=== PATIENT | female | born 1935 | race Caucasian/White ===

== ENCOUNTER 2016-09-30 10:14 | Emergency (ER) | payer BC ==
[~2016-09-30] VITALS: Ht 149.9 cm; Wt 84.6 kg
[~2016-09-30 10:14] MED LIST: ALBU1AER9 INH; FRS/80 PO; MAGNTAB4 PO; MOME200A INH; TPRSR/50 PO; XLTOPS OPB; ZCR40 PO
[2016-09-30 10:22] VITALS: TEMP 36.8; Ht 149.9 cm; Wt 84.6 kg
[2016-09-30] MEDS ORDERED: VNTHFA/IN INH (10:39)
--- NOTE | 2016-09-30 10:48 | EMERGENCY ROOM VISIT NOTE ---
History Report prepared by Yony: Sanjuana Tejeda Under the Supervision of: Dr. Demarcus Martinez M.D. First contact with patient: 10:37 Chief Complaint: KNEEPAIN Stated Complaint: SORE LEFT LEG History of Present Illness The patient is a 81 year old female who presents to the Emergency Room with complaints of constant left knee pain, which she rates at an 8/10. The patient reports that she fell going up stairs one week ago. She has been taking Tylenol for her pain. The patient also reports having arthritis and that she gets injections in her knees. She denies having a history of blood clots. She reports that she is on Coumadin for atrial fibrillation. Source of History: patient Onset: 1 week ago Position: knee (left) Symptom Intensity: rated at an 8/10 Timing: constant Review of Systems See HPI for pertinent positives & negatives. A total of 6 systems reviewed and were otherwise negative. Past Medical & Surgical Medical Problems: (1) Asthma (2) Benign hypertension (3) Bronchitis (4) CHF (congestive heart failure) (5) Edema (6) GERD (gastroesophageal reflux disease) (7) Hiatal hernia (8) High cholesterol (9) CAROLYNN on CPAP (10) Paroxysmal atrial fibrillation (11) PNA (pneumonia) (12) s/p elective cardioversion (13) Seasonal allergies Surgical Problems: (1) H/O: hysterectomy (2) S/P cataract surgery Family History Cancer FH: hypertension Heart disease Social History Smoking Status: Never Smoker Alcohol Use: none Drug Use: none Marital Status: Housing Status: lives with significant other Occupation Status: employed Current/Historical Medications Scheduled Acetaminophen (Tylenol), 325 MG PO UD Albuterol Hfa (Ventolin Hfa), 2 PUFFS INH Q4H Amiodarone HCl (Amiodarone HCl), 200 MG PO DAILY Fluticasone Prop/Salmeterol (Advair Diskus 100/50 60 Dose), 1 PUFF INH BID Furosemide (Lasix), 80 MG PO BID Magnesium Chloride (Slow-Mag Tab), 64 MG PO BID Metoprolol Succinate (Metoprolol Succinate ER), 12.5 MG PO DAILY Omeprazole (Prilosec), 20 MG PO DAILY Potassium Chloride Microencaps (Potassium Chloride Er), 10 MEQ PO BID Ranitidine (Zantac), 300 MG PO HS Simvastatin (Simvastatin), 40 MG PO HS Warfarin Sodium (Warfarin Sodium), 5 MG PO 6XWK Warfarin Sodium (Warfarin Sodium), 7.5 MG PO WK Allergies Coded Allergies: Alcohol (Verified Allergy, Mild, RASH, 09/30/16) WIPES OR INGESTED Cephalosporins (Verified Allergy, Mild, RASH, 09/30/16) Codeine (Verified Allergy, Mild, RASH, 09/30/16) Penicillins (Verified Allergy, Mild, RASH, 09/30/16) Aspirin (Unverified Allergy, Unknown, RASH, 09/30/16) Levofloxacin (Verified Allergy, Unknown, "BONE PAIN", 09/30/16) Sulfa Antibiotics (Verified Allergy, Unknown, UNKNOWN, 09/30/16) Physical Exam Vital Signs Date Time Temp Pulse Resp B/P (MAP) Pulse Ox O2 Delivery O2 Flow Rate FiO2 09/30/16 11:35 67 17 158/74 95 09/30/16 10:22 36.8 63 16 165/78 95 Room Air Physical Exam GENERAL: Patient is well appearing and in minimal distress. HEENT: No acute trauma, normocephalic atraumatic, mucous membranes moist, no nasal congestion, no scleral icterus. NECK: No stridor, no adenopathy, no meningismus, trachea is midline. LUNGS: No dyspnea. Clear to auscultation and equal bilaterally. No wheeze, no rhonchi. HEART: Regular rate and rhythm. No murmurs, rubs, gallops appreciated. BACK: No midline tenderness, no CVA tenderness EXTREMITIES: Mild effusion of left knee compared to right. Tenderness to palpation to lateral aspect of left knee. Left knee is stable and she has full range of motion with minimal pain. NEUROLOGIC: Alert and oriented, no acute motor or sensory deficits, no focal weakness, cranial nerves grossly intact. SKIN: No rash, no jaundice, no diaphoresis. Medical Decision & Procedures ER Provider Diagnostic Interpretation: X ray results are stated below per my interpretation and the radiologist's interpretation. LEFT KNEE 2 VIEWS HISTORY: left knee pain s/p fall. on Coumadin COMPARISON: Left knee 08/10/2015. FINDINGS: No dislocation. The bones are osteopenic. Anterior soft tissue swelling. No knee effusion. Severe osteoarthritis at the medial and patellofemoral compartments. This remains unchanged. Abnormal lucency at the fibular neck. This is consistent with an age-indeterminate fracture. No radiopaque foreign bodies. IMPRESSION: 1. Age-indeterminate fibular neck fracture. Recommend correlation for pain to assess for an acute fracture. 2. Anterior soft tissue swelling. 3. Severe osteoarthritis. Electronically signed by: Franky Elise M.D. 09/30/2016 11:02 AM Dictated Date/Time: 09/30/2016 11:00 AM ED Course 1038: The patient was evaluated in room C3. A complete history and physical exam was performed. 1118: I went over treatment plans with the patient and she says that she does not want casting or splinting and that she will follow up with orthopedics. She will use her walker at home. I went over and she understands symptoms that require return. 1120: Reevaluated the patient. Discussed results and discharge instructions: She verbalized understanding and agreement. The patient is ready for discharge. Medical Decision Differential: Fracture, Dislocation, Cellulitis, Septic Joint, Ligamentous Injury, Effusion, DVT, amongst other pathologies entertained. Pleasant 81 yr old female with recent left knee trauma. Small effusion on exam likely hemarthrosis given Coumadin use. This knee is not infected by exam currently. Imaging with small fibular neck fracture consistent with recent injury. Discussed immobilization but we both agree this would be dangerous given her already poor mobility along with fact she is on Coumadin. I do not feel this is dvt, especially given therapeutic INR. She has ortho that she will follow up with. Stable and comfortable. Medication Reconcilliation Current Medication List: was personally reviewed by me Blood Pressure Screening Patient's blood pressure: Elevated blood pressure Blood pressure disposition: Elevated BP felt to be situational Impression Primary Impression: Left fibular fracture Additional Impressions: Closed fracture of neck of fibula Knee hemarthrosis, left Scribe Attestation The scribe's documentation has been prepared under my direction and personally reviewed by me in its entirety. I confirm that the note above accurately reflects all work, treatment, procedures, and medical decision making performed by me. Departure Information Dispostion Home / Self-Care Referrals Gary Clement MD (PCP) Hayes Foley M.D. Patient Instructions My [facility] Additional Instructions There is a fracture of the top of your Fibula. Rest, elevation, Ice are important over the next few days. Return if worsening pain, difficulty breathing or other concerns. Use Tylenol as needed for pain. Use your walker. Follow up with Orthopedics in the next 1 to 2 weeks. Problem Qualifiers
--- NOTE | 2016-09-30 11:04 | DIAGNOSTIC IMAGING REPORT ---
LEFT KNEE 2 VIEWS HISTORY: left knee pain s/p fall. on Coumadin COMPARISON: Left knee 08/10/2015. FINDINGS: No dislocation. The bones are osteopenic. Anterior soft tissue swelling. No knee effusion. Severe osteoarthritis at the medial and patellofemoral compartments. This remains unchanged. Abnormal lucency at the fibular neck. This is consistent with an age-indeterminate fracture. No radiopaque foreign bodies. IMPRESSION: 1. Age-indeterminate fibular neck fracture. Recommend correlation for pain to assess for an acute fracture. 2. Anterior soft tissue swelling. 3. Severe osteoarthritis. Electronically signed by: Franky Elise M.D. 09/30/2016 11:02 AM Dictated Date/Time: 09/30/2016 11:00 AM
[2016-09-30 11:35] VITALS: BP 158/74; PULSE 67; O2SAT 95
[2016-10-01] MEDS ORDERED: RANI300T2 PO (08:48)
[2016-10-01] MEDS ORDERED: SLWMEC PO (10:39)
[2016-10-01] MEDS ORDERED: TPRSR/25 PO (10:44)
[2016-10-01] MEDS ORDERED: ADVIN10/60 INH (10:44)
[2016-10-01] MEDS ORDERED: ACET-1311 PO (11:14)
[2016-10-01] MEDS ORDERED: OMEP20CA9 PO (20:29)
[2016-10-01] MEDS ORDERED: LPT10 PO (21:32)
[2016-10-01] MEDS ORDERED: LSX80 PO (21:32)
[2016-10-01] MEDS ORDERED: ALBU18002 INH (21:33)
[2016-10-01] MEDS ORDERED: CRD200 PO (21:52)
[2016-10-01] MEDS ORDERED: WARF-246 PO ×2 (21:58)
[2016-10-01] MEDS ORDERED: POTA10TA32 PO (21:59)
[2016-10-03] MEDS ORDERED: ULT50X PO (14:20)
[2016-10-03] MEDS ORDERED: NITR1CAP16 PO (14:20)
== END 2016-09-30 11:36 | disposition home or self-care (01) ==
LOC: C.EDB 10:15 → C.EDC 11:36
DX: S82.832A Other fracture of upper and lower end of left fibula, initial encounter for closed fracture (principal); M25.062 Hemarthrosis, left knee; W10.9XXA Fall (on) (from) unspecified stairs and steps, initial encounter; I48.0 Paroxysmal atrial fibrillation; J45.909 Unspecified asthma, uncomplicated; K21.9 Gastro-esophageal reflux disease without esophagitis; I11.0 Hypertensive heart disease with heart failure; I50.9 Heart failure, unspecified; E78.00 Pure hypercholesterolemia, unspecified; G47.33 Obstructive sleep apnea (adult) (pediatric); Z98.890 Other specified postprocedural states; Z90.710 Acquired absence of both cervix and uterus; Z98.49 Cataract extraction status, unspecified eye; Z82.49 Family history of ischemic heart disease and other diseases of the circulatory system; Z79.01 Long term (current) use of anticoagulants; Z79.899 Other long term (current) drug therapy

== ENCOUNTER 2016-10-01 21:04 | Inpatient (IN) | payer BC, OTHER ==
[~2016-10-01] VITALS: Ht 149.9 cm; Wt 37.7 kg
[~2016-10-01 21:04] MED LIST changes: +ACET-1311 PO; +ADVIN10/60 INH; -ALBU1AER9 INH; -MAGNTAB4 PO; -MOME200A INH; +OMEP20CA9 PO; +RANI300T2 PO; +SLWMEC PO; +TPRSR/25 PO; -TPRSR/50 PO; +VNTHFA/IN INH; -XLTOPS OPB
[2016-10-01] MEDS ORDERED: LPT10 PO (21:32)
[2016-10-01] MEDS ORDERED: LSX80 PO (21:32)
[2016-10-01] MEDS ORDERED: ALBU18002 INH (21:33)
[2016-10-01] MEDS ORDERED: CRD200 PO (21:52)
[2016-10-01] MEDS ORDERED: WARF-246 PO ×2 (21:58)
[2016-10-01] MEDS ORDERED: POTA10TA32 PO (21:59)
[2016-10-01 22:33] LABS: URINE APPEARANCE CLOUDY (CLEAR); URINE COLOR DK YELLOW; URINE EPITHELIAL CELL AUTO >30 /lpf (0-5); URINE NITRITE NEG (NEG); URINE SPECIFIC GRAVITY 1.017 (1.000-1.030); UROBILINOGEN NEG (NEG); ZZUR CULT IF INDIC CLEAN CATCH YES
[2016-10-01 22:42] LABS: MANUAL MICROSCOPIC REQUIRED? NO; REVIEW REQ? YES
[2016-10-01 22:43] LABS: URINE BILIRUBIN NEG (NEG)
[2016-10-01 22:51] LABS: BASO % 0.1 %; BASO ABS # 0.02 K/uL (0-0.2); COMPLETE YES; HEMATOCRIT 37.6 % (37-47); IG% 0.3 %; LYMPH % 6.7 %; LYMPH ABS # 1.23 K/uL (1.2-3.4); MEAN CELL VOLUME 82.8 fL (80-100); MEAN CORPUSCULAR HEMOGLOBIN 26.2 pg (25-34); MEAN CORPUSCULAR HGB CONC 31.6 g/dl (32-36); MEAN PLATELET VOLUME 10.6 fL (7.4-10.4); MONO % 5.8 %; NEUT % 87.1 %; PLATELET COUNT 265 K/uL (130-400); RED BLOOD COUNT 4.54 M/uL (4.2-5.4); WHITE BLOOD COUNT 18.46 K/uL (4.8-10.8)
[2016-10-01 23:02] LABS: INR 2.3 (0.9-1.1); PARTIAL THROMBOPLASTIN RATIO 1.4; PROTHROMBIN TIME (PATIENT) 25.2 SECONDS (9.0-12.0)
[2016-10-01 23:08] LABS: ALT/SGPT 34 U/L (12-78); BLOOD UREA NITROGEN 20 mg/dl (7-18); BUN/CREATININE RATIO 15.4 (10-20); C-REACTIVE PROTEIN 2.05 mg/dl (0-0.29); CALCIUM 8.5 mg/dl (8.5-10.1); CARBON DIOXIDE 27 mmol/L (21-32); CHLORIDE 100 mmol/L (98-107); GLUCOSE 110 mg/dl (70-99); POTASSIUM 3.7 mmol/L (3.5-5.1); SODIUM 136 mmol/L (136-145)
[2016-10-01 23:11] LABS: ALB/GLOB RATIO 0.6 (0.9-2); ALKALINE PHOSPHATASE 298 U/L (45-117); AST/SGOT 71 U/L (15-37)
[2016-10-01] MEDS ORDERED: IMIPENEM-CILASTATIN 500 MG in DEXTROSE 5% 100ML 100 ML IV STA (23:31)
[2016-10-01 23:43] LABS: LYME DISEASE AB IGG NEG (NEG); LYME DISEASE AB IGM NEG (NEG)
[2016-10-01 23:47] LABS: PROCALCITONIN 0.88 ng/ml (0-0.5)
[2016-10-01] MEDS ORDERED: DAPTOMYCIN IV 500 MG in NSS 50ML IV STA (23:56)
[2016-10-02] MEDS ORDERED: DAPTOmycin IV 500 MG in SODIUM CHLORIDE 0.9% 50ML 50 ML IV STA (00:02)
[2016-10-02] MEDS ORDERED: ACETAMINOPHEN 500 MG TAB PO STA (00:04)
--- NOTE | 2016-10-02 00:09 | EMERGENCY ROOM VISIT NOTE ---
History First contact with patient: 21:58 Chief Complaint: KNEEPAIN Stated Complaint: LEFT KNEE PAIN, FEVER History of Present Illness The patient is a 81 year old female who presents to the Emergency Room with complaints of fever, chills, left knee pain and swelling for the past day. Patient is on Coumadin for A. fib. Dr. Foley is her orthopedic doctor. Dr. Alonzo is her inspector hairspring. Patient seen here yesterday and diagnosed with a left proximal fibular fracture. She was advised to follow-up with orthopedics. Patient took Tylenol at 8 PM today. She took 1 g. Patient was increasing left knee pain and swelling. She's had injections in this knee before. Patient also complains of left lateral chest pain after falling 1 week ago when she initially injured her knee. Patient thinks it's a muscular pain. Patient denies dyspnea, productive cough, abdominal pain, vomiting, diarrhea, back pain , urinary symptoms, cold symptoms. No recent travel. No sick contacts. Review of Systems See HPI for pertinent positives & negatives. A total of 10 systems reviewed and were otherwise negative. Past Medical/Surgical History Medical Problems: (1) Asthma (2) Benign hypertension (3) Bronchitis (4) CHF (congestive heart failure) (5) Edema (6) Fall (7) GERD (gastroesophageal reflux disease) (8) Hiatal hernia (9) High cholesterol (10) Left knee pain (11) CAROLYNN on CPAP (12) Paroxysmal atrial fibrillation (13) PNA (pneumonia) (14) s/p elective cardioversion (15) Seasonal allergies (16) UTI (urinary tract infection) Surgical Problems: (1) H/O: hysterectomy (2) S/P cataract surgery Family History Cancer FH: hypertension Heart disease Social History Smoking Status: Never Smoker Alcohol Use: none Drug Use: none Marital Status: Housing Status: lives with significant other Occupation Status: employed Current/Historical Medications Scheduled Albuterol Sulfate (Proair Respiclick), 2 PUFFS INH Q4H Amiodarone HCl (Amiodarone HCl), 200 MG PO DAILY Atorvastatin (Atorvastatin Calcium), 10 MG PO DAILY Fluticasone Prop/Salmeterol (Advair Diskus 100/50 60 Dose), 1 PUFF INH BID Furosemide (Furosemide), 80 MG PO BID Magnesium Chloride (Slow-Mag Tab), 64 MG PO BID Metoprolol Succinate (Metoprolol Succinate ER), 12.5 MG PO DAILY Omeprazole (Prilosec), 20 MG PO DAILY Potassium Chloride Microencaps (Potassium Chloride Er), 10 MEQ PO BID Ranitidine (Zantac), 300 MG PO HS Warfarin Sodium (Warfarin Sodium), 5 MG PO 6XWK Warfarin Sodium (Warfarin Sodium), 7.5 MG PO WK Scheduled PRN Acetaminophen (Tylenol), 325 MG PO UD PRN for Pain Physical Exam Vital Signs Date Time Temp Pulse Resp B/P (MAP) Pulse Ox O2 Delivery O2 Flow Rate FiO2 10/02/16 01:05 36.8 10/02/16 00:30 67 18 126/66 92 Room Air 10/01/16 22:40 73 18 111/62 90 Room Air 10/01/16 22:40 90 Room Air 10/01/16 21:10 38.2 81 19 123/64 91 Room Air Physical Exam VITALS: Vitals are noted on the nurse's note and reviewed by myself. Vital signs eyebrow GENERAL: Pleasant female, in no acute distress, nondiaphoretic, well-developed well-nourished. SKIN: The skin was without rashes, erythema, edema, or bruising. There is no tenting of the skin. Capillary reflex less than 2 seconds. HEAD: Normocephalic atraumatic. EARS: External auditory canals clear, tympanic membranes pearly scott without erythema or effusion bilaterally. EYES: Pupils equal round and reactive to light and accommodation. Conjunctivae without injection, sclerae without icterus. Extraocular movements intact. NOSE: Patent, turbinates without inflammation or discharge. No sinus tenderness. MOUTH: Mucous membranes moist. Pharynx without erythema or exudate. Uvula midline. Airway patent. Tongue does not deviate. NECK: Supple without nuchal rigidity. No lymphadenopathy. No thyromegaly. Cervical spine is nontender. No JVD. HEART: Regular rate and rhythm LUNGS: Clear to auscultation bilaterally without wheezes, rales or rhonchi. No dullness to percussion. No retractions or accessory muscle use. ABDOMEN: Positive bowel sounds x 4. Normal tympanic percussion. Soft, nontender, without masses or organomegaly. Marie sign negative. No guarding or rebound tenderness. MUSCULOSKELETAL: No muscle atrophy, erythema, noted. Left knee is slightly more edematous than the right knee, patient is obese with large knees to begin with, no lymphangitis or erythema present. Patient is tender to palpation over the proximal fibula. No left hip, thigh, ankle or foot tenderness. Pedal pulses +2 equal present bilaterally. NEURO: Patient was alert and oriented to person place and time. Normal sensation to light and sharp touch. No focal neurological deficits. Medical Decision & Procedures Laboratory Results 10/01/16 22:37 Red Blood Count 4.54, Mean Corpuscular Volume 82.8, Mean Corpuscular Hemoglobin 26.2, Mean Corpuscular Hemoglobin Concent 31.6, Mean Platelet Volume 10.6, Neutrophils (%) (Auto) 87.1, Lymphocytes (%) (Auto) 6.7, Monocytes (%) (Auto) 5.8, Eosinophils (%) (Auto) 0.0, Basophils (%) (Auto) 0.1, Neutrophils # (Auto) 16.09, Lymphocytes # (Auto) 1.23, Monocytes # (Auto) 1.07, Eosinophils # (Auto) 0.00, Basophils # (Auto) 0.02 10/01/16 22:37 Test 10/01/16 22:23 10/01/16 22:37 Urine Color DK YELLOW Urine Appearance CLOUDY (CLEAR) Urine pH 5.0 (4.5-7.5) Urine Specific [place] 1.017 (1.000-1.030) Urine Protein NEG (NEG) Urine Glucose (UA) NEG (NEG) Urine Ketones TRACE (NEG) Urine Occult Blood NEG (NEG) Urine Nitrite NEG (NEG) Urine Bilirubin NEG (NEG) Urine Urobilinogen NEG (NEG) Urine Leukocyte Esterase MODERATE (NEG) Urine WBC (Auto) >30 /hpf (0-5) Urine RBC (Auto) 0-4 /hpf (0-4) Urine Hyaline Casts (Auto) 5-10 /lpf (0-5) Urine Epithelial Cells (Auto) >30 /lpf (0-5) Urine Bacteria (Auto) 1+ (NEG) White Blood Count 18.46 K/uL (4.8-10.8) Red Blood Count 4.54 M/uL (4.2-5.4) Hemoglobin 11.9 g/dL (12.0-16.0) Hematocrit 37.6 % (37-47) Mean Corpuscular Volume 82.8 fL (80-100) Mean Corpuscular Hemoglobin 26.2 pg (25-34) Mean Corpuscular Hemoglobin Concent 31.6 g/dl (32-36) Platelet Count 265 K/uL (130-400) Mean Platelet Volume 10.6 fL (7.4-10.4) Neutrophils (%) (Auto) 87.1 % Lymphocytes (%) (Auto) 6.7 % Monocytes (%) (Auto) 5.8 % Eosinophils (%) (Auto) 0.0 % Basophils (%) (Auto) 0.1 % Neutrophils # (Auto) 16.09 K/uL (1.4-6.5) Lymphocytes # (Auto) 1.23 K/uL (1.2-3.4) Monocytes # (Auto) 1.07 K/uL (0.11-0.59) Eosinophils # (Auto) 0.00 K/uL (0-0.5) Basophils # (Auto) 0.02 K/uL (0-0.2) RDW Standard Deviation 53.1 fL (36.4-46.3) RDW Coefficient of Variation 17.5 % (11.5-14.5) Immature Granulocyte % (Auto) 0.3 % Immature Granulocyte # (Auto) 0.05 K/uL (0.00-0.02) Erythrocyte Sedimentation Rate 72 mm/hr (0-21) Prothrombin Time 25.2 SECONDS (9.0-12.0) Prothromb Time International Ratio 2.3 (0.9-1.1) Activated Partial Thromboplast Time 37.5 SECONDS (21.0-31.0) Partial Thromboplastin Ratio 1.4 Anion Gap 9.0 mmol/L (3-11) Estimated GFR () 44.6 Estimated GFR (Non- 38.4 BUN/Creatinine Ratio 15.4 (10-20) Calcium Level 8.5 mg/dl (8.5-10.1) Magnesium Level 2.0 mg/dl (1.8-2.4) Total Bilirubin 0.9 mg/dl (0.2-1) Aspartate Amino Transf (AST/SGOT) 71 U/L (15-37) Alanine Aminotransferase (ALT/SGPT) 34 U/L (12-78) Alkaline Phosphatase 298 U/L (45-117) Total Creatine Kinase 40 U/L (26-192) Creatine Kinase MB < 0.5 ng/ml (0.5-3.6) Creatine Kinase MB Ratio (0-3.0) Troponin I < 0.015 ng/ml (0-0.045) C-Reactive Protein 2.05 mg/dl (0-0.29) Total Protein 7.2 gm/dl (6.4-8.2) Albumin 2.8 gm/dl (3.4-5.0) Globulin 4.4 gm/dl (2.5-4.0) Albumin/Globulin Ratio 0.6 (0.9-2) Procalcitonin 0.88 ng/ml (0-0.5) Lyme Disease IgG Antibody NEG (NEG) Lyme Disease IgM Antibody NEG (NEG) Medications Administered Medications (Trade) Dose Ordered Sig/Yanet Route Start Time Stop Time Status Last Admin Dose Admin Imipenem/ Cilastatin Sodium 500 mg/Dextrose 120 ml @ 100 mls/hr NOW STAT IV 10/01/16 23:31 10/02/16 00:42 DC 10/01/16 23:51 100 MLS/HR Daptomycin 500 mg/ Sodium Chloride 60 ml @ 120 mls/hr NOW STAT IV 10/01/16 23:56 10/02/16 00:25 DC 10/02/16 01:04 120 MLS/HR Acetaminophen (Tylenol Tab) 1,000 mg NOW STAT PO 10/02/16 00:04 10/02/16 00:05 DC 10/02/16 01:05 1,000 MG ED Course Prior records/ancillary studies reviewed. Triage Nursing notes reviewed. Additional history obtained from family. The patient's history was concerning for fever. Differential diagnosis: Etiologies such as viral syndrome, septic knee, Lyme's, otitis, pharyngitis, pneumonia, influenza, meningitis, urinary tract infection, sepsis, bacteremia, as well as others were entertained. Physical examination: Patient is alert and well appearing ER treatment provided: Daptomycin, Primaxin, Tylenol On reassessment the patient felt better. Diagnostics interpreted by me: ECG: Normal sinus, normal intervals, no acute ST-T wave changes. Impression normal sinus rhythm interpreted by myself The labs revealed leukocytosis. Elevated pro calcitonin. Elevated sedimentation rate and CRP. Urine concerning for infection and sent for culture. Blood cultures pending. INR 2.3 Imaging studies: Knee x-ray with ongoing proximal fibular fracture per my interpretation. Chest x-ray with widening of the mediastinum and unchanged from prior per chart review. Objective was negative for DVT per radiology Consultation: A consultation was placed with Dr. Armstrong, hospitalist. The case was discussed and diagnostics were reviewed. The patient was evaluated in the ER for further treatment. This appears to be consistent with fever most likely from UTI with knee effusion and fracture of the proximal fibula. Patient will be evaluated by medicine for possible admission. She started on broad-spectrum antibiotics. Blood cultures pending. Urine cultures pending. Patient did have a high white count. She is febrile. Patient's knee was not erythematous or having obvious signs of a septic joint. She is able to move it. By the evaluation outlined above emergent etiologies such as otitis, pharyngitis, pneumonia, meningitis, urinary tract infection, bacteremia, as well as others were deemed relatively unlikely. The pt informed about the findings as listed above. All questions were answered and pleased with the treatment. Case reviewed with my attending. Medical Decision As above Medication Reconcilliation Current Medication List: was personally reviewed by or Blood Pressure Screening Patient's blood pressure: Normal blood pressure Impression Primary Impression: SIRS (systemic inflammatory response syndrome) Additional Impressions: UTI (urinary tract infection) Fever Closed fibular fracture Knee effusion, left Departure Information Dispostion Being Evaluated By Hospitalist Condition FAIR Referrals Gary Clement MD (PCP) Patient Instructions My [facility] Problem Qualifiers Additional Impressions: UTI (urinary tract infection) Urinary tract infection type: acute cystitis Hematuria presence: without hematuria Qualified Codes: N30.00 - Acute cystitis without hematuria
[2016-10-02] MEDS ORDERED: ONDANSETRON INJ 2 MG/ML 2 ML VIAL IV PRN (01:30)
[2016-10-02] MEDS ORDERED: ACETAMINOPHEN 325 MG TAB PO PRN (01:30)
[2016-10-02] MEDS ORDERED: IMIPENEM/CILASTATIN IV 500 MG in DEXTROSE 5% 100ML 100 ML IV SCH (01:45)
[2016-10-02] MEDS ORDERED: TRAMADOL HCL 50 MG TAB PO PRN ×2 (02:00→13:15)
[2016-10-02] MEDS ORDERED: IV FLUIDS COMPLETED PRN ×2 (02:15)
[2016-10-02 02:20] VITALS: BP 155/82; PULSE 67; TEMP 36.5; O2SAT 95; Ht 149.9 cm; Wt 37.7 kg
--- NOTE | 2016-10-02 02:35 | HISTORY & PHYSICAL EXAMINATION ---
DATE OF ADMISSION: 10/01/2016 PRIMARY CARE PROVIDER: Dr. Clement. CHIEF COMPLAINT: Increasing pain in the left knee joint and also complains of fever without any dysuria. HISTORY OF PRESENT COMPLAINT: She is an 81-year-old female with significant past medical history of chronic atrial fibrillation, on anticoagulation, diastolic heart failure, hypertension, obstructive sleep apnea, on CPAP, history of asthma, chronic kidney disease and hyperlipidemia. Apparently had a fall yesterday and injured her left knee, that was a mechanical fall. She came to the ER and she had an x-ray of the left knee that did show age-indeterminate fibular neck fracture. She was sent home with pain medications and Tylenol, and she was advised to make an appointment with orthopedic doctor. Dr. Foley had done injection of her knee joint in the past. She was complaining of more pain as of today and she is back but the swelling is decreased. She also has some feverish feeling but did not have any other symptoms suggestive of an infection. In the ER, she was noted to be febrile at 38.2 and her white count was 18.46. Her UA is suggestive of infection. Her knee swelling decreased, but with fever and UTI and ongoing knee pain, she was admitted to medical floor for continuation of care. PAST MEDICAL HISTORY: Chronic atrial fibrillation, on anticoagulation, diastolic heart failure, hypertension, hyperlipidemia, obstructive sleep apnea, on CPAP, mild asthma and chronic kidney disease. PAST SURGICAL HISTORY: Cataract surgery, total abdominal hysterectomy and tubal removal. FAMILY HISTORY: Nothing significant to note. SOCIAL HISTORY: She is . She lives with her . She has 2 children. She does not smoke, does not drink. ALLERGIES: SHE IS ALLERGIC TO ALCOHOL, CEPHALOSPORIN, CODEINE, PENICILLINS, ASPIRIN, LEVOFLOXACIN AND SULFA. MEDICATIONS: As an outpatient, she has been on Tylenol 325 mg as directed, albuterol sulfate 2 puffs every 4 hourly as needed, amiodarone 200 mg daily, atorvastatin 10 mg daily, Advair Diskus 100/50 one puff twice daily, furosemide 80 mg twice daily, magnesium chloride 64 mg b.i.d., Toprol-XL 25 mg tablet 12.5 daily, omeprazole 20 mg daily, potassium chloride 10 mEq daily, ranitidine 300 mg at night and warfarin sodium 5 mg as directed. REVIEW OF SYSTEMS: Other systemic review unremarkable except those mentioned in history of present complaint. PHYSICAL EXAMINATION: GENERAL: On examination in the Emergency Room, she was not in any acute distress. VITAL SIGNS: Temperature 38.2 initially, that came down to 36.8, pulse of 67, blood pressure 126/66, saturation 92% on room air. HEENT: Unremarkable. NECK: Supple. No JVD, no bruit. CHEST: Clear to auscultation bilaterally. HEART: S1, S2 regular. ABDOMEN: Soft, benign, mildly tender in the hypogastrium. No organomegaly. Bowel sounds present. EXTREMITIES: Trace edema bilaterally. Examination of the left knee joint did show minimal swelling of the knee joint anteromedially with some tenderness locally. Knee movement is moderately painful. No obvious joint fluid noted. CENTRAL NERVOUS SYSTEM: Alert, awake, oriented x3. No focal sensory and/or motor deficit appreciated. LABORATORY DATA: Noted today, white count was 18.46, H&H 11.9/37.6, platelet was 265. Sodium 136, potassium 3.7, chloride 100, carbon dioxide 27, BUN 20, creatinine 1.30. Random glucose 100. Alkaline phosphatase 298. AST slightly elevated at 71. Troponin less than 0.015. C-reactive protein 2.05. ESR was 30. Prolactin was 0.88. INR was 2.3. PT ratio 1.4. UA examination suggestive of infection. Lyme disease negative. Chest x-ray unremarkable. X-ray of the knee did show indeterminate fracture of the fibular neck. Ultrasound negative for any DVT. IMPRESSION AND PLAN: 1. Urinary tract infection. The patient will be admitted to medical floor. She was started on intravenous daptomycin and imipenem with possibility of sepsis.Doubt any septic arthritis. We will continue with imipenem now. Blood culture and urine culture have been sent. 2. Fibular neck fracture on the left side status post fall. There is some swelling. The patient is on Coumadin. We will ask for orthopedic evaluation and PT and OT from there. Doubt any obvious hematoma at this time or any infection in the joint. 3. Atrial fibrillation, on anticoagulation. No acute findings at this time. Her EKG is in sinus rhythm with minimal nonspecific ST-T wave changes. 4. Chronic diastolic heart failure. Continue with current dose of Lasix. 5. Hypertension. Continue with current medications for blood pressure. 6. Sleep apnea, on CPAP. The patient can use her own CPAP while in the hospital. 7. Asthma, seems to be stable. Continue with her inhalers. 8. Gastrointestinal prophylaxis with Protonix and ranitidine. 9. Deep venous thrombosis prophylaxis, on Coumadin. 10. Code status. Full code. In my clinical judgment, the beneficiary meets criteria as per CMS for 2-midnight stay in the hospital. MTDD
[2016-10-02] MEDS ORDERED: IMIPENEM/CILASTATIN CONSULT ACTIVE PRN (02:45)
[2016-10-02] MEDS: ALBUTEROL HFA 8 GM INHALER INH SCH ×5 (04:00→19:45)
[2016-10-02] MEDS: IMIPENEM/CILASTATIN IV 300 MG in DEXTROSE 5% 100ML 100 ML IV SCH ×2 (05:28→11:28)
[2016-10-02 06:15] LABS: HEMATOCRIT 36.2 % (37-47); MEAN CELL VOLUME 83.2 fL (80-100); MEAN CORPUSCULAR HEMOGLOBIN 25.7 pg (25-34); MEAN CORPUSCULAR HGB CONC 30.9 g/dl (32-36); RED BLOOD COUNT 4.35 M/uL (4.2-5.4); WHITE BLOOD COUNT 14.34 K/uL (4.8-10.8)
[2016-10-02 06:16] LABS: MEAN PLATELET VOLUME 11.4 fL (7.4-10.4); PLATELET COUNT 252 K/uL (130-400)
[2016-10-02 06:22] LABS: INR 2.2 (0.9-1.1); PROTHROMBIN TIME (PATIENT) 23.8 SECONDS (9.0-12.0)
--- NOTE | 2016-10-02 06:41 | DIAGNOSTIC IMAGING REPORT ---
LEFT VENOUS DOPP LOWER EXT UNILAT CLINICAL HISTORY: left leg swelling pain. Edema. TECHNIQUE: Venous Dopp COMPARISON STUDY: None FINDINGS: Normal study IMPRESSION: Normal study The above report was generated using voice recognition software. It may contain grammatical, syntax or spelling errors. Electronically signed by: Avinash Pride M.D. 10/02/2016 6:39 AM Dictated Date/Time: 10/02/2016 6:39 AM
[2016-10-02 06:47] LABS: BUN/CREATININE RATIO 15.6 (10-20); CALCIUM 8.4 mg/dl (8.5-10.1); CREATININE 1.2 mg/dl (0.60-1.20); MAGNESIUM 2.2 mg/dl (1.8-2.4); POTASSIUM 3.2 mmol/L (3.5-5.1)
--- NOTE | 2016-10-02 06:50 | DIAGNOSTIC IMAGING REPORT ---
LEFT KNEE 3 VIEWS CLINICAL HISTORY: pain, swelling, fever pain. Edema. COMPARISON: None. DISCUSSION: Considerable degenerative change all major joint compartments. Moderate reactive osteophytic change throughout. Significant degenerative change patellofemoral joint compartment. There is no evidence for soft tissue swelling. IMPRESSION: Considerable degenerative change. No acute bony abnormality. The above report was generated using voice recognition software. It may contain grammatical, syntax or spelling errors. Electronically signed by: Avinash Pride M.D. 10/02/2016 6:48 AM Dictated Date/Time: 10/02/2016 6:48 AM
--- NOTE | 2016-10-02 06:55 | DIAGNOSTIC IMAGING REPORT ---
CHEST ONE VIEW PORTABLE CLINICAL HISTORY: Sepsis dyspnea COMPARISON STUDY: 12/28/2014 FINDINGS: Moderate stable cardiomegaly. Stable mediastinal fullness unchanged from the prior exam. Components of mild congestive failure present. Increased prominence of pulmonary vasculature compared to the prior study. Fixed lateral hernia. IMPRESSION: Mild congestive heart failure superimposed upon chronic change. The above report was generated using voice recognition software. It may contain grammatical, syntax or spelling errors. Electronically signed by: Avinash Pride M.D. 10/02/2016 6:54 AM Dictated Date/Time: 10/02/2016 6:53 AM
[2016-10-02 07:00] VITALS: BP 149/70; PULSE 66; TEMP 36.5; O2SAT 96
[2016-10-02] MEDS: FLUTICASONE/SALMETEROL 100/50 (ADVAIR) 14 PUFF/1 INHALER INH SCH ×2 (08:12→21:07)
[2016-10-02] MEDS: AMIODARONE 200 MG TAB PO SCH (08:13)
[2016-10-02] MEDS: PANTOprazole SOD 40 MG TAB PO SCH (08:13)
[2016-10-02] MEDS: METOPROLOL SUCC 25MG EXT REL TAB PO SCH (08:14)
[2016-10-02] MEDS: MAGNESIUM CHLORIDE 64MG DELAYED REL TAB PO SCH ×2 (08:15→21:08)
[2016-10-02] MEDS: ATORVASTATIN 10 MG TAB PO SCH (08:15)
[2016-10-02] MEDS: POTASSIUM CHLORIDE 10 MEQ TABCR PO SCH ×3 (08:16→21:17)
[2016-10-02] MEDS: FUROSEMIDE 80 MG TAB PO SCH ×2 (08:24→17:03)
[2016-10-02] MEDS: ACETAMINOPHEN 325 MG TAB PO PRN ×2 (13:50→22:21)
[2016-10-02 15:02] VITALS: BP 124/63; PULSE 55; TEMP 36.6; O2SAT 95
--- NOTE | 2016-10-02 15:10 | Medical Consult ---
Consultation Date of Consultation: Oct 02, 2016. Attending Physician: Stacy Egan M.D. Reason for Consultation: UTI, doubt sepsis History of Present Illness 81-year-old female reportedly suffered a fall 1-2 weeks ago injuring left knee. She developed progressively worsening pain in her knee, was seen in the emergency room, and was found to have evidence fracture of the fibula. She was discharged home, returned with severe pain and found to have fever and leukocytosis. Workup thus far has shown abnormal urinalysis with pyuria, with urine now with growth but not identified as of yet. No evidence of knee infection. No increase in cough or shortness of breath. Patient now feeling better and offers no new specific complaints and has been afebrile. Currently on imipenem. Past Medical/Surgical History Medical Problems: (1) Ambulatory dysfunction Status: Acute (2) Closed fibular fracture Status: Acute (3) Closed fracture of neck of fibula Status: Acute (4) Fever Status: Acute (5) Knee effusion, left Status: Acute (6) Knee hemarthrosis, left Status: Acute (7) Left fibular fracture Status: Acute (8) Left knee pain Status: Acute (9) Right hip pain Status: Acute (10) SIRS (systemic inflammatory response syndrome) Status: Acute (11) UTI (urinary tract infection) Status: Acute Medical Problems: (1) Asthma (2) Benign hypertension (3) Bronchitis (4) CHF (congestive heart failure) (5) Edema (6) Fall (7) GERD (gastroesophageal reflux disease) (8) Hiatal hernia (9) High cholesterol (10) Left knee pain (11) CAROLYNN on CPAP (12) Paroxysmal atrial fibrillation (13) PNA (pneumonia) (14) s/p elective cardioversion (15) Seasonal allergies (16) UTI (urinary tract infection) Surgical Problems: (1) H/O: hysterectomy (2) S/P cataract surgery Family History Cancer FH: hypertension Heart disease Social History Smoking Status: Never Smoker Drug Use: none Marital Status: Housing Status: lives with significant other Occupation Status: employed Allergies Coded Allergies: Alcohol (Verified Allergy, Mild, RASH, 09/30/16) WIPES OR INGESTED Cephalosporins (Verified Allergy, Mild, RASH, 09/30/16) Codeine (Verified Allergy, Mild, RASH, 09/30/16) Penicillins (Verified Allergy, Mild, RASH, 09/30/16) Aspirin (Unverified Allergy, Unknown, RASH, 09/30/16) Levofloxacin (Verified Allergy, Unknown, "BONE PAIN", 09/30/16) Sulfa Antibiotics (Verified Allergy, Unknown, UNKNOWN, 09/30/16) Current Inpatient Medications Current Inpatient Medications Medications (Trade) Dose Ordered Sig/Yanet Route Start Time Stop Time Status Last Admin Dose Admin Acetaminophen (Tylenol Tab) 650 mg Q4H PRN PO 10/02/16 01:30 11/01/16 01:29 10/02/16 13:50 650 MG Ondansetron HCl (Zofran Inj) 4 mg Q6H PRN IV 10/02/16 01:30 11/01/16 01:29 Amiodarone HCl (Cordarone Tab) 200 mg DAILY PO 10/02/16 09:00 11/01/16 08:59 10/02/16 08:13 200 MG Atorvastatin Calcium (Lipitor Tab) 10 mg DAILY PO 10/02/16 09:00 11/01/16 08:59 10/02/16 08:15 10 MG Salmeterol Xinafoate/ Fluticasone (Advair Diskus 100/50 Inh) 1 puff BID INH 10/02/16 09:00 11/01/16 08:59 10/02/16 08:12 1 PUFF Furosemide (Lasix Tab) 80 mg BID17 PO 10/02/16 09:00 11/01/16 08:59 10/02/16 08:24 80 MG Magnesium Chloride (Slow-Mag Tab) 64 mg BID PO 10/02/16 09:00 11/01/16 08:59 10/02/16 08:15 64 MG Metoprolol Succinate (Toprol Xl Tab) 12.5 mg DAILY PO 10/02/16 09:00 11/01/16 08:59 10/02/16 08:14 12.5 MG Potassium Chloride (Klor-Con M10) 10 meq BID PO 10/02/16 09:00 11/01/16 08:59 10/02/16 08:16 10 MEQ Warfarin Sodium (Coumadin Tab) 5 mg SuMoTuWeFrSa@1600 PO 10/02/16 16:00 11/01/16 15:59 Warfarin Sodium (Coumadin Tab) 7.5 mg Th@1600 PO 10/05/16 16:00 11/04/16 15:59 Albuterol (Ventolin Hfa Inhaler) 2 puffs Q4H INH 10/02/16 04:00 11/01/16 03:59 10/02/16 11:28 2 PUFFS Pantoprazole Sodium (Protonix Tab) 40 mg QAM PO 10/02/16 09:00 11/01/16 08:59 10/02/16 08:13 40 MG Ranitidine HCl (zANTac TAB) 300 mg HS PO 10/02/16 21:00 11/01/16 20:59 Miscellaneous (Iv Fluids Completed) 1 ea PRN PRN N/A 10/02/16 02:15 10/02/17 02:14 Miscellaneous (Iv Fluids Completed) 1 ea PRN PRN N/A 10/02/16 02:15 10/02/17 02:14 Imipenem/ Cilastatin Sodium (Consult) 1 ea UD PRN N/A 10/02/16 02:45 11/01/16 02:44 Tramadol HCl (Ultram Tab) `1-2 tabs for pain 1 tab ... Q4H PRN PO 10/02/16 13:15 11/01/16 13:14 Imipenem/ Cilastatin Sodium 250 mg/Dextrose 110 ml @ 106 mls/hr Q6 IV 10/02/16 18:00 10/07/16 17:59 Review of Systems All systems were reviewed and are negative except as per HPI Physical Exam Date Time Temp Pulse Resp B/P (MAP) Pulse Ox O2 Delivery O2 Flow Rate FiO2 10/02/16 15:02 36.6 55 18 124/63 (83) 95 Room Air 10/02/16 08:10 Room Air 10/02/16 07:00 36.5 66 18 149/70 (96) 96 Room Air 10/02/16 02:20 36.5 67 16 155/82 95 Room Air 10/02/16 02:20 Room Air 10/02/16 01:51 57 18 124/73 94 10/02/16 01:05 36.8 10/02/16 00:30 67 18 126/66 92 Room Air 10/01/16 22:40 73 18 111/62 90 Room Air 10/01/16 22:40 90 Room Air 10/01/16 21:10 38.2 81 19 123/64 91 Room Air General Appearance: WD/WN, no apparent distress, + obese Head: normocephalic, atraumatic Eyes: normal inspection, EOMI, sclerae normal ENT: normal ENT inspection, pharynx normal Neck: supple, no adenopathy, thyroid normal, trachea midline Respiratory/Chest: chest non-tender, lungs clear, normal breath sounds, no respiratory distress Cardiovascular: regular rate, rhythm, no gallop, no murmur Abdomen/GI: normal bowel sounds, non tender, soft, no organomegaly Back: normal inspection, no CVA tenderness Extremities/Musculoskelatal: no calf tenderness, non-tender Neurologic/Psych: alert, normal mood/affect, oriented x 3 Skin: normal color, warm/dry, no rash Lymphatic: no adenopathy Laboratory Results Date/Time Source Procedure Growth Status 10/01/16 22:37 Blood Blood Culture Pending Received 10/01/16 22:37 Blood Blood Culture Pending Received 10/01/16 22:23 Urine , Clean Catch Urine Culture - Preliminary PIN-POINT GROWTH PRESENT, REINCUBATING. Resulted Last 24 Hours Test 10/01/16 22:23 10/01/16 22:37 10/01/16 22:43 10/02/16 05:31 Urine Color DK YELLOW Urine Appearance CLOUDY Urine pH 5.0 Urine Specific [place] 1.017 Urine Protein NEG Urine Glucose (UA) NEG Urine Ketones TRACE Urine Occult Blood NEG Urine Nitrite NEG Urine Bilirubin NEG Urine Urobilinogen NEG Urine Leukocyte Esterase MODERATE Urine WBC (Auto) >30 /hpf Urine RBC (Auto) 0-4 /hpf Urine Hyaline Casts (Auto) 5-10 /lpf Urine Epithelial Cells (Auto) >30 /lpf Urine Bacteria (Auto) 1+ White Blood Count 18.46 K/uL 14.34 K/uL Red Blood Count 4.54 M/uL 4.35 M/uL Hemoglobin 11.9 g/dL 11.2 g/dL Hematocrit 37.6 % 36.2 % Mean Corpuscular Volume 82.8 fL 83.2 fL Mean Corpuscular Hemoglobin 26.2 pg 25.7 pg Mean Corpuscular Hemoglobin Concent 31.6 g/dl 30.9 g/dl Platelet Count 265 K/uL 252 K/uL Mean Platelet Volume 10.6 fL 11.4 fL Neutrophils (%) (Auto) 87.1 % Lymphocytes (%) (Auto) 6.7 % Monocytes (%) (Auto) 5.8 % Eosinophils (%) (Auto) 0.0 % Basophils (%) (Auto) 0.1 % Neutrophils # (Auto) 16.09 K/uL Lymphocytes # (Auto) 1.23 K/uL Monocytes # (Auto) 1.07 K/uL Eosinophils # (Auto) 0.00 K/uL Basophils # (Auto) 0.02 K/uL RDW Standard Deviation 53.1 fL 53.2 fL RDW Coefficient of Variation 17.5 % 17.4 % Immature Granulocyte % (Auto) 0.3 % Immature Granulocyte # (Auto) 0.05 K/uL Erythrocyte Sedimentation Rate 72 mm/hr Prothrombin Time 25.2 SECONDS 23.8 SECONDS Prothromb Time International Ratio 2.3 2.2 Activated Partial Thromboplast Time 37.5 SECONDS Partial Thromboplastin Ratio 1.4 Sodium Level 136 mmol/L 138 mmol/L Potassium Level 3.7 mmol/L 3.2 mmol/L Chloride Level 100 mmol/L 102 mmol/L Carbon Dioxide Level 27 mmol/L 30 mmol/L Anion Gap 9.0 mmol/L 6.0 mmol/L Blood Urea Nitrogen 20 mg/dl 19 mg/dl Creatinine 1.30 mg/dl 1.20 mg/dl Estimated GFR () 44.6 49.1 Estimated GFR (Non- 38.4 42.4 BUN/Creatinine Ratio 15.4 15.6 Random Glucose 110 mg/dl 78 mg/dl Calcium Level 8.5 mg/dl 8.4 mg/dl Magnesium Level 2.0 mg/dl 2.2 mg/dl Total Bilirubin 0.9 mg/dl Aspartate Amino Transf (AST/SGOT) 71 U/L Alanine Aminotransferase (ALT/SGPT) 34 U/L Alkaline Phosphatase 298 U/L Total Creatine Kinase 40 U/L Creatine Kinase MB < 0.5 ng/ml Creatine Kinase MB Ratio Troponin I < 0.015 ng/ml C-Reactive Protein 2.05 mg/dl Total Protein 7.2 gm/dl Albumin 2.8 gm/dl Globulin 4.4 gm/dl Albumin/Globulin Ratio 0.6 Procalcitonin 0.88 ng/ml Lyme Disease IgG Antibody NEG Lyme Disease IgM Antibody NEG Bedside Troponin I < 0.030 ng/ml Est Creatinine Clear Calc Drug Dose 21.9 ml/min CLINICAL HISTORY: Sepsis dyspnea COMPARISON STUDY: 12/28/2014 FINDINGS: Moderate stable cardiomegaly. Stable mediastinal fullness unchanged from the prior exam. Components of mild congestive failure present. Increased prominence of pulmonary vasculature compared to the prior study. Fixed lateral hernia. IMPRESSION: Mild congestive heart failure superimposed upon chronic change. The above report was generated using voice recognition software. It may contain grammatical, syntax or spelling errors. Assessment & Plan 81-year-old female with recent fibula fracture now with fever and mild leukocytosis, with abnormal urinalysis and what appears to be positive urine culture. Urinary tract infection appears to be most likely source of fever, patient should continue on imipenem pending final identification and sensitivities results. I will adjust antibiotics once available. Will follow.
[2016-10-02] MEDS ORDERED: WARFARIN SOD 5 MG TAB PO SCH ×2 (16:00→22:00)
--- NOTE | 2016-10-02 16:03 | ORTHOPEDIC CONSULTATION REPORT ---
DATE OF CONSULTATION: 10/02/2016 REASON FOR CONSULT: Left knee pain. HISTORY OF PRESENT ILLNESS: The patient is an 81-year-old white female who was admitted for UTI and fevers during this stay. She was complaining of some left lateral knee pain and we were consulted to see her. She states that last week, she was seen in the Emergency Room after a mechanical fall. She states that she was walking in another person's home and went to go up one step. She states that the step was higher than normal and she caught her toe on the step and ended up falling directly in both knees. At that time, she had moderate pain in the left knee and that was on the lateral aspect. She was brought to the Emergency Room and was found that she had a proximal fibular neck fracture that was nondisplaced. She was sent home with plans for use of a walker and weightbearing as tolerated and to follow up with orthopedics. She states that over the last week, she was having less pain actually in the area, but continued to bother her somewhat. She states that she is on Coumadin and had some increased swelling in the area as well. Currently, she is sitting in a chair and is in no acute distress and pleasant. PAST MEDICAL HISTORY: Chronic atrial fibrillation on chronic Coumadin therapy, diastolic heart failure, hypertension, hyperlipidemia, obstructive sleep apnea on CPAP, asthma, and chronic kidney disease. PAST SURGICAL HISTORY: Cataracts removal in the past and TAHBSO. FAMILY AND SOCIAL HISTORY: As per admitting history and physical. ALLERGIES: ALCOHOL, ASPIRIN, CEPHALOSPORINS, CODEINE, LEVOFLOXACIN, PENICILLINS, AND SULFA ANTIBIOTICS. MEDICATIONS: Tylenol 325 mg p.o. p.r.n. as directed, albuterol 2 puffs inhaled q. 4 hours, amiodarone 200 mg p.o. daily, atorvastatin 10 mg p.o. daily, Advair Diskus 1 puff inhaled b.i.d., furosemide 80 mg p.o. b.i.d., Slow-Mag 64 mg p.o. b.i.d., metoprolol 12.5 mg p.o. daily, Prilosec 20 mg p.o. daily, potassium chloride extended release 10 mEq p.o. b.i.d., Zantac 300 mg at bedtime and warfarin 5 mg p.o. 6 times a week at bedtime and 7.5 mg p.o. once weekly at bedtime. REVIEW OF SYSTEMS: As per admitting history and physical. PHYSICAL EXAMINATION: VITAL SIGNS: Latest vital signs are temperature 36.5, pulse 66, respirations 18, BP 149/70, and pulse ox 96 on room air. GENERAL: The patient is an obese white female, who is alert and oriented x3. She is in no acute distress, pleasant and cooperative. EXTREMITIES: On examination, which focuses on her left knee, she currently is able to actively flex and extend the knee without discomfort. There is no erythema and no heat to the left knee compared to the right. She does have a little bit more swelling and an effusion of the left knee compared to the right. The swelling does go down the lower extremity and she does have what appears to be likely hematoma down the posterolateral aspect of her calf, which is mildly tender on palpation. Negative Homans' exam at this time. I can take her through range of motion passively from 90 degrees to extension with only minimal discomfort in the left lateral portion of the knee. On palpation over the fibular head, she has moderate pain during this time. I can appreciate no crepitus during palpation. Internal and external rotation do provide a little bit of discomfort on the lateral aspect of the left knee. She is neurovascularly intact and has good sensation. ASSESSMENT: Likely proximal fibular neck fracture from previous fall 1 week ago that is progressively getting better. PLAN: Dr. Foley and I have reviewed her films and he has seen the patient as well. We will start her on physical therapy protocol, weightbearing as tolerated with assistive device as needed. She has seen Dr. Foley in the past for injections and if over the time, she feels that she is having increasing knee pain that she has had in the past that she can see him in the office. She can also follow up with him in the office if she continues to have her left lateral knee pain. The patient is asking for pain medication, which she states that Tylenol is not working for her. Advised her to take 2 of the 325-mg tablets of Tylenol every 8 hours and I will go ahead and add tramadol to her pain regimen here at the hospital.
[2016-10-02 16:56] VITALS: BP 106/63; PULSE 71
[2016-10-02] MEDS: IMIPENEM-CILASTATIN 250 MG in DEXTROSE 5% 100ML 100 ML IV SCH (18:12)
[2016-10-02] MEDS ORDERED: POTASSIUM CHLORIDE 10 MEQ TABCR PO ONE (20:00)
--- NOTE | 2016-10-02 20:08 | Progress Note ---
Internal Med Progress Note Date of Service: Oct 02, 2016. Provider Documentation: SUBJECTIVE: sitting up on chair has pain on left knee area with movement no pain at rest denies of any urinary symptom no fever or chills OBJECTIVE: Vital Signs-as noted below Exam: General-no sign of distress Eyes-sclera non icteric ENT-NAD Neck-no JVD Lungs-CTA, Heart-regular S1/S2 Abdomen-soft, non tender Extremities-no lower ext edema Neuro-AAO x3, Lab data as noted below. ASSESSMENT & PLAN: UTI : possible causing leukocytosis , fever cont on Imipenem culture ordered appreciate input form ID LEFT SIDED FIBULAR NECK FX S/P FALL : Appreciate ortho eval no surgical intervention needed cont pain control PT/OT AFIB on Anticoagulation : Cont Amiodarone on Coumadin HX OF CHRONIC CHF WITH DIASTOLIC HEART FAILURE -given Lasix in ED as Cxray shows pulmonary congestion no evidence of vol overload cont out pt meds HYPOKALEMIA : due to diuresis ordered supplement CPAP cont to use CPAP , may use her own machine FULL CODE DVT PROPHYLAXIS on Coumadin DISPOSITION To be determined PT/OT eval requested social service consulted for discharge planning Vital Signs: Date Time Temp Pulse Resp B/P (MAP) Pulse Ox O2 Delivery O2 Flow Rate FiO2 10/02/16 16:56 71 106/63 (77) 10/02/16 16:00 Room Air 10/02/16 15:02 36.6 55 18 124/63 (83) 95 Room Air 10/02/16 08:10 Room Air 10/02/16 07:00 36.5 66 18 149/70 (96) 96 Room Air 10/02/16 02:20 36.5 67 16 155/82 95 Room Air 10/02/16 02:20 Room Air 10/02/16 01:51 57 18 124/73 94 10/02/16 01:05 36.8 10/02/16 00:30 67 18 126/66 92 Room Air 10/01/16 22:40 73 18 111/62 90 Room Air 10/01/16 22:40 90 Room Air Lab Results: Results Past 24 Hours Test 10/01/16 22:23 10/01/16 22:37 10/01/16 22:43 10/02/16 05:31 Range/Units Urine Color DK YELLOW Urine Appearance CLOUDY CLEAR Urine pH 5.0 4.5-7.5 Urine Specific [place] 1.017 1.000-1.030 Urine Protein NEG NEG Urine Glucose (UA) NEG NEG Urine Ketones TRACE NEG Urine Occult Blood NEG NEG Urine Nitrite NEG NEG Urine Bilirubin NEG NEG Urine Urobilinogen NEG NEG Urine Leukocyte Esterase MODERATE NEG Urine WBC (Auto) >30 0-5 /hpf Urine RBC (Auto) 0-4 0-4 /hpf Urine Hyaline Casts (Auto) 5-10 0-5 /lpf Urine Epithelial Cells (Auto) >30 0-5 /lpf Urine Bacteria (Auto) 1+ NEG White Blood Count 18.46 14.34 4.8-10.8 K/uL Red Blood Count 4.54 4.35 4.2-5.4 M/uL Hemoglobin 11.9 11.2 12.0-16.0 g/dL Hematocrit 37.6 36.2 37-47 % Mean Corpuscular Volume 82.8 83.2 80-100 fL Mean Corpuscular Hemoglobin 26.2 25.7 25-34 pg Mean Corpuscular Hemoglobin Concent 31.6 30.9 32-36 g/dl Platelet Count 265 252 130-400 K/uL Mean Platelet Volume 10.6 11.4 7.4-10.4 fL Neutrophils (%) (Auto) 87.1 % Lymphocytes (%) (Auto) 6.7 % Monocytes (%) (Auto) 5.8 % Eosinophils (%) (Auto) 0.0 % Basophils (%) (Auto) 0.1 % Neutrophils # (Auto) 16.09 1.4-6.5 K/uL Lymphocytes # (Auto) 1.23 1.2-3.4 K/uL Monocytes # (Auto) 1.07 0.11-0.59 K/uL Eosinophils # (Auto) 0.00 0-0.5 K/uL Basophils # (Auto) 0.02 0-0.2 K/uL RDW Standard Deviation 53.1 53.2 36.4-46.3 fL RDW Coefficient of Variation 17.5 17.4 11.5-14.5 % Immature Granulocyte % (Auto) 0.3 % Immature Granulocyte # (Auto) 0.05 0.00-0.02 K/uL Erythrocyte Sedimentation Rate 72 0-21 mm/hr Prothrombin Time 25.2 23.8 9.0-12.0 SECONDS Prothromb Time International Ratio 2.3 2.2 0.9-1.1 Activated Partial Thromboplast Time 37.5 21.0-31.0 SECONDS Partial Thromboplastin Ratio 1.4 Sodium Level 136 138 136-145 mmol/L Potassium Level 3.7 3.2 3.5-5.1 mmol/L Chloride Level 100 102 98-107 mmol/L Carbon Dioxide Level 27 30 21-32 mmol/L Anion Gap 9.0 6.0 3-11 mmol/L Blood Urea Nitrogen 20 19 7-18 mg/dl Creatinine 1.30 1.20 0.60-1.20 mg/dl Estimated GFR () 44.6 49.1 Estimated GFR (Non- 38.4 42.4 BUN/Creatinine Ratio 15.4 15.6 10-20 Random Glucose 110 78 70-99 mg/dl Calcium Level 8.5 8.4 8.5-10.1 mg/dl Magnesium Level 2.0 2.2 1.8-2.4 mg/dl Total Bilirubin 0.9 0.2-1 mg/dl Aspartate Amino Transf (AST/SGOT) 71 15-37 U/L Alanine Aminotransferase (ALT/SGPT) 34 12-78 U/L Alkaline Phosphatase 298 45-117 U/L Total Creatine Kinase 40 26-192 U/L Creatine Kinase MB < 0.5 0.5-3.6 ng/ml Creatine Kinase MB Ratio 0-3.0 Troponin I < 0.015 0-0.045 ng/ml C-Reactive Protein 2.05 0-0.29 mg/dl Total Protein 7.2 6.4-8.2 gm/dl Albumin 2.8 3.4-5.0 gm/dl Globulin 4.4 2.5-4.0 gm/dl Albumin/Globulin Ratio 0.6 0.9-2 Procalcitonin 0.88 0-0.5 ng/ml Lyme Disease IgG Antibody NEG NEG Lyme Disease IgM Antibody NEG NEG Bedside Troponin I < 0.030 0-0.045 ng/ml Est Creatinine Clear Calc Drug Dose 21.9 ml/min Microbiology Results 10/01/16 Blood Culture, Received Pending 10/01/16 Blood Culture, Received Pending 10/01/16 Urine Culture - Preliminary, Resulted PIN-POINT GROWTH PRESENT, REINCUBATING.
[2016-10-02] MEDS ORDERED: RANITIDINE HCL 150 MG TAB PO SCH (21:00)
[2016-10-02 23:05] VITALS: BP_SYST 126; BP_SYST 95; BP_DIAS 60; BP_DIAS 64; PULSE 64; TEMP 36.3; O2SAT 93
[2016-10-03] MEDS: ALBUTEROL HFA 8 GM INHALER INH SCH ×4 (00:28→11:22)
[2016-10-03] MEDS: IMIPENEM-CILASTATIN 250 MG in DEXTROSE 5% 100ML 100 ML IV SCH ×3 (00:38→11:22)
--- NOTE | 2016-10-03 01:54 | EMERGENCY ROOM VISIT NOTE ---
ED Visit Note First contact with patient: 21:58 HPI: Left knee pain and swelling and fevers after dx with left prox fibular fx day captain cannery tender. In setting of recent meniscus injections. PE: Febrile 38.2 VSS, NAD NC/AT RRR, no murmurs CTAB Abd soft NT/ND Ext: left knee with moderate effusion, warth. Able to range knee and bear weight although causes pain. Neuro: grossly intact Plan: fevers in setting of knee pain, swelling after recent fall with fib fx. Leukocytosis, ESR, CrP elevatd. Bld cx drawn. Empric abx. Arthrocentesis deferred to ortho considering recent injections. Admit to medicine service. I reviewed the patient's past medical history, medications, and visit nursing notes. I discussed the case with the physician material assistant, examined the patient, and agree with the findings and plan as documented in the physician assistants note.
[2016-10-03 06:37] LABS: INR 2.7 (0.9-1.1); PROTHROMBIN TIME (PATIENT) 29.9 SECONDS (9.0-12.0)
[2016-10-03 07:32] VITALS: BP 130/80; PULSE 58; TEMP 36.3; O2SAT 92
[2016-10-03 07:36] VITALS: O2SAT 92
[2016-10-03] MEDS: ACETAMINOPHEN 325 MG TAB PO PRN (07:42)
[2016-10-03] MEDS: MAGNESIUM CHLORIDE 64MG DELAYED REL TAB PO SCH (08:59)
[2016-10-03] MEDS: FLUTICASONE/SALMETEROL 100/50 (ADVAIR) 14 PUFF/1 INHALER INH SCH (08:59)
[2016-10-03] MEDS: PANTOprazole SOD 40 MG TAB PO SCH (08:59)
[2016-10-03] MEDS: FUROSEMIDE 80 MG TAB PO SCH (08:59)
[2016-10-03] MEDS: ATORVASTATIN 10 MG TAB PO SCH (09:00)
[2016-10-03] MEDS: METOPROLOL SUCC 25MG EXT REL TAB PO SCH (09:00)
[2016-10-03] MEDS: AMIODARONE 200 MG TAB PO SCH (09:01)
[2016-10-03] MEDS: POTASSIUM CHLORIDE 10 MEQ TABCR PO SCH (09:49)
--- NOTE | 2016-10-03 14:16 | Progress Note ---
Subjective Date of Service: Oct 03, 2016. Subjective Pt evaluation today including: conversation w/ patient, conversation w/ family , physical exam, lab review, review of studies, review of inpatient medication list Saw/examined the patient in room 352 ambulating on her own to the bathroom and back during my exam No other issues to note, pain is now controlled swelling around L knee persists Problem List Medical Problems: (1) Ambulatory dysfunction Status: Acute (2) Closed fibular fracture Status: Acute (3) Closed fracture of neck of fibula Status: Acute (4) Fever Status: Acute (5) Knee effusion, left Status: Acute (6) Knee hemarthrosis, left Status: Acute (7) Left fibular fracture Status: Acute (8) Left knee pain Status: Acute (9) Right hip pain Status: Acute (10) SIRS (systemic inflammatory response syndrome) Status: Acute (11) UTI (urinary tract infection) Status: Acute Review of Systems Constitutional: No fever, No chills Respiratory: No cough, No sputum Abdomen: No pain, No nausea, No vomiting, No diarrhea Musculoskeletal: + joint pain (much improved L knee pain) Female : No dysuria, No urinary frequency Heme: No abnormal bleeding/bruising Medications Current Inpatient Medications Medications (Trade) Dose Ordered Sig/Yanet Route Start Time Stop Time Status Last Admin Dose Admin Acetaminophen (Tylenol Tab) 650 mg Q4H PRN PO 10/02/16 01:30 11/01/16 01:29 10/03/16 07:42 650 MG Ondansetron HCl (Zofran Inj) 4 mg Q6H PRN IV 10/02/16 01:30 11/01/16 01:29 Amiodarone HCl (Cordarone Tab) 200 mg DAILY PO 10/02/16 09:00 11/01/16 08:59 10/03/16 09:01 200 MG Atorvastatin Calcium (Lipitor Tab) 10 mg DAILY PO 10/02/16 09:00 11/01/16 08:59 10/03/16 09:00 10 MG Salmeterol Xinafoate/ Fluticasone (Advair Diskus 100/50 Inh) 1 puff BID INH 10/02/16 09:00 11/01/16 08:59 10/03/16 08:59 1 PUFF Furosemide (Lasix Tab) 80 mg BID17 PO 10/02/16 09:00 11/01/16 08:59 10/03/16 08:59 80 MG Magnesium Chloride (Slow-Mag Tab) 64 mg BID PO 10/02/16 09:00 11/01/16 08:59 10/03/16 08:59 64 MG Metoprolol Succinate (Toprol Xl Tab) 12.5 mg DAILY PO 10/02/16 09:00 11/01/16 08:59 10/02/16 08:14 12.5 MG Potassium Chloride (Klor-Con M10) 10 meq BID PO 10/02/16 09:00 11/01/16 08:59 10/03/16 09:49 10 MEQ Albuterol (Ventolin Hfa Inhaler) 2 puffs Q4H INH 10/02/16 04:00 11/01/16 03:59 10/03/16 11:22 2 PUFFS Pantoprazole Sodium (Protonix Tab) 40 mg QAM PO 10/02/16 09:00 11/01/16 08:59 10/03/16 08:59 40 MG Ranitidine HCl (zANTac TAB) 300 mg HS PO 10/02/16 21:00 11/01/16 20:59 10/02/16 21:08 300 MG Miscellaneous (Iv Fluids Completed) 1 ea PRN PRN N/A 10/02/16 02:15 10/02/17 02:14 Miscellaneous (Iv Fluids Completed) 1 ea PRN PRN N/A 10/02/16 02:15 10/02/17 02:14 Imipenem/ Cilastatin Sodium (Consult) 1 ea UD PRN N/A 10/02/16 02:45 11/01/16 02:44 Tramadol HCl (Ultram Tab) `1-2 tabs for pain 1 tab ... Q4H PRN PO 10/02/16 13:15 11/01/16 13:14 Imipenem/ Cilastatin Sodium 250 mg/Dextrose 110 ml @ 106 mls/hr Q6 IV 10/02/16 18:00 10/07/16 17:59 10/03/16 11:22 106 MLS/HR Warfarin Sodium (Coumadin Tab) 5 mg SuMoTuWeFrSa@2200 PO 10/02/16 22:00 11/01/16 15:59 10/02/16 22:20 5 MG Warfarin Sodium (Coumadin Tab) 7.5 mg Th@2200 PO 10/05/16 22:00 11/04/16 15:59 Objective Vital Signs Date Time Temp Pulse Resp B/P (MAP) Pulse Ox O2 Delivery O2 Flow Rate FiO2 10/03/16 07:36 92 Room Air 10/03/16 07:32 36.3 58 16 130/80 (97) 92 Room Air 10/03/16 07:30 Room Air 10/03/16 00:00 Room Air 10/02/16 23:05 36.3 64 18 95/64 (74) 93 Room Air 126/60 (82) 10/02/16 16:56 71 106/63 (77) 10/02/16 16:00 Room Air 10/02/16 15:02 36.6 55 18 124/63 (83) 95 Room Air Physical Exam General Appearance: no apparent distress Respiratory/Chest: lungs clear, normal breath sounds, no respiratory distress, no accessory muscle use Cardiovascular: regular rate, rhythm, no murmur Extremities: + pertinent finding (swelling of L knee; good ROM, no point tenderness, good muscle strength testing) Neurologic/Psychiatric: no motor/sensory deficits, alert, normal mood/affect Laboratory Results Last 24 Hours Test 10/03/16 05:44 Prothrombin Time 29.9 SECONDS Prothromb Time International Ratio 2.7 Assessment and Plan This is an 81 year old female with a PMH of chronic A. fib on long-term anticoagulation, chronic diastolic HF, HTN, CAROLYNN on CPAP, CKD stage 3, presents with L knee pain L Knee Pain L Fibular Fracture patient presented to the ER on 09/30 with a L fibular neck fracture, possibly acute states she had a fall causing her L knee pain developed some swelling around the knee; appreciate ortho input no need for drainage, conservative management PT/OT tramadol PRN added for pain, she is doing well, and ambulating fine, eager to go home today UTI UA moderate leukocyte esterase +1 bacteria three organisms on culture, no further sensitivities WBC trending down will change IV abx. to PO Cipro x 5 more days Chronic A. fib continue Coumadin, INR at goal between 2-3 continue b-stacey and amiodarone Diastolic CHF continue Lasix at home dose CKD stage 3 at baseline avoid nephrotoxic agents when able DVT ppx Coumadin FULL CODE
[2016-10-03] MEDS ORDERED: NITR1CAP16 PO (14:20)
[2016-10-03] MEDS ORDERED: ULT50X PO (14:20)
--- NOTE | 2016-10-03 14:25 | Discharge Instructions ---
Discharge Instructions Date of Service Oct 03, 2016. Admission Reason for Admission: Diastolic Chf,Acute On Chronic,Fall,Lt Knee Pain, Discharge Discharge Diagnosis / Problem: L Knee Pain, L Fibular Head Fracture Discharge Goals Goal(s): Decrease discomfort, Improve function, Diagnostic testing, Therapeutic intervention Activity Recommendations Activity Limitations: resume your previous activity . Instructions / Follow-Up Instructions / Follow-Up Please follow-up with Dr. Clement on October 05 at 12:45PM You will be prescribed Tramadol, only take this as needed Follow-up with Dr. Foley as an outpatient Current Hospital Diet Patient's current hospital diet: AHA Diet (Heart Healthy) Discharge Diet Recommended Diet: AHA Diet (Heart Healthy) Pending Studies Studies pending at discharge: no Medical Emergencies . Who to Call and When: Medical Emergencies: If at any time you feel your situation is an emergency, please call 911 immediately. . Non-Emergent Contact Non-Emergency issues call your: Primary Care Provider . . "Provider Documentation" section prepared by Lai Sherman. . VTE Core Measure Inpt VTE Proph given/why not?: Warfarin (Coumadin) [place] Drug Monitoring Program Search Results: patient reviewed within database, no issues identified
--- NOTE | 2016-10-03 14:27 | Discharge Summary ---
Discharge Summary Date of Service Oct 03, 2016. Discharge Summary Admission Date: Oct 02, 2016 at 01:30 Discharge Date: Oct 03, 2016 Discharge Disposition: Home Principal Diagnosis: L Fibular Head Fracture L Knee Pain Mechanical Fall Medication Reconciliation New Medications: Nitrofurantoin Monohyd Macro (Macrobid) 100 Mg Cap 100 MG PO BID for 3 Days, #6 CAP Tramadol HCl (Tramadol HCl) 50 Mg Tab 50 MG PO Q4H PRN for Pain for 3 Days, #12 TAB Continued Medications: Acetaminophen (Tylenol) 325 Mg Tab 325 MG PO UD PRN for Pain, TAB Albuterol Sulfate (Proair Respiclick) 108 Mcg/Act Aer 2 PUFFS INH Q4H Amiodarone HCl (Amiodarone HCl) 200 Mg Tab 200 MG PO DAILY Atorvastatin (Atorvastatin Calcium) 10 Mg Tab 10 MG PO DAILY Fluticasone Prop/Salmeterol (Advair Diskus 100/50 60 Dose) 1 Ea Aerp 1 PUFF INH BID Furosemide (Furosemide) 80 Mg Tab 80 MG PO BID Magnesium Chloride (Slow-Mag Tab) 64 Mg Tabcr 64 MG PO BID, TAB Metoprolol Succinate (Metoprolol Succinate ER) 25 Mg Tabcr 12.5 MG PO DAILY Omeprazole (Prilosec) 20 Mg Cap 20 MG PO DAILY, CAP Potassium Chloride Microencaps (Potassium Chloride Er) 10 Meq Tab 10 MEQ PO BID, TAB Ranitidine (Zantac) 300 Mg Tab 300 MG PO HS, TAB Warfarin Sodium (Warfarin Sodium) 5 Mg Tab 5 MG PO [id number], TAB TAKE 5 MG AT BEDTIME EVERY SUNDAY,SUNDAY,SUNDAY,SUNDAY,SUNDAY AND SUNDAY OR OTHERWISE DIRECTED TO TAKE BY ANTICOAGULATION CLINIC/MD. Warfarin Sodium (Warfarin Sodium) 5 Mg Tab 7.5 MG PO WK, TAB TAKE 7.5 MG AT BEDTIME EVERY SUNDAY OR OTHERWISE DIRECTED TO TAKE BY ANTICOAGULATION CLINIC/MD. Admission Information HPI (per Admitting provider): DATE OF ADMISSION: 10/01/2016 PRIMARY CARE PROVIDER: Dr. Clement. CHIEF COMPLAINT: Increasing pain in the left knee joint and also complains of fever without any dysuria. HISTORY OF PRESENT COMPLAINT: She is an 81-year-old female with significant past medical history of chronic atrial fibrillation, on anticoagulation, diastolic heart failure, hypertension, obstructive sleep apnea, on CPAP, history of asthma, chronic kidney disease and hyperlipidemia. Apparently had a fall yesterday and injured her left knee, that was a mechanical fall. She came to the ER and she had an x-ray of the left knee that did show age-indeterminate fibular neck fracture. She was sent home with pain medications and Tylenol, and she was advised to make an appointment with orthopedic doctor. Dr. Foley had done injection of her knee joint in the past. She was complaining of more pain as of today and she is back but the swelling is decreased. She also has some feverish feeling but did not have any other symptoms suggestive of an infection. In the ER, she was noted to be febrile at 38.2 and her white count was 18.46. Her UA is suggestive of infection. Her knee swelling decreased, but with fever and UTI and ongoing knee pain, she was admitted to medical floor for continuation of care. PAST MEDICAL HISTORY: Chronic atrial fibrillation, on anticoagulation, diastolic heart failure, hypertension, hyperlipidemia, obstructive sleep apnea, on CPAP, mild asthma and chronic kidney disease. PAST SURGICAL HISTORY: Cataract surgery, total abdominal hysterectomy and tubal removal. FAMILY HISTORY: Nothing significant to note. SOCIAL HISTORY: She is . She lives with her . She has 2 children. She does not smoke, does not drink. ALLERGIES: SHE IS ALLERGIC TO ALCOHOL, CEPHALOSPORIN, CODEINE, PENICILLINS, ASPIRIN, LEVOFLOXACIN AND SULFA. MEDICATIONS: As an outpatient, she has been on Tylenol 325 mg as directed, albuterol sulfate 2 puffs every 4 hourly as needed, amiodarone 200 mg daily, atorvastatin 10 mg daily, Advair Diskus 100/50 one puff twice daily, furosemide 80 mg twice daily, magnesium chloride 64 mg b.i.d., Toprol-XL 25 mg tablet 12.5 daily, omeprazole 20 mg daily, potassium chloride 10 mEq daily, ranitidine 300 mg at night and warfarin sodium 5 mg as directed. REVIEW OF SYSTEMS: Other systemic review unremarkable except those mentioned in history of present complaint. PHYSICAL EXAMINATION: GENERAL: On examination in the Emergency Room, she was not in any acute distress. VITAL SIGNS: Temperature 38.2 initially, that came down to 36.8, pulse of 67, blood pressure 126/66, saturation 92% on room air. HEENT: Unremarkable. NECK: Supple. No JVD, no bruit. CHEST: Clear to auscultation bilaterally. HEART: S1, S2 regular. ABDOMEN: Soft, benign, mildly tender in the hypogastrium. No organomegaly. Bowel sounds present. EXTREMITIES: Trace edema bilaterally. Examination of the left knee joint did show minimal swelling of the knee joint anteromedially with some tenderness locally. Knee movement is moderately painful. No obvious joint fluid noted. CENTRAL NERVOUS SYSTEM: Alert, awake, oriented x3. No focal sensory and/or motor deficit appreciated. LABORATORY DATA: Noted today, white count was 18.46, H&H 11.9/37.6, platelet was 265. Sodium 136, potassium 3.7, chloride 100, carbon dioxide 27, BUN 20, creatinine 1.30. Random glucose 100. Alkaline phosphatase 298. AST slightly elevated at 71. Troponin less than 0.015. C-reactive protein 2.05. ESR was 30. Prolactin was 0.88. INR was 2.3. PT ratio 1.4. UA examination suggestive of infection. Lyme disease negative. Chest x-ray unremarkable. X-ray of the knee did show indeterminate fracture of the fibular neck. Ultrasound negative for any DVT. IMPRESSION AND PLAN: 1. Urinary tract infection. The patient will be admitted to medical floor. She was started on intravenous daptomycin and imipenem with possibility of sepsis.Doubt any septic arthritis. We will continue with imipenem now. Blood culture and urine culture have been sent. 2. Fibular neck fracture on the left side status post fall. There is some swelling. The patient is on Coumadin. We will ask for orthopedic evaluation and PT and OT from there. Doubt any obvious hematoma at this time or any infection in the joint. 3. Atrial fibrillation, on anticoagulation. No acute findings at this time. Her EKG is in sinus rhythm with minimal nonspecific ST-T wave changes. 4. Chronic diastolic heart failure. Continue with current dose of Lasix. 5. Hypertension. Continue with current medications for blood pressure. 6. Sleep apnea, on CPAP. The patient can use her own CPAP while in the hospital. 7. Asthma, seems to be stable. Continue with her inhalers. 8. Gastrointestinal prophylaxis with Protonix and ranitidine. 9. Deep venous thrombosis prophylaxis, on Coumadin. 10. Code status. Full code. Hospital Course This is an 81 year old female with a PMH of chronic A. fib on long-term anticoagulation, chronic diastolic HF, HTN, CAROLYNN on CPAP, CKD stage 3, presents with L knee pain L Knee Pain L Fibular Fracture patient presented to the ER on 09/30 with a L fibular neck fracture, possibly acute states she had a fall causing her L knee pain developed some swelling around the knee; appreciate ortho input no need for drainage, conservative management PT/OT tramadol PRN added for pain, she is doing well, and ambulating fine, eager to go home today UTI UA moderate leukocyte esterase +1 bacteria three organisms on culture, no further sensitivities WBC trending down will change IV abx. to PO Cipro x 5 more days Chronic A. fib continue Coumadin, INR at goal between 2-3 continue b-stacey and amiodarone Diastolic CHF continue Lasix at home dose CKD stage 3 at baseline avoid nephrotoxic agents when able DVT ppx Coumadin FULL CODE Total time spent on discharge = 45 minutes This includes examination of the patient, discharge planning, medication reconciliation, and communication with other providers. Discharge Instructions Please follow-up with Dr. Clement on October 05 at 12:45PM You will be prescribed Tramadol, only take this as needed Follow-up with Dr. Foley as an outpatient Additional Copies To Gary Clement MD
[2016-10-03 14:35] VITALS: BP 130/80; PULSE 58; TEMP 36.3; O2SAT 92
[2016-10-05] MEDS ORDERED: WARFARIN SOD 7.5 MG TAB PO SCH ×2 (16:00→22:00)
== END 2016-10-03 15:03 | disposition home or self-care (01) | DRG 563 ==
LOC: C.EDB 21:05 → C.MSW 10-02 01:30 → EDBEDREQ 10-02 01:41 → ENRESERV 10-02 01:41
PROVIDERS: ADMIT Internal Medicine; ATTEND Family Medicine
DX: S82.832A Other fracture of upper and lower end of left fibula, initial encounter for closed fracture (principal); N39.0 Urinary tract infection, site not specified; I50.32 Chronic diastolic (congestive) heart failure; I13.0 Hypertensive heart and chronic kidney disease with heart failure and stage 1 through stage 4 chronic kidney disease, or unspecified chronic kidney disease; E87.6 Hypokalemia; I48.0 Paroxysmal atrial fibrillation; N18.3 Chronic kidney disease, stage 3 (moderate); J45.909 Unspecified asthma, uncomplicated; K21.9 Gastro-esophageal reflux disease without esophagitis; G47.33 Obstructive sleep apnea (adult) (pediatric); E78.5 Hyperlipidemia, unspecified; Z51.81 Encounter for therapeutic drug level monitoring; Z79.899 Other long term (current) drug therapy; Z79.01 Long term (current) use of anticoagulants; Z87.01 Personal history of pneumonia (recurrent); Z87.442 Personal history of urinary calculi; Z82.49 Family history of ischemic heart disease and other diseases of the circulatory system; W10.9XXA Fall (on) (from) unspecified stairs and steps, initial encounter; Y93.01 Activity, walking, marching and hiking; Y92.009 Unspecified place in unspecified non-institutional (private) residence as the place of occurrence of the external cause; Y99.8 Other external cause status; M25.062 Hemarthrosis, left knee; E78.00 Pure hypercholesterolemia, unspecified; Z98.890 Other specified postprocedural states; Z90.710 Acquired absence of both cervix and uterus; Z98.49 Cataract extraction status, unspecified eye

== ENCOUNTER 2017-02-17 09:54 | Emergency (ER) | payer BC, OTHER ==
[~2017-02-17] VITALS: Ht 149.9 cm; Wt 78.7 kg
[~2017-02-17 09:54] MED LIST changes: -ADVIN10/60 INH; -FRS/80 PO; +LPT10 PO; -OMEP20CA9 PO; -RANI300T2 PO; -TPRSR/25 PO; +ULT50X PO; -VNTHFA/IN INH; -ZCR40 PO
[2017-02-17 09:57] VITALS: TEMP 36.4
[2017-02-17] MEDS ORDERED: ALBUT/IPRATROP 3MG/0.5MG NEB 3 ML VIAL INH STA (10:08)
--- NOTE | 2017-02-17 10:25 | DIAGNOSTIC IMAGING REPORT ---
CHEST ONE VIEW PORTABLE CLINICAL HISTORY: 81 years-old Female presenting with EVALUATE RESPIRATORY DISTRESS.DYSPNEA. TECHNIQUE: Portable upright AP view of the chest was obtained. COMPARISON: 10/01/2016. FINDINGS: Abnormal fullness of the right superior mediastinum/right suprahilar region. Cardiac silhouette enlarged. Pulmonary vascular prominence. Bibasilar hazy opacities. Bilateral small pleural effusions. No pneumothorax. Osseous structures normal. Retrocardiac opacity, hiatal hernia versus left atrial enlargement IMPRESSION: 1. Cardiomegaly and volume overload with minimal pulmonary edema and small bilateral pleural effusions. 2. Unchanged abnormal contour of the right superior mediastinum/right suprahilar region. A chest CT from prior comparison is not available and could be considered if there is clinical concern. This may be vascular. Electronically signed by: Chalino Rodgers M.D. 02/17/2017 10:23 AM Dictated Date/Time: 02/17/2017 10:21 AM
[2017-02-17 10:40] VITALS: O2SAT 96; Ht 149.9 cm; Wt 78.7 kg
[2017-02-17 10:45] LABS: BASO % 0.6 %; BASO ABS # 0.03 K/uL (0-0.2); HEMATOCRIT 38.3 % (37-47); HEMOGLOBIN 12.2 g/dL (12.0-16.0); MEAN CELL VOLUME 83.4 fL (80-100); MEAN CORPUSCULAR HEMOGLOBIN 26.6 pg (25-34); MEAN CORPUSCULAR HGB CONC 31.9 g/dl (32-36); MEAN PLATELET VOLUME 11.3 fL (7.4-10.4); MONO % 14.4 %; MONO ABS # 0.76 K/uL (0.11-0.59); NEUT ABS # 3.59 K/uL (1.4-6.5); PLATELET COUNT 240 K/uL (130-400); RED CELL DISTRIBUTION WIDTH CV 17.6 % (11.5-14.5); RED CELL DISTRIBUTION WIDTH SD 53.7 fL (36.4-46.3); WHITE BLOOD COUNT 5.28 K/uL (4.8-10.8)
[2017-02-17 11:03] LABS: ALBUMIN 2.8 gm/dl (3.4-5.0); CALCIUM 8.3 mg/dl (8.5-10.1); CREATININE 1.15 mg/dl (0.60-1.20); POTASSIUM 3.1 mmol/L (3.5-5.1)
[2017-02-17] MEDS ORDERED: POTASSIUM CHLORIDE 10 MEQ TABCR PO STA ×2 (11:08→11:55)
[2017-02-17 11:10] LABS: TOTAL PROTEIN 7.6 gm/dl (6.4-8.2)
--- NOTE | 2017-02-17 11:14 | EMERGENCY ROOM VISIT NOTE ---
History Report prepared by Yony: Rachel Cleary Under the Supervision of: Rosmery StevensO. First contact with patient: 10:01 Chief Complaint: CONGESTION Stated Complaint: COLD,COUGH History of Present Illness The patient is an 81 year old female who presents to the Emergency Room with complaints of persistent productive cough for one week KIDNEY TRIMMER. She notes cold like symptoms that comes and goes, though the cough has persisted. She has taken Robitussin, which has provided relief in her coughing symptoms. She notes rhinorrhea and mild shortness of breath. She states that her family members are sick as well. She notes the cough is productive with yellow sputum. She has not recently seen her PCP. She notes that she has had the flu in the past. She denies using at home oxygen, though wears a CPAP while at home. She has a history of atrial fibrillation and hypertension. She denies any history of congestive heart failure, pulmonary embolism, or cancer. She denies smoking and alcohol use. She denies any chest pain, fevers, abdominal pain, leg pain, leg swelling, or weight gain. Source of History: patient Onset: one week KIDNEY TRIMMER Position: other (global ) Quality: other (productive cough) Timing: other (persistent) Modifying Factors (Relieving): other (Robitussin) Associated Symptoms: + cough (productive cough with yellow sputum), + SOB ( mild), No fevers, No chest pain, No abdominal pain Note: She notes rhinorrhea and positive sick contacts. She denies any leg pain, leg swelling, or weight gain. Review of Systems See HPI for pertinent positives & negatives. A total of 10 systems reviewed and were otherwise negative. Past Medical & Surgical Medical Problems: (1) Asthma (2) Benign hypertension (3) Bronchitis (4) CHF (congestive heart failure) (5) Edema (6) Fall (7) GERD (gastroesophageal reflux disease) (8) Hiatal hernia (9) High cholesterol (10) Left knee pain (11) CAROLYNN on CPAP (12) Paroxysmal atrial fibrillation (13) PNA (pneumonia) (14) s/p elective cardioversion (15) Seasonal allergies (16) UTI (urinary tract infection) Surgical Problems: (1) H/O: hysterectomy (2) S/P cataract surgery Family History Cancer FH: hypertension Heart disease Social History Smoking Status: Never Smoker Alcohol Use: none Drug Use: none Marital Status: Housing Status: lives with significant other Occupation Status: employed Current/Historical Medications Scheduled Albuterol Sulfate (Proair Respiclick), 2 PUFFS INH Q4H Amiodarone HCl (Amiodarone HCl), 200 MG PO DAILY Atorvastatin (Atorvastatin Calcium), 10 MG PO DAILY Fluticasone Prop/Salmeterol (Advair Diskus 100/50 60 Dose), 1 PUFF INH BID Furosemide (Furosemide), 80 MG PO BID Magnesium Chloride (Slow-Mag Tab), 64 MG PO BID Metoprolol Succinate (Metoprolol Succinate ER), 12.5 MG PO DAILY Omeprazole (Prilosec), 20 MG PO DAILY Potassium Chloride Microencaps (Potassium Chloride Er), 10 MEQ PO BID Ranitidine (Zantac), 300 MG PO HS Warfarin Sodium (Warfarin Sodium), 5 MG PO [id number] Warfarin Sodium (Warfarin Sodium), 7.5 MG PO WK Scheduled PRN Acetaminophen (Tylenol), 325 MG PO UD PRN for Pain Tramadol HCl (Tramadol HCl), 50 MG PO Q4H PRN for Pain Allergies Coded Allergies: Alcohol (Verified Allergy, Mild, RASH, 09/30/16) WIPES OR INGESTED Cephalosporins (Verified Allergy, Mild, RASH, 09/30/16) Codeine (Verified Allergy, Mild, RASH, 09/30/16) Penicillins (Verified Allergy, Mild, RASH, 09/30/16) Aspirin (Verified Allergy, Unknown, RASH, 02/17/17) Levofloxacin (Verified Allergy, Unknown, "BONE PAIN", 09/30/16) Sulfa Antibiotics (Verified Allergy, Unknown, UNKNOWN, 09/30/16) Physical Exam Vital Signs Date Time Temp Pulse Resp B/P (MAP) Pulse Ox O2 Delivery O2 Flow Rate FiO2 02/17/17 13:57 91 02/17/17 13:45 61 19 132/79 90 Room Air 02/17/17 12:36 65 20 158/83 93 Room Air 02/17/17 11:26 88 Room Air 02/17/17 11:13 68 24 121/78 95 Nasal Cannula 2.0 02/17/17 10:50 77 24 140/72 96 Nasal Cannula 2.0 02/17/17 10:47 68 02/17/17 10:40 96 Nasal Cannula 2.0 02/17/17 10:40 96 Nasal Cannula 2.0 02/17/17 10:36 98 Nasal Cannula 2.0 02/17/17 09:57 36.4 69 20 163/67 90 Room Air Physical Exam GENERAL: Patient is awake, alert, and in no acute distress. Patient is resting comfortably and showing no signs of anxiety EYES: The conjunctivae are clear. The pupils are round and reactive. EARS, NOSE, MOUTH AND THROAT: The nose is without any evidence of any deformity. Mucous membranes are moist tongue is midline. Small abrasion to tip of nose, though no active bleeding noted. NECK: The neck is nontender and supple. RESPIRATORY: Lung sounds diminished with expiratory wheezing in all kiser. No significant tachypnea or conversational dyspnea. CARDIOVASCULAR: Regular rate and rhythm noted there no murmurs rubs or gallops normal S1 normal S2 GASTROINTESTINAL: The abdomen is soft. Bowel sounds are present in all quadrants. Abdomen is nontender MUSCULOSKELETAL/EXTREMITIES: There is no evidence of gross deformity full range of motion is noted in the hips and shoulders SKIN: There is no obvious evidence of any rash. There are no petechiae, pallor or cyanosis noted. Trace pedal edema bilaterally NEUROLOGIC: Patient is awake alert and oriented x3. Medical Decision & Procedures ER Provider Diagnostic Interpretation: Radiology results as stated below per my review and radiologist interpretation: CHEST ONE VIEW PORTABLE CLINICAL HISTORY: 81 years-old Female presenting with EVALUATE RESPIRATORY DISTRESS.DYSPNEA. TECHNIQUE: Portable upright AP view of the chest was obtained. COMPARISON: 10/01/2016. FINDINGS: Abnormal fullness of the right superior mediastinum/right suprahilar region. Cardiac silhouette enlarged. Pulmonary vascular prominence. Bibasilar hazy opacities. Bilateral small pleural effusions. No pneumothorax. Osseous structures normal. Retrocardiac opacity, hiatal hernia versus left atrial enlargement IMPRESSION: 1. Cardiomegaly and volume overload with minimal pulmonary edema and small bilateral pleural effusions. 2. Unchanged abnormal contour of the right superior mediastinum/right suprahilar region. A chest CT from prior comparison is not available and could be considered if there is clinical concern. This may be vascular. Electronically signed by: Chalino Rodgers M.D. 02/17/2017 10:23 AM Dictated Date/Time: 02/17/2017 10:21 AM Laboratory Results 02/17/17 09:35 Red Blood Count 4.59, Mean Corpuscular Volume 83.4, Mean Corpuscular Hemoglobin 26.6, Mean Corpuscular Hemoglobin Concent 31.9, Mean Platelet Volume 11.3, Neutrophils (%) (Auto) 68.0, Lymphocytes (%) (Auto) 17.0, Monocytes (%) (Auto) 14.4, Eosinophils (%) (Auto) 0.0, Basophils (%) (Auto) 0.6, Neutrophils # (Auto ) 3.59, Lymphocytes # (Auto) 0.90, Monocytes # (Auto) 0.76, Eosinophils # (Auto ) 0.00, Basophils # (Auto) 0.03 02/17/17 09:35 Test 02/17/17 09:35 02/17/17 10:45 02/17/17 11:07 02/17/17 11:25 White Blood Count 5.28 K/uL (4.8-10.8) Red Blood Count 4.59 M/uL (4.2-5.4) Hemoglobin 12.2 g/dL (12.0-16.0) Hematocrit 38.3 % (37-47) Mean Corpuscular Volume 83.4 fL (80-100) Mean Corpuscular Hemoglobin 26.6 pg (25-34) Mean Corpuscular Hemoglobin Concent 31.9 g/dl (32-36) Platelet Count 240 K/uL (130-400) Mean Platelet Volume 11.3 fL (7.4-10.4) Neutrophils (%) (Auto) 68.0 % Lymphocytes (%) (Auto) 17.0 % Monocytes (%) (Auto) 14.4 % Eosinophils (%) (Auto) 0.0 % Basophils (%) (Auto) 0.6 % Neutrophils # (Auto) 3.59 K/uL (1.4-6.5) Lymphocytes # (Auto) 0.90 K/uL (1.2-3.4) Monocytes # (Auto) 0.76 K/uL (0.11-0.59) Eosinophils # (Auto) 0.00 K/uL (0-0.5) Basophils # (Auto) 0.03 K/uL (0-0.2) RDW Standard Deviation 53.7 fL (36.4-46.3) RDW Coefficient of Variation 17.6 % (11.5-14.5) Immature Granulocyte % (Auto) 0.0 % Immature Granulocyte # (Auto) 0.00 K/uL (0.00-0.02) Anion Gap 5.0 mmol/L (3-11) Est Creatinine Clear Calc Drug Dose 34.8 ml/min Estimated GFR () 51.7 Estimated GFR (Non- 44.6 BUN/Creatinine Ratio 14.3 (10-20) Calcium Level 8.3 mg/dl (8.5-10.1) Magnesium Level 2.1 mg/dl (1.8-2.4) Total Bilirubin 1.0 mg/dl (0.2-1) Aspartate Amino Transf (AST/SGOT) 69 U/L (15-37) Alanine Aminotransferase (ALT/SGPT) 31 U/L (12-78) Alkaline Phosphatase 269 U/L (45-117) Troponin I 0.022 ng/ml (0-0.045) Pro-B-Type Natriuretic Peptide 4824 pg/ml (0-1800) Total Protein 7.6 gm/dl (6.4-8.2) Albumin 2.8 gm/dl (3.4-5.0) Globulin 4.8 gm/dl (2.5-4.0) Albumin/Globulin Ratio 0.6 (0.9-2) Influenza Type A (RT-PCR) POS for Influ A (NEG) Influenza Type A Antigen Neg for Influ A (NEG) Influenza Type B Antigen Neg for Influ B (NEG) Influenza Type B (RT-PCR) Neg for Influ B (NEG) Prothrombin Time 18.8 SECONDS (9.0-12.0) Prothromb Time International Ratio 1.8 (0.9-1.1) Activated Partial Thromboplast Time 32.3 SECONDS (21.0-31.0) Partial Thromboplastin Ratio 1.2 Urine Color DK YELLOW Urine Appearance CLEAR (CLEAR) Urine pH 5.0 (4.5-7.5) Urine Specific [place] 1.020 (1.000-1.030) Urine Protein TRACE (NEG) Urine Glucose (UA) NEG (NEG) Urine Ketones NEG (NEG) Urine Occult Blood NEG (NEG) Urine Nitrite NEG (NEG) Urine Bilirubin NEG (NEG) Urine Urobilinogen NEG (NEG) Urine Leukocyte Esterase NEG (NEG) Urine WBC (Auto) 1-5 /hpf (0-5) Urine RBC (Auto) 0-4 /hpf (0-4) Urine Hyaline Casts (Auto) 5-10 /lpf (0-5) Urine Epithelial Cells (Auto) >30 /lpf (0-5) Urine Bacteria (Auto) NEG (NEG) Laboratory results per my review. Medications Administered Medications (Trade) Dose Ordered Sig/Yanet Route Start Time Stop Time Status Last Admin Dose Admin Albuterol/ Ipratropium (Duoneb) 3 ml NOW STAT INH 02/17/17 10:08 02/17/17 10:10 DC 02/17/17 10:53 3 ML Potassium Chloride (Klor-Con M10) 10 meq NOW STAT PO 02/17/17 11:08 02/17/17 11:09 DC 02/17/17 11:13 10 MEQ Furosemide (Lasix Inj) 40 mg NOW STAT IV 02/17/17 11:17 02/17/17 11:18 DC 02/17/17 11:26 40 MG Potassium Chloride (Klor-Con M10) 40 meq NOW STAT PO 02/17/17 11:55 02/17/17 11:56 DC 02/17/17 12:13 40 MEQ ECG Indication: other (productive cough) Rate (beats per minute): 69 Rhythm: normal sinus Findings: no ectopy, other (Diffuse T wave flattening noted. ) Change: no significant change (When compared to 10/02/2016) ED Course 1007: The patient was evaluated in room A12B. A complete history and physical examination were performed. 1008: Ordered Duoneb 3 ml INH 1108: Ordered Potassium Chloride 10 meq PO 1112: I reassessed the patient at this time. She is feeling better and resting comfortably. 1117: Ordered Furosemide 40 mg IV 1151: I spoke with Dr. Gupta, ferry engineer. We discussed the patients case. The patient will be observed. He states that if the patient improves, she can be treated as an outpatient. 1155: Ordered Potassium Chloride 40 meq PO 1212: I reassessed the patient at this time. She is feeling better and resting comfortably. I discussed the results and treatment plan with the patient. I answered all pertaining questions that she had. She expressed understanding and verbalized agreement. The patient will be discharged home. Medical Decision Prior records/ancillary studies reviewed. Triage Nursing notes reviewed. The patient's history was concerning for respiratory difficulties. Differential diagnosis: Etiologies such as infections, reactive airway disease, pneumonia, pneumothorax , COPD, CHF, cardiac ischemia, pulmonary embolism, musculoskeletal, gastrointestinal, as well as others were entertained. The patient is an 81-year-old female who presented to the emergency department for an evaluation of cough. The patient was found to be in some degree of congestive heart failure. A review of her previous records does show that she has a history of this. The patient also had a positive influenza. At this time I do feel her picture presentation today is a mix of congestive heart failure as well as influenza. I discussed her case with her primary ferry engineer. At this time I do feel that she is stable to follow-up as an outpatient. She did not wish to stay in the hospital and does not wish to be evaluated by the hospitalist. I discussed the patient's laboratory and radiographic studies with her. She was encouraged to rest and avoid any strenuous activity. She was also encouraged to follow-up with her primary care physician for further evaluation. She was also encouraged to return to the emergency department immediately if symptoms change worsen or the need arises. She was treated with Lasix. She had good diuresis. Medication Reconcilliation Current Medication List: was personally reviewed by me Blood Pressure Screening Patient's blood pressure: Elevated blood pressure Blood pressure disposition: Elevated BP felt to be situational Consults Time Called: 1146 Consulting Physician: Dr. Gupta, ferry engineer Returned Call: [address] Gupta, ferry engineer. We discussed the patients case. The patient will be observed. He states that if the patient improves, she can be treated as an outpatient. Impression Primary Impression: Influenza A Additional Impression: CHF (congestive heart failure) Scribe Attestation The scribe's documentation has been prepared under my direction and personally reviewed by me in its entirety. I confirm that the note above accurately reflects all work, treatment, procedures, and medical decision making performed by me. Departure Information Dispostion Home / Self-Care Referrals Gary Clement MD (PCP) Forms HOME CARE DOCUMENTATION FORM, IMPORTANT VISIT INFORMATION Patient Instructions ED CHF General, ED Flu, My [facility] Additional Instructions Continue all medications as prescribed. Rest and avoid any strenuous activity. Drink plenty clear liquids. Continue using Motrin and Tylenol for pain. Call your family as well as her primary ferry engineer schedule follow-up appointment. Return to the emergency department immediately if symptoms change worsen or the need arises. Problem Qualifiers Additional Impression: CHF (congestive heart failure) Congestive heart failure type: unspecified congestive heart failure type Congestive heart failure chronicity: unspecified congestive heart failure chronicity Qualified Codes: I50.9 - Heart failure, unspecified
[2017-02-17] MEDS ORDERED: FUROSEMIDE 40 MG/4 ML VIAL IV STA (11:17)
[2017-02-17 11:26] LABS: INR 1.8 (0.9-1.1); PTT PATIENT 32.3 SECONDS (21.0-31.0)
[2017-02-17 11:38] LABS: INFLUENZA B ANTIGEN Neg for Influ B (NEG)
[2017-02-17 12:40] LABS: INFLUENZA A PCR POS for Influ A (NEG)
[2017-02-17 12:42] LABS: INFLUENZA B PCR Neg for Influ B (NEG)
[2017-02-17 13:45] VITALS: BP 132/79; PULSE 61
[2017-02-17 13:57] VITALS: O2SAT 91
[2017-02-22] MEDS ORDERED: LSN25 PO (11:59)
[2017-02-22] MEDS ORDERED: PRD20 PO (11:59)
[2017-03-18] MEDS ORDERED: RANI300T2 PO (08:48)
[2017-03-18] MEDS ORDERED: ADVIN10/60 INH (10:44)
[2017-03-18] MEDS ORDERED: TPRSR/25 PO (10:44)
[2017-03-18] MEDS ORDERED: ACET500T58 PO (13:38)
[2017-03-18] MEDS ORDERED: LPT40 PO (13:38)
[2017-03-18] MEDS ORDERED: LISI-1116 PO (19:01)
[2017-03-18] MEDS ORDERED: SPIR25TA5 PO (19:09)
[2017-03-20] MEDS ORDERED: SPIR50TA5 PO (14:25)
[2017-03-20] MEDS ORDERED: CMD5 PO (14:25)
[2017-05-08] MEDS ORDERED: ERGO500037 PO (14:55)
[2017-05-08] MEDS ORDERED: WARF5TAB7 PO (14:55)
[2017-05-08] MEDS ORDERED: SPIR50TA2 PO (14:55)
[2017-06-29] MEDS ORDERED: SPIR25TA6 PO (15:32)
[2017-07-05] MEDS ORDERED: FRS/80 PO (17:37)
[2017-07-05] MEDS ORDERED: LPR25 PO (17:37)
[2017-07-05] MEDS ORDERED: CMD5 PO (17:37)
[2017-07-12] MEDS ORDERED: [UNRECOGNIZED DRUG - CODE] IV (17:38)
[2017-07-12] MEDS ORDERED: PRMT25 PO (17:38)
[2017-07-12] MEDS ORDERED: SNDI SQ (17:38)
[2017-07-12] MEDS ORDERED: LPR25 PO (17:38)
[2017-07-12] MEDS ORDERED: ULT50X PO (17:38)
== END 2017-02-17 13:58 | disposition home or self-care (01) ==
LOC: C.EDB 09:55 → C.EDA 13:58
DX: J10.1 Influenza due to other identified influenza virus with other respiratory manifestations (principal); I50.9 Heart failure, unspecified; I11.0 Hypertensive heart disease with heart failure; I48.91 Unspecified atrial fibrillation; J45.909 Unspecified asthma, uncomplicated; K21.9 Gastro-esophageal reflux disease without esophagitis; E78.5 Hyperlipidemia, unspecified; R60.0 Localized edema; S00.31XA Abrasion of nose, initial encounter; X58.XXXA Exposure to other specified factors, initial encounter; Z79.01 Long term (current) use of anticoagulants; Z82.49 Family history of ischemic heart disease and other diseases of the circulatory system

== ENCOUNTER 2017-02-20 10:03 | Inpatient (IN) | payer BC, OTHER ==
[~2017-02-20] VITALS: Ht 149.9 cm; Wt 83.5 kg
[2017-02-20] MEDS ORDERED: ACETAMINOPHEN 325 MG TAB PO STA (10:34)
[2017-02-20] MEDS ORDERED: ALBUT/IPRATROP 3MG/0.5MG NEB 3 ML VIAL INH STA (10:34)
--- NOTE | 2017-02-20 10:36 | EMERGENCY ROOM VISIT NOTE ---
History Report prepared by Yony: Rachel Cleary Under the Supervision of: Dr. Ernesto Sexton M.D. First contact with patient: 10:20 Chief Complaint: SHORTNESS OF BREATH Stated Complaint: SOB, HERE SUNDAY Nursing Triage Summary: pt reports sob started a couple weeks ago was seen here sunday for sx. has productive yellow sputum cough History of Present Illness The patient is a 81 year old white female with a past medical history of CHF, atrial fibrillation, CAROLYNN, HLD, and HTN who presents to the ED with persistent shortness of breath for four days [employer]. Positive shortness of breath and nasal congestion. Negative nausea, vomiting, or chest pain. She was recently seen in the ED February 17, 2017 for similar symptoms. She notes the shortness of breath has not changed since her last visit. She is currently taking Coumadin. She uses a CPAP nightly and an inhaler daily. She denies any history of smoking. CHF. She denies any changes in her medications. She denies any changes in her weight. 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 Review of Systems See HPI for pertinent positives and negatives. A total of ten systems were reviewed and were otherwise negative. Past Medical & Surgical Medical Problems: (1) Asthma (2) Benign hypertension (3) Bronchitis (4) CHF (congestive heart failure) (5) Edema (6) Fall (7) GERD (gastroesophageal reflux disease) (8) Hiatal hernia (9) High cholesterol (10) Left knee pain (11) CAROLYNN on CPAP (12) Paroxysmal atrial fibrillation (13) PNA (pneumonia) (14) s/p elective cardioversion (15) Seasonal allergies (16) SOB (shortness of breath) (17) UTI (urinary tract infection) Surgical Problems: (1) H/O: hysterectomy (2) S/P cataract surgery Family History Cancer FH: hypertension Heart disease Social History Smoking Status: Never Smoker Alcohol Use: none Drug Use: none Marital Status: Housing Status: lives with significant other Occupation Status: employed Current/Historical Medications Scheduled Acetaminophen (Acetaminophen), 2 TAB PO Q8 Amiodarone HCl (Amiodarone HCl), 200 MG PO DAILY Atorvastatin (Atorvastatin Calcium), 1 TAB PO DAILY Fluticasone Prop/Salmeterol (Advair Diskus 100/50 60 Dose), 1 PUFF INH BID Fluticasone Propionate (Nasal) (Flonase Allergy Relief), 2 SPRAY SKY DAILY Furosemide (Furosemide), 80 MG PO BID Metoprolol Succinate (Metoprolol Succinate ER), 12.5 MG PO DAILY Omeprazole (Prilosec), 20 MG PO DAILY Potassium Chloride Microencaps (Potassium Chloride Er), 10 MEQ PO BID Ranitidine (Zantac), 300 MG PO HS Warfarin Sodium (Warfarin Sodium), 5 MG PO [id number] Warfarin Sodium (Warfarin Sodium), 7.5 MG PO WK Scheduled PRN Albuterol Sulfate (Proair Respiclick), 2 PUFFS INH Q4H PRN for SOB/Wheezing Tramadol HCl (Tramadol HCl), 50 MG PO Q4H PRN for Pain Allergies Coded Allergies: Alcohol (Verified Allergy, Mild, RASH, 02/20/17) WIPES OR INGESTED Cephalosporins (Verified Allergy, Mild, RASH, 02/20/17) Codeine (Verified Allergy, Mild, RASH, 02/20/17) Penicillins (Verified Allergy, Mild, RASH, 02/20/17) Aspirin (Verified Allergy, Unknown, RASH, 02/20/17) Levofloxacin (Verified Allergy, Unknown, "BONE PAIN", 02/20/17) Sulfa Antibiotics (Verified Allergy, Unknown, UNKNOWN, 02/20/17) Physical Exam Vital Signs Date Time Temp Pulse Resp B/P (MAP) Pulse Ox O2 Delivery O2 Flow Rate FiO2 02/20/17 13:00 59 02/20/17 12:52 59 93 02/20/17 12:22 59 17 90 02/20/17 12:17 65 22 136/76 92 Room Air 02/20/17 12:10 92 Room Air 02/20/17 11:03 96 Room Air 02/20/17 10:05 36.3 63 20 169/78 92 Room Air Physical Exam GENERAL: Awake, alert, well-appearing, NAD HENT: Normocephalic, atraumatic. EYES: Normal conjunctiva. Sclera non-icteric. NECK: Supple. No nuchal rigidity. FROM. RESPIRATORY: Crackles throughout chest, more pronounced at bases. CARDIAC: RRR, no MRG ABDOMEN: Soft, NTND, BS+ MSK: No chest wall TTP, 2+ pretibial edema B/L LEs NEURO: GCS 15, CN 2-12 intact, moves all 4s on command SKIN: No rash or jaundice noted. Medical Decision & Procedures ER Provider Diagnostic Interpretation: Radiology results as stated below per my review and radiologist interpretation: CHEST ONE VIEW PORTABLE CLINICAL HISTORY: Respiratory distress COMPARISON STUDY: 02/17/2017 FINDINGS: The heart remains enlarged. There is persistent unexplained widening the right superior mediastinum. Mild pulmonary vascular congestion is suspected. There is no lobar consolidation. Trace pleural effusions are evident.[ IMPRESSION: 1. Stable cardiomegaly, mild vascular congestion, and trace pleural effusions 2. Stable explain widening of the right superior mediastinum Electronically signed by: Jason Levin M.D. 02/20/2017 11:02 AM Dictated Date/Time: 02/20/2017 11:00 AM Laboratory Results 02/20/17 10:45 Red Blood Count 4.70, Mean Corpuscular Volume 83.0, Mean Corpuscular Hemoglobin 26.4, Mean Corpuscular Hemoglobin Concent 31.8, Mean Platelet Volume 11.0, Neutrophils (%) (Auto) 65.6, Lymphocytes (%) (Auto) 22.0, Monocytes (%) (Auto) 11.6, Eosinophils (%) (Auto) 0.2, Basophils (%) (Auto) 0.6, Neutrophils # (Auto ) 3.33, Lymphocytes # (Auto) 1.12, Monocytes # (Auto) 0.59, Eosinophils # (Auto ) 0.01, Basophils # (Auto) 0.03 Test 02/20/17 00:00 02/20/17 10:45 Urine Color YELLOW Urine Appearance CLEAR (CLEAR) Urine pH 7.5 (4.5-7.5) Urine Specific Mullens 1.010 (1.000-1.030) Urine Protein NEG (NEG) Urine Glucose (UA) NEG (NEG) Urine Ketones NEG (NEG) Urine Occult Blood NEG (NEG) Urine Nitrite NEG (NEG) Urine Bilirubin NEG (NEG) Urine Urobilinogen NEG (NEG) Urine Leukocyte Esterase NEG (NEG) White Blood Count 5.08 K/uL (4.8-10.8) Red Blood Count 4.70 M/uL (4.2-5.4) Hemoglobin 12.4 g/dL (12.0-16.0) Hematocrit 39.0 % (37-47) Mean Corpuscular Volume 83.0 fL (80-100) Mean Corpuscular Hemoglobin 26.4 pg (25-34) Mean Corpuscular Hemoglobin Concent 31.8 g/dl (32-36) Platelet Count 238 K/uL (130-400) Mean Platelet Volume 11.0 fL (7.4-10.4) Neutrophils (%) (Auto) 65.6 % Lymphocytes (%) (Auto) 22.0 % Monocytes (%) (Auto) 11.6 % Eosinophils (%) (Auto) 0.2 % Basophils (%) (Auto) 0.6 % Neutrophils # (Auto) 3.33 K/uL (1.4-6.5) Lymphocytes # (Auto) 1.12 K/uL (1.2-3.4) Monocytes # (Auto) 0.59 K/uL (0.11-0.59) Eosinophils # (Auto) 0.01 K/uL (0-0.5) Basophils # (Auto) 0.03 K/uL (0-0.2) RDW Standard Deviation 54.1 fL (36.4-46.3) RDW Coefficient of Variation 17.8 % (11.5-14.5) Immature Granulocyte % (Auto) 0.0 % Immature Granulocyte # (Auto) 0.00 K/uL (0.00-0.02) Prothrombin Time 23.9 SECONDS (9.0-12.0) Prothromb Time International Ratio 2.3 (0.9-1.1) Activated Partial Thromboplast Time 34.8 SECONDS (21.0-31.0) Partial Thromboplastin Ratio 1.3 Est Creatinine Clear Calc Drug Dose 38.9 ml/min Magnesium Level 2.2 mg/dl (1.8-2.4) Total Bilirubin 0.9 mg/dl (0.2-1) Aspartate Amino Transf (AST/SGOT) 80 U/L (15-37) Alanine Aminotransferase (ALT/SGPT) 32 U/L (12-78) Alkaline Phosphatase 245 U/L (45-117) Pro-B-Type Natriuretic Peptide 6276 pg/ml (0-1800) Total Protein 7.2 gm/dl (6.4-8.2) Albumin 3.0 gm/dl (3.4-5.0) Globulin 4.2 gm/dl (2.5-4.0) Albumin/Globulin Ratio 0.7 (0.9-2) Laboratory results reviewed by me Medications Administered Medications (Trade) Dose Ordered Sig/Yanet Route Start Time Stop Time Status Last Admin Dose Admin Albuterol/ Ipratropium (Duoneb) 3 ml NOW STAT INH 02/20/17 10:34 02/20/17 10:39 DC 02/20/17 10:34 3 ML Acetaminophen (Tylenol Tab) 650 mg NOW STAT PO 02/20/17 10:34 02/20/17 10:39 DC 02/20/17 10:34 650 MG Furosemide 80 mg/ Syringe 8 ml @ 4 mls/min ONE ONCE IV 02/20/17 12:00 02/20/17 12:01 DC 02/20/17 12:00 4 MLS/MIN ECG Indication: SOB/dyspnea Rate (beats per minute): 62 Rhythm: normal sinus Findings: T-wave inversion (Anterior, Inferior, and Lateral), other (Prolonged QT ) Change: New changes when compared to 02/17/2017 ED Course 1028: The patient was evaluated in room B12B. A complete history and physical exam was performed. 1237: I spoke with Dane Nugent PA-C. We discussed the patients case. The patient will be evaluated by the [facility] for further management. Medical Decision The patient is a 81 year old white female with a past medical history of CHF, atrial fibrillation, CAROLYNN, HLD, and HTN who presents to the ED with persistent shortness of breath for four days [employer]. Prior records/ancillary studies reviewed. Triage Nursing notes reviewed. The patient's history was concerning for respiratory difficulties. Differential diagnosis: Etiologies such as infections, reactive airway disease, pneumonia, pneumothorax , COPD, CHF, cardiac ischemia, pulmonary embolism, musculoskeletal, gastrointestinal, as well as others were entertained. Patient was seen and evaluated the bedside. Patient does have a prior history of CHF as well as asthma and CAROLYNN for which she requires CPAP. Patient does have a chronic history of A. fib for which she takes Coumadin. Patient denies any recent changes in her medications. Patient has noticed a productive hacking cough. Patient has noted some weight gain however she states that this weight gain may be related to more cookies being eaten. Patient denies increased salt intake. Patient has noticed that she has gained some weight over the holidays. Patient denies any chest pains. Patient did have blood work completed, EKG, troponin, BNP, chest x-ray. Of note patient does take Lasix 80 mg by mouth twice a day she states she has had no recent changes in any of her medications. Patient's chest x-ray did show some vascular congestion in addition to bilateral pleural effusions. Patient's BNP was elevated greater than 6000. Patient had a negative troponin. Patient did have an elevated bicarbonate which is likely consistent to her prior history of CAROLYNN. Patient is not altered where I believe she needs a blood gas. Patient does not have an elevated white blood cell count. Patient has normal hemoglobin and platelet count. Patient's EKG did show more diffuse T-wave inversions inferiorly and laterally. Given this I did speak with the hospitalist as she likely had an element of CHF exacerbation. Given her persistent symptoms she was given IV Lasix. No aspirin was given at this time given her prior history. Patient was therapeutic on her Coumadin with an INR between 2 and 3. Patient was admitted to the hospitalist. Medication Reconcilliation Current Medication List: was personally reviewed by me Blood Pressure Screening Patient's blood pressure: Elevated blood pressure Blood pressure disposition: Elevated BP felt to be situational Impression Primary Impression: CHF exacerbation Additional Impressions: Acute electrocardiogram changes Hypokalemia SOB (shortness of breath) Scribe Attestation The scribe's documentation has been prepared under my direction and personally reviewed by me in its entirety. I confirm that the note above accurately reflects all work, treatment, procedures, and medical decision making performed by me. Departure Information Dispostion Being Evaluated By Hospitalist Referrals aGry Clement MD (PCP) Patient Instructions [facility] Problem Qualifiers Primary Impression: CHF exacerbation Congestive heart failure type: systolic Qualified Codes: I50.23 - Acute on chronic systolic (congestive) heart failure
[2017-02-20 10:57] LABS: BASO % 0.6 %; BASO ABS # 0.03 K/uL (0-0.2); EOS % 0.2 %; EOS ABS # 0.01 K/uL (0-0.5); HEMOGLOBIN 12.4 g/dL (12.0-16.0); LYMPH ABS # 1.12 K/uL (1.2-3.4); MEAN CORPUSCULAR HEMOGLOBIN 26.4 pg (25-34); MEAN CORPUSCULAR HGB CONC 31.8 g/dl (32-36); MONO % 11.6 %; MONO ABS # 0.59 K/uL (0.11-0.59); NEUT % 65.6 %; NEUT ABS # 3.33 K/uL (1.4-6.5); RED CELL DISTRIBUTION WIDTH CV 17.8 % (11.5-14.5); RED CELL DISTRIBUTION WIDTH SD 54.1 fL (36.4-46.3); WHITE BLOOD COUNT 5.08 K/uL (4.8-10.8)
--- NOTE | 2017-02-20 11:04 | DIAGNOSTIC IMAGING REPORT ---
CHEST ONE VIEW PORTABLE CLINICAL HISTORY: Respiratory distress COMPARISON STUDY: 02/17/2017 FINDINGS: The heart remains enlarged. There is persistent unexplained widening the right superior mediastinum. Mild pulmonary vascular congestion is suspected. There is no lobar consolidation. Trace pleural effusions are evident.[ IMPRESSION: 1. Stable cardiomegaly, mild vascular congestion, and trace pleural effusions 2. Stable explain widening of the right superior mediastinum Electronically signed by: Jason Levin M.D. 02/20/2017 11:02 AM Dictated Date/Time: 02/20/2017 11:00 AM
[2017-02-20 11:06] LABS: INR 2.3 (0.9-1.1); PTT PATIENT 34.8 SECONDS (21.0-31.0)
[2017-02-20 11:16] LABS: PLATELET COUNT 238 K/uL (130-400)
[2017-02-20 11:22] LABS: CREATININE 1.13 mg/dl (0.60-1.20); POTASSIUM 3.1 mmol/L (3.5-5.1)
[2017-02-20 11:25] LABS: TOTAL PROTEIN 7.2 gm/dl (6.4-8.2)
[2017-02-20] MEDS ORDERED: FUROSEMIDE INJ 80 MG in SYRINGE 0 ML IV ONE (12:00)
[2017-02-20 12:10] VITALS: O2SAT 92; Ht 149.9 cm; Wt 83.5 kg
--- NOTE | 2017-02-20 12:10 | NUR ---
A/ID: 81 year old female in ED. c/o worsened shortness of breath. BNP 6276. Troponin 0.018. Denies chest pain. Possible admission/observation. Admission Assessment done. Code Word/Fall Agreement reviewed with patient and spouse, and completed. Continued care in ED by TERRANCE Crow.
[2017-02-20] MEDS ORDERED: ACETAMINOPHEN 325 MG TAB PO PRN (13:15)
[2017-02-20] MEDS ORDERED: NITROGLYCERIN 0.4 MG SL PER TAB CHARGE SL PRN (13:15)
[2017-02-20] MEDS ORDERED: FLUT0.15 NAE (13:38)
[2017-02-20] MEDS ORDERED: POTASSIUM CHLORIDE 20 MEQ TABCR PO STA (13:48)
[2017-02-20] MEDS ORDERED: LEVALBUTEROL/IPRATROPIUM NEB INH PRN (14:00)
[2017-02-20] MEDS ORDERED: POTASSIUM CHLORIDE 10 MEQ TABCR ONE (14:30)
[2017-02-20] MEDS ORDERED: IPRATROPIUM BROMIDE NEB SOLN 0.02% 2.5 ML VIAL INH PRN (14:30)
[2017-02-20] MEDS ORDERED: LEVALBUTEROL 0.63MG/3 ML NEB INH PRN (14:30)
[2017-02-20 14:51] VITALS: BP 154/72; PULSE 55; TEMP 36.4; O2SAT 91
--- NOTE | 2017-02-20 14:52 | History and Physical ---
History & Physical Date & Time of Service: Feb 20, 2017 at 14:13 Chief Complaint: Sob, Here Sunday Primary Care Physician: Gary Clement MD History of Present Illness Source: patient, spouse, clinic records, hospital records Pt is 81 y/o F with PMH paroxysmal a-fib on coumadin, diastolic HF, HTN, hyperlipidemia, CAROLYNN using CPAP, CKD III and asthma presented to ER with c/o increased SOB. Pt states past 2-3 weeks with cough productive yellow sputum. Initially had rhinorrhea and sore throat which has resolved. Reports family members with URI's and influenza recently. States feels like has chest congestion and yesterday started with SOB with walking which is unusual for her. Pt seen in ER on 02/17/17 and had +influenza swab (no tx) and was treated for CHF. She reports having to use her albuterol inhaler 3-4 times a day past 2 days and states does decrease SOB and cough and chest congestion sensation however is limited relief. She admits not using her advair as directed and states sometimes forgets to use. Denies CP or palpitations. Reports eating and drinking normally. Didn't take her lasix this morning. Denies increased LE edema. Denies fever/chills, diaphoresis, N/V/D/C, melena, hematochezia, [place], dizziness, syncope, vision changes, neck pain, orthopnea, PND, hemoptysis, choking, otalgia, abdominal pain, paresthesias, weakness, rashes, urinary symptoms. In ER today: no leukocytosis, K: 3.1, INR: 2.3, Cr: 1.1 (baseline), BNP: 6276, negative troponin, AST: 80 (was 52 12/2016), Alk phos: 245 (was 266 12/2016). CXR: stable cardiomegaly, mild vascular congestion, trace pleural effusions. EKG : NSR, rate 62, L ant fascicular block, prolonged QT-533. Was given Tylenol, duoneb tx, lasix 80mg IV and pt reports feels less SOB. Pt report ASA allergy - rash & hives. Hx ECHO 2014: EF: 60-65%. Follows with Dr Alonzo cardiology. Past Medical/Surgical History Medical Problems: (1) Asthma Status: Chronic (2) Benign hypertension Status: Chronic (3) Bronchitis Status: Chronic (4) CHF (congestive heart failure) Permanent Comment: diastolic per prior H&P. echo 05/23/2012- EF >70% Status: Chronic (5) Edema Status: Chronic (6) GERD (gastroesophageal reflux disease) Status: Chronic (7) Hiatal hernia Status: Chronic (8) High cholesterol Status: Chronic (9) CAROLYNN on CPAP Status: Chronic (10) Paroxysmal atrial fibrillation Status: Chronic (11) PNA (pneumonia) Status: Resolved (12) s/p elective cardioversion Permanent Comment: Oct 2012 at [facility] for atrial fibrillation Status: Chronic (13) Seasonal allergies Status: Chronic Surgical Problems: (1) H/O: hysterectomy Status: Chronic (2) S/P cataract surgery Status: Chronic Family History Cancer FH: hypertension Heart disease Social History Smoking Status: Never Smoker Smokeless Tobacco Use: No Alcohol Use: none Drug Use: none Marital Status: Housing status: lives with family Immunizations History of Influenza Vaccine: No Influenza Vaccine Date: Nov 23, 2011 History of Tetanus Vaccine?: Unknown History of Pneumococcal: No Pneumococcal Date: May 23, 2002 History of Hepatitis B Vaccine: Unknown Multi-Drug Resistant Organisms History of MDRO: No Allergies Coded Allergies: Alcohol (Verified Allergy, Mild, RASH, 02/20/17) WIPES OR INGESTED Cephalosporins (Verified Allergy, Mild, RASH, 02/20/17) Codeine (Verified Allergy, Mild, RASH, 02/20/17) Penicillins (Verified Allergy, Mild, RASH, 02/20/17) Aspirin (Verified Allergy, Unknown, RASH, 02/20/17) Levofloxacin (Verified Allergy, Unknown, "BONE PAIN", 02/20/17) Sulfa Antibiotics (Verified Allergy, Unknown, UNKNOWN, 02/20/17) Home Medications Scheduled Acetaminophen (Acetaminophen), 2 TAB PO Q8 Amiodarone HCl (Amiodarone HCl), 200 MG PO DAILY Atorvastatin (Atorvastatin Calcium), 1 TAB PO DAILY Fluticasone Prop/Salmeterol (Advair Diskus 100/50 60 Dose), 1 PUFF INH BID Fluticasone Propionate (Nasal) (Flonase Allergy Relief), 2 SPRAY SKY DAILY Furosemide (Furosemide), 80 MG PO BID Metoprolol Succinate (Metoprolol Succinate ER), 12.5 MG PO DAILY Omeprazole (Prilosec), 20 MG PO DAILY Potassium Chloride Microencaps (Potassium Chloride Er), 10 MEQ PO BID Ranitidine (Zantac), 300 MG PO HS Warfarin Sodium (Warfarin Sodium), 5 MG PO [id number] Warfarin Sodium (Warfarin Sodium), 7.5 MG PO WK Scheduled PRN Albuterol Sulfate (Proair Respiclick), 2 PUFFS INH Q4H PRN for SOB/Wheezing Tramadol HCl (Tramadol HCl), 50 MG PO Q4H PRN for Pain Review of Systems Constitutional: No weight loss, No fatigue Eyes: No worsening of vision, No eye pain, No redness, No discharge ENT: + sore throat, No unusual epistaxis, No trouble swallowing Respiratory: + problem reported (see HPI), No dyspnea at rest, No hemoptysis Cardiovascular: No chest pain, No orthopnea, No PND Abdomen: No pain, No nausea, No vomiting Musculoskeletal: No joint pain, No muscle pain, No calf pain Genitourinary - Female: No dysuria, No urinary frequency, No urinary urgency, No hematuria Neurologic: No paralysis, No numbness/tingling, No vertigo Endocrine: No excessive thirst, No excessive urination Hematologic / Lymphatic: No night sweats Integumentary: No rash, No itch Physical Exam Vital Signs Date Time Temp Pulse Resp B/P (MAP) Pulse Ox O2 Delivery O2 Flow Rate FiO2 02/20/17 13:00 59 02/20/17 12:17 65 22 136/76 92 Room Air 02/20/17 12:10 92 Room Air 02/20/17 11:03 96 Room Air 02/20/17 10:05 36.3 63 20 169/78 92 Room Air General Appearance: no apparent distress (sitting up in chair), + obese Head: normocephalic, atraumatic Eyes: normal inspection, PERRL, EOMI, sclerae normal ENT: hearing grossly normal, pharynx normal, + pertinent finding (moist mucous membranes) Neck: supple, no JVD, trachea midline Respiratory/Chest: chest non-tender, no respiratory distress, no accessory muscle use, + crackles (bases bilatrerally, faint expiratory wheezing scattered throughout) Cardiovascular: regular rate, rhythm, no murmur, normal peripheral pulses Abdomen/GI: normal bowel sounds, non tender, soft Back: normal inspection, no CVA tenderness Extremities/Musculoskelatal: no calf tenderness, normal capillary refill, non- tender, + pedal edema (1+ bilaterally) Neurologic/Psych: alert, normal mood/affect, oriented x 3 Skin: normal color, warm/dry Diagnostics Laboratory Results Results Past 24 Hours Test 02/20/17 10:45 02/20/17 13:38 Range/Units White Blood Count 5.08 4.8-10.8 K/uL Red Blood Count 4.70 4.2-5.4 M/uL Hemoglobin 12.4 12.0-16.0 g/dL Hematocrit 39.0 37-47 % Mean Corpuscular Volume 83.0 80-100 fL Mean Corpuscular Hemoglobin 26.4 25-34 pg Mean Corpuscular Hemoglobin Concent 31.8 32-36 g/dl Platelet Count 238 130-400 K/uL Mean Platelet Volume 11.0 7.4-10.4 fL Neutrophils (%) (Auto) 65.6 % Lymphocytes (%) (Auto) 22.0 % Monocytes (%) (Auto) 11.6 % Eosinophils (%) (Auto) 0.2 % Basophils (%) (Auto) 0.6 % Neutrophils # (Auto) 3.33 1.4-6.5 K/uL Lymphocytes # (Auto) 1.12 1.2-3.4 K/uL Monocytes # (Auto) 0.59 0.11-0.59 K/uL Eosinophils # (Auto) 0.01 0-0.5 K/uL Basophils # (Auto) 0.03 0-0.2 K/uL RDW Standard Deviation 54.1 36.4-46.3 fL RDW Coefficient of Variation 17.8 11.5-14.5 % Immature Granulocyte % (Auto) 0.0 % Immature Granulocyte # (Auto) 0.00 0.00-0.02 K/uL Prothrombin Time 23.9 9.0-12.0 SECONDS Prothromb Time International Ratio 2.3 0.9-1.1 Activated Partial Thromboplast Time 34.8 21.0-31.0 SECONDS Partial Thromboplastin Ratio 1.3 Sodium Level 137 136-145 mmol/L Potassium Level 3.1 3.5-5.1 mmol/L Chloride Level 99 98-107 mmol/L Carbon Dioxide Level 33 21-32 mmol/L Anion Gap 5.0 3-11 mmol/L Blood Urea Nitrogen 19 7-18 mg/dl Creatinine 1.13 0.60-1.20 mg/dl Est Creatinine Clear Calc Drug Dose 38.9 ml/min Estimated GFR () 52.8 Estimated GFR (Non- 45.5 BUN/Creatinine Ratio 16.9 10-20 Random Glucose 87 70-99 mg/dl Calcium Level 8.0 8.5-10.1 mg/dl Total Bilirubin 0.9 0.2-1 mg/dl Aspartate Amino Transf (AST/SGOT) 80 15-37 U/L Alanine Aminotransferase (ALT/SGPT) 32 12-78 U/L Alkaline Phosphatase 245 45-117 U/L Troponin I 0.018 0-0.045 ng/ml Pro-B-Type Natriuretic Peptide 6276 0-1800 pg/ml Total Protein 7.2 6.4-8.2 gm/dl Albumin 3.0 3.4-5.0 gm/dl Globulin 4.2 2.5-4.0 gm/dl Albumin/Globulin Ratio 0.7 0.9-2 Diagnostic Radiology CXR: IMPRESSION: 1. Stable cardiomegaly, mild vascular congestion, and trace pleural effusions 2. Stable explain widening of the right superior mediastinum EKG EKG: NSR, rate 62, left anterior fascicular block, t wave inversion noted II, III, AVF, V3, V4,V5. prolonged QT 533 EKG read by cardiology: Normal sinus rhythm Left anterior fascicular block Anterior infarct , age undetermined T wave abnormality, consider inferolateral ischemia Prolonged QT Abnormal ECG When compared with ECG of 17-FEB-2017 10:18, Left anterior fascicular block is now Present Inverted T waves have replaced nonspecific T wave abnormality in Inferior leads Inverted T waves have replaced nonspecific T wave abnormality in Anterior leads ... 25mm/s 10mm/mV 150Hz 8.0 SP2 12SL 241 AYDE: 3 Referred by: Referred Self Confirmed By: ZACHERY STEVEN Impression Assessment and Plan ACUTE ON CHRONIC DIASTOLIC HEART FAILURE Pt with increased SOB past 2 days. Hx chronic diastolic HF. echo 2015: EF: 60-65 %. Pt denies increased LE edema, denies CP. EKG: NSR, rate 62, T wave inversion inferior, lateral, L anterior fascicular block, prolonged QT -lasix 80 IV BID -trend cardiac enzymes -EKG prn CP, repeat EKG in am -ASA allergy reported (hives per pt) -may consider echo, cardiology consult -continue to monitor SOB/ASTHMA/BRONCHITIS Pt with productive cough x 2-3 weeks with ill contacts. recent +influenza swab on 02/17/17. CXR: no infiltrate noted. no leukocytosis. -xopenex/atrovent nebs -continue advair -O2 per protocol -continue to monitor -CBC in am HYPOKALEMIA K: 3.1 today. -pending magnesium -Potassium 40meq po -repeat prp 1700 today -repeat magnesium and cmp in am HX PAROXYSMAL ATRIAL FIBRILLATION -sinus rhythm, rate 62 today. On coumadin. INR: 2.3 -continue amiodarone -continue metoprolol -continue coumadin -INR in am HTN stable, continue to monitor -continue metoprolol GERD -continue PPI and H2 stacey HYPERLIPIDEMIA Lipid panel in 12/2016: total: 311, LDL: 247, HDL: 42, Triglycerides: 108. Her atorvastatin was increased at that time -continue atorvastatin CAROLYNN -continue CPAP HS per home settings CKD III Cr: 1.1 (baseline 1.1) -continue to monitor -avoid nephrotoxic agents when possible DVT PROPHYLAXIS -Coumadin DISPOSITION -admit tele -DNR as per discussion with pt -Follows with Dr Clement for routine care Pt was seen with Dr Sanford. See addendum Level of Care Telemetry Advanced Directives Existing Living Will: Yes Existing Power of Equipment Engineering Technician: Yes Resuscitation Status DO NOT RESUSCITATE VTE Prophylaxis VTE Risk Assessment Done? Y/N: Yes Risk Level: Moderate Given or contraindicated: Warfarin (Coumadin) Note ATTENDING ADDENDUM Record reviewed. Patient interviewed and examined. Care coordinated with Diana Adrian PA-C. Please refer to her documentation for patient's history. Briefly, 81 YO female with history of CHF, atrial fibrillation, hypertension, asthma, sleep apnea, and other problems. Seen in ED on 02/17 with cough and SOB. Chest x-ray showed mild CHF. Influenza TRANSITION NURSE swab was positive. Received IV furosemide in ED with improvement. Discharged to home. Returned to ED today with persistent cough and dyspnea. Cough productive of thick yellow sputum. No fever. No change of chronic lower extremity edema. No chest pain. EXAM: General- elderly female, no acute distress VS- as noted Neck- + JVD Lungs- scattered rhonchi, bibasilar rales, diffuse mild-moderate wheezing Heart- RRR, no gallop appreciated Abdomen- + BS, soft, nontender Extremities- 1+ pretibial edema, no calf tenderness Neuro- alert, oriented DATA: K 3.1. WBC 5080. INR 2.3. Other lab studies as noted. Chest x-ray reviewed and demonstrated cardiomegaly, pulmonary vascular congestion, no infiltrates, widened mediastinum (noted 02/17/17 and 10/01/16). EKG performed at 11:23 reviewed and demonstrated NSR at 60 / minute, QTc 533 msec, left anterior fascicular block, possible age-indeterminate anterior infarct, [address] depression I, II, aVF, inverted or biphasic T-waves in I, II, III, aVF, V3-V6. . ASSESSMENT AND PLAN: Cough / dyspnea. Suspect combination of sinobronchitis and CHF. IV furosemide for CHF. Last echo was in 2014; will recheck in light of EKG changes. Recently documented influenza A. No apparent indication for antibiotics. Short course of steroids for bronchospasm. Chest x-ray shows widened mediastinum, noted on 10/01/16 and 02/17/17. May be prudent to check CT of chest. K 3/- replace orally. Please refer to ELIZABETH Ruiz's documentation for discussion of other issues. Max Sanford MD . Additional Copies To Gary Clement MD
[2017-02-20] MEDS ORDERED: LEVALBUTEROL/IPRATROPIUM NEB INH SCH (15:00)
--- NOTE | 2017-02-20 15:00 | NUR ---
A: Pt is alert and oriented x4. no complaints of pain or SOB. lungs diminished throughout. cough is non productive at this time. SB on the cardiac cath lab technologist. PT had flu swab obtained due to previous positive and numerous family members with the flu. Urine sent to lab as well. vss. see emr for full ostomy rn. call marina in reach. will continue to monitor the patient.
[2017-02-20] MEDS ORDERED: WARFARIN SOD 5 MG TAB PO SCH (16:00)
--- NOTE | 2017-02-20 16:00 | NUR ---
pt resting in chair. no complaints of pain or sob. call marina in reach. will continue to monitor the patient. SR on panel monitor.
[2017-02-20] MEDS ORDERED: METHYLPREDNISOLONE IV 40 MG in SYRINGE 0 ML IV ONE (16:45)
[2017-02-20] MEDS: GUAIFENESIN SUGAR FREE 100 MG/5 ML UDC PO SCH ×2 (16:54→20:21)
[2017-02-20 18:00] LABS: CALCIUM 8.3 mg/dl (8.5-10.1); CREATININE 1.13 mg/dl (0.60-1.20); POTASSIUM 3.7 mmol/L (3.5-5.1)
[2017-02-20 18:21] LABS: INFLUENZA B PCR Neg for Influ B (NEG)
[2017-02-20] MEDS: FUROSEMIDE INJ 80 MG in SYRINGE 0 ML IV SCH (18:21)
[2017-02-20 18:24] LABS: INFLUENZA A PCR POS for Influ A (NEG)
--- NOTE | 2017-02-20 20:00 | NUR ---
A: PT IS A&OX4. VSS ON RA. WEARS CPAP AT HS. PT DENIES CHEST PAIN AND SOB. PT IS POSITIVE FOR INFLUENZA A. PT IS OOB INDEPENDENTLY TO THE BATHROOM. SINUS SOFIA ON MONITOR. NO COMPLAINTS AT THIS TIME. PT IS RESTING IN BEDSIDE CHAIR. Q1H ROUNDING. CALL NEWBY WITHIN REACH. WILL CONTINUE TO MONITOR.
[2017-02-20] MEDS: SODIUM CHLORIDE 0.65% NA SOLN 45 ML (OCEAN) SCH (20:20)
[2017-02-20] MEDS: FLUTICASONE/SALMETEROL 100/50 (ADVAIR) 14 PUFF/1 INHALER INH SCH (20:21)
[2017-02-20] MEDS: RANITIDINE HCL 150 MG TAB PO SCH (20:21)
[2017-02-20] MEDS: LEVALBUTEROL 1.25MG/0.5ML NEB INH SCH (21:42)
[2017-02-20] MEDS: IPRATROPIUM BROMIDE NEB SOLN 0.02% 2.5 ML VIAL INH SCH (21:42)
[2017-02-20 21:45] VITALS: PULSE 56; O2SAT 96
[2017-02-21] VITALS (11 sets, daily range): BP systolic 113–173; BP diastolic 63–84; PULSE 58–70; TEMP 36.2–36.5; O2SAT 90–96
[2017-02-21] MEDS ORDERED: NURSING DECISION MEDICATION ORDER SCH
--- NOTE | 2017-02-21 | NUR ---
A: Patient resting in bed. Alert and oriented x 4. Denies chest pain, has shortness of breath on exertion and when laying down. Denies pain at this time. VSS. Sinus bradycardia on agile scrum coach. Lungs diminished, has nonproductive cough. Right AC saline lock. Scabs on arms and face. Independent in room. Will attempt to wear hospital provided CPAP throughout the night. Droplet precautions for Influenza A. D/C plans uncertain at this time. Will continue to monitor.
[2017-02-21] MEDS ORDERED: COUGH DROP (SUGAR FREE) LOZ 24 LOZ/1 BOX ONE (01:18)
[2017-02-21] MEDS: LEVALBUTEROL 1.25MG/0.5ML NEB INH SCH ×4 (02:19→19:17)
[2017-02-21] MEDS: IPRATROPIUM BROMIDE NEB SOLN 0.02% 2.5 ML VIAL INH SCH ×4 (02:19→19:17)
[2017-02-21] MEDS ORDERED: COUGH DROP (SUGAR FREE) LOZ 24 LOZ/1 BOX PO PRN (02:30)
--- NOTE | 2017-02-21 04:00 | NUR ---
A: Patient sleeping. Assessment unchanged. Right AC saline lock. Will continue to monitor.
[2017-02-21 07:05] LABS: HEMATOCRIT 33.7 % (37-47); HEMOGLOBIN 10.9 g/dL (12.0-16.0); MEAN CORPUSCULAR HEMOGLOBIN 26.5 pg (25-34); MEAN CORPUSCULAR HGB CONC 32.3 g/dl (32-36); MEAN PLATELET VOLUME 10.9 fL (7.4-10.4); PLATELET COUNT 191 K/uL (130-400); RED CELL DISTRIBUTION WIDTH CV 17.6 % (11.5-14.5); RED CELL DISTRIBUTION WIDTH SD 52.8 fL (36.4-46.3); WHITE BLOOD COUNT 3.17 K/uL (4.8-10.8)
[2017-02-21 07:13] LABS: INR 3.5 (0.9-1.1)
[2017-02-21] MEDS: FLUTICASONE/SALMETEROL 100/50 (ADVAIR) 14 PUFF/1 INHALER INH SCH ×2 (07:35→20:37)
[2017-02-21] MEDS: METOPROLOL SUCC 25MG EXT REL TAB PO SCH (07:35)
[2017-02-21] MEDS: FLUTICASONE PROPIONATE NA SPR 16 GM BTL NAE SCH (07:35)
[2017-02-21] MEDS: SODIUM CHLORIDE 0.65% NA SOLN 45 ML (OCEAN) SCH ×4 (07:35→20:37)
[2017-02-21] MEDS: ATORVASTATIN 40 MG TAB PO SCH (07:36)
[2017-02-21] MEDS: AMIODARONE 200 MG TAB PO SCH (07:36)
[2017-02-21] MEDS: PANTOprazole SOD 40 MG TAB PO SCH (07:36)
[2017-02-21 07:37] LABS: CREATININE 1.03 mg/dl (0.60-1.20)
[2017-02-21 07:38] LABS: ALBUMIN 2.3 gm/dl (3.4-5.0); CALCIUM 8.2 mg/dl (8.5-10.1); POTASSIUM 3.4 mmol/L (3.5-5.1)
[2017-02-21] MEDS: GUAIFENESIN SUGAR FREE 100 MG/5 ML UDC PO SCH ×4 (07:38→20:37)
[2017-02-21 07:40] LABS: TOTAL PROTEIN 6.3 gm/dl (6.4-8.2)
[2017-02-21] MEDS ORDERED: POTASSIUM CHLORIDE 10 MEQ TABCR PO STA (07:49)
--- NOTE | 2017-02-21 08:00 | NUR ---
A-Patient sitting on edge of bed. Assessment completed. SR on monitor. No complaints of pain. Independent with ambulation and all ADL's. Lungs course with I+E wheezing noted. Call marina within reach. Will continue to monitor.
[2017-02-21] MEDS: FUROSEMIDE INJ 80 MG in SYRINGE 0 ML IV SCH ×2 (09:12→16:36)
--- NOTE | 2017-02-21 12:00 | NUR ---
A- Patient sitting up in bed eating lunch. Assessment remains unchanged. Call marina within reach. Will continue to monitor.
--- NOTE | 2017-02-21 14:12 | Progress Note ---
Subjective Date of Service: Feb 21, 2017. Subjective Pt evaluation today including: conversation w/ patient, physical exam, lab review, review of studies, review of inpatient medication list Saw/examined the patient in room 279 She is doing well today, denies any significant shortness of breath no chest pain or palpitations mild swelling of the lower extremities Problem List Medical Problems: (1) Acute electrocardiogram changes Status: Acute (2) Ambulatory dysfunction Status: Acute (3) CHF exacerbation Status: Acute (4) Closed fibular fracture Status: Acute (5) Closed fracture of neck of fibula Status: Acute (6) Fever Status: Acute (7) Knee effusion, left Status: Acute (8) Knee hemarthrosis, left Status: Acute (9) Left fibular fracture Status: Acute (10) Left knee pain Status: Acute (11) Right hip pain Status: Acute (12) SIRS (systemic inflammatory response syndrome) Status: Acute (13) UTI (urinary tract infection) Status: Acute Review of Systems Constitutional: No fever, No chills ENT: + nasal symptoms, No sore throat Respiratory: + cough (improving), + sputum, No wheezing, No shortness of breath (resolved), No dyspnea on exertion, No dyspnea at rest, No hemoptysis Cardiac: No chest pain, No edema, No palpitations Abdomen: No pain, No nausea, No vomiting, No diarrhea Medications Current Inpatient Medications Medications (Trade) Dose Ordered Sig/Yanet Route Start Time Stop Time Status Last Admin Dose Admin Acetaminophen (Tylenol Tab) 650 mg Q4H PRN PO 02/20/17 13:15 03/22/17 13:14 Nitroglycerin (Nitrostat Tab) 0.4 mg UD PRN SL 02/20/17 13:15 03/22/17 13:14 Furosemide 80 mg/ Syringe 8 ml @ 4 mls/min BID17 IV 02/20/17 17:00 03/22/17 16:59 02/21/17 09:12 4 MLS/MIN Amiodarone HCl (Cordarone Tab) 200 mg DAILY PO 02/21/17 09:00 03/23/17 08:59 02/21/17 07:36 200 MG Atorvastatin Calcium (Lipitor Tab) 40 mg DAILY PO 02/21/17 09:00 03/23/17 08:59 02/21/17 07:36 40 MG Salmeterol Xinafoate/ Fluticasone (Advair Diskus 100/50 Inh) 1 puff BID INH 02/20/17 21:00 03/22/17 20:59 02/21/17 07:35 1 PUFF Fluticasone Propionate (Flonase Nasal Whitlash) 2 sprays DAILY SKY 02/21/17 09:00 03/23/17 08:59 02/21/17 07:35 2 SPRAYS Metoprolol Succinate (Toprol Xl Tab) 12.5 mg DAILY PO 02/21/17 09:00 03/23/17 08:59 02/21/17 07:35 12.5 MG Warfarin Sodium (Coumadin Tab) 5 mg [id number]@1600 PO 02/20/17 16:00 03/22/17 15:59 Future hold 02/20/17 16:54 5 MG Warfarin Sodium (Coumadin Tab) 7.5 mg Th@1600 PO 02/22/17 16:00 03/24/17 15:59 Pantoprazole Sodium (Protonix Tab) 40 mg DAILY PO 02/21/17 09:00 03/23/17 08:59 02/21/17 07:36 40 MG Ranitidine HCl (zANTac TAB) 300 mg HS PO 02/20/17 21:00 03/22/17 20:59 02/20/17 20:21 300 MG Ipratropium [place]ora (Atrovent 0.02% 0.5MG/2.5ML Neb) 0.5 mg Q4H PRN INH 02/20/17 14:30 03/22/17 14:29 Levalbuterol (Xopenex 0.63 Mg/ 3 Ml Neb) 0.63 mg Q4H PRN INH 02/20/17 14:30 03/22/17 14:29 Ipratropium Colora (Atrovent 0.02% 0.5MG/2.5ML Neb) 0.5 mg Q6R INH 02/20/17 15:00 03/22/17 14:59 02/21/17 02:20 0.5 MG Levalbuterol (Xopenex 1.25MG/ 0.5ML Neb) 1.25 mg Q6R INH 02/20/17 15:00 03/22/17 14:59 02/21/17 02:20 1.25 MG Prednisone (PredniSONE TAB) 40 mg DAILY PO 02/21/17 09:00 03/23/17 08:59 02/21/17 07:36 40 MG Guaifenesin (Robitussin Sugar Free Syrup) 100 mg QID PO 02/20/17 17:00 03/22/17 16:59 02/21/17 12:33 100 MG Sodium Chloride ([place] Nasal Whitlash) 2 sprays QID NA 02/20/17 17:00 03/22/17 16:59 02/21/17 12:33 2 SPRAYS Menthol (Nice Vern) 1 vern PRN PRN PO 02/21/17 02:30 03/23/17 02:29 Objective Vital Signs Date Time Temp Pulse Resp B/P (MAP) Pulse Ox O2 Delivery O2 Flow Rate FiO2 02/21/17 12:00 Room Air 02/21/17 11:25 36.5 58 18 137/69 (91) 91 Room Air 02/21/17 08:00 Room Air 02/21/17 07:40 36.2 70 18 173/82 (112) 90 Room Air 02/21/17 07:35 67 16 94 Room Air 02/21/17 04:15 36.4 64 20 125/78 (94) 91 Room Air 02/21/17 04:00 Room Air 02/21/17 02:20 69 16 90 Room Air 02/21/17 00:00 Room Air 02/21/17 00:00 36.4 60 20 148/84 (105) 91 Room Air 02/20/17 21:45 56 16 96 Room Air 02/20/17 20:00 Room Air 02/20/17 16:00 Room Air 02/20/17 14:51 36.4 55 20 154/72 (99) 91 Room Air 02/20/17 14:43 36.6 58 18 158/74 90 02/20/17 14:34 58 18 158/74 90 02/20/17 14:23 100 Room Air 02/20/17 14:22 56 90 Physical Exam General Appearance: no apparent distress Respiratory/Chest: no respiratory distress, no accessory muscle use, + decreased breath sounds Cardiovascular: regular rate, rhythm, no edema, no murmur Abdomen: normal bowel sounds, non tender, soft Extremities: normal range of motion, non-tender, no calf tenderness, + swelling (trace pitting edema b/l LE), + pertinent finding Neurologic/Psychiatric: no motor/sensory deficits, alert, normal mood/affect Laboratory Results Last 24 Hours Test 02/20/17 16:53 02/20/17 22:27 02/21/17 06:51 Sodium Level 136 mmol/L 136 mmol/L Potassium Level 3.7 mmol/L 3.4 mmol/L Chloride Level 99 mmol/L 101 mmol/L Carbon Dioxide Level 32 mmol/L 29 mmol/L Anion Gap 5.0 mmol/L 6.0 mmol/L Blood Urea Nitrogen 17 mg/dl 20 mg/dl Creatinine 1.13 mg/dl 1.03 mg/dl Est Creatinine Clear Calc Drug Dose 38.9 ml/min 39.6 ml/min Estimated GFR () 52.8 59.0 Estimated GFR (Non- 45.5 50.9 BUN/Creatinine Ratio 14.9 19.7 Random Glucose 74 mg/dl 101 mg/dl Calcium Level 8.3 mg/dl 8.2 mg/dl Troponin I 0.024 ng/ml < 0.015 ng/ml White Blood Count 3.17 K/uL Red Blood Count 4.11 M/uL Hemoglobin 10.9 g/dL Hematocrit 33.7 % Mean Corpuscular Volume 82.0 fL Mean Corpuscular Hemoglobin 26.5 pg Mean Corpuscular Hemoglobin Concent 32.3 g/dl RDW Standard Deviation 52.8 fL RDW Coefficient of Variation 17.6 % Platelet Count 191 K/uL Mean Platelet Volume 10.9 fL Prothrombin Time 36.1 SECONDS Prothromb Time International Ratio 3.5 Magnesium Level 2.0 mg/dl Total Bilirubin 0.6 mg/dl Aspartate Amino Transf (AST/SGOT) 59 U/L Alanine Aminotransferase (ALT/SGPT) 28 U/L Alkaline Phosphatase 200 U/L Total Protein 6.3 gm/dl Albumin 2.3 gm/dl Globulin 4.0 gm/dl Albumin/Globulin Ratio 0.6 Assessment and Plan This is an 81 year old female with a PMH of paroxysmal A. fib, chronic diastolic CHF, HTN, CAROLYNN on CPAP, asthma, HLD, CKD stage 3 presents with worsening cough, Influenza A+ and shortness of breath Acute on Chronic Diastolic CHF patient with elevated BNP; increased work of breathing given IV Lasix 80mg BID, which we can continue for now I's and O's, though she does not want a Reid for accurate output echo is pending to check EF and diastolic function continue metoprolol Acute Asthma Exacerbation secondary to Viral Bronchitis and Influenza A patient is positive for Influenza A; no role for Tamiflu at this time continue neb treatments continue prednisone 40mg x 5 days total for asthma exacerbation Paroxysmal A. Fib currently in NSR continue b-stacye for rate control continue amiodarone continue Coumadin with goal INR of 2-3 (hold on 02/21/17 due to elevated INR) Abnormal CXR Widened Mediastinum outpatient chest CT recommended HTN blood pressure stable, continue home medications HLD continue statin DVT ppx Coumadin DNR
--- NOTE | 2017-02-21 17:51 | NUR ---
ID Note: Pt a/ox4. VSS. Pt reports breathing improved. Scheduled Neb treatments continue. BLE edema also improved. IV Lasix continues. Pt independent to bathroom. SR on monitor. Will go home when medically stable. D/c undetermined at this time. Will monitor.
--- NOTE | 2017-02-21 20:00 | NUR ---
A: Pt sitting up in chair, no complaints at this time. Will monitor.
[2017-02-21] MEDS: RANITIDINE HCL 150 MG TAB PO SCH (20:39)
--- NOTE | 2017-02-22 | NUR ---
A: Patient resting in bed. Alert and oriented x 4. Denies chest pain, has shortness of breath on exertion and when laying down. Denies pain at this time. VSS. Sinus bradycardia with sinus arrhythmia on cardiac catheterization technologist. Lungs diminished, has nonproductive cough. Right AC saline lock. Scabs on arms and face. Independent in room. Will attempt to wear hospital provided CPAP throughout the night. Droplet precautions for Influenza A. Possible discharge home later today if medically stable. Will continue to monitor.
[2017-02-22 00:07] VITALS: BP 130/72; PULSE 58; TEMP 36.3; O2SAT 93
[2017-02-22] MEDS: LEVALBUTEROL 1.25MG/0.5ML NEB INH SCH ×2 (02:36→07:26)
[2017-02-22] MEDS: IPRATROPIUM BROMIDE NEB SOLN 0.02% 2.5 ML VIAL INH SCH ×2 (02:36→07:26)
[2017-02-22 03:34] VITALS: BP 150/77; PULSE 67; TEMP 36.2; O2SAT 91
--- NOTE | 2017-02-22 04:00 | NUR ---
A: Patient sleeping. Assessment unchanged. Right AC saline lock. Will continue to monitor.
[2017-02-22 07:26] VITALS: PULSE 79; O2SAT 91
[2017-02-22 07:26] LABS: HEMATOCRIT 32.9 % (37-47); HEMOGLOBIN 10.5 g/dL (12.0-16.0); MEAN CORPUSCULAR HEMOGLOBIN 25.9 pg (25-34); MEAN CORPUSCULAR HGB CONC 31.9 g/dl (32-36); PLATELET COUNT 211 K/uL (130-400); RED CELL DISTRIBUTION WIDTH CV 17.3 % (11.5-14.5); RED CELL DISTRIBUTION WIDTH SD 51.3 fL (36.4-46.3); WHITE BLOOD COUNT 5.19 K/uL (4.8-10.8)
[2017-02-22 07:50] LABS: CALCIUM 8.1 mg/dl (8.5-10.1); CREATININE 1.1 mg/dl (0.60-1.20); POTASSIUM 3.8 mmol/L (3.5-5.1)
[2017-02-22] MEDS: PANTOprazole SOD 40 MG TAB PO SCH (08:18)
[2017-02-22] MEDS: GUAIFENESIN SUGAR FREE 100 MG/5 ML UDC PO SCH ×2 (08:18→13:00)
[2017-02-22] MEDS: METOPROLOL SUCC 25MG EXT REL TAB PO SCH (08:18)
[2017-02-22] MEDS: ATORVASTATIN 40 MG TAB PO SCH (08:19)
[2017-02-22] MEDS: SODIUM CHLORIDE 0.65% NA SOLN 45 ML (OCEAN) SCH ×2 (08:19→13:00)
[2017-02-22] MEDS: AMIODARONE 200 MG TAB PO SCH (08:19)
[2017-02-22] MEDS: FUROSEMIDE INJ 80 MG in SYRINGE 0 ML IV SCH (08:20)
[2017-02-22] MEDS: FLUTICASONE/SALMETEROL 100/50 (ADVAIR) 14 PUFF/1 INHALER INH SCH (08:20)
[2017-02-22] MEDS: FLUTICASONE PROPIONATE NA SPR 16 GM BTL NAE SCH (08:20)
[2017-02-22 08:30] VITALS: BP 111/69; PULSE 64; TEMP 36.6; O2SAT 90
[2017-02-22 08:32] LABS: INR 5.2 (0.9-1.1)
[2017-02-22 11:00] VITALS: BP 158/79; PULSE 59; TEMP 36.1; O2SAT 93
--- NOTE | 2017-02-22 11:54 | Progress Note ---
Subjective Date of Service: Feb 22, 2017. Subjective Pt evaluation today including: conversation w/ patient, physical exam, lab review, review of studies, review of inpatient medication list Saw/examined the patient in room 279 She is feeling well; denies significant shortness of breath +cough persists, occasional sputum production Denies chest pain Problem List Medical Problems: (1) Acute electrocardiogram changes Status: Acute (2) Ambulatory dysfunction Status: Acute (3) CHF exacerbation Status: Acute (4) Closed fibular fracture Status: Acute (5) Closed fracture of neck of fibula Status: Acute (6) Fever Status: Acute (7) Knee effusion, left Status: Acute (8) Knee hemarthrosis, left Status: Acute (9) Left fibular fracture Status: Acute (10) Left knee pain Status: Acute (11) Right hip pain Status: Acute (12) SIRS (systemic inflammatory response syndrome) Status: Acute (13) UTI (urinary tract infection) Status: Acute Review of Systems Constitutional: No fever, No chills Respiratory: + cough, + sputum, No wheezing, No shortness of breath, No dyspnea on exertion, No dyspnea at rest, No hemoptysis Cardiac: No chest pain, No edema, No palpitations Medications Current Inpatient Medications Medications (Trade) Dose Ordered Sig/Yanet Route Start Time Stop Time Status Last Admin Dose Admin Acetaminophen (Tylenol Tab) 650 mg Q4H PRN PO 02/20/17 13:15 03/22/17 13:14 Nitroglycerin (Nitrostat Tab) 0.4 mg UD PRN SL 02/20/17 13:15 03/22/17 13:14 Furosemide 80 mg/ Syringe 8 ml @ 4 mls/min BID17 IV 02/20/17 17:00 03/22/17 16:59 02/22/17 08:20 4 MLS/MIN Amiodarone HCl (Cordarone Tab) 200 mg DAILY PO 02/21/17 09:00 03/23/17 08:59 02/22/17 08:19 200 MG Atorvastatin Calcium (Lipitor Tab) 40 mg DAILY PO 02/21/17 09:00 03/23/17 08:59 02/22/17 08:19 40 MG Salmeterol Xinafoate/ Fluticasone (Advair Diskus 100/50 Inh) 1 puff BID INH 02/20/17 21:00 03/22/17 20:59 1/4/18 08:20 1 PUFF Fluticasone Propionate (Flonase Nasal [place]) 2 sprays DAILY SKY 02/21/17 09:00 03/23/17 08:59 02/22/17 08:20 2 SPRAYS Metoprolol Succinate (Toprol Xl Tab) 12.5 mg DAILY PO 02/21/17 09:00 03/23/17 08:59 02/22/17 08:18 12.5 MG Warfarin Sodium (Coumadin Tab) 5 mg SuMoTuWeFrSa@1600 PO 02/20/17 16:00 03/22/17 15:59 Future hold 02/20/17 16:54 5 MG Warfarin Sodium (Coumadin Tab) 7.5 mg Th@1600 PO 02/22/17 16:00 03/24/17 15:59 Pantoprazole Sodium (Protonix Tab) 40 mg DAILY PO 02/21/17 09:00 03/23/17 08:59 02/22/17 08:18 40 MG Ranitidine HCl (zANTac TAB) 300 mg HS PO 02/20/17 21:00 03/22/17 20:59 02/21/17 20:39 300 MG Ipratropium [place] (Atrovent 0.02% 0.5MG/2.5ML Neb) 0.5 mg Q4H PRN INH 02/20/17 14:30 03/22/17 14:29 Levalbuterol (Xopenex 0.63 Mg/ 3 Ml Neb) 0.63 mg Q4H PRN INH 02/20/17 14:30 03/22/17 14:29 Ipratropium [place] (Atrovent 0.02% 0.5MG/2.5ML Neb) 0.5 mg Q6R INH 02/20/17 15:00 03/22/17 14:59 02/22/17 07:26 0.5 MG Levalbuterol (Xopenex 1.25MG/ 0.5ML Neb) 1.25 mg Q6R INH 02/20/17 15:00 03/22/17 14:59 02/22/17 07:26 1.25 MG Prednisone (PredniSONE TAB) 40 mg DAILY PO 02/21/17 09:00 03/23/17 08:59 02/22/17 08:19 40 MG Guaifenesin (Robitussin Sugar Free Syrup) 100 mg QID PO 02/20/17 17:00 03/22/17 16:59 02/22/17 08:18 100 MG Sodium Chloride ([place] Nasal [place]) 2 sprays QID NA 02/20/17 17:00 03/22/17 16:59 02/22/17 08:19 2 SPRAYS Menthol (Nice Vern) 1 vern PRN PRN PO 02/21/17 02:30 03/23/17 02:29 Objective Vital Signs Date Time Temp Pulse Resp B/P (MAP) Pulse Ox O2 Delivery O2 Flow Rate FiO2 02/22/17 08:30 Room Air 02/22/17 08:30 36.6 64 19 111/69 (83) 90 Room Air 02/22/17 07:26 79 16 91 Room Air 02/22/17 04:00 Room Air 02/22/17 03:34 36.2 67 20 150/77 (101) 91 Room Air 02/22/17 00:07 36.3 58 18 130/72 (91) 93 02/22/17 00:00 Room Air 02/21/17 23:59 60 95 02/21/17 20:15 36.5 60 18 113/63 (80) 91 Room Air 02/21/17 20:00 Room Air 02/21/17 19:18 67 16 94 Room Air 02/21/17 16:00 Room Air 02/21/17 15:16 36.3 60 18 136/79 (98) 94 Room Air 02/21/17 14:27 67 16 96 Room Air 02/21/17 12:00 Room Air Physical Exam General Appearance: no apparent distress Respiratory/Chest: no respiratory distress, no accessory muscle use, + decreased breath sounds Cardiovascular: regular rate, rhythm, no murmur Extremities: + pertinent finding (+1 pitting edema; b/l LE) Neurologic/Psychiatric: no motor/sensory deficits, alert, normal mood/affect Laboratory Results Last 24 Hours Test 02/22/17 06:57 02/22/17 07:54 White Blood Count 5.19 K/uL Red Blood Count 4.06 M/uL Hemoglobin 10.5 g/dL Hematocrit 32.9 % Mean Corpuscular Volume 81.0 fL Mean Corpuscular Hemoglobin 25.9 pg Mean Corpuscular Hemoglobin Concent 31.9 g/dl RDW Standard Deviation 51.3 fL RDW Coefficient of Variation 17.3 % Platelet Count 211 K/uL Mean Platelet Volume 11.0 fL Sodium Level 134 mmol/L Potassium Level 3.8 mmol/L Chloride Level 100 mmol/L Carbon Dioxide Level 30 mmol/L Anion Gap 4.0 mmol/L Blood Urea Nitrogen 25 mg/dl Creatinine 1.10 mg/dl Est Creatinine Clear Calc Drug Dose 37.6 ml/min Estimated GFR () 54.5 Estimated GFR (Non- 47.0 BUN/Creatinine Ratio 22.3 Random Glucose 78 mg/dl Calcium Level 8.1 mg/dl Magnesium Level 2.1 mg/dl Prothrombin Time 53.3 SECONDS Prothromb Time International Ratio 5.2 Assessment and Plan This is an 81 year old female with a PMH of paroxysmal A. fib, chronic diastolic CHF, HTN, CAROLYNN on CPAP, asthma, HLD, CKD stage 3 presents with worsening cough, Influenza A+ and shortness of breath Acute on Chronic Diastolic CHF 02/22 will d/c today on home dose of Lasix, which is 80mg BID outpatient f/u with PCP, Dr. Clement on February 27 at 10:45AM should have outpatient echo possible outpatient cardiology f/u for change in diuretics or medication for now, continue metoprolol I'll add a low dose MIRIAM-I for now 02/21 patient with elevated BNP; increased work of breathing given IV Lasix 80mg BID, which we can continue for now I's and O's, though she does not want a Reid for accurate output echo is pending to check EF and diastolic function continue metoprolol Acute Asthma Exacerbation secondary to Viral Bronchitis and Influenza A patient is positive for Influenza A; no role for Tamiflu at this time continue neb treatments continue prednisone 40mg x 5 days total for asthma exacerbation Paroxysmal A. Fib currently in NSR continue b-stacey for rate control continue amiodarone continue Coumadin with goal INR of 2-3 (hold on 02/21/17 due to elevated INR) Abnormal CXR Widened Mediastinum outpatient chest CT recommended HTN blood pressure stable, continue home medications HLD continue statin DVT ppx Coumadin DNR
[2017-02-22] MEDS ORDERED: PRD20 PO (11:59)
[2017-02-22] MEDS ORDERED: LSN25 PO (11:59)
--- NOTE | 2017-02-22 12:04 | Discharge Instructions ---
Discharge Instructions Date of Service Feb 22, 2017. Admission Reason for Admission: Chf, Sob Discharge Discharge Diagnosis / Problem: Acute Congestive Heart Failure, Bronchitis, Influenza A Discharge Goals Goal(s): Decrease discomfort, Improve function, Diagnostic testing, Therapeutic intervention Activity Recommendations Activity Limitations: resume your previous activity . Instructions / Follow-Up Instructions / Follow-Up Please follow-up with Dr. Clement on February 27 at 10:45AM * You will be on prednisone (steroid) for 3 more days * Please hold Coumadin - restart Coumadin on Sunday (February 25) and have your INR checked early next week * You will be started on Lisinopril - follow-up with cardiology as an outpatient * You should have an echocardiogram next week * You should have your blood drawn early next week to make sure your electrolytes and kidneys are doing okay Current Hospital Diet Patient's current hospital diet: AHA Diet (Heart Healthy) Discharge Diet Recommended Diet: AHA Diet (Heart Healthy) Pending Studies Studies pending at discharge: no Medical Emergencies . Who to Call and When: Medical Emergencies: If at any time you feel your situation is an emergency, please call 911 immediately. . Non-Emergent Contact Non-Emergency issues call your: Primary Care Provider, Motion Study Engineer . . "Provider Documentation" section prepared by Lai Sherman. . VTE Core Measure Inpt VTE Proph given/why not?: Warfarin (Coumadin)
[2017-02-22 12:05] VITALS: BP 158/79; PULSE 59; TEMP 36.1; O2SAT 93
--- NOTE | 2017-02-22 12:05 | Discharge Summary ---
Discharge Summary Date of Service Feb 22, 2017. Discharge Summary Admission Date: Feb 20, 2017 at 13:21 Discharge Date: Feb 22, 2017 Discharge Disposition: Home Principal Diagnosis: Acute on Chronic Diastolic CHF Influenza A Viral Bronchitis Paroxysmal A. Fib Medication Reconciliation New Medications: Lisinopril (Lisinopril) 2.5 Mg Tab 2.5 MG PO DAILY for 30 Days, #30 TABS Prednisone (Prednisone) 20 Mg Tab 40 MG PO DAILY for 3 Days, #6 TAB Continued Medications: Acetaminophen (Acetaminophen) 500 Mg Tab 2 TAB PO Q8 for Pain or Fever for 15 Days, #90 TAB Albuterol Sulfate (Proair Respiclick) 108 Mcg/Act Aer 2 PUFFS INH Q4H PRN for SOB/Wheezing Amiodarone HCl (Amiodarone HCl) 200 Mg Tab 200 MG PO DAILY Atorvastatin (Atorvastatin Calcium) 40 Mg Tab 1 TAB PO DAILY Fluticasone Prop/Salmeterol (Advair Diskus 100/50 60 Dose) 1 Ea Aerp 1 PUFF INH BID Fluticasone Propionate (Nasal) (Flonase Allergy Relief) 50 Mcg/Act Spr 2 SPRAY SKY DAILY Furosemide (Furosemide) 80 Mg Tab 80 MG PO BID Metoprolol Succinate (Metoprolol Succinate ER) 25 Mg Tabcr 12.5 MG PO DAILY Omeprazole (Prilosec) 20 Mg Cap 20 MG PO DAILY, CAP Potassium Chloride Microencaps (Potassium Chloride Er) 10 Meq Tab 10 MEQ PO BID, TAB Ranitidine (Zantac) 300 Mg Tab 300 MG PO HS, TAB Tramadol HCl (Tramadol HCl) 50 Mg Tab 50 MG PO Q4H PRN for Pain for 3 Days, #12 TAB Warfarin Sodium (Warfarin Sodium) 5 Mg Tab 5 MG PO [id number], TAB TAKE 5 MG AT BEDTIME EVERY SUNDAY,SUNDAY,SUNDAY,SUNDAY,SUNDAY AND SUNDAY OR OTHERWISE DIRECTED TO TAKE BY ANTICOAGULATION CLINIC/MD. Warfarin Sodium (Warfarin Sodium) 5 Mg Tab 7.5 MG PO WK, TAB TAKE 7.5 MG AT BEDTIME EVERY SUNDAY OR OTHERWISE DIRECTED TO TAKE BY ANTICOAGULATION CLINIC/MD. Admission Information HPI (per Admitting provider): Pt is 81 y/o F with PMH paroxysmal a-fib on coumadin, diastolic HF, HTN, hyperlipidemia, CAROLYNN using CPAP, CKD III and asthma presented to ER with c/o increased SOB. Pt states past 2-3 weeks with cough productive yellow sputum. Initially had rhinorrhea and sore throat which has resolved. Reports family members with URI's and influenza recently. States feels like has chest congestion and yesterday started with SOB with walking which is unusual for her. Pt seen in ER on 02/17/17 and had +influenza swab (no tx) and was treated for CHF. She reports having to use her albuterol inhaler 3-4 times a day past 2 days and states does decrease SOB and cough and chest congestion sensation however is limited relief. She admits not using her advair as directed and states sometimes forgets to use. Denies CP or palpitations. Reports eating and drinking normally. Didn't take her lasix this morning. Denies increased LE edema. Denies fever/chills, diaphoresis, N/V/D/C, melena, hematochezia, [place], dizziness, syncope, vision changes, neck pain, orthopnea, PND, hemoptysis, choking, otalgia, abdominal pain, paresthesias, weakness, rashes, urinary symptoms. In ER today: no leukocytosis, K: 3.1, INR: 2.3, Cr: 1.1 (baseline), BNP: 6276, negative troponin, AST: 80 (was 52 12/2016), Alk phos: 245 (was 266 12/2016). CXR: stable cardiomegaly, mild vascular congestion, trace pleural effusions. EKG : NSR, rate 62, L ant fascicular block, prolonged QT-533. Was given Tylenol, duoneb tx, lasix 80mg IV and pt reports feels less SOB. Pt report ASA allergy - rash & hives. Hx ECHO 2015: EF: 60-65%. Follows with Dr Alonzo cardiology. Physical Exam (per Admitting): General Appearance: no apparent distress (sitting up in chair), + obese Head: normocephalic, atraumatic Eyes: normal inspection, PERRL, EOMI, sclerae normal ENT: hearing grossly normal, pharynx normal, + pertinent finding (moist mucous membranes) Neck: supple, no JVD, trachea midline Respiratory/Chest: chest non-tender, no respiratory distress, no accessory muscle use, + crackles (bases bilatrerally, faint expiratory wheezing scattered throughout) Cardiovascular: regular rate, rhythm, no murmur, normal peripheral pulses Abdomen/GI: normal bowel sounds, non tender, soft Back: normal inspection, no CVA tenderness Extremities/Musculoskelatal: no calf tenderness, normal capillary refill, non-tender, + pedal edema (1+ bilaterally) Neurologic/Psych: alert, normal mood/affect, oriented x 3 Skin: normal color, warm/dry Hospital Course This is an 81 year old female with a PMH of paroxysmal A. fib, chronic diastolic CHF, HTN, CAROLYNN on CPAP, asthma, HLD, CKD stage 3 presents with worsening cough, Influenza A+ and shortness of breath Acute on Chronic Diastolic CHF 02/22 will d/c today on home dose of Lasix, which is 80mg BID outpatient f/u with PCP, Dr. Clement on February 27 at 10:45AM should have outpatient echo possible outpatient cardiology f/u for change in diuretics or medication for now, continue metoprolol I'll add a low dose MIRIAM-I for now 02/21 patient with elevated BNP; increased work of breathing given IV Lasix 80mg BID, which we can continue for now I's and O's, though she does not want a Reid for accurate output echo is pending to check EF and diastolic function continue metoprolol Acute Asthma Exacerbation secondary to Viral Bronchitis and Influenza A patient is positive for Influenza A; no role for Tamiflu at this time continue neb treatments continue prednisone 40mg x 5 days total for asthma exacerbation Paroxysmal A. Fib currently in NSR continue b-stacey for rate control continue amiodarone continue Coumadin with goal INR of 2-3 (hold on 02/21/17 due to elevated INR) Abnormal CXR Widened Mediastinum outpatient chest CT recommended HTN blood pressure stable, continue home medications HLD continue statin DVT ppx Coumadin DNR Total time spent on discharge = 45 minutes This includes examination of the patient, discharge planning, medication reconciliation, and communication with other providers. Discharge Instructions Please follow-up with Dr. Clement on February 27 at 10:45AM * You will be on prednisone (steroid) for 3 more days * Please hold Coumadin - restart Coumadin on Sunday (February 25) and have your INR checked early next week * You will be started on Lisinopril - follow-up with cardiology as an outpatient * You should have an echocardiogram next week * You should have your blood drawn early next week to make sure your electrolytes and kidneys are doing okay
--- NOTE | 2017-02-22 13:00 | NUR ---
a: pt given discharge instructions. pt verbalizes understanding. reinforced holding coumadin until the 7th, she stated she would call coumadin clinic tomorrow. monitor removed. when removing iv site, pt got a skin tear from the tape, see skin record for documentation of skin tear. pt awaiting to arrive with clean clothing.
[2017-02-22] MEDS ORDERED: WARFARIN SOD 7.5 MG TAB PO SCH (16:00)
[2017-03-18] MEDS ORDERED: RANI300T2 PO (08:48)
[2017-03-18] MEDS ORDERED: TPRSR/25 PO (10:44)
[2017-03-18] MEDS ORDERED: ADVIN10/60 INH (10:44)
[2017-03-18] MEDS ORDERED: LPT40 PO (13:38)
[2017-03-18] MEDS ORDERED: ACET500T58 PO (13:38)
[2017-03-18] MEDS ORDERED: LISI-1116 PO (19:01)
[2017-03-18] MEDS ORDERED: SPIR25TA5 PO (19:09)
[2017-03-20] MEDS ORDERED: SPIR50TA5 PO (14:25)
[2017-05-08] MEDS ORDERED: ERGO500037 PO (14:55)
[2017-05-08] MEDS ORDERED: WARF5TAB7 PO (14:55)
[2017-05-08] MEDS ORDERED: SPIR50TA2 PO (14:55)
[2017-06-29] MEDS ORDERED: SPIR25TA6 PO (15:32)
[2017-07-05] MEDS ORDERED: CMD5 PO (17:37)
[2017-07-05] MEDS ORDERED: FRS/80 PO (17:37)
[2017-07-05] MEDS ORDERED: LPR25 PO (17:37)
[2017-07-12] MEDS ORDERED: SNDI SQ (17:38)
[2017-07-12] MEDS ORDERED: PRMT25 PO (17:38)
[2017-07-12] MEDS ORDERED: ULT50X PO (17:38)
[2017-07-12] MEDS ORDERED: [UNRECOGNIZED DRUG - CODE] IV (17:38)
[2017-07-12] MEDS ORDERED: LPR25 PO (17:38)
== END 2017-02-22 14:00 | disposition home or self-care (01) | DRG 291 ==
LOC: C.EDB 10:05 → C.MED 13:21 → ENRESERV 14:00
PROVIDERS: ADMIT Hospitalist; ATTEND Family Medicine
DX: I13.0 Hypertensive heart and chronic kidney disease with heart failure and stage 1 through stage 4 chronic kidney disease, or unspecified chronic kidney disease (principal); I50.33 Acute on chronic diastolic (congestive) heart failure; J45.901 Unspecified asthma with (acute) exacerbation; J20.8 Acute bronchitis due to other specified organisms; J10.1 Influenza due to other identified influenza virus with other respiratory manifestations; N18.3 Chronic kidney disease, stage 3 (moderate); E87.6 Hypokalemia; I48.0 Paroxysmal atrial fibrillation; K21.9 Gastro-esophageal reflux disease without esophagitis; E78.5 Hyperlipidemia, unspecified; G47.33 Obstructive sleep apnea (adult) (pediatric); R93.7 Abnormal findings on diagnostic imaging of other parts of musculoskeletal system; Z66 Do not resuscitate; Z79.01 Long term (current) use of anticoagulants; Z79.1 Long term (current) use of non-steroidal anti-inflammatories (NSAID); Z79.899 Other long term (current) drug therapy; Z88.6 Allergy status to analgesic agent; Z82.49 Family history of ischemic heart disease and other diseases of the circulatory system; S00.31XA Abrasion of nose, initial encounter; X58.XXXA Exposure to other specified factors, initial encounter

== ENCOUNTER 2017-03-18 16:52 | Inpatient (IN) | payer BC, OTHER ==
[~2017-03-18] VITALS: Ht 149.9 cm; Wt 84.5 kg
[~2017-03-18 16:52] MED LIST changes: -ACET-1311 PO; +ACET500T58 PO; +ADVIN10/60 INH; +FLUT0.15 NAE; -LPT10 PO; +LPT40 PO; +LSN25 PO; +PRD20 PO; +RANI300T2 PO; -SLWMEC PO; +TPRSR/25 PO
[2017-03-18 18:15] LABS: BASO % 0.5 %; BASO ABS # 0.03 K/uL (0-0.2); EOS % 1.2 %; EOS ABS # 0.08 K/uL (0-0.5); HEMATOCRIT 36.9 % (37-47); HEMOGLOBIN 11.8 g/dL (12.0-16.0); IG# 0.01 K/uL (0.00-0.02); LYMPH % 24.5 %; LYMPH ABS # 1.57 K/uL (1.2-3.4); MEAN CELL VOLUME 82.2 fL (80-100); MEAN CORPUSCULAR HEMOGLOBIN 26.3 pg (25-34); MEAN PLATELET VOLUME 10.7 fL (7.4-10.4); MONO % 13.6 %; MONO ABS # 0.87 K/uL (0.11-0.59); NEUT ABS # 3.85 K/uL (1.4-6.5); PLATELET COUNT 322 K/uL (130-400); RED CELL DISTRIBUTION WIDTH CV 18.8 % (11.5-14.5); RED CELL DISTRIBUTION WIDTH SD 56.6 fL (36.4-46.3); WHITE BLOOD COUNT 6.41 K/uL (4.8-10.8)
[2017-03-18 18:30] LABS: ALBUMIN 2.5 gm/dl (3.4-5.0); ALT/SGPT 31 U/L (12-78); BLOOD UREA NITROGEN 20 mg/dl (7-18); CALCIUM 8.5 mg/dl (8.5-10.1); CARBON DIOXIDE 28 mmol/L (21-32); CREATININE 1.61 mg/dl (0.60-1.20); GLUCOSE 108 mg/dl (70-99); LIPASE 258 U/L (73-393); POTASSIUM 4.1 mmol/L (3.5-5.1); SODIUM 137 mmol/L (136-145)
[2017-03-18 18:36] LABS: INR > 10.0 (0.9-1.1); PTT PATIENT 54.3 SECONDS (21.0-31.0)
[2017-03-18] MEDS ORDERED: PHYTONADIONE 5 MG TAB PO STA (18:38)
[2017-03-18 18:41] LABS: ALKALINE PHOSPHATASE 262 U/L (45-117); AST/SGOT 62 U/L (15-37); TOTAL PROTEIN 7.1 gm/dl (6.4-8.2)
--- NOTE | 2017-03-18 18:53 | DIAGNOSTIC IMAGING REPORT ---
CHEST ONE VIEW PORTABLE HISTORY: EVALUATE WEAKNESS COMPARISON: Chest 02/20/2017. Chest 04/23/2013. FINDINGS: The heart remains enlarged. There is persistent widening of the right superior mediastinum. Mild pulmonary vascular congestion without overt edema. Small bilateral pleural effusions persist. Old, healed bilateral rib fractures. No pneumothorax. No new focal lung consolidations. Question nodular density within the right lateral lung base remain stable and may be due to the old rib fractures. IMPRESSION: 1. No change compared to the prior study. 2. Stable cardiomegaly, mild vascular congestion, and small bilateral pleural effusions. 3. Stable mediastinal widening. Electronically signed by: Franky Elise M.D. 03/18/2017 6:52 PM Dictated Date/Time: 03/18/2017 6:48 PM
[2017-03-18] MEDS ORDERED: LISI2.5T5 PO (19:01)
[2017-03-18] MEDS ORDERED: ULT50 PO (19:03)
[2017-03-18] MEDS ORDERED: FLNIN/ NAE (19:03)
[2017-03-18] MEDS ORDERED: SPIR25TA89 PO (19:09)
--- NOTE | 2017-03-18 19:09 | EMERGENCY ROOM VISIT NOTE ---
History Report prepared by Yony: Estela Aponte Under the Supervision of: Dr. Max Valente M.D. First contact with patient: 18:02 Chief Complaint: OTHER COMPLAINT Stated Complaint: PASSING BLOOD History of Present Illness The patient is a 81 year old female who presents to the Emergency Room with complaints of constant hemoptysis beginning this morning. The patient states that she has had a productive cough over the last few days and this morning she began to cough a small amount of bright red blood. She notes that she is on Coumadin for atrial fibrillation. She reports that she was seen recently in the hospital and had an echocardiogram the other day that was normal. The patient complains of shortness of breath, left leg swelling that is new and a dry cough. Pt denies LOC, headache, fevers, chills, diaphoresis, visual changes, neck pain, chest pain, nausea, vomiting, abdominal pain, back pain, melena, urinary symptoms, numbness, weakness, new bruising, lymphadenopathy, rash, or other complaints.The patient states that she gets leg swelling intermittently but it is usually bilateral leg swelling that is unlike today. Source of History: patient Onset: this morning Position: other (cough) Quality: other (bloody) Timing: constant Associated Symptoms: + cough, + SOB Note: Pt complains of a dry throat. Review of Systems See HPI for pertinent positives and negatives. A total of ten systems were reviewed and were otherwise negative. Past Medical & Surgical Medical Problems: (1) Asthma (2) Benign hypertension (3) Bronchitis (4) CHF (congestive heart failure) (5) Edema (6) Fall (7) GERD (gastroesophageal reflux disease) (8) Hiatal hernia (9) High cholesterol (10) Left knee pain (11) CAROLYNN on CPAP (12) Paroxysmal atrial fibrillation (13) PNA (pneumonia) (14) s/p elective cardioversion (15) Seasonal allergies (16) SOB (shortness of breath) (17) UTI (urinary tract infection) Surgical Problems: (1) H/O: hysterectomy (2) S/P cataract surgery Family History Cancer FH: hypertension Heart disease Social History Smoking Status: Never Smoker Alcohol Use: none Drug Use: none Marital Status: Housing Status: lives with significant other Current/Historical Medications Scheduled Amiodarone HCl (Amiodarone HCl), 200 MG PO DAILY Atorvastatin (Lipitor), 40 MG PO DAILY Fluticasone Prop/Salmeterol (Advair Diskus 100/50 60 Dose), 1 PUFF INH BID Furosemide (Furosemide), 80 MG PO BID Lisinopril (Lisinopril), 2.5 MG PO DAILY Metoprolol Succinate (Metoprolol Succinate ER), 12.5 MG PO DAILY Potassium Chloride Microencaps (Potassium Chloride Er), 10 MEQ PO BID Warfarin Sodium (Warfarin Sodium), 5 MG PO [id number] Warfarin Sodium (Warfarin Sodium), 7.5 MG PO WK Scheduled PRN Acetaminophen (Acetaminophen), 1,000 MG PO Q8 PRN for Pain or Fever Albuterol Sulfate (Proair Respiclick), 2 PUFFS INH Q4H PRN for SOB/Wheezing Fluticasone Propionate (Fluticasone Propionate), 2 SPRAYS SKY DAILY PRN for Allergy Symptoms Omeprazole (Prilosec), 20 MG PO DAILY PRN for Acid Reflux Ranitidine (Zantac), 300 MG PO HS PRN for Heart Burn/Acid Reflux Tramadol HCl (Tramadol HCl), 50 MG PO Q4H PRN for Pain Allergies Coded Allergies: Alcohol (Verified Allergy, Mild, RASH, 02/20/17) WIPES OR INGESTED Cephalosporins (Verified Allergy, Mild, RASH, 02/20/17) Codeine (Verified Allergy, Mild, RASH, 02/20/17) Penicillins (Verified Allergy, Mild, RASH, 02/20/17) Aspirin (Verified Allergy, Unknown, RASH, 02/20/17) Levofloxacin (Verified Allergy, Unknown, "BONE PAIN", 02/20/17) Sulfa Antibiotics (Verified Allergy, Unknown, UNKNOWN, 02/20/17) Physical Exam Vital Signs Date Time Temp Pulse Resp B/P (MAP) Pulse Ox O2 Delivery O2 Flow Rate FiO2 03/18/17 18:10 91 Room Air 03/18/17 17:31 36.4 64 22 144/69 91 Room Air Physical Exam GENERAL: Awake, alert, well-appearing, in no distress, mild cough with moderate blood tinged sputum. HENT: Normocephalic, atraumatic. Oropharynx unremarkable. EYES: Normal conjunctiva. Sclera non-icteric. NECK: Supple. No nuchal rigidity. FROM. No JVD. RESPIRATORY: Clear to auscultation. CARDIAC: Borderline bradycardic rate, normal rhythm. Extremities warm and well perfused. Pulses equal. ABDOMEN: Soft, non-distended. No tenderness to palpation. No rebound or guarding. No masses. RECTAL: Deferred. MUSCULOSKELETAL: Chest examination reveals no tenderness. The back is symmetrical on inspection without obvious abnormality. There is no CVA tenderness to palpation. No joint edema. LOWER EXTREMITIES: 1+ edema, left leg is bigger than right, No discoloration. NEURO: Normal sensorium. No sensory or motor deficits noted. SKIN: No rash or jaundice noted. Medical Decision & Procedures ER Provider Diagnostic Interpretation: X-ray: Per my interpretation, radiologist review. CHEST ONE VIEW PORTABLE FINDINGS: The heart remains enlarged. There is persistent widening of the right superior mediastinum. Mild pulmonary vascular congestion without overt edema. Small bilateral pleural effusions persist. Old, healed bilateral rib fractures. No pneumothorax. No new focal lung consolidations. Question nodular density within the right lateral lung base remain stable and may be due to the old rib fractures. IMPRESSION: 1. No change compared to the prior study. 2. Stable cardiomegaly, mild vascular congestion, and small bilateral pleural effusions. 3. Stable mediastinal widening. Electronically signed by: Franky Elise M.D. 03/18/2017 6:52 PM Dictated Date/Time: 03/18/2017 6:48 PM Laboratory Results 03/18/17 18:09 Red Blood Count 4.49, Mean Corpuscular Volume 82.2, Mean Corpuscular Hemoglobin 26.3, Mean Corpuscular Hemoglobin Concent 32.0, Mean Platelet Volume 10.7, Neutrophils (%) (Auto) 60.0, Lymphocytes (%) (Auto) 24.5, Monocytes (%) (Auto) 13.6, Eosinophils (%) (Auto) 1.2, Basophils (%) (Auto) 0.5, Neutrophils # (Auto ) 3.85, Lymphocytes # (Auto) 1.57, Monocytes # (Auto) 0.87, Eosinophils # (Auto ) 0.08, Basophils # (Auto) 0.03 03/18/17 18:09 Test 03/18/17 18:09 03/18/17 18:59 White Blood Count 6.41 K/uL (4.8-10.8) Red Blood Count 4.49 M/uL (4.2-5.4) Hemoglobin 11.8 g/dL (12.0-16.0) Hematocrit 36.9 % (37-47) Mean Corpuscular Volume 82.2 fL (80-100) Mean Corpuscular Hemoglobin 26.3 pg (25-34) Mean Corpuscular Hemoglobin Concent 32.0 g/dl (32-36) Platelet Count 322 K/uL (130-400) Mean Platelet Volume 10.7 fL (7.4-10.4) Neutrophils (%) (Auto) 60.0 % Lymphocytes (%) (Auto) 24.5 % Monocytes (%) (Auto) 13.6 % Eosinophils (%) (Auto) 1.2 % Basophils (%) (Auto) 0.5 % Neutrophils # (Auto) 3.85 K/uL (1.4-6.5) Lymphocytes # (Auto) 1.57 K/uL (1.2-3.4) Monocytes # (Auto) 0.87 K/uL (0.11-0.59) Eosinophils # (Auto) 0.08 K/uL (0-0.5) Basophils # (Auto) 0.03 K/uL (0-0.2) RDW Standard Deviation 56.6 fL (36.4-46.3) RDW Coefficient of Variation 18.8 % (11.5-14.5) Immature Granulocyte % (Auto) 0.2 % Immature Granulocyte # (Auto) 0.01 K/uL (0.00-0.02) Prothrombin Time > 100.0 SECONDS Prothromb Time International Ratio > 10.0 (0.9-1.1) Activated Partial Thromboplast Time 54.3 SECONDS (21.0-31.0) Partial Thromboplastin Ratio 2.1 Anion Gap 8.0 mmol/L (3-11) Est Creatinine Clear Calc Drug Dose 26.1 ml/min Estimated GFR () 34.4 Estimated GFR (Non- 29.7 BUN/Creatinine Ratio 12.1 (10-20) Calcium Level 8.5 mg/dl (8.5-10.1) Magnesium Level 2.2 mg/dl (1.8-2.4) Total Bilirubin 0.6 mg/dl (0.2-1) Direct Bilirubin 0.2 mg/dl (0-0.2) Aspartate Amino Transf (AST/SGOT) 62 U/L (15-37) Alanine Aminotransferase (ALT/SGPT) 31 U/L (12-78) Alkaline Phosphatase 262 U/L (45-117) Troponin I < 0.015 ng/ml (0-0.045) Total Protein 7.1 gm/dl (6.4-8.2) Albumin 2.5 gm/dl (3.4-5.0) Lipase 258 U/L (73-393) Thyroid Stimulating Hormone (TSH) 3.810 uIu/ml (0.300-4.500) Laboratory results reviewed by me Medications Administered Medications (Trade) Dose Ordered Sig/Yanet Route Start Time Stop Time Status Last Admin Dose Admin Phytonadione (Mephyton Tab) 5 mg NOW STAT PO 03/18/17 18:38 03/18/17 18:40 DC 03/18/17 18:45 5 MG ECG Indication: SOB/dyspnea Rate (beats per minute): 57 Rhythm: normal sinus Findings: 1st degree AV block, T-wave inversion (Anterior), no ectopy Comparison ECG Date: 02/22/17 Change: no significant change ED Course 1816: The patient was evaluated in room A3. A complete history and physical exam was performed. 8: Mephyton Tab 5mg PO. 0: Discussed the patient's case with Dr. Egan of [facility]. The patient will be evaluated for further treatment and disposition. 1858: Upon reexamination, the patient was doing well. I discussed the test results and treatment plan with her. The patient will be evaluated for further management. Medical Decision Prior records/ancillary studies reviewed. Triage Nursing notes reviewed and agree them. Additional history obtained from the family. The patient's history was concerning for coughing up blood. Differential diagnosis: Etiologies such as coagulopathy, pneumonia, COPD, reactive airway disease, CHF, cardiac ischemia, pulmonary embolism, pneumothorax, malignancy, epistaxis, infections, gastrointestinal, as well as others were entertained. Physical examination: As above. Hemodynamically stable. Cough present with moderate blood-tinged sputum. No susan hemoptysis at this time. ER treatment provided: Oral vitamin K 5 mg Monitoring On reassessment the patient felt better. Diagnostic interpretation by me: The electrocardiogram was negative for pathologic change. The labs revealed an unremarkable CBC except for mild anemia. The patient had a significant coagulopathy with INR greater than 10. LFTs minimally elevated. Urinalysis pending. Imaging studies: Chest x-ray as above. Ultrasound of the left leg pending. The patient has a supratherapeutic INR. She has blood-tinged sputum and mild hemoptysis. She will need treatment in the hospital and monitoring. Consultation: A consultation was placed with the [facility] hospitalist. The case was discussed and diagnostics were reviewed. The patient was evaluated in the ER for further treatment. Medication Reconcilliation Current Medication List: was personally reviewed by me Blood Pressure Screening Patient's blood pressure: Elevated blood pressure Blood pressure disposition: Elevated BP felt to be situational Consults Time Called: 1841 Consulting Physician: Dr. Jignesh Vela Returned Call: 0 Discussed the patient's case. The patient will be evaluated for further treatment and disposition by the team. Impression Primary Impression: Supratherapeutic INR Additional Impression: Hemoptysis Scribe Attestation The scribe's documentation has been prepared under my direction and personally reviewed by me in its entirety. I confirm that the note above accurately reflects all work, treatment, procedures, and medical decision making performed by me. Departure Information Dispostion Being Evaluated By Hospitalist Referrals No Doctor, Assigned (PCP) Patient Instructions My [facility] Problem Qualifiers
[2017-03-18] MEDS ORDERED: ALBUTEROL HFA 8 GM INHALER INH PRN (20:15)
[2017-03-18] MEDS ORDERED: ONDANSETRON INJ 2 MG/ML 2 ML VIAL IV PRN (20:15)
[2017-03-18] MEDS ORDERED: ACETAMINOPHEN 325 MG TAB PO PRN (20:15)
[2017-03-18] MEDS ORDERED: TRAMADOL HCL 50 MG TAB PO PRN (20:15)
[2017-03-18] MEDS ORDERED: FLUTICASONE PROPIONATE NA SPR 16 GM BTL NAE PRN (20:15)
[2017-03-18] MEDS ORDERED: OMEP20CA9 PO (20:29)
[2017-03-18] MEDS ORDERED: RANITIDINE HCL 150 MG TAB PO PRN (20:30)
[2017-03-18 21:10] VITALS: BP 154/76; PULSE 66; TEMP 36.6; Ht 149.9 cm; Wt 84.5 kg
[2017-03-18 21:15] VITALS: O2SAT 91
--- NOTE | 2017-03-18 21:24 | DIAGNOSTIC IMAGING REPORT ---
LEFT LOWER EXTREMITY VENOUS DOPPLER HISTORY: left leg swelling, coughing up blood. COMPARISON STUDY: None. FINDINGS: There is normal compressibility, flow, and augmentation within the left lower extremity deep venous system. IMPRESSION: No DVT within the left lower extremity. Electronically signed by: Franky Elise M.D. 03/18/2017 9:23 PM Dictated Date/Time: 03/18/2017 9:23 PM
[2017-03-18] MEDS ORDERED: FUROSEMIDE INJ 60 MG in SYRINGE 0 ML IV ONE (21:30)
[2017-03-18] MEDS ORDERED: LSX80 PO (21:32)
[2017-03-18] MEDS ORDERED: ALBU18002 INH (21:33)
[2017-03-18] MEDS ORDERED: IV FLUIDS COMPLETED PRN ×2 (21:45)
[2017-03-18] MEDS ORDERED: CRD200 PO (21:52)
[2017-03-18] MEDS: FLUTICASONE/SALMETEROL 100/50 (ADVAIR) 14 PUFF/1 INHALER INH SCH (21:54)
[2017-03-18] MEDS: POTASSIUM CHLORIDE 10 MEQ TABCR PO SCH (21:55)
[2017-03-18] MEDS ORDERED: WARF-246 PO ×2 (21:58)
[2017-03-18] MEDS ORDERED: POTA10TA32 PO (21:59)
[2017-03-18 22:51] LABS: INR > 10.0 (0.9-1.1)
[2017-03-19 00:08] VITALS: BP 118/66; PULSE 57; TEMP 36.7; O2SAT 91
[2017-03-19 03:13] VITALS: BP 129/74; PULSE 71; TEMP 36.5; O2SAT 90
[2017-03-19 04:16] LABS: HEMATOCRIT 34.1 % (37-47); HEMOGLOBIN 11.1 g/dL (12.0-16.0); MEAN CELL VOLUME 81.4 fL (80-100); MEAN CORPUSCULAR HEMOGLOBIN 26.5 pg (25-34); MEAN CORPUSCULAR HGB CONC 32.6 g/dl (32-36); MEAN PLATELET VOLUME 11.1 fL (7.4-10.4); PLATELET COUNT 274 K/uL (130-400); RED CELL DISTRIBUTION WIDTH CV 18.6 % (11.5-14.5); RED CELL DISTRIBUTION WIDTH SD 55.6 fL (36.4-46.3); WHITE BLOOD COUNT 5.32 K/uL (4.8-10.8)
[2017-03-19 04:37] LABS: CALCIUM 8.1 mg/dl (8.5-10.1); CREATININE 1.47 mg/dl (0.60-1.20); POTASSIUM 3.6 mmol/L (3.5-5.1)
[2017-03-19 04:59] LABS: INR 8.2 (0.9-1.1)
[2017-03-19] MEDS ORDERED: PHYTONADIONE 5 MG TAB PO STA ×2 (05:46→15:07)
[2017-03-19 07:37] VITALS: BP 128/73; PULSE 58; TEMP 36.7; O2SAT 90
--- NOTE | 2017-03-19 08:03 | HISTORY & PHYSICAL EXAMINATION ---
DATE OF ADMISSION: 03/18/2017 PRIMARY CARE PHYSICIAN: Dr. Clement. CHIEF COMPLAINT: Cough with intermittent hemoptysis since this morning. HISTORY OF PRESENT COMPLAINT: She is an 81-year-old female with significant past medical history of chronic diastolic heart failure, atrial fibrillation, on anticoagulation, hypertensive heart disease, obstructive sleep apnea, on CPAP, chronic leg edema, mild asthma, chronic kidney disease, hyperlipidemia, apparently has been complaining of flu-like symptoms for a while. She was diagnosed with flu sometime during [place]. She feels that the symptoms have not gone away completely. She was evaluated by bag checker in [facility] on 03/13/2017. At that time, she was given additional dose of Lasix for her edema and she had a CAT scan of the chest and also underwent echocardiogram to evaluate her cardiac function. She complains to have ongoing cough symptoms but no fever, chills or rigors. No chest pain or palpitation with it and this morning she noted to have blood in the sputum and that is the reason she was brought into the Emergency Room. She also complains to have some swelling of the legs, and whenever she has worsening of the legs, she gets more shortness of breath. No problem with urine and/or bowel habit. No abdominal pain, nausea and/or vomiting. No other bleeding areas. 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 She has cirrhosis with ascites as per the recent CAT scan report. PAST SURGICAL HISTORY: Significant for cataract surgery and total abdominal hysterectomy with removal of the tubes. FAMILY HISTORY: Father had bladder cancer. SOCIAL HISTORY: She is . She lives with her . She has 2 children. She does not smoke and does not drink and she has been reasonably ambulant. ALLERGIES: SHE IS ALLERGIC TO ALCOHOL, CEPHALOSPORIN, CODEINE, PENICILLIN, ASPIRIN, LEVOFLOXACIN AND SULFA ANTIBIOTICS. MEDICATIONS: As an outpatient, she has been on Tylenol 1 gram q. 8 hourly as needed, furosemide 80 mg twice daily, warfarin 5 and 7.5 mg as directed, ProAir 2 puffs q. 4 hourly p.r.n., amiodarone 200 mg daily, Lipitor 40 mg daily, Advair Diskus 100/50 one puff b.i.d., Flonase nasal spray 2 sprays each nostril daily, lisinopril 2.5 mg daily, Toprol-XL 12.5 mg daily, omeprazole 20 mg daily, potassium chloride 10 mEq twice daily, ranitidine 300 mg at night, spironolactone 25 mg daily and tramadol 50 mg q. 4 hourly p.r.n. REVIEW OF SYSTEMS: Other system review unremarkable except those mentioned in the history of present complaint. PHYSICAL EXAMINATION: GENERAL: On examination in the Emergency Room, she was minimally short of breath at rest but no other symptoms. VITAL SIGNS: Temperature 36.4, pulse 64, blood pressure 144/69, saturation 91% on room air. HEENT: Unremarkable. NECK: Supple. No JVD, no bruit. CHEST: Decreased breath sounds at bases with occasional wheezing. HEART: S1, S2, irregular with 2/6 systolic murmur over precordium. ABDOMEN: Distended, soft, nontender. Bowel sounds present. RECTAL: Deferred. EXTREMITIES: 1+ edema bilaterally with some skin changes but no evidence of any cellulitis. MUSCULOSKELETAL: Did not show any acute arthritis. CENTRAL NERVOUS SYSTEM: She was alert, awake, oriented x3. She was generally weak but no focal sensory and/or motor deficit appreciated. LABORATORY DATA: Noted today white count was 6.41, H&H 11.8/36.9, platelet was 332. Sodium 137, potassium 4.1, chloride 102, carbon dioxide 28, BUN 20, creatinine 1.61. Random glucose 108. LFTs: AST of 62 and alkaline phos 262. Troponin less than 0.015. TSH 3.810. Lipase of 2.58. INR more than 10 and PT ratio 2.1. UA examination unremarkable, RBC 0-4. Chest x-ray reported as stable cardiomegaly, mild vascular congestion and small bilateral pleural effusion, stable mediastinal widening. 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 She also underwent an echocardiogram during that time and is reported as normal LV wall motion, enlargement of the left atrium, diastolic dysfunction, normal systolic function and moderate aortic sclerosis but no stenosis. IMPRESSION AND PLAN: 1. Hemoptysis, most likely aggravated by supratherapeutic INR, seems to be intermittent at this time. CT scan and chest x-ray unremarkable. She will be admitted to telemetry unit. We will monitor her hemoglobin and CBC. She received vitamin K 5 mg orally. We will monitor INR. She will need to have Coumadin if the bleeding has stopped and Coumadin can be started safely. 2. Acute on chronic diastolic heart failure as per echo that was done on 03/05/2017. She does have diastolic dysfunction with tricuspid regurgitation and mild aortic sclerosis. We will give her Lasix IV 60 mg twice a day, she takes at home 80 mg twice a day, and monitor her PRP. 3. Atrial fibrillation. Rate seems to be controlled on amiodarone. Her EKG seems to be in junctional rhythm, rate of 57 per minute. We will monitor her in the telemetry unit. 4. Hypertension. Blood pressure seems stable at this time. 5. Obstructive sleep apnea, on CPAP. We will continue her CPAP at night. 6. Noted to be right aortic arch and that is due to an aberrant left subclavian artery accounting for widened mediastinum. 7. Gastrointestinal prophylaxis with omeprazole and ranitidine. 8. Deep venous thrombosis prophylaxis: The patient has high INR. Received vitamin K. Monitor INR. No pharmacological DVT prophylaxis needed. 9. Code status: Discussed with the patient, she will be a DNR. In my clinical judgment, the beneficiary meets criteria as per CMS for 2-midnight stay in the hospital. KATINA
[2017-03-19] MEDS: SPIRONOLACTONE 25 MG TAB PO SCH (08:59)
[2017-03-19] MEDS: FUROSEMIDE INJ 60 MG in SYRINGE 0 ML IV SCH ×2 (08:59→16:25)
[2017-03-19] MEDS: FLUTICASONE/SALMETEROL 100/50 (ADVAIR) 14 PUFF/1 INHALER INH SCH ×2 (08:59→20:49)
[2017-03-19] MEDS: POTASSIUM CHLORIDE 10 MEQ TABCR PO SCH ×2 (09:00→20:49)
[2017-03-19] MEDS ORDERED: METOPROLOL SUCC 25MG EXT REL TAB PO SCH (09:00)
[2017-03-19] MEDS: AMIODARONE 200 MG TAB PO SCH (09:00)
[2017-03-19] MEDS ORDERED: PANTOprazole SOD 40 MG TAB PO PRN (09:00)
[2017-03-19] MEDS: ATORVASTATIN 40 MG TAB PO SCH (09:01)
[2017-03-19] MEDS: LISINOPRIL 2.5 MG TAB PO SCH (09:02)
--- NOTE | 2017-03-19 10:23 | Clinical Documentation Query ---
SPRING Perez : CLINICAL DOCUMENTATION QUERY Patient is an 81 year old female admitted for evaluation of "hemoptysis, most likely aggravated by supratherapeutic INR". As appropriate, consider documentation as suggested below as this impacts accurate DRG assignment. In your clinical opinion is this patient being managed for: ( ) Coagulation defect/hemorrhagic disorder due to extrinsic circulating anticoagulants ( x) Not Agree-just a supratherapeutic INR present but she is not bleeding, no hemoptysis ( ) Other explanation of clinical findings (Please Explain) ( ) Unable to determine (Please Define) ( ) Need to Discuss The medical record reflects the following clinical findings, treatment, and risk factors. Clinical Indicators: Supratherapeutic INR in the setting of Coumadin use Treatment: Vitamin K, serial coagulation studies Risk Factors: Coumadin use CC: Bleeding d/t Therapeutic Anticoagulation Coding [facility] [id number], p14 Question: Should bleeding due to therapeutic anticoagulant be coded as a hemorrhagic disorder (category D68)? Answer: For the most part, "hemorrhagic disorder" or "coagulation defects" must be specifically diagnosed and documented by the provider, in order to assign codes at category D68, Other coagulation defects. However, for bleeding such as hemoptysis, hematuria, hematemesis, hematochezia, etc., that is associated with a drug, as part of anticoagulation therapy, assign code D68.32, Hemorrhagic disorder due to extrinsic circulating anticoagulants. This is supported by the inclusion term at D68.32 of "Drug-induced hemorrhagic disorder." The sequencing of code D68.32 and other codes describing the type or site of bleeding, (e.g., hemoptysis or hematuria), would be dependent on the circumstances of the admission. Copyright (2018), [facility] ("[employer]"), [place], [place]. Reproduced with permission. No portion of this publication may be copied without the express, written consent of [employer]. Your Clinical Example A 73 yo male presents to the ED from the physician's office for direct admit. He is complaining of blood in his urine. He has a history of recurrent Afib and takes Coumadin on daily basis. Interview of the patient reveals that he has taken his medication as directed. His admitting diagnosis is "Coumadin induced Coagulopathy with hematuria." *This patient's PDX is: D68.32, Hemorrhagic disorder due to extrinsic circulating anticoagulants with R31.9 Hematuria Please clarify and document your clinical opinion in the progress notes and discharge summary. Terms such as "probable", "suspected", "likely", "questionable", "possible", or "still to be ruled out" are acceptable. IF IN AGREEMENT, YOU MUST DOCUMENT ABOVE DIAGNOSTIC STATEMENT IN DAILY PROGRESS NOTES AND DISCHARGE SUMMARY. This document is not part of the patient's record. Thank You, Richard Chappell, RN [phone]
[2017-03-19 11:23] VITALS: BP 117/73; PULSE 59; TEMP 36.9; O2SAT 92
--- NOTE | 2017-03-19 15:19 | Progress Note ---
Medicine Progress Note Date & Time of Visit: Mar 19, 2017 at 15:02. Subjective 81 yo F presents with SOB and LE swelling and was found to have a supratherapeutic INR on admission. She has a chronic cough that is her norm and this has not changed. She states that the other day, she had burned the roof of her mouth and yesterday was pulling some skin away from that area, which had caused the bleeding. She denies hemoptysis at this time. She denies any worsening cough or flu symptoms today. She reports no shortness of breath and a decrease in her leg swelling that is significant. She is tolerating PO and is otherwise doing well without symptoms. Objective Last 8 Hrs Date Time Temp Pulse Resp B/P (MAP) Pulse Ox O2 Delivery O2 Flow Rate FiO2 03/19/17 11:23 36.9 59 18 117/73 (88) 92 Room Air 03/19/17 08:00 Room Air 03/19/17 07:37 36.7 58 18 128/73 (91) 90 Room Air Physical Exam: GEN: WNWD, in no acute distress, alert and appropriate, no conversational dyspnea or increased work of breathing. HEENT: NC/AT, PERRL, normal sclerae, MMM CARDIO: reg rate, S1/2 heard without m/g/r LUNGS: CTA bilaterally, no crackles, rales or wheezes, good diaphragmatic excursion ABD: soft, non-tender, non-distended, no rebound or guarding, +BS EXTREMITY: no LE swelling or edema, extremities are warm and well-perfused NEURO: CN 2-12 grossly intact MUSC: 5/5 strength throughout, no gross focal deficits SKIN: warm and dry Laboratory Results: 03/19/17 03:46 03/19/17 03:46 Test 03/18/17 18:09 03/18/17 18:59 03/19/17 03:46 Immature Granulocyte % (Auto) 0.2 % White Blood Count 6.41 K/uL (4.8-10.8) Red Blood Count 4.49 M/uL (4.2-5.4) 4.19 M/uL (4.2-5.4) Hemoglobin 11.8 g/dL (12.0-16.0) Hematocrit 36.9 % (37-47) Mean Corpuscular Volume 82.2 fL (80-100) 81.4 fL (80-100) Mean Corpuscular Hemoglobin 26.3 pg (25-34) 26.5 pg (25-34) Mean Corpuscular Hemoglobin Concent 32.0 g/dl (32-36) 32.6 g/dl (32-36) Platelet Count 322 K/uL (130-400) Mean Platelet Volume 10.7 fL (7.4-10.4) 11.1 fL (7.4-10.4) Neutrophils (%) (Auto) 60.0 % Lymphocytes (%) (Auto) 24.5 % Monocytes (%) (Auto) 13.6 % Eosinophils (%) (Auto) 1.2 % Basophils (%) (Auto) 0.5 % Neutrophils # (Auto) 3.85 K/uL (1.4-6.5) Lymphocytes # (Auto) 1.57 K/uL (1.2-3.4) Monocytes # (Auto) 0.87 K/uL (0.11-0.59) Eosinophils # (Auto) 0.08 K/uL (0-0.5) Basophils # (Auto) 0.03 K/uL (0-0.2) Immature Granulocyte # (Auto) 0.01 K/uL (0.00-0.02) Activated Partial Thromboplast Time 54.3 SECONDS (21.0-31.0) Partial Thromboplastin Ratio 2.1 Total Bilirubin 0.6 mg/dl (0.2-1) Direct Bilirubin 0.2 mg/dl (0-0.2) Aspartate Amino Transf (AST/SGOT) 62 U/L (15-37) Alanine Aminotransferase (ALT/SGPT) 31 U/L (12-78) Alkaline Phosphatase 262 U/L (45-117) Troponin I < 0.015 ng/ml (0-0.045) Total Protein 7.1 gm/dl (6.4-8.2) Albumin 2.5 gm/dl (3.4-5.0) Lipase 258 U/L (73-393) Thyroid Stimulating Hormone (TSH) 3.810 uIu/ml (0.300-4.500) Urine Color YELLOW Urine Appearance CLOUDY (CLEAR) Urine pH 5.0 (4.5-7.5) Urine Specific [place] 1.014 (1.000-1.030) Urine Protein NEG (NEG) Urine Glucose (UA) NEG (NEG) Urine Ketones NEG (NEG) Urine Occult Blood NEG (NEG) Urine Nitrite NEG (NEG) Urine Bilirubin NEG (NEG) Urine Urobilinogen NEG (NEG) Urine Leukocyte Esterase TRACE (NEG) Urine WBC (Auto) 1-5 /hpf (0-5) Urine RBC (Auto) 0-4 /hpf (0-4) Urine Hyaline Casts (Auto) 5-10 /lpf (0-5) Urine Epithelial Cells (Auto) 20-30 /lpf (0-5) Urine Bacteria (Auto) NEG (NEG) RDW Standard Deviation 55.6 fL (36.4-46.3) RDW Coefficient of Variation 18.6 % (11.5-14.5) Prothrombin Time 82.3 SECONDS (9.0-12.0) Prothromb Time International Ratio 8.2 (0.9-1.1) Anion Gap 6.0 mmol/L (3-11) Est Creatinine Clear Calc Drug Dose 28.3 ml/min Estimated GFR () 38.4 Estimated GFR (Non- 33.1 BUN/Creatinine Ratio 14.4 (10-20) Calcium Level 8.1 mg/dl (8.5-10.1) Magnesium Level 2.1 mg/dl (1.8-2.4) Date/Time Source Procedure Growth Status 03/18/17 18:53 Blood Blood Culture Pending Received 03/18/17 18:59 Urine , Clean Catch Urine Culture - Preliminary PIN-POINT GROWTH PRESENT, REINCUBATING. Resulted Last 24 Hours Test 03/18/17 18:09 03/18/17 18:59 03/18/17 22:09 03/19/17 03:46 White Blood Count 6.41 K/uL 5.32 K/uL Red Blood Count 4.49 M/uL 4.19 M/uL Hemoglobin 11.8 g/dL 11.1 g/dL Hematocrit 36.9 % 34.1 % Mean Corpuscular Volume 82.2 fL 81.4 fL Mean Corpuscular Hemoglobin 26.3 pg 26.5 pg Mean Corpuscular Hemoglobin Concent 32.0 g/dl 32.6 g/dl Platelet Count 322 K/uL 274 K/uL Mean Platelet Volume 10.7 fL 11.1 fL Neutrophils (%) (Auto) 60.0 % Lymphocytes (%) (Auto) 24.5 % Monocytes (%) (Auto) 13.6 % Eosinophils (%) (Auto) 1.2 % Basophils (%) (Auto) 0.5 % Neutrophils # (Auto) 3.85 K/uL Lymphocytes # (Auto) 1.57 K/uL Monocytes # (Auto) 0.87 K/uL Eosinophils # (Auto) 0.08 K/uL Basophils # (Auto) 0.03 K/uL RDW Standard Deviation 56.6 fL 55.6 fL RDW Coefficient of Variation 18.8 % 18.6 % Immature Granulocyte % (Auto) 0.2 % Immature Granulocyte # (Auto) 0.01 K/uL Prothrombin Time > 100.0 SECONDS > 100.0 SECONDS 82.3 SECONDS Prothromb Time International Ratio > 10.0 > 10.0 8.2 Activated Partial Thromboplast Time 54.3 SECONDS Partial Thromboplastin Ratio 2.1 Sodium Level 137 mmol/L 138 mmol/L Potassium Level 4.1 mmol/L 3.6 mmol/L Chloride Level 102 mmol/L 103 mmol/L Carbon Dioxide Level 28 mmol/L 29 mmol/L Anion Gap 8.0 mmol/L 6.0 mmol/L Blood Urea Nitrogen 20 mg/dl 21 mg/dl Creatinine 1.61 mg/dl 1.47 mg/dl Est Creatinine Clear Calc Drug Dose 26.1 ml/min 28.3 ml/min Estimated GFR () 34.4 38.4 Estimated GFR (Non- 29.7 33.1 BUN/Creatinine Ratio 12.1 14.4 Random Glucose 108 mg/dl 75 mg/dl Calcium Level 8.5 mg/dl 8.1 mg/dl Magnesium Level 2.2 mg/dl 2.1 mg/dl Total Bilirubin 0.6 mg/dl Direct Bilirubin 0.2 mg/dl Aspartate Amino Transf (AST/SGOT) 62 U/L Alanine Aminotransferase (ALT/SGPT) 31 U/L Alkaline Phosphatase 262 U/L Troponin I < 0.015 ng/ml Total Protein 7.1 gm/dl Albumin 2.5 gm/dl Lipase 258 U/L Thyroid Stimulating Hormone (TSH) 3.810 uIu/ml Urine Color YELLOW Urine Appearance CLOUDY Urine pH 5.0 Urine Specific [place] 1.014 Urine Protein NEG Urine Glucose (UA) NEG Urine Ketones NEG Urine Occult Blood NEG Urine Nitrite NEG Urine Bilirubin NEG Urine Urobilinogen NEG Urine Leukocyte Esterase TRACE Urine WBC (Auto) 1-5 /hpf Urine RBC (Auto) 0-4 /hpf Urine Hyaline Casts (Auto) 5-10 /lpf Urine Epithelial Cells (Auto) 20-30 /lpf Urine Bacteria (Auto) NEG Date/Time Source Procedure Growth Status 03/18/17 18:53 Blood Blood Culture Pending Received 03/18/17 18:50 Blood Blood Culture Pending Received 03/18/17 18:59 Urine , Clean Catch Urine Culture - Preliminary PIN-POINT GROWTH PRESENT, REINCUBATING. Resulted Assessment & Plan 81 yo F presents with SOB and LE swelling and was found to have a supratherapeutic INR on admission. She has a chronic cough that is her norm and this has not changed. She states that the other day, she had burned the roof of her mouth and yesterday was pulling some skin away from that area, which had caused the bleeding. She denies hemoptysis at this time. She denies any worsening cough or flu symptoms today. She reports no shortness of breath and a decrease in her leg swelling that is significant. She is tolerating PO and is otherwise doing well without symptoms. 1. Supratherapeutic INR with recent trauma to roof of mouth. No hemopthysis is evident at this time and there has been no significant fall in her H/H. She is breathing well and with no events on telemetry overnight, will transfer her to the floor. Giving additional vit K 5mg PO now and will repeat INR in am. Etiology appears to be coumadin use in the setting of a new diagnosis of cirrhosis (multiple factor deficiencies) based on outpatient CT scan of the chest earlier this month. 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 2. Acute on chronic diastolic heart failure-compensated on IV Lasix overnight. Will cont with this for one more day and will consider switching back to her PO Lasix tomorrow. 3. Atrial fibrillation-chronic, stable, asymptomatic. Sinus bradycardia on admission. No events on telemetry overnight. On amio and coumadin, supratherapeutic. Plan as above. 4. HTN-controlled, cont Lisinopril and Metoprolol. 5. Obstructive sleep apnea, on CPAP. We will continue her CPAP at night. 6. 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 Vit K as above. Repeat INR and PRP in am. 7. Cirrhosis-does not appear to be decompensated, may be contributing to elevated INR. DVT proph-coumadin DNR Dispo-transfer to med/surg, likely home in 1-2 days, pending PT/OT evaluations. Anuradha White DO [facility] Hospitalist Current Inpatient Medications: Current Inpatient Medications Medications (Trade) Dose Ordered Sig/Yanet Route Start Time Stop Time Status Last Admin Dose Admin Acetaminophen (Tylenol Tab) 650 mg Q4H PRN PO 03/18/17 20:15 04/17/17 20:14 Ondansetron HCl (Zofran Inj) 4 mg Q6H PRN IV 03/18/17 20:15 04/17/17 20:14 Amiodarone HCl (Cordarone Tab) 200 mg DAILY PO 03/19/17 09:00 04/18/17 08:59 03/19/17 09:00 200 MG Atorvastatin Calcium (Lipitor Tab) 40 mg DAILY PO 03/19/17 09:00 04/18/17 08:59 03/19/17 09:01 40 MG Salmeterol Xinafoate/ Fluticasone (Advair Diskus 100/50 Inh) 1 puff BID INH 03/18/17 21:00 04/17/17 20:59 03/19/17 08:59 1 PUFF Fluticasone Propionate (Flonase Nasal [place]) 2 sprays DAILY PRN SKY 03/18/17 20:15 04/17/17 20:14 Lisinopril (Zestril Tab) 2.5 mg DAILY PO 03/19/17 09:00 04/18/17 08:59 03/19/17 09:02 2.5 MG Metoprolol Succinate (Toprol Xl Tab) 12.5 mg DAILY PO 03/19/17 09:00 04/18/17 08:59 03/19/17 09:03 12.5 MG Potassium Chloride (Klor-Con M10) 10 meq BID PO 03/18/17 21:00 04/17/17 20:59 03/19/17 09:00 10 MEQ Spironolactone (Aldactone Tab) 12.5 mg DAILY PO 03/19/17 09:00 04/18/17 08:59 03/19/17 08:59 12.5 MG Tramadol HCl (Ultram Tab) 50 mg Q4H PRN PO 03/18/17 20:15 04/17/17 20:14 Albuterol (Ventolin Hfa Inhaler) 2 puffs Q4H PRN INH 03/18/17 20:15 04/17/17 20:14 Pantoprazole Sodium (Protonix Tab) 40 mg QAM PRN PO 03/19/17 09:00 04/18/17 08:59 Ranitidine HCl (zANTac TAB) 300 mg HS PRN PO 03/18/17 20:30 04/17/17 20:29 03/19/17 00:58 300 MG Furosemide 60 mg/ Syringe 6 ml @ 4 mls/min BID17 IV 03/19/17 09:00 04/18/17 08:59 03/19/17 08:59 4 MLS/MIN Miscellaneous (Iv Fluids Completed) 1 ea PRN PRN N/A 03/18/17 21:45 03/18/18 21:44 Miscellaneous (Iv Fluids Completed) 1 ea PRN PRN N/A 03/18/17 21:45 03/18/18 21:44
[2017-03-19 15:27] VITALS: BP 139/66; PULSE 68; TEMP 37; O2SAT 93
[2017-03-19 19:09] VITALS: BP 125/77; PULSE 54; TEMP 36.4; O2SAT 95
[2017-03-20] VITALS (7 sets, daily range): BP systolic 110–136; BP diastolic 64–76; PULSE 54–72; TEMP 36.4–37.6; O2SAT 91–94
[2017-03-20 06:35] LABS: HEMATOCRIT 35.2 % (37-47); HEMOGLOBIN 11.2 g/dL (12.0-16.0); MEAN CELL VOLUME 81.5 fL (80-100); MEAN CORPUSCULAR HEMOGLOBIN 25.9 pg (25-34); MEAN CORPUSCULAR HGB CONC 31.8 g/dl (32-36); MEAN PLATELET VOLUME 10.5 fL (7.4-10.4); PLATELET COUNT 258 K/uL (130-400); RED CELL DISTRIBUTION WIDTH CV 18.4 % (11.5-14.5); RED CELL DISTRIBUTION WIDTH SD 55.2 fL (36.4-46.3); WHITE BLOOD COUNT 4.19 K/uL (4.8-10.8)
[2017-03-20 07:12] LABS: CALCIUM 8.3 mg/dl (8.5-10.1); CREATININE 1.39 mg/dl (0.60-1.20); POTASSIUM 3.7 mmol/L (3.5-5.1)
[2017-03-20] MEDS: FLUTICASONE/SALMETEROL 100/50 (ADVAIR) 14 PUFF/1 INHALER INH SCH (10:07)
[2017-03-20] MEDS: SPIRONOLACTONE 25 MG TAB PO SCH (10:08)
[2017-03-20] MEDS: FUROSEMIDE INJ 60 MG in SYRINGE 0 ML IV SCH (10:08)
[2017-03-20] MEDS: POTASSIUM CHLORIDE 10 MEQ TABCR PO SCH (10:09)
[2017-03-20] MEDS: LISINOPRIL 2.5 MG TAB PO SCH (10:10)
[2017-03-20] MEDS: AMIODARONE 200 MG TAB PO SCH (10:11)
[2017-03-20] MEDS: ATORVASTATIN 40 MG TAB PO SCH (10:11)
--- NOTE | 2017-03-20 14:12 | Progress Note ---
Medicine Progress Note Date & Time of Visit: Mar 20, 2017 at 14:00 . Subjective Feels well. No chest pain or SOB. No nausea, vomiting. Has some bruising, but no abnormal bleeding. Anxious to go home. Ambulating. . Objective Last 8 Hrs Date Time Temp Pulse Resp B/P (MAP) Pulse Ox O2 Delivery O2 Flow Rate FiO2 03/20/17 14:05 36.6 03/20/17 12:00 37.6 57 18 118/64 (82) 94 Room Air 03/20/17 12:00 Room Air 03/20/17 08:16 Room Air 03/20/17 08:00 Room Air 03/20/17 07:54 36.4 54 18 110/71 (84) 94 Room Air Physical Exam: General- sitting in chair; no distress Lungs- clear to auscultation; no respiratory distress Cardiovascular- RRR; no gallop; + JVD; 2+ pretibial edema Abdomen- + bowel sounds, distended, soft, nontender Extremities- no cyanosis; no calf tenderness Neuro- alert, oriented Skin- warm & dry . Laboratory Results: Last 24 Hours Test 03/20/17 06:16 White Blood Count 4.19 K/uL Red Blood Count 4.32 M/uL Hemoglobin 11.2 g/dL Hematocrit 35.2 % Mean Corpuscular Volume 81.5 fL Mean Corpuscular Hemoglobin 25.9 pg Mean Corpuscular Hemoglobin Concent 31.8 g/dl RDW Standard Deviation 55.2 fL RDW Coefficient of Variation 18.4 % Platelet Count 258 K/uL Mean Platelet Volume 10.5 fL Prothrombin Time 20.7 SECONDS Prothromb Time International Ratio 2.0 Sodium Level 137 mmol/L Potassium Level 3.7 mmol/L Chloride Level 103 mmol/L Carbon Dioxide Level 27 mmol/L Anion Gap 7.0 mmol/L Blood Urea Nitrogen 24 mg/dl Creatinine 1.39 mg/dl Est Creatinine Clear Calc Drug Dose 29.9 ml/min Estimated GFR () 41.1 Estimated GFR (Non- 35.5 BUN/Creatinine Ratio 16.9 Random Glucose 78 mg/dl Calcium Level 8.3 mg/dl Magnesium Level 2.2 mg/dl Assessment & Plan CHF Acute on chronic left ventricular diastolic heart failure. May have component of right-sided failure as well due to sleep apnea. Echo in clinic 03/08/17 showed mild concentric LVH, LVEF 55-59%, moderate aortic sclerosis without stenosis; no pulmonary hypertension noted, but study limited. Received IV furosemide with improvement. Discharge on furosemide 80 mg BID. Increase spironolactone to 50 mg daily. Discontinue KCl in light of increased spironolactone dose. Check basic metabolic profile in clinic. Patient confirms liberal consumption of fluids; start fluid restriction of 1500 mls / day. CHF instructions given. Follow-up in CHF clinic. ATRIAL FIBRILLATION Sinus bradycardia in 50's at time of admission. Continue amiodarone, metoprolol, warfarin. Titration of warfarin as discussed below. COAGULOPATHY INR > 10 at time of admission. 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 Only recent med change was addition of spironolactone. On amiodarone, but has been on it for some time. Recent bronchitis, but PO intake has been good. Apparent underlying cirrhosis may be a factor. Bruising, but no active bleeding. Warfarin held. Received vitamin K (total of 12.5 mg). INR day of discharge 2.0. Was taking 5 mg of warfarin 6 days / week and 7.5 mg once a week. Discharged on 2.5 mg daily. Should have INR in clinic in a few days. HYPERTENSION Diuretics as discussed above. Continue metoprolol; consider switching to nadolol in light of cirrhosis. Continue lisinopril with caution while receiving spironolactone. Follow and titrate therapy. SLEEP APNEA Continue CPAP. CIRRHOSIS Recently diagnosed by CT. Etiology uncertain, but may have NOE. Increasing fluid retention may be partly due to cirrhosis. Diuretic management as discussed above. Consider switching beta stacey to nadolol- will defer to Cardiology. Further outpatient evaluation / management per PCP. CKD III Creatinine 1.61 --> 1.39. Follow. ? LOW GRADE FEVER Temp at 12:00 37.6. Repeat temp 36.6 at 14:05 and 15:24. No signs / symptoms of infection. VTE PROPHYLAXIS On warfarin with supratherapeutic INR. Additional prophylaxis contraindicated in light of coagulopathy. Ambulating. DISPOSITION Internal Medicine follow-up with Dr. Clement. Cardiology follow-up with Dr. Alonzo and ELIZABETH Alba. Nephrology follow-up with Dr. Garcia. . Current Inpatient Medications: Current Inpatient Medications Medications (Trade) Dose Ordered Sig/Yanet Route Start Time Stop Time Status Last Admin Dose Admin Acetaminophen (Tylenol Tab) 650 mg Q4H PRN PO 03/18/17 20:15 04/17/17 20:14 Ondansetron HCl (Zofran Inj) 4 mg Q6H PRN IV 03/18/17 20:15 04/17/17 20:14 Amiodarone HCl (Cordarone Tab) 200 mg DAILY PO 03/19/17 09:00 04/18/17 08:59 03/20/17 10:11 200 MG Atorvastatin Calcium (Lipitor Tab) 40 mg DAILY PO 03/19/17 09:00 04/18/17 08:59 03/20/17 10:11 40 MG Salmeterol Xinafoate/ Fluticasone (Advair Diskus 100/50 Inh) 1 puff BID INH 03/18/17 21:00 04/17/17 20:59 03/20/17 10:07 1 PUFF Fluticasone Propionate (Flonase Nasal [place]) 2 sprays DAILY PRN SKY 03/18/17 20:15 04/17/17 20:14 Lisinopril (Zestril Tab) 2.5 mg DAILY PO 03/19/17 09:00 04/18/17 08:59 03/20/17 10:10 2.5 MG Metoprolol Succinate (Toprol Xl Tab) 12.5 mg DAILY PO 03/19/17 09:00 04/18/17 08:59 03/19/17 09:03 12.5 MG Potassium Chloride (Klor-Con M10) 10 meq BID PO 03/18/17 21:00 04/17/17 20:59 03/20/17 10:09 10 MEQ Spironolactone (Aldactone Tab) 12.5 mg DAILY PO 03/19/17 09:00 04/18/17 08:59 03/19/17 08:59 12.5 MG Tramadol HCl (Ultram Tab) 50 mg Q4H PRN PO 03/18/17 20:15 04/17/17 20:14 Albuterol (Ventolin Hfa Inhaler) 2 puffs Q4H PRN INH 03/18/17 20:15 04/17/17 20:14 Pantoprazole Sodium (Protonix Tab) 40 mg QAM PRN PO 03/19/17 09:00 04/18/17 08:59 03/19/17 16:02 40 MG Ranitidine HCl (zANTac TAB) 300 mg HS PRN PO 03/18/17 20:30 04/17/17 20:29 03/19/17 00:58 300 MG Furosemide 60 mg/ Syringe 6 ml @ 4 mls/min BID17 IV 03/19/17 09:00 04/18/17 08:59 03/20/17 10:08 4 MLS/MIN Miscellaneous (Iv Fluids Completed) 1 ea PRN PRN N/A 03/18/17 21:45 03/18/18 21:44 Miscellaneous (Iv Fluids Completed) 1 ea PRN PRN N/A 03/18/17 21:45 03/18/18 21:44
[2017-03-20] MEDS ORDERED: SPIR50TA3 PO (14:25)
[2017-03-20] MEDS ORDERED: CMD5 PO (14:25)
--- NOTE | 2017-03-20 14:34 | Discharge Instructions ---
Discharge Instructions Date of Service Mar 20, 2017. Admission Reason for Admission: fluid retention from congestive heart failure . Discharge Discharge Diagnosis / Problem: fluid retention from congestive heart failure Discharge Goals Goal(s): Decrease discomfort, Improve function, Improve disease control Activity Recommendations Activity Limitations: resume your previous activity . Instructions / Follow-Up Instructions / Follow-Up APPOINTMENTS: INTERNAL MEDICINE 03/23/2017 1:00 PM Gary Clement MD NEPHROLOGY 04/10/2017 11:20 AM Aniyah Garcia MD CARDIOLOGY 05/24/2017 3:30 PM Eric Alonzo, OTHER INSTRUCTIONS: You were retaining fluid in your lungs, abdomen, and legs. Fluid retention probably due to combination of congestive heart failure and perhaps liver disease. Continue furosemide (Lasix) 80 mg twice a day. Increase spironolactone (Aldactone) to 50 mg daily. Spironolactone can cause high potassium levels, so stop taking potassium pills. Your blood was too thin from warfarin (Coumadin). New dose starting 03/19/17 is 1/2 of a 5 mg pill daily. [facility] will give you new instructions after your next blood tests. Limit your fluids to about 1500 mls / day (about 6 cups). Seek medical attention if you have: * temperature above 101 * chest pain or trouble breathing * abdominal pain, nausea, vomiting * diarrhea, dark stools or bloody stools * any unanswered questions or concerns Call [phone] if symptoms are severe. Call if you have any questions or problems. My cell # is [phone]. You can also reach a [facility] hospitalist on duty at [facility] 24 hours a day by calling [phone]. Please take good care of yourself. Max Sanford Call your Primary Care doctor if any of the following symptoms or problems start or get worse: * Shortness of breath or difficulty breathing * Wake up at night short of breath * Chest pain * Cough * Swelling of your hands, feet, or legs * More fatigued or tired with your normal activity * Palpitations - sudden fast heart beats WEIGHT * Weigh yourself every morning after using the bathroom. * Use the same scale. * Wear the same amount of clothing. * Write your weight down on a chart. * Call your Primary Care doctor if you gain more than 2-3 pounds in 1-2 days. MEDICATIONS * Use this discharge instruction sheet for medication instructions. * Take your medications at the time your doctor ordered. * Do not skip a dose of your medicines. * If you miss a dose of medicine, take it as soon as possible, but DO NOT DOUBLE A DOSE. * Read your medicine information when you get home. * Know all of the side effects of your medicine. If in doubt, ask your pharmacist * Call your Primary Care doctor's office if you have any side effects. * Be sure all of your doctors know what medicine and herbs you take (including cold, flu, and herbal medicine). Take the following with you to your follow-up doctor appointments: * Weight Chart * Medication List * List of questions Do not drink excessive alcohol, beer or wine. Current Hospital Diet Patient's current hospital diet: Low Sodium Diet (2gm Na) Discharge Diet Recommended Diet: AHA Diet (Heart Healthy) Fluid Restriction: 1500 ml (6 cups) Procedures Procedures Performed: chest x-ray- fluid in lungs ultrasound legs- no blood clots Pending Studies Studies pending at discharge: no Medical Emergencies . Who to Call and When: Call 911 or go to the Emergency Room if: * If at any time you feel your situation is an emergency * You have tightness or pain in your chest that does not go away with rest or Nitroglycerin * You are very short of breath even with rest . Non-Emergent Contact Non-Emergency issues call your: Primary Care Provider, Manager Photo, Hospital Doctor . . "Provider Documentation" section prepared by Max Sanford. . VTE Core Measure Inpt VTE Proph given/why not?: Warfarin (Coumadin)
--- NOTE | 2017-03-20 21:19 | Discharge Summary ---
Discharge Summary Date of Service Mar 20, 2017. Discharge Summary Admission Date: Mar 18, 2017 at 20:09 Discharge Date: Mar 20, 2017 Discharge Disposition: Home Principal Diagnosis: acute on chronic left ventricular diastolic heart failure OTHER ACUTE DIAGNOSES: coagulopathy secondary to warfarin . Secondary Diagnoses/Problems: Chronic and Resolved Medical Problems: (1) Anticoagulated on warfarin Status: Chronic (2) Asthma Status: Chronic (3) Benign hypertension Status: Chronic (4) CHF (congestive heart failure) Permanent Comment: normal LVEF per echo Feb 2017 Status: Chronic (5) Chronic kidney disease (CKD), stage III (moderate) Status: Chronic (6) Cirrhosis of liver Permanent Comment: noted on CT Feb 2017; etiology to be determined Status: Chronic (7) GERD (gastroesophageal reflux disease) Status: Chronic (8) Hiatal hernia Status: Chronic (9) CAROLYNN on CPAP Status: Chronic (10) Paroxysmal atrial fibrillation Status: Chronic (11) s/p elective cardioversion Permanent Comment: Oct 2012 at [facility] for atrial fibrillation Status: Chronic (12) Seasonal allergies Status: Chronic Surgical Problems: (1) H/O: hysterectomy Status: Chronic (2) S/P cataract surgery Status: Chronic . Procedures: IV meds cardiac monitoring venous duplex lower extremity . Pending Studies/Follow-Up: Please check basic metabolic profile and INR in clinic. . Medication Reconciliation New Medications: Spironolactone (Aldactone) 50 Mg Tab 50 MG PO DAILY, #90 TAB 3 Refills Warfarin Sod (Coumadin) 5 Mg Tab 0 PO DAILY, #90 TAB 3 Refills Dose will change from time to time. Dose as of 03/19/17 = 1/2 pill (2.5 mg) daily. Continued Medications: Acetaminophen (Acetaminophen) 500 Mg Tab 1000 MG PO Q8 PRN for Pain or Fever, TAB Albuterol Sulfate (Proair Respiclick) 108 Mcg/Act Aer 2 PUFFS INH Q4H PRN for SOB/Wheezing Amiodarone HCl (Amiodarone HCl) 200 Mg Tab 200 MG PO DAILY Atorvastatin (Lipitor) 40 Mg Tab 40 MG PO DAILY Fluticasone Prop/Salmeterol (Advair Diskus 100/50 60 Dose) 1 Ea Aerp 1 PUFF INH BID Fluticasone Propionate (Fluticasone Propionate) 120 Sprays/6000 Mcg Inha 2 SPRAYS SKY DAILY PRN for Allergy Symptoms Furosemide (Furosemide) 80 Mg Tab 80 MG PO BID Lisinopril (Lisinopril) 2.5 Mg Tab 2.5 MG PO DAILY, TAB Metoprolol Succinate (Metoprolol Succinate ER) 25 Mg Tabcr 12.5 MG PO DAILY Omeprazole (Prilosec) 20 Mg Cap 20 MG PO DAILY PRN for Acid Reflux, CAP Ranitidine (Zantac) 300 Mg Tab 300 MG PO HS PRN for Heart Burn/Acid Reflux, TAB Tramadol HCl (Tramadol HCl) 50 Mg Tab 50 MG PO Q4H PRN for Pain Discontinued Medications: Potassium Chloride Microencaps (Potassium Chloride Er) 10 Meq Tab 10 MEQ PO DAILY, TAB Spironolactone (Aldactone) 25 Mg Tab 12.5 MG PO DAILY Warfarin Sodium (Warfarin Sodium) 5 Mg Tab 5 MG PO 6XWK, TAB TAKE 5 MG AT BEDTIME EVERY SUNDAY,SUNDAY,SUNDAY,SUNDAY,SUNDAY AND SUNDAY OR OTHERWISE DIRECTED TO TAKE BY ANTICOAGULATION CLINIC/MD. Warfarin Sodium (Warfarin Sodium) 5 Mg Tab 7.5 MG PO WK, TAB TAKE 7.5 MG AT BEDTIME EVERY SUNDAY OR OTHERWISE DIRECTED TO TAKE BY ANTICOAGULATION CLINIC/MD. Admission Information HPI (per Admitting provider): She is an 81-year-old female with significant past medical history of chronic diastolic heart failure, atrial fibrillation, on anticoagulation, hypertensive heart disease, obstructive sleep apnea, on CPAP, chronic leg edema, mild asthma, chronic kidney disease, hyperlipidemia, apparently has been complaining of flu-like symptoms for a while. She was diagnosed with flu sometime during Prasad. She feels that the symptoms have not gone away completely. She was evaluated by auricular acupuncturist in [facility] on 03/13/2017. At that time, she was given additional dose of Lasix for her edema and she had a CAT scan of the chest and also underwent echocardiogram to evaluate her cardiac function. She complains to have ongoing cough symptoms but no fever, chills or rigors. No chest pain or palpitation with it and this morning she noted to have blood in the sputum and that is the reason she was brought into the Emergency Room. She also complains to have some swelling of the legs, and whenever she has worsening of the legs, she gets more shortness of breath. No problem with urine and/or bowel habit. No abdominal pain, nausea and/or vomiting. No other bleeding areas. . Physical Exam (per Admitting): GENERAL: On examination in the Emergency Room, she was minimally short of breath at rest but no other symptoms. VITAL SIGNS: Temperature 36.4, pulse 64, blood pressure 144/69, saturation 91% on room air. HEENT: Unremarkable. NECK: Supple. No JVD, no bruit. CHEST: Decreased breath sounds at bases with occasional wheezing. HEART: S1, S2, irregular with 2/6 systolic murmur over precordium. ABDOMEN: Distended, soft, nontender. Bowel sounds present. RECTAL: Deferred. EXTREMITIES: 1+ edema bilaterally with some skin changes but no evidence of any cellulitis. MUSCULOSKELETAL: Did not show any acute arthritis. CENTRAL NERVOUS SYSTEM: She was alert, awake, oriented x3. She was generally weak but no focal sensory and/or motor deficit appreciated. . Hospital Course CHF Presented to ED with SOB and edema. Chest x-ray demonstrated cardiomegaly, CHF, small pleural effusions. Acute on chronic left ventricular diastolic heart failure. May have component of right-sided failure as well due to sleep apnea. Echo in clinic 03/08/17 showed mild concentric LVH, LVEF 55-59%, moderate aortic sclerosis without stenosis; no pulmonary hypertension noted, but study limited. Received IV furosemide with improvement. Discharge on furosemide 80 mg BID. Increase spironolactone to 50 mg daily. Discontinue KCl in light of increased spironolactone dose. Check basic metabolic profile in clinic. Patient confirms liberal consumption of fluids; start fluid restriction of 1500 mls / day. CHF instructions given. Follow-up in CHF clinic. ATRIAL FIBRILLATION Sinus bradycardia in 50's at time of admission. Continue amiodarone, metoprolol, warfarin. Titration of warfarin as discussed below. COAGULOPATHY INR > 10 at time of admission. 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 Only recent med change was addition of spironolactone. On amiodarone, but has been on it for some time. Recent bronchitis, but PO intake has been good. Apparent underlying cirrhosis may be a factor. Bruising, but no active bleeding. Warfarin held. Received vitamin K (total of 12.5 mg). INR day of discharge 2.0. Was taking 5 mg of warfarin 6 days / week and 7.5 mg once a week. Discharged on 2.5 mg daily. Should have INR in clinic in a few days. HYPERTENSION Diuretics as discussed above. Continue metoprolol; consider switching to nadolol in light of cirrhosis. Continue lisinopril with caution while receiving spironolactone. Follow and titrate therapy. SLEEP APNEA Continue CPAP. CIRRHOSIS Recently diagnosed by CT. Etiology uncertain, but may have NOE. Increasing fluid retention may be partly due to cirrhosis. Diuretic management as discussed above. Consider switching beta stacey to nadolol- will defer to Cardiology. Further outpatient evaluation / management per PCP. CKD III Creatinine 1.61 --> 1.39. Follow. VTE PROPHYLAXIS On warfarin with supratherapeutic INR. Additional prophylaxis contraindicated in light of coagulopathy. Ambulating. DISPOSITION Internal Medicine follow-up with Dr. Clement. Cardiology follow-up with Dr. Alonzo and ELIZABETH Alba. Nephrology follow-up with Dr. Garcia. . Total time spent on discharge = 40 min. This includes examination of the patient, discharge planning, medication reconciliation, and communication with other providers. . Discharge Instructions Date of Service Mar 20, 2017. Admission Reason for Admission: fluid retention from congestive heart failure . Discharge Discharge Diagnosis / Problem: fluid retention from congestive heart failure Discharge Goals Goal(s): Decrease discomfort, Improve function, Improve disease control Activity Recommendations Activity Limitations: resume your previous activity . Instructions / Follow-Up Instructions / Follow-Up APPOINTMENTS: INTERNAL MEDICINE 03/23/2017 1:00 PM Gary Clement MD NEPHROLOGY 04/10/2017 11:20 AM Aniyah Garcia MD CARDIOLOGY 05/24/2017 3:30 PM Eric Alonzo, DO OTHER INSTRUCTIONS: You were retaining fluid in your lungs, abdomen, and legs. Fluid retention probably due to combination of congestive heart failure and perhaps liver disease. Continue furosemide (Lasix) 80 mg twice a day. Increase spironolactone (Aldactone) to 50 mg daily. Spironolactone can cause high potassium levels, so stop taking potassium pills. Your blood was too thin from warfarin (Coumadin). New dose starting 03/19/17 is 1/2 of a 5 mg pill daily. [facility] will give you new instructions after your next blood tests. Limit your fluids to about 1500 mls / day (about 6 cups). Seek medical attention if you have: * temperature above 101 * chest pain or trouble breathing * abdominal pain, nausea, vomiting * diarrhea, dark stools or bloody stools * any unanswered questions or concerns Call 911 if symptoms are severe. Call if you have any questions or problems. My cell # is [phone]. You can also reach a [facility] hospitalist on duty at [facility] 24 hours a day by calling [phone]. Please take good care of yourself. Max Sanford Call your Primary Care doctor if any of the following symptoms or problems start or get worse: * Shortness of breath or difficulty breathing * Wake up at night short of breath * Chest pain * Cough * Swelling of your hands, feet, or legs * More fatigued or tired with your normal activity * Palpitations - sudden fast heart beats WEIGHT * Weigh yourself every morning after using the bathroom. * Use the same scale. * Wear the same amount of clothing. * Write your weight down on a chart. * Call your Primary Care doctor if you gain more than 2-3 pounds in 1-2 days. MEDICATIONS * Use this discharge instruction sheet for medication instructions. * Take your medications at the time your doctor ordered. * Do not skip a dose of your medicines. * If you miss a dose of medicine, take it as soon as possible, but DO NOT DOUBLE A DOSE. * Read your medicine information when you get home. * Know all of the side effects of your medicine. If in doubt, ask your pharmacist * Call your Primary Care doctor's office if you have any side effects. * Be sure all of your doctors know what medicine and herbs you take (including cold, flu, and herbal medicine). Take the following with you to your follow-up doctor appointments: * Weight Chart * Medication List * List of questions Do not drink excessive alcohol, beer or wine. Current Hospital Diet Patient's current hospital diet: Low Sodium Diet (2gm Na) Discharge Diet Recommended Diet: AHA Diet (Heart Healthy) Fluid Restriction: 1500 ml (6 cups) Procedures Procedures Performed: chest x-ray- fluid in lungs ultrasound legs- no blood clots Pending Studies Studies pending at discharge: no Medical Emergencies . Who to Call and When: Call 911 or go to the Emergency Room if: * If at any time you feel your situation is an emergency * You have tightness or pain in your chest that does not go away with rest or Nitroglycerin * You are very short of breath even with rest . Non-Emergent Contact Non-Emergency issues call your: Primary Care Provider, Gymnastics Instructor, Hospital Doctor . . "Provider Documentation" section prepared by Max Sanford. . VTE Core Measure Inpt VTE Proph given/why not?: Warfarin (Coumadin) . Additional Copies To Aniyah Garcia MD; Gary Clement MD; Eric Alonzo DO; Malena Alba, STEFANC
== END 2017-03-20 16:15 | disposition home health service (06) | DRG 813 ==
LOC: C.EDB 16:53 → C.2T 20:09 → EDBEDREQ 20:11 → EDBEDREQSVC 20:11 → ENRESERV 20:18 → C.MED 03-20 00:19
PROVIDERS: ADMIT Internal Medicine; ATTEND Hospitalist
DX: D68.32 Hemorrhagic disorder due to extrinsic circulating anticoagulants (principal); I50.33 Acute on chronic diastolic (congestive) heart failure; R04.2 Hemoptysis; I13.0 Hypertensive heart and chronic kidney disease with heart failure and stage 1 through stage 4 chronic kidney disease, or unspecified chronic kidney disease; T45.515A Adverse effect of anticoagulants, initial encounter; K74.60 Unspecified cirrhosis of liver; K75.81 Nonalcoholic steatohepatitis (NASH); I48.0 Paroxysmal atrial fibrillation; J45.909 Unspecified asthma, uncomplicated; G47.33 Obstructive sleep apnea (adult) (pediatric); E78.5 Hyperlipidemia, unspecified; N18.3 Chronic kidney disease, stage 3 (moderate); K21.9 Gastro-esophageal reflux disease without esophagitis; Z79.899 Other long term (current) drug therapy; Z79.01 Long term (current) use of anticoagulants; Z66 Do not resuscitate; Z82.49 Family history of ischemic heart disease and other diseases of the circulatory system; Z80.52 Family history of malignant neoplasm of bladder

== ENCOUNTER → 2017-05-14 | Day surgery (SDC) | payer BC ==
[2017-05-08 14:56] VITALS: Ht 149.9 cm; Wt 82.3 kg
[~2017-05-14] VITALS: Ht 149.9 cm; Wt 82.3 kg
[~2017-05-14] MED LIST changes: +ALBU18002 INH; +CRD200 PO; +ERGO500037 PO; +FLNIN/ NAE; -FLUT0.15 NAE; +LIDOCAINE HCL 2% 2 ML VIAL (20MG/ML) ONE; -LSN25 PO; +LSX80 PO; +OMEP20CA9 PO; -PRD20 PO; +PROPOFOL IV EMULSION 10 MG/ML 20 ML VIAL IV ONE; +SODIUM CHLORIDE 0.9% 500ML 500 ML IV ONE; +SPIR50TA2 PO; +ULT50 PO; -ULT50X PO; +WARF5TAB7 PO
--- NOTE | 2017-05-14 09:40 | Endo History and Physical ---
History & Physical Date of Service: May 14, 2017. Chief Complaint: Referring Physician: History of Present Illness Cirrhosis, evaluate for varices Past Medical History Atrial Fibrillation, Asthma, Reflux, High Cholesterol, Sleep Apnea, CHF, Hypertension, COPD Past Surgical History Hx Cardiac Surgery: Yes (CARDIOVERSIONS) Hx Internal Defibrillator: No Hx Pacemaker: No Hx Abdominal Surgery: Yes (FULL HYSTER) Hx of Implantable Prosthesis: No Hx Post-Op Nausea and Vomiting: No Hx Cancer Surgery: No Hx Thoracic Surgery: No Hx Orthopedic: No Hx Urinary Tract Surgery: No Family History None Social History Smoking Status: Never Smoker Hx Substance Use: No Hx Alcohol Use: No Allergies Coded Allergies: Alcohol (Verified Allergy, Mild, RASH, 05/14/17) WIPES OR INGESTED Cephalosporins (Verified Allergy, Mild, RASH, 05/14/17) Codeine (Verified Allergy, Mild, RASH, 05/14/17) Penicillins (Verified Allergy, Mild, RASH, 05/14/17) Aspirin (Verified Allergy, Unknown, RASH, 05/14/17) Levofloxacin (Verified Allergy, Unknown, "BONE PAIN", 05/14/17) Sulfa Antibiotics (Verified Allergy, Unknown, UNKNOWN, 05/14/17) Current Medications Reported Home Medications Medications Dose Route/Sig Max Daily Dose Days Date Category Vitamin D 18691 Unit (Ergocalciferol) 50,000 Unit Cap 50,000 Unit PO WK 05/08/17 Reported Jantoven (Warfarin Sodium) 5 Mg Tab 0.5 Tab PO QPM 05/08/17 Reported Aldactone (Spironolactone) 50 Mg Tab 50 Mg PO QAM 05/08/17 Reported Fluticasone Propionate 120 Sprays/6000 Mcg Inha 2 Sprays SKY DAILY PRN 03/18/17 Reported Tramadol HCl 50 Mg Tab 50 Mg PO Q4H PRN 03/18/17 Reported Lipitor (Atorvastatin Calcium) 40 Mg Tab 40 Mg PO QAM 02/20/17 Reported Acetaminophen 500 Mg Tab 1,000 Mg PO Q8 PRN 02/20/17 Reported Proair Respiclick (Albuterol Sulfate) 108 Mcg/Act Aer 2 Puffs INH Q4H PRN 10/01/16 Reported Furosemide 80 Mg Tab 80 Mg PO BID 10/01/16 Reported Advair Diskus 100/50 60 Dose (Fluticasone Prop/Salmeterol) 1 Ea Aerp 1 Puff INH BID 09/30/16 Reported Metoprolol Succinate ER (Metoprolol Succinate) 25 Mg Tabcr 12.5 Mg PO QAM 09/30/16 Reported Amiodarone HCl 200 Mg Tab 200 Mg PO QAM 08/10/15 Reported Prilosec (Omeprazole) 20 Mg Cap 20 Mg PO DAILY PRN 12/28/14 Reported Zantac (Ranitidine HCl) 300 Mg Tab 300 Mg PO HS PRN 07/30/14 Reported Vital Signs Weight (Kilograms): 82.27 Height (Feet): 4 Height (Inches): 11 Physical Exam General Appearance: no apparent distress Respiratory/Chest: Auscultation: breath sounds normal Cardiovascular: Heart Auscultation: RRR Abdomen: Inspection & Palpation: soft Liver: non-tender Assessment and Plan Stable for EGD
--- NOTE | 2017-05-14 10:55 | GI REPORT ---
Procedure Date: 05/14/2017 10:28 AM Procedure: Upper GI endoscopy Indications: Cirrhosis rule out esophageal varices Medicines: Monitored Anesthesia Care Complications: No immediate complications. Estimated Blood Loss: Estimated blood loss: none. Procedure: Pre-Anesthesia Assessment: - Prior to the procedure, a History and Physical was performed, and patient medications and allergies were reviewed. The patient is competent. The risks and benefits of the procedure and the sedation options and risks were discussed with the patient. All questions were answered and informed consent was obtained. Patient identification and proposed procedure were verified by the physician and the nurse in the procedure room. Mental Status Examination: alert and oriented. Airway Examination: normal oropharyngeal airway and neck mobility. Respiratory Examination: clear to auscultation. CV Examination: normal. ASA Grade Assessment: III - A patient with severe systemic disease. After reviewing the risks and benefits, the patient was deemed in satisfactory condition to undergo the procedure. The anesthesia plan was to use monitored anesthesia care (MAC). Immediately prior to administration of medications, the patient was re-assessed for adequacy to receive sedatives. The heart rate, respiratory rate, oxygen saturations, blood pressure, adequacy of pulmonary ventilation, and response to care were monitored throughout the procedure. The physical status of the patient was re-assessed after the procedure. After obtaining informed consent, the endoscope was passed under direct vision. Throughout the procedure, the patient's blood pressure, pulse, and oxygen saturations were monitored continuously. The scope was introduced through the mouth, and advanced to the second part of duodenum. The upper GI endoscopy was accomplished without difficulty. The patient tolerated the procedure well. Findings: The examined esophagus was normal. No varices seen. The Z-line was regular and was found 33 cm from the incisors. A medium-sized hiatal hernia was present. Moderate portal hypertensive gastropathy was found in the gastric fundus and in the gastric body. The duodenal bulb and second portion of the duodenum were normal. Impression: - Normal esophagus. No varices. - Medium-sized hiatal hernia. - Portal hypertensive gastropathy. - Normal duodenal bulb and second portion of the duodenum. - No specimens collected. Recommendation: - Discharge patient to home. - Iron supplementation. - Repeat upper endoscopy in 2 years for surveillance. - Return to referring physician. Meredith Grissom MD 05/14/2017 10:55:18 AM This report has been signed electronically. Note Initiated On: 05/14/2017 10:28 AM I attest to the content of the Intraoperative Record and orders documented therein, exceptions below
--- NOTE | 2017-05-14 11:11 | Discharge Instructions ---
Endoscopy Patient Instructions Date / Procedure(s) Performed May 14, 2017. EGD Allergy Information Coded Allergies: Alcohol (Verified Allergy, Mild, RASH, 05/14/17) WIPES OR INGESTED Cephalosporins (Verified Allergy, Mild, RASH, 05/14/17) Codeine (Verified Allergy, Mild, RASH, 05/14/17) Penicillins (Verified Allergy, Mild, RASH, 05/14/17) Aspirin (Verified Allergy, Unknown, RASH, 05/14/17) Levofloxacin (Verified Allergy, Unknown, "BONE PAIN", 05/14/17) Sulfa Antibiotics (Verified Allergy, Unknown, UNKNOWN, 05/14/17) Discharge Date / Findings May 14, 2017. No varices. Portal HTN gastropathy. Medication Instructions Stopped Medication(s): WARAFIN Provider Instructions Activity Restrictions - No exercising or heavy lifting for 24 hours. - Do not drink alcohol the day of the procedure. - Do not drive a car or operate machinery until the day after the procedure. - Do not make any important decisions or sign important papers in 24 hours after the procedure. Following Day: - Return to full activity which may include returning to work/school. Diet Start your diet with liquids and light foods (jello, soup, juice, toast). Then eat your usual diet if not nauseated. Treatment For Common After Affects For mild abdominal pain, bloating, or excessive gas: - Rest - Eat lightly - Lie on right side Follow-Up Information Follow-up with Dr. Clement as scheduled Anesthesia Information What You Should Know You have had a procedure that required some medicine to reduce anxiety and discomfort. This treatment is called moderate sedation. After receiving the treatment, you may be sleepy, but you will be able to breathe on your own. The effects of the treatment may last for several hours. Follow these instructions along with Activity/Diet recommendations noted above: * Do NOT do anything where dizziness or clumsiness would be dangerous. * Rest quietly at home today, then you can be up and about tomorrow. * Have a responsible person stay with you the rest of today. * You may have had an I.V. today. If so, you may take the dressing off later today. Recommendations Call your doctor if: * Trouble breathing * Continuous vomiting for more than 24 hours * Temperature above 101 degrees * Severe abdominal pain or bloating * Pain not relieved by pain medicine ordered * There is increased drainage or redness from any incision * A large amount of rectal bleeding greater than 2-3 tablespoons. (If you had a polyp/s removed or have hemorrhoids, a small amount of blood - from the rectum is to be expected.) * You have any unanswered questions or concerns. IN THE EVENT OF A SERIOUS EMERGENCY, GO TO THE NEAREST EMERGENCY ROOM Your discharge instructions were prepared by provider Meredith Grissom. Patient Instructions Signature Page Shira Haro Patient (or Guardian) Signature/Date: I have read and understand the instructions given to me by my caregivers. Caregiver/RN/Doctor Signature/Date: The above-named patient and/or guardian has received patient instructions on this date. + Original Patient Signature Page (only) stays with chart. Please make copy for patient.
[2017-05-14 11:23] VITALS: BP 116/74; PULSE 62; O2SAT 96
--- NOTE | 2017-05-14 11:33 | Anesthesiology Progress Note ---
Anesthesia Post Op Note Date & Time May 14, 2017 at 11:33 Vital Signs Pain Intensity: 0 Vital Signs Past 12 Hours Date Time Temp Pulse Resp B/P (MAP) Pulse Ox O2 Delivery O2 Flow Rate FiO2 05/14/17 11:23 62 16 116/74 (88) 96 Room Air 05/14/17 11:08 63 16 99/68 (78) 98 Room Air 05/14/17 10:53 69 16 90/65 (73) 98 Room Air 05/14/17 09:42 36.4 66 16 140/91 (107) 91 Room Air Notes Mental Status: alert / awake / arousable, participated in evaluation Pt Amnestic to Procedure: Yes Nausea / Vomiting: adequately controlled Pain: adequately controlled Airway Patency, RR, SpO2: stable & adequate BP & HR: stable & adequate Hydration State: stable & adequate Anesthetic Complications: no major complications apparent
== END | disposition home or self-care (01) ==
LOC: C.GI 08:37
PROVIDERS: ATTEND Student in an Organized Health Care Education/Training Program
DX: K74.60 Unspecified cirrhosis of liver (principal); K31.89 Other diseases of stomach and duodenum; K44.9 Diaphragmatic hernia without obstruction or gangrene; J45.909 Unspecified asthma, uncomplicated; I48.91 Unspecified atrial fibrillation; K21.9 Gastro-esophageal reflux disease without esophagitis; E78.00 Pure hypercholesterolemia, unspecified; G47.30 Sleep apnea, unspecified; I50.9 Heart failure, unspecified; I11.0 Hypertensive heart disease with heart failure; J44.9 Chronic obstructive pulmonary disease, unspecified; Z88.2 Allergy status to sulfonamides; Z88.5 Allergy status to narcotic agent; Z88.0 Allergy status to penicillin; Z88.1 Allergy status to other antibiotic agents; Z79.01 Long term (current) use of anticoagulants; Z79.899 Other long term (current) drug therapy

== ENCOUNTER 2017-06-29 12:21 | Inpatient (IN) | payer BC, OTHER ==
[~2017-06-29] VITALS: Ht 149.9 cm; Wt 90.2 kg
[~2017-06-29 12:21] MED LIST changes: -LIDOCAINE HCL 2% 2 ML VIAL (20MG/ML) ONE; -PROPOFOL IV EMULSION 10 MG/ML 20 ML VIAL IV ONE; -SODIUM CHLORIDE 0.9% 500ML 500 ML IV ONE
[2017-06-29 13:13] LABS: BASO % 0.3 %; BASO ABS # 0.02 K/uL (0-0.2); EOS % 0.1 %; EOS ABS # 0.01 K/uL (0-0.5); HEMATOCRIT 36.9 % (37-47); HEMOGLOBIN 12.3 g/dL (12.0-16.0); IG# 0.02 K/uL (0.00-0.02); LYMPH % 13.5 %; LYMPH ABS # 0.94 K/uL (1.2-3.4); MEAN CELL VOLUME 80.7 fL (80-100); MEAN CORPUSCULAR HEMOGLOBIN 26.9 pg (25-34); MEAN CORPUSCULAR HGB CONC 33.3 g/dl (32-36); MONO % 12.3 %; MONO ABS # 0.86 K/uL (0.11-0.59); NEUT % 73.5 %; NEUT ABS # 5.12 K/uL (1.4-6.5); PLATELET COUNT 338 K/uL (130-400); RED CELL DISTRIBUTION WIDTH CV 17.5 % (11.5-14.5); RED CELL DISTRIBUTION WIDTH SD 51.5 fL (36.4-46.3); WHITE BLOOD COUNT 6.97 K/uL (4.8-10.8)
[2017-06-29 13:22] LABS: INR 2.8 (0.9-1.1); PTT PATIENT 38.8 SECONDS (21.0-31.0)
--- NOTE | 2017-06-29 13:25 | DIAGNOSTIC IMAGING REPORT ---
CHEST ONE VIEW PORTABLE CLINICAL HISTORY: EVALUATE RESPIRATORY DISTRESS.DYSPNEA dyspnea COMPARISON STUDY: Multiple prior exams FINDINGS: Stable mediastinal widening with a suggestion of a potential right-sided aortic arch. Lateral hernia. Moderate stable cardiomegaly. Bibasilar chronic pleural reactive change. This is considered chronic. IMPRESSION: Chronic change. Mild stable cardiomegaly. No acute process. The above report was generated using voice recognition software. It may contain grammatical, syntax or spelling errors. Electronically signed by: Avinash Pride M.D. 06/29/2017 1:24 PM Dictated Date/Time: 06/29/2017 1:22 PM
[2017-06-29 13:28] LABS: ALBUMIN 2.4 gm/dl (3.4-5.0); ALT/SGPT 18 U/L (12-78); AST/SGOT 40 U/L (15-37); BLOOD UREA NITROGEN 36 mg/dl (7-18); CALCIUM 8.1 mg/dl (8.5-10.1); CARBON DIOXIDE 29 mmol/L (21-32); CREATININE 2.01 mg/dl (0.60-1.20); GLUCOSE 130 mg/dl (70-99); POTASSIUM 3.8 mmol/L (3.5-5.1); SODIUM 135 mmol/L (136-145)
[2017-06-29 13:33] LABS: ALKALINE PHOSPHATASE 215 U/L (45-117); TOTAL PROTEIN 7.3 gm/dl (6.4-8.2)
[2017-06-29] MEDS ORDERED: FUROSEMIDE 40 MG/4 ML VIAL IV STA (14:06)
[2017-06-29] MEDS ORDERED: SPR25 PO (15:32)
[2017-06-29] MEDS ORDERED: DICL1GEL12 TOP (15:32)
[2017-06-29] MEDS ORDERED: CMD5 PO ×2 (15:32)
[2017-06-29] MEDS ORDERED: ALBUTEROL HFA 8 GM INHALER INH PRN (15:45)
[2017-06-29] MEDS ORDERED: DICLOFENAC SOD 1% GEL 100 GM TUBE EXT PRN (15:45)
[2017-06-29] MEDS ORDERED: RANITIDINE HCL 150 MG TAB PO PRN (15:45)
[2017-06-29] MEDS ORDERED: FLUTICASONE PROPIONATE NA SPR 16 GM BTL NAE PRN (15:45)
[2017-06-29] MEDS ORDERED: TRAMADOL HCL 50 MG TAB PO PRN (15:45)
[2017-06-29] MEDS ORDERED: ACETAMINOPHEN 500 MG TAB PO PRN (15:45)
[2017-06-29 15:50] VITALS: BP 136/87; PULSE 137; TEMP 36.6; O2SAT 92
--- NOTE | 2017-06-29 16:01 | History and Physical ---
History & Physical Date & Time of Service: June 29, 2017 at 15:57 Chief Complaint: Volume Overload Primary Care Physician: Gary Clement MD History of Present Illness Source: patient, clinic records, hospital records This is an 82yo F with a PMH of CKD IV, diastolic CHF, NAFLD cirrhosis, paroxysmal A fib (on coumadin), HTN and other medical problems listed below who presents with increased BLE swelling x 1 week. Endorses an 8 pound weight gain in the last week as well as SOB and orthopnea. Denies increased fluid or sodium intake or medication non-compliance although admits that she has a hard time keeping track of medications. Was following up with Dr. Hernandez in clinic today and was redirected to ED for further evaluation of volume overload. Follows with Dr. Alonzo in cardiology clinic and has been taking 40mg lasix BID and spironolactone 12.5mg daily. Recently established care with Dr. 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 Had presence of ascites but has not yet required paracentesis. Currently endorses BLE swelling and exertional SOB but denies fever, chills, lightheadedness, headache, visual changes, chest pain, palpitations, nausea, vomiting, abdominal pain, dysuria, melena or hematochezia. Past Medical/Surgical History Medical Problems: (1) Acute electrocardiogram changes (2) Ambulatory dysfunction (3) Anticoagulated on warfarin Medical Problems: (1) Anticoagulated on warfarin Status: Chronic (2) Asthma Status: Chronic (3) Benign hypertension Status: Chronic (4) CHF (congestive heart failure) Permanent Comment: normal LVEF per echo Feb 2017 Status: Chronic (5) Chronic kidney disease (CKD), stage III (moderate) Status: Chronic (6) Cirrhosis of liver Permanent Comment: noted on CT Feb 2017; etiology to be determined Status: Chronic (7) GERD (gastroesophageal reflux disease) Status: Chronic (8) Hiatal hernia Status: Chronic (9) CAROLYNN on CPAP Status: Chronic (10) Paroxysmal atrial fibrillation Status: Chronic (11) s/p elective cardioversion Permanent Comment: Oct 2012 at [facility] for atrial fibrillation Status: Chronic (12) Seasonal allergies Status: Chronic Surgical Problems: (1) H/O: hysterectomy Status: Chronic (2) S/P cataract surgery Status: Chronic Family History Cancer FH: hypertension Heart disease Social History Smoking Status: Never Smoker Drug Use: none Marital Status: Housing status: lives with family Immunizations History of Influenza Vaccine: No Influenza Vaccine Date: Nov 23, 2011 History of Tetanus Vaccine?: Unknown History of Pneumococcal: No Pneumococcal Date: May 23, 2002 History of Hepatitis B Vaccine: Unknown Allergies Coded Allergies: Alcohol (Verified Allergy, Mild, RASH, 05/14/17) WIPES OR INGESTED Cephalosporins (Verified Allergy, Mild, RASH, 06/29/17) Codeine (Verified Allergy, Mild, RASH, 06/29/17) Penicillins (Verified Allergy, Mild, RASH, 06/29/17) Aspirin (Verified Allergy, Unknown, RASH, 06/29/17) Levofloxacin (Verified Allergy, Unknown, "BONE PAIN", 06/29/17) Sulfa Antibiotics (Verified Allergy, Unknown, UNKNOWN, 06/29/17) Home Medications Scheduled Amiodarone HCl (Amiodarone HCl), 200 MG PO QAM Atorvastatin (Lipitor), 40 MG PO QAM Ergocalciferol (Vitamin D 30574 Unit), 50,000 UNIT PO WK Fluticasone Prop/Salmeterol (Advair Diskus 100/50 60 Dose), 1 PUFF INH BID Metoprolol Succinate (Metoprolol Succinate ER), 12.5 MG PO QAM Spironolactone (Spironolactone), 0.5 TAB PO DAILY Warfarin Sod (Coumadin), 0.5 TAB PO SuMoWeThFr Warfarin Sod (Coumadin), 1 TAB PO TuSa Scheduled PRN Acetaminophen (Acetaminophen), 1,000 MG PO Q8 PRN for Pain or Fever Albuterol Sulfate (Proair Respiclick), 2 PUFFS INH Q4H PRN for SOB/Wheezing Diclofenac Sodium (Topical) (Voltaren 1% Top Gel), 1 APPLN TOP DAILY PRN for n Fluticasone Propionate (Fluticasone Propionate), 2 SPRAYS SKY DAILY PRN for Allergy Symptoms Omeprazole (Prilosec), 20 MG PO DAILY PRN for Acid Reflux Ranitidine (Zantac), 300 MG PO HS PRN for Heart Burn/Acid Reflux Tramadol HCl (Tramadol HCl), 50 MG PO BID PRN for Pain Review of Systems Constitutional: No fever, No chills, No weight loss, No weakness, No fatigue Eyes: No worsening of vision ENT: No nasal symptoms, No sore throat Respiratory: + shortness of breath, + dyspnea on exertion, No cough, No sputum , No wheezing Cardiovascular: + orthopnea, + edema, No chest pain, No palpitations Abdomen: No pain, No nausea, No vomiting, No diarrhea, No constipation, No GI bleeding Genitourinary - Female: No dysuria Neurologic: No weakness, No numbness/tingling Integumentary: No new/changing skin lesions Physical Exam Vital Signs Date Time Temp Pulse Resp B/P (MAP) Pulse Ox O2 Delivery O2 Flow Rate FiO2 06/29/17 14:12 125 22 116/96 93 Room Air 06/29/17 13:34 124 20 123/89 93 Room Air 06/29/17 13:06 94 Room Air 06/29/17 13:06 94 Room Air 06/29/17 12:53 132 06/29/17 12:22 36.5 137 22 114/78 95 Room Air General Appearance: WD/WN, + mild distress, + pertinent finding (Tachypneic ) Head: normocephalic, atraumatic Eyes: normal inspection, PERRL, sclerae normal ENT: normal ENT inspection, hearing grossly normal, pharynx normal (moist mucous membranes ) Neck: supple, thyroid normal, trachea midline Respiratory/Chest: chest non-tender, lungs clear, normal breath sounds, no respiratory distress, no accessory muscle use Cardiovascular: normal peripheral pulses, + tachycardia, + pertinent finding (3 + BLE edema ) Abdomen/GI: non tender, soft, no organomegaly, + distended Back: normal inspection Extremities/Musculoskelatal: normal inspection, no calf tenderness, non-tender Neurologic/Psych: no motor/sensory deficits, alert, normal mood/affect, oriented x 3 Skin: normal color, warm/dry, no rash, + pertinent finding (Bruising on arms ) Diagnostics Laboratory Results Results Past 24 Hours Test 06/29/17 13:03 06/29/17 14:22 Range/Units White Blood Count 6.97 4.8-10.8 K/uL Red Blood Count 4.57 4.2-5.4 M/uL Hemoglobin 12.3 12.0-16.0 g/dL Hematocrit 36.9 37-47 % Mean Corpuscular Volume 80.7 80-100 fL Mean Corpuscular Hemoglobin 26.9 25-34 pg Mean Corpuscular Hemoglobin Concent 33.3 32-36 g/dl Platelet Count 338 130-400 K/uL Mean Platelet Volume 10.0 7.4-10.4 fL Neutrophils (%) (Auto) 73.5 % Lymphocytes (%) (Auto) 13.5 % Monocytes (%) (Auto) 12.3 % Eosinophils (%) (Auto) 0.1 % Basophils (%) (Auto) 0.3 % Neutrophils # (Auto) 5.12 1.4-6.5 K/uL Lymphocytes # (Auto) 0.94 1.2-3.4 K/uL Monocytes # (Auto) 0.86 0.11-0.59 K/uL Eosinophils # (Auto) 0.01 0-0.5 K/uL Basophils # (Auto) 0.02 0-0.2 K/uL RDW Standard Deviation 51.5 36.4-46.3 fL RDW Coefficient of Variation 17.5 11.5-14.5 % Immature Granulocyte % (Auto) 0.3 % Immature Granulocyte # (Auto) 0.02 0.00-0.02 K/uL Prothrombin Time 28.7 9.0-12.0 SECONDS Prothromb Time International Ratio 2.8 0.9-1.1 Activated Partial Thromboplast Time 38.8 21.0-31.0 SECONDS Partial Thromboplastin Ratio 1.5 Sodium Level 135 136-145 mmol/L Potassium Level 3.8 3.5-5.1 mmol/L Chloride Level 98 98-107 mmol/L Carbon Dioxide Level 29 21-32 mmol/L Anion Gap 8.0 3-11 mmol/L Blood Urea Nitrogen 36 7-18 mg/dl Creatinine 2.01 0.60-1.20 mg/dl Est Creatinine Clear Calc Drug Dose 21.0 ml/min Estimated GFR () 26.1 Estimated GFR (Non- 22.5 BUN/Creatinine Ratio 17.7 10-20 Random Glucose 130 70-99 mg/dl Calcium Level 8.1 8.5-10.1 mg/dl Total Bilirubin 1.7 0.2-1 mg/dl Aspartate Amino Transf (AST/SGOT) 40 15-37 U/L Alanine Aminotransferase (ALT/SGPT) 18 12-78 U/L Alkaline Phosphatase 215 45-117 U/L Troponin I < 0.015 0-0.045 ng/ml Pro-B-Type Natriuretic Peptide 2265 0-1800 pg/ml Total Protein 7.3 6.4-8.2 gm/dl Albumin 2.4 3.4-5.0 gm/dl Globulin 4.9 2.5-4.0 gm/dl Albumin/Globulin Ratio 0.5 0.9-2 Urine Color DK YELLOW Urine Appearance CLOUDY CLEAR Urine pH 5.0 4.5-7.5 Urine Specific [place] 1.017 1.000-1.030 Urine Protein NEG NEG Urine Glucose (UA) NEG NEG Urine Ketones NEG NEG Urine Occult Blood NEG NEG Urine Nitrite NEG NEG Urine Bilirubin NEG NEG Urine Urobilinogen NEG NEG Urine Leukocyte Esterase SMALL NEG Urine WBC (Auto) 5-10 0-5 /hpf Urine RBC (Auto) 0-4 0-4 /hpf Urine Hyaline Casts (Auto) 5-10 0-5 /lpf Urine Epithelial Cells (Auto) >30 0-5 /lpf Urine Bacteria (Auto) NEG NEG Impression Assessment and Plan This is an 82yo F with a PMH of CKD IV, diastolic CHF, NAFLD cirrhosis, paroxysmal A fib (on coumadin), HTN and other medical problems listed below who presents with increased BLE swelling x 1 week. Volume overload: -Multifactorial 2/2 CHF, CKD IV and cirrhosis -Received 40mg IV lasix in ED -Discussed with nephro in setting of CKD IV -40mg IV lasix BID -Restrict Na intake -Continue spironolactone at current dose of 12.5mg Acute on chronic diastolic CHF: -Non-compliant with diet -8 pound weight gain, SOB, BLE edema -CXR with mild stable cardiomegaly -Echo from 03/08 with normal EF 55-59%, diastolic dysfunction -BNP elevated to 2265 -40mg IV lasix BID -Cont metoprolol -Stricts I&Os -Daily weights CKD IV: -Per recent nephro note, new Cr baseline ~1.8-1.9 -Cr of 2.1 today -Avoid cassie and arbs -Monitor closely with administration of lasix -Nephro consulted NAFLD cirrhosis: -Distention noted on abd exam -U/S abdomen for further evaluation of ascites -Monitor liver panel Sinus tachycardia: -Found to be in SVT with HR ~140 in ED prior to transfer upstairs -Discussed with Dr. Smith and reviewed EKGs -Rhythm determined as sinus tach -Given IV lopressor -Monitor on telemetry Paroxysmal A Fib: -Currently in sinus tach -Continue home amiodarone, metoprolol -INR therapeutic at 2.8 -Continue coumadin at home dose CAROLYNN: -CPAP HS GERD: -Cont PPI, H2 stacey DVT Ppx: continue coumadin Code status: DNR PCP: [facility] Dispo: Admitted to telemetry. Discharge planning ordered. Patient seen in collaboration with Dr. Armstrong. Please see addendum. Attending Addendum: The patient was seen and examined in telemetry unit. Past medical history significant for CKD on dialysis A. fib with diastolic heart failure hypertension and also cirrhosis She complains to have shortness of breath, swelling of feet and also swelling of abdomen for the last 1 week She has also gained about 8 pounds for the last 1 week. She was evaluated by Dr. Hernandez the grocery store manager today in the clinic and was advised to come to ER for further evaluation Denies any chest pain, any abdominal pain, nausea and vomiting. On examination He denies any acute symptoms and her shortness of breath is better Hemodynamically stable with tachycardia of 120s Chest clear to auscultate bilaterally Heart-irregular Abdomen-distended, firm, mild to moderate ascites clinically, bowel sounds present Extremities-1+ edema bilaterally SLASHER RUNNER;, alert, awake and oriented 3 No focal neuro deficit but generally weak Lab,Imaging Studies and EKG reviewed Agree with the assessment and plan as outlined Above. Dr Heydi Armstrong Resuscitation Status VTE Prophylaxis Will order VTE Prophylaxis: Yes
[2017-06-29 16:11] VITALS: BP 100/89; PULSE 130; O2SAT 95
[2017-06-29] MEDS ORDERED: METOPROLOL TARTRATE 1 MG/ML VIAL ONE (16:15)
[2017-06-29] MEDS ORDERED: NURSING VERBAL MED ORDER ONE (16:15)
[2017-06-29 16:53] VITALS: PULSE 120; Ht 149.9 cm; Wt 90.2 kg
--- NOTE | 2017-06-29 17:32 | EMERGENCY ROOM VISIT NOTE ---
History Report prepared by Yony: Luis Clifton Under the Supervision of: Dr. Marlo Ospina D.O. First contact with patient: 12:30 Chief Complaint: OTHER COMPLAINT Stated Complaint: FLUID IN LEGS History of Present Illness The patient is an 82 year old female who presents to the Emergency Room with complaints of constant leg swelling beginning a week ago. The patient states that she has gained eight pounds in about a week. She notes that she has also has been experiencing SOB which worsens with exertion. She reports that her SOB does not worsen when she lies flat. She denies any CP and abdominal pain. The patient states that she saw Dr. Hernandez today, and was told to come to the emergency department today for volume overload. She notes that she has a history of stage 4 renal disease but is not on dialysis. She reports that she is currently on Lasix and spironolactone. Source of History: patient Onset: a week ago Position: leg (bilateral) Quality: other (swelling) Timing: constant Associated Symptoms: + SOB, No chest pain, No abdominal pain Note: The patient states that she has gained eight pounds in a week. Review of Systems See HPI for pertinent positives & negatives. A total of 10 systems reviewed and were otherwise negative. Past Medical & Surgical Medical Problems: (1) Anticoagulated on warfarin (2) Asthma (3) Benign hypertension (4) CHF (congestive heart failure) (5) Chronic kidney disease (CKD), stage III (moderate) (6) Cirrhosis of liver (7) Dyslipidemia (8) GERD (gastroesophageal reflux disease) (9) Hiatal hernia (10) CAROLYNN on CPAP (11) Paroxysmal atrial fibrillation (12) s/p elective cardioversion (13) Seasonal allergies (14) Stage 4 chronic kidney disease (15) Volume overload Surgical Problems: (1) H/O: hysterectomy (2) S/P cataract surgery Family History Cancer FH: hypertension Heart disease Social History Smoking Status: Never Smoker Alcohol Use: none Drug Use: none Marital Status: Housing Status: lives with family Occupation Status: retired Current/Historical Medications Scheduled Amiodarone HCl (Amiodarone HCl), 200 MG PO QAM Atorvastatin (Lipitor), 40 MG PO QAM Ergocalciferol (Vitamin D 37543 Unit), 50,000 UNIT PO WK Fluticasone Prop/Salmeterol (Advair Diskus 100/50 60 Dose), 1 PUFF INH BID Metoprolol Succinate (Metoprolol Succinate ER), 12.5 MG PO QAM Spironolactone (Spironolactone), 0.5 TAB PO DAILY Warfarin Sod (Coumadin), 0.5 TAB PO SuMoWeThFr Warfarin Sod (Coumadin), 1 TAB PO TuSa Scheduled PRN Acetaminophen (Acetaminophen), 1,000 MG PO Q8 PRN for Pain or Fever Albuterol Sulfate (Proair Respiclick), 2 PUFFS INH Q4H PRN for SOB/Wheezing Diclofenac Sodium (Topical) (Voltaren 1% Top Gel), 1 APPLN TOP DAILY PRN for n Fluticasone Propionate (Fluticasone Propionate), 2 SPRAYS SKY DAILY PRN for Allergy Symptoms Omeprazole (Prilosec), 20 MG PO DAILY PRN for Acid Reflux Ranitidine (Zantac), 300 MG PO HS PRN for Heart Burn/Acid Reflux Tramadol HCl (Tramadol HCl), 50 MG PO BID PRN for Pain Allergies Coded Allergies: Alcohol (Verified Allergy, Mild, RASH, 05/14/17) WIPES OR INGESTED Cephalosporins (Verified Allergy, Mild, RASH, 06/29/17) Codeine (Verified Allergy, Mild, RASH, 06/29/17) Penicillins (Verified Allergy, Mild, RASH, 06/29/17) Aspirin (Verified Allergy, Unknown, RASH, 06/29/17) Levofloxacin (Verified Allergy, Unknown, "BONE PAIN", 06/29/17) Sulfa Antibiotics (Verified Allergy, Unknown, UNKNOWN, 06/29/17) Physical Exam Vital Signs Date Time Temp Pulse Resp B/P (MAP) Pulse Ox O2 Delivery O2 Flow Rate FiO2 06/29/17 14:12 125 22 116/96 93 Room Air 06/29/17 13:34 124 20 123/89 93 Room Air 06/29/17 13:06 94 Room Air 06/29/17 13:06 94 Room Air 06/29/17 12:53 132 06/29/17 12:22 36.5 137 22 114/78 95 Room Air Physical Exam GENERAL: Sitting up in bed, alert, well appearing, well nourished, no distress, non-toxic, dyspneic with conversation EYE EXAM: normal conjunctiva. OROPHARYNX: no exudate, no erythema, lips, buccal mucosa, and tongue normal and mucous membranes are moist NECK: supple, no nuchal rigidity, no adenopathy, non-tender LUNGS: Clear to auscultation. Normal chest wall mechanics HEART: Tachycardic S1 normal and S2 normal ABDOMEN: abdomen soft, non-tender, normo-active bowel sounds, no masses, no rebound or guarding. BACK: Back is symmetrical on inspection and there is no deformity, no midline tenderness, no CVA tenderness. SKIN: no rashes and no bruising UPPER EXTREMITIES: upper extremities are grossly normal. LOWER EXTREMITIES: Bilateral pitting edema. NEURO EXAM: Normal sensorium, cranial nerves II-XII grossly intact, normal speech, no gross weakness of arms, no gross weakness of legs. Focused limited bedside ultrasound with no pericardial effusion. Medical Decision & Procedures ER Provider Diagnostic Interpretation: Radiology results as stated below per my review and interpretation: BEDSIDE US: No pericardial effusion. CHEST ONE VIEW PORTABLE FINDINGS: Stable mediastinal widening with a suggestion of a potential right-sided aortic arch. Lateral hernia. Moderate stable cardiomegaly. Bibasilar chronic pleural reactive change. This is considered chronic. IMPRESSION: Chronic change. Mild stable cardiomegaly. No acute process. The above report was generated using voice recognition software. It may contain grammatical, syntax or spelling errors. Electronically signed by: Avinash Pride M.D. 06/29/2017 1:24 PM Laboratory Results 06/29/17 13:03 Red Blood Count 4.57, Mean Corpuscular Volume 80.7, Mean Corpuscular Hemoglobin 26.9, Mean Corpuscular Hemoglobin Concent 33.3, Mean Platelet Volume 10.0, Neutrophils (%) (Auto) 73.5, Lymphocytes (%) (Auto) 13.5, Monocytes (%) (Auto) 12.3, Eosinophils (%) (Auto) 0.1, Basophils (%) (Auto) 0.3, Neutrophils # (Auto ) 5.12, Lymphocytes # (Auto) 0.94, Monocytes # (Auto) 0.86, Eosinophils # (Auto ) 0.01, Basophils # (Auto) 0.02 06/29/17 13:03 Test 06/29/17 13:03 06/29/17 14:22 White Blood Count 6.97 K/uL (4.8-10.8) Red Blood Count 4.57 M/uL (4.2-5.4) Hemoglobin 12.3 g/dL (12.0-16.0) Hematocrit 36.9 % (37-47) Mean Corpuscular Volume 80.7 fL (80-100) Mean Corpuscular Hemoglobin 26.9 pg (25-34) Mean Corpuscular Hemoglobin Concent 33.3 g/dl (32-36) Platelet Count 338 K/uL (130-400) Mean Platelet Volume 10.0 fL (7.4-10.4) Neutrophils (%) (Auto) 73.5 % Lymphocytes (%) (Auto) 13.5 % Monocytes (%) (Auto) 12.3 % Eosinophils (%) (Auto) 0.1 % Basophils (%) (Auto) 0.3 % Neutrophils # (Auto) 5.12 K/uL (1.4-6.5) Lymphocytes # (Auto) 0.94 K/uL (1.2-3.4) Monocytes # (Auto) 0.86 K/uL (0.11-0.59) Eosinophils # (Auto) 0.01 K/uL (0-0.5) Basophils # (Auto) 0.02 K/uL (0-0.2) RDW Standard Deviation 51.5 fL (36.4-46.3) RDW Coefficient of Variation 17.5 % (11.5-14.5) Immature Granulocyte % (Auto) 0.3 % Immature Granulocyte # (Auto) 0.02 K/uL (0.00-0.02) Prothrombin Time 28.7 SECONDS (9.0-12.0) Prothromb Time International Ratio 2.8 (0.9-1.1) Activated Partial Thromboplast Time 38.8 SECONDS (21.0-31.0) Partial Thromboplastin Ratio 1.5 Anion Gap 8.0 mmol/L (3-11) Est Creatinine Clear Calc Drug Dose 21.0 ml/min Estimated GFR () 26.1 Estimated GFR (Non- 22.5 BUN/Creatinine Ratio 17.7 (10-20) Calcium Level 8.1 mg/dl (8.5-10.1) Total Bilirubin 1.7 mg/dl (0.2-1) Aspartate Amino Transf (AST/SGOT) 40 U/L (15-37) Alanine Aminotransferase (ALT/SGPT) 18 U/L (12-78) Alkaline Phosphatase 215 U/L (45-117) Troponin I < 0.015 ng/ml (0-0.045) Pro-B-Type Natriuretic Peptide 2265 pg/ml (0-1800) Total Protein 7.3 gm/dl (6.4-8.2) Albumin 2.4 gm/dl (3.4-5.0) Globulin 4.9 gm/dl (2.5-4.0) Albumin/Globulin Ratio 0.5 (0.9-2) Urine Color DK YELLOW Urine Appearance CLOUDY (CLEAR) Urine pH 5.0 (4.5-7.5) Urine Specific [place] 1.017 (1.000-1.030) Urine Protein NEG (NEG) Urine Glucose (UA) NEG (NEG) Urine Ketones NEG (NEG) Urine Occult Blood NEG (NEG) Urine Nitrite NEG (NEG) Urine Bilirubin NEG (NEG) Urine Urobilinogen NEG (NEG) Urine Leukocyte Esterase SMALL (NEG) Urine WBC (Auto) 5-10 /hpf (0-5) Urine RBC (Auto) 0-4 /hpf (0-4) Urine Hyaline Casts (Auto) 5-10 /lpf (0-5) Urine Epithelial Cells (Auto) >30 /lpf (0-5) Urine Bacteria (Auto) NEG (NEG) Laboratory results per my review. Medications Administered Medications (Trade) Dose Ordered Sig/Yanet Route Start Time Stop Time Status Last Admin Dose Admin Furosemide (Lasix Inj) 40 mg NOW STAT IV 06/29/17 14:06 06/29/17 14:07 DC 06/29/17 14:17 40 MG ECG Per My Interpretation Indication: SOB/dyspnea Rate (beats per minute): 131 Rhythm: sinus tachycardia Findings: other (Low voltage, nonspecific ST changes in the inferior leads) Comparison ECG Date: 02/22/2017 Change: Compared to prior: Low voltage and nonspecific ST changes are old. ED Course ED COURSE: Vital signs were reviewed and showed that the patient was tachycardic. The patients medical record was reviewed The above diagnostic studies were performed and reviewed. ED treatments and interventions as stated above. 1230: The patient was evaluated in room B5. A complete history and physical examination was performed. 1406: Lasix Inj 40mg IV 1501: I performed a bedside US on the patient. 1505: Upon reevaluation, the patient is stable. I discussed my findings with the patient and she understands and agrees with the treatment plan. Based on the patients age, coexisting illnesses, exam and lab findings the decision to treat as an inpatient was made. The patient remained stable while under my care. Discussed the patient's case with Bernice Moya PA-C ion implant machine operator for [employer]. The patient will be evaluated for further management. Medical Decision Differential diagnoses includes but is not limited to pneumonia, bronchitis, COPD/Asthma exacerbation, pneumothorax, pulmonary embolism, congestive heart failure, acute coronary syndrome. Patient is an 82-year-old female who presents the ER referred in by her outside machinist for shortness of breath. A 10 pound weight gain in the past week. She does admit to shortness of breath but denies any chest pain. CBC was unremarkable. Creatinine elevated at 2. BNP was elevated at 2000. Troponin negative. INR therapeutic. UA unremarkable. Chest x-ray was fairly benign. Patient did have bilateral pitting edema. Based on symptoms I do believe that she is likely volume overloaded. EKG was obtained and did show initially were thought to believe was a sinus tach. Her heart rate trended down to the low 120s and eventually bumped back up. At this time I did repeat EKG. Again I believe this to be more sinus tach truly atrial flutter or SVT. She was currently being transported up to the floor just a minute or 2 following the EKG. patient had no new symptoms. I did give her a dose of Lasix upon initial presentation. Medication Reconcilliation Current Medication List: was personally reviewed by me Blood Pressure Screening Patient's blood pressure: Normal blood pressure Blood pressure disposition: Did not require urgent referral Consults Time Called: 1500 Consulting Physician: Bernice Moya PA-C ion implant machine operator for [employer] Returned Call: [phone] I reviewed the patient's case with Bernice Paris. She will evaluate the patient for further management. Impression Primary Impression: Volume overload Additional Impressions: Tachycardia Anticoagulated on warfarin Scribe Attestation The scribe's documentation has been prepared under my direction and personally reviewed by me in its entirety. I confirm that the note above accurately reflects all work, treatment, procedures, and medical decision making performed by me. Departure Information Dispostion Being Evaluated By Hospitalist Referrals Gary Clement MD (PCP) Patient Instructions My [facility] Problem Qualifiers Primary Impression: Volume overload Hypervolemia type: unspecified Qualified Codes: E87.70 - Fluid overload, unspecified
[2017-06-29] MEDS: WARFARIN SOD 2.5 MG TAB PO SCH (17:54)
[2017-06-29 17:56] VITALS: BP 101/68; PULSE 124
[2017-06-29] MEDS ORDERED: ERGOCALCIFEROL 50,000 INTER.UNIT CAP PO SCH (18:00)
[2017-06-29 19:39] VITALS: BP 111/80; PULSE 123; TEMP 36.5; O2SAT 94
[2017-06-29] MEDS: FUROSEMIDE INJ 40 MG in SYRINGE 0 ML IV SCH (20:22)
[2017-06-29] MEDS: FLUTICASONE/SALMETEROL 100/50 (ADVAIR) 14 PUFF/1 INHALER INH SCH (20:23)
--- NOTE | 2017-06-29 21:50 | DIAGNOSTIC IMAGING REPORT ---
ASCITES ABDOMEN ULTRASOUND LIMITED CLINICAL HISTORY: evaluate ascites COMPARISON STUDY: Abdominal ultrasound 04/19/2017. FINDINGS: Real-time sonographic imaging of the abdomen was performed. Moderate amount of ascites seen throughout the abdomen. This is slightly progressed. IMPRESSION: Moderate ascites. Electronically signed by: Franky Elise M.D. 06/29/2017 9:49 PM Dictated Date/Time: 06/29/2017 9:48 PM
[2017-06-30] VITALS (7 sets, daily range): BP systolic 98–121; BP diastolic 62–96; PULSE 77–124; TEMP 36.3–36.8; O2SAT 91–99
[2017-06-30 06:00] LABS: HEMATOCRIT 34.1 % (37-47); HEMOGLOBIN 11.4 g/dL (12.0-16.0); MEAN CELL VOLUME 79.9 fL (80-100); MEAN CORPUSCULAR HEMOGLOBIN 26.7 pg (25-34); MEAN CORPUSCULAR HGB CONC 33.4 g/dl (32-36); MEAN PLATELET VOLUME 10.5 fL (7.4-10.4); PLATELET COUNT 293 K/uL (130-400); RED CELL DISTRIBUTION WIDTH CV 17.2 % (11.5-14.5); RED CELL DISTRIBUTION WIDTH SD 49.7 fL (36.4-46.3); WHITE BLOOD COUNT 6.36 K/uL (4.8-10.8)
[2017-06-30 06:12] LABS: INR 2.4 (0.9-1.1)
[2017-06-30 06:18] LABS: ALBUMIN 2.2 gm/dl (3.4-5.0); CALCIUM 8.2 mg/dl (8.5-10.1); CREATININE 1.76 mg/dl (0.60-1.20)
[2017-06-30 06:21] LABS: TOTAL PROTEIN 6.3 gm/dl (6.4-8.2)
--- NOTE | 2017-06-30 08:32 | NEPHROLOGY CONSULTATION ---
DATE OF CONSULTATION: 06/30/2017 ATTENDING OF RECORD: Dr. Armstrong. REASON FOR CONSULTATION: ALANNAH and volume overload. HISTORY OF PRESENT ILLNESS: This is an 82-year-old female with a baseline creatinine of 1.8, who follows with my partner, Dr. Aniyah Garcia who has nonalcoholic fatty liver disease with cirrhosis, who has had worsening volume overload for the past week, gained close to 10 pounds and is having worsening shortness of breath over the past week. The patient was admitted and started on IV Lasix. The patient's home diuretic dose was Lasix 40 mg b.i.d. and spironolactone 12.5 mg daily. The patient did recently see GI and had an EGD showing portal hypertension, has not yet required a paracentesis. The patient slipped out of bed to chair overnight and is currently on spironolactone 12.5 mg a day, Lasix 40 mg IV b.i.d. Albumin is in the low 2s. Protein negative on UA. PAST MEDICAL AND SURGICAL HISTORY: CKD stage IV; CHF; hypertension; GERD; sleep apnea; paroxysmal Afib, on anticoagulation; history of hysterectomy; cataract surgery; nonalcoholic fatty liver disease with cirrhosis. SOCIAL HISTORY: No smoking, no alcohol, no drugs. Lives with family. FAMILY HISTORY: No renal disease in family CURRENT MEDICATIONS: Coumadin 5 mg, amiodarone 200 mg a day, Lipitor 40 mg a day, Toprol-XL 12.5 mg daily, spironolactone 12.5 mg daily, Protonix 40 mg daily, Advair inhaler twice a day, vitamin D 50,000 units weekly, Lasix 40 mg IV b.i.d. REVIEW OF SYSTEMS: Positive fatigue. Positive shortness of breath. Positive swelling. Positive decreased appetite. No chest pain, no headaches, no blurry vision, no dysphagia. No itching, no rash, no diarrhea, no constipation. No dysuria, no hematuria. All other review of systems otherwise negative. PHYSICAL EXAMINATION: VITAL SIGNS: Temperature 36.8, pulse in the 100s, respiratory rate 18, blood pressure 102/73, satting 95% on 2 liters. GENERAL: Awake, alert, oriented x3. EYES: No scleral icterus. ENT: Moist mucous membranes. NECK: Supple. PULMONARY: Clear to auscultation. CARDIAC: Tachy. ABDOMEN: Bowel sounds positive, soft, nontender. EXTREMITIES: +2 pitting edema. NEUROLOGICALLY: Nonfocal during. DERMATOLOGIC: No rash or ulcers noted. LABORATORY DATA: UA shows small leukocyte esterase, 5-10 WBCs, 0-4 RBCs. INR is 2.4. White count 6, H and H 11 and 34, platelet count is 293. Sodium level is 133, potassium is 4, chloride is 96, bicarbonate is 29. BUN is 35, creatinine is 1.76, down from 36 and 2.01. T-bili is 1.8, albumin is 2.2. ProBNP 2265. Troponin negative x1. Abdominal ultrasound shows moderate ascites. Chest x-ray shows mild stable cardiomegaly, no acute process, bibasilar chronic pleural reactive changes. ASSESSMENT AND PLAN: Chronic kidney disease stage IV with underlying hypertension and cirrhosis of the liver, who presents with worsening volume overload on oral Lasix and spironolactone as an outpatient, continuing the spironolactone at current dose and switch the Lasix to 40 IV b.i.d. and we will follow volume status and creatinine trend. May need albumin with Lasix. for now, we will do IV Lasix and see if we can control the swelling. The patient's abdomen does not look significantly distended. We will follow along. Continue the current care. I appreciate the consultation. KATINA
[2017-06-30] MEDS: FUROSEMIDE INJ 40 MG in SYRINGE 0 ML IV SCH ×2 (08:48→17:04)
[2017-06-30] MEDS: PANTOprazole SOD 40 MG TAB PO SCH (08:48)
[2017-06-30] MEDS: FLUTICASONE/SALMETEROL 100/50 (ADVAIR) 14 PUFF/1 INHALER INH SCH ×2 (08:48→21:19)
[2017-06-30] MEDS: AMIODARONE 200 MG TAB PO SCH (08:49)
[2017-06-30] MEDS: SPIRONOLACTONE 25 MG TAB PO SCH (08:49)
[2017-06-30] MEDS: ATORVASTATIN 40 MG TAB PO SCH (08:49)
[2017-06-30] MEDS ORDERED: METOPROLOL SUCC 25MG EXT REL TAB PO SCH (09:00)
[2017-06-30] MEDS ORDERED: NURSING VERBAL MED ORDER ONE (11:15)
[2017-06-30] MEDS ORDERED: METOPROLOL SUCC 25MG EXT REL TAB PO ONE (11:30)
--- NOTE | 2017-06-30 13:50 | CARDIOLOGY CONSULTATION ---
DATE OF CONSULTATION: 06/30/2017 CONSULTATION REQUESTED BY: Bernice Paris PA-C. REASON FOR CONSULTATION: Tachycardia and volume overload. HISTORY OF PRESENT ILLNESS: Mrs. Haro is a very pleasant 82-year-old woman who normally follows with Dr. Alonzo of our cardiology practice for history of diastolic dysfunction. She presented to [facility] at the advice of her travel information center supervisor, Dr. Garcia on 06/29/2017 after routine outpatient evaluation found the patient to be significantly volume overloaded with the recent at least 8-pound weight gain. At that time, the patient was voicing concerns of increasing shortness of breath and lower extremity edema and it was felt that the patient would be best managed by inpatient diuresis with close monitoring of her renal function. Upon presentation, the patient states that she was feeling rather well at rest, but now after diuresing overnight, she states that she is feeling much better. She states that the abdominal discomfort she was experiencing yesterday is resolving as is her lower extremity edema. Her shortness of breath has not changed at rest. She denies any chest pain, palpitations, lightheadedness, dizziness, or syncope. Upon presentation, she was initially found to be in a tachycardia in the 140s. I reviewed the monitor strips and EKG with Mrs. Paris and the patient was found to be in sinus tachycardia and was recommended. She was started on metoprolol. The initial IV dose of metoprolol did slow her heart rate down somewhat for some time; however, is now back to where it was previously. Again, she denies any palpitations. PAST SURGICAL HISTORY: 1. Hysterectomy. 2. Upper endoscopy. 3. Cataract surgery. MEDICAL ILLNESSES: 1. Paroxysmal atrial fibrillation. 2. Diastolic dysfunction with normal LV systolic function. 3. Hypertension. 4. Cirrhosis, secondary to NOE. 5. Hypertension. 6. Obstructive sleep apnea, on CPAP. 7. Right aortic arch. 8. Portal hypertension. FAMILY HISTORY: Noncontributory. SOCIAL HISTORY: Denies any alcohol, tobacco or recreational drug use. REVIEW OF SYSTEMS: As per HPI. All review of systems reviewed and negative at this time. ALLERGIES: 1. ALCOHOL. 2. ASPIRIN. 3. CEPHALOSPORINS. 4. CODEINE. 5. LEVOFLOXACIN. 6. PENICILLIN. 7. SULFA. MEDICATIONS AN OUTPATIENT: 1. Amiodarone 200 mg daily. 2. Atorvastatin 40 mg daily. 3. Metoprolol succinate 12.5 mg daily. 4. Spironolactone 12.5 mg daily. 5. Coumadin as directed by the Coumadin clinic. 6. Lasix 40 mg b.i.d. PHYSICAL EXAMINATION: VITALS: Temperature 36.3, pulse 115, respiratory rate 12, blood pressure 107/81, saturating 94% on 2 liters nasal cannula. GENERAL: Awake, alert, oriented x3 in no acute distress. HEENT: Normocephalic, atraumatic. Pupils equal, round and react to light and accommodation. Extraocular muscles intact. Anicteric sclerae. Moist mucous membranes. NECK: No JVD, no bruit. CARDIOVASCULAR: Regular, but fast. Unable to appreciate murmurs, rubs or gallops. PULMONARY: Scant bibasilar crackles, otherwise clear. No wheezing or rhonchi. ABDOMEN: Bowel sounds x4, somewhat distended. No rebound, guarding or tenderness. No organomegaly. EXTREMITIES: +2 bilateral lower extremity pitting edema above the knee. No clubbing or cyanosis. +2 pedal pulses bilaterally. SKIN: Warm and dry. TEST RESULTS: A review of 12-lead EKGs and telemetry monitoring shows sinus tachycardia with occasional PACs, no sustained arrhythmias. IMPRESSION: 1. Volume overload, multifactorial. 2. Sinus tachycardia. 3. Diastolic dysfunction with history of normal LV systolic function. 4. Obstructive sleep apnea, nocturnal CPAP. 5. Cirrhosis. 6. Chronic kidney disease. RECOMMENDATIONS: It was my pleasure to see Mrs. Haro in consultation today. From a cardiac standpoint, the patient is definitely volume overloaded and is most likely due to a combination of her diastolic dysfunction, chronic kidney disease and cirrhosis. Our nephrology colleagues are on board and managing her diuretics and I will defer to their expertise. In terms of her tachycardia, it is sinus tachycardia, so my concern at this point would be the fact that she may have had a pulmonary embolism, so I do recommend further workup even though her INR has been therapeutic and should most likely benefit from a VQ scan at some point and lower extremity Dopplers to rule out. Otherwise, I will increase her metoprolol. I will give her one time dose of metoprolol tartrate 25 mg now, to see how heart rate and blood pressure respond. I will likely slowly titrate up her b.i.d. metoprolol. Otherwise, we maintain on her Coumadin therapy with a goal INR of 2-3. I will continue to monitor on telemetry and follow along with you.
[2017-06-30] MEDS ORDERED: WARFARIN SOD 5 MG TAB PO SCH (16:00)
[2017-06-30] MEDS: METOPROLOL TARTRATE 25 MG TAB PO SCH ×2 (17:03→21:19)
--- NOTE | 2017-06-30 19:05 | Progress Note ---
Medicine Progress Note Date & Time of Visit: June 30, 2017 at 16:00 . Subjective CC: Follow-up visit for CHF, cirrhosis with ascites, and other problems. HPI: No fever. Persistent dyspnea. No cough. No chest pain. Persistent dependent edema. Persistent abdominal distention. No diarrhea, melena, hematochezia. Voiding without difficulty. . ROS: as noted above in HPI . Objective Last 8 Hrs Date Time Temp Pulse Resp B/P (MAP) Pulse Ox O2 Delivery O2 Flow Rate FiO2 06/30/17 15:17 36.3 118 20 101/78 (86) 91 Nasal Cannula 2.0 06/30/17 12:02 Nasal Cannula 2.0 Physical Exam: General- sitting in chair, no distress Lungs- few basilar rales; no respiratory distress Cardiovascular- distant heart sounds; RRR, tachy; no murmur or gallop appreciated; + JVD; 2+ pretibial edema Abdomen- + bowel sounds, distended, soft, nontender Extremities- no cyanosis; no calf tenderness Neuro- alert, oriented Skin- warm & dry . Laboratory Results: Last 24 Hours Test 06/30/17 05:27 White Blood Count 6.36 K/uL Red Blood Count 4.27 M/uL Hemoglobin 11.4 g/dL Hematocrit 34.1 % Mean Corpuscular Volume 79.9 fL Mean Corpuscular Hemoglobin 26.7 pg Mean Corpuscular Hemoglobin Concent 33.4 g/dl RDW Standard Deviation 49.7 fL RDW Coefficient of Variation 17.2 % Platelet Count 293 K/uL Mean Platelet Volume 10.5 fL Prothrombin Time 25.1 SECONDS Prothromb Time International Ratio 2.4 Sodium Level 133 mmol/L Potassium Level 4.0 mmol/L Chloride Level 96 mmol/L Carbon Dioxide Level 29 mmol/L Anion Gap 8.0 mmol/L Blood Urea Nitrogen 35 mg/dl Creatinine 1.76 mg/dl Est Creatinine Clear Calc Drug Dose 24.0 ml/min Estimated GFR () 30.7 Estimated GFR (Non- 26.5 BUN/Creatinine Ratio 19.9 Random Glucose 76 mg/dl Calcium Level 8.2 mg/dl Total Bilirubin 1.8 mg/dl Aspartate Amino Transf (AST/SGOT) 35 U/L Alanine Aminotransferase (ALT/SGPT) 16 U/L Alkaline Phosphatase 174 U/L Total Protein 6.3 gm/dl Albumin 2.2 gm/dl Globulin 4.1 gm/dl Albumin/Globulin Ratio 0.5 Assessment & Plan CHF Acute on chronic left ventricular diastolic heart failure. Cardiology consulted. Continue IV diuretics. PAF Continue amiodarone, metoprolol, and warfarin. HYPERTENSION Continue metoprolol. SLEEP APNEA Continue CPAP. CIRRHOSIS US demonstrated moderate ascites. Total bilirubin = 1.8. Continue diuretics. CKD III Serum creatinine 2.01 at time of admission. Nephrology consulted. Creatinine today = 1.76. VTE PROPHYLAXIS Warfarin. Ambulate. DISPOSITION Expected discharge to home. Internal Medicine follow-up with Dr. Clement. . Current Inpatient Medications: Current Inpatient Medications Medications (Trade) Dose Ordered Sig/Yanet Route Start Time Stop Time Status Last Admin Dose Admin Furosemide 40 mg/ Syringe 4 ml @ 4 mls/min BID17 IV 06/29/17 17:00 07/29/17 16:59 06/30/17 17:04 4 MLS/MIN Acetaminophen (Tylenol Tab) 1,000 mg Q8 PRN PO 06/29/17 15:45 07/29/17 15:44 Amiodarone HCl (Cordarone Tab) 200 mg QAM PO 06/30/17 09:00 07/30/17 08:59 06/30/17 08:49 200 MG Atorvastatin Calcium (Lipitor Tab) 40 mg QAM PO 06/30/17 09:00 07/30/17 08:59 06/30/17 08:49 40 MG Diclofenac Sodium (Voltaren 1% Top Gel) 1 appln DAILY PRN EXT 06/29/17 15:45 07/29/17 15:44 Ergocalciferol (Vitamin D Cap) 50,000 interunit Fr@0900 PO 06/29/17 18:00 07/29/17 17:59 06/29/17 17:54 50,000 INTERUNIT Salmeterol Xinafoate/ Fluticasone (Advair Diskus 100/50 Inh) 1 puff BID INH 06/29/17 21:00 07/29/17 20:59 06/30/17 08:48 1 PUFF Fluticasone Propionate (Flonase Nasal [place]) 2 sprays DAILY PRN SKY 06/29/17 15:45 07/29/17 15:44 Metoprolol Succinate (Toprol Xl Tab) 12.5 mg QAM PO 06/30/17 09:00 07/30/17 08:59 Future Hold 06/30/17 08:49 12.5 MG Spironolactone (Aldactone Tab) 12.5 mg DAILY PO 06/30/17 09:00 07/30/17 08:59 06/30/17 08:49 12.5 MG Tramadol HCl (Ultram Tab) 50 mg BID PRN PO 06/29/17 15:45 07/29/17 15:44 Warfarin Sodium (Coumadin Tab) 2.5 mg SuMoWeThFr@1600 PO 06/29/17 17:00 07/29/17 16:59 06/29/17 17:54 2.5 MG Warfarin Sodium (Coumadin Tab) 5 mg TuSa@1600 PO 06/30/17 16:00 07/30/17 15:59 06/30/17 17:04 5 MG Albuterol (Ventolin Hfa Inhaler) 2 puffs Q4H PRN INH 06/29/17 15:45 07/29/17 15:44 Ranitidine HCl (zANTac TAB) 300 mg HS PRN PO 06/29/17 15:45 07/29/17 15:44 Pantoprazole Sodium (Protonix Tab) 40 mg QAM PO 06/30/17 09:00 07/30/17 08:59 06/30/17 08:48 40 MG Metoprolol Tartrate (Lopressor Tab) 25 mg QID PO 06/30/17 17:00 07/30/17 16:59 06/30/17 17:03 25 MG
[2017-07-01 00:06] VITALS: BP 97/61; PULSE 84; TEMP 36.7; O2SAT 99
[2017-07-01 03:40] VITALS: BP 91/60; PULSE 80; TEMP 36.4; O2SAT 95
[2017-07-01 06:09] LABS: HEMATOCRIT 34.1 % (37-47); HEMOGLOBIN 11.4 g/dL (12.0-16.0); MEAN CELL VOLUME 79.7 fL (80-100); MEAN CORPUSCULAR HEMOGLOBIN 26.6 pg (25-34); MEAN CORPUSCULAR HGB CONC 33.4 g/dl (32-36); MEAN PLATELET VOLUME 10.4 fL (7.4-10.4); PLATELET COUNT 312 K/uL (130-400); RED CELL DISTRIBUTION WIDTH CV 17.2 % (11.5-14.5); RED CELL DISTRIBUTION WIDTH SD 48.8 fL (36.4-46.3)
[2017-07-01 06:12] LABS: INR 2.3 (0.9-1.1)
[2017-07-01 06:31] LABS: ALBUMIN 2.1 gm/dl (3.4-5.0); CALCIUM 8.2 mg/dl (8.5-10.1); CREATININE 1.87 mg/dl (0.60-1.20); POTASSIUM 4.3 mmol/L (3.5-5.1)
[2017-07-01 06:34] LABS: TOTAL PROTEIN 6.4 gm/dl (6.4-8.2)
[2017-07-01 07:05] VITALS: BP 103/63; PULSE 75; TEMP 36.4; O2SAT 99
--- NOTE | 2017-07-01 07:18 | Nephrology Progress Note ---
Nephrology Progress Note Date of Service: July 01, 2017. Subjective 82 yo female with ckd stage 4 and nafld with cirrhosis presented with volume overload. currently on lasix and spironolactone. pt urinating well. pt though was eating a lot of ice chips yesterday and sodium levels did trend down this morning. Objective Date Time Temp Pulse Resp B/P (MAP) Pulse Ox O2 Delivery O2 Flow Rate FiO2 07/01/17 04:00 Nasal Cannula 2.0 07/01/17 03:40 36.4 80 18 91/60 (70) 95 BiPAP 07/01/17 00:06 36.7 84 16 97/61 (73) 99 06/30/17 23:59 Nasal Cannula 2.0 06/30/17 23:54 106 99 40 06/30/17 20:00 Nasal Cannula 2.0 06/30/17 19:31 36.5 77 18 100/62 (75) 95 Nasal Cannula 2.0 06/30/17 16:00 Nasal Cannula 2.0 06/30/17 15:17 36.3 118 20 101/78 (86) 91 Nasal Cannula 2.0 06/30/17 12:02 Nasal Cannula 2.0 06/30/17 10:34 36.3 124 20 121/96 (104) 06/30/17 08:05 Nasal Cannula 2.0 Physical Exam: General-aaox3, obese Eyes-no scleral icterus ENT-mmm Neck-supple Lungs-basilar rales Heart-regular with ectopy Abdomen-+pannus Extremities-+3 edema Neuro-nonfocal Current Inpatient Medications Medications (Trade) Dose Ordered Sig/Yanet Route Start Time Stop Time Status Last Admin Dose Admin Furosemide 40 mg/ Syringe 4 ml @ 4 mls/min BID17 IV 06/29/17 17:00 07/29/17 16:59 06/30/17 17:04 4 MLS/MIN Acetaminophen (Tylenol Tab) 1,000 mg Q8 PRN PO 06/29/17 15:45 07/29/17 15:44 Amiodarone HCl (Cordarone Tab) 200 mg QAM PO 06/30/17 09:00 07/30/17 08:59 06/30/17 08:49 200 MG Atorvastatin Calcium (Lipitor Tab) 40 mg QAM PO 06/30/17 09:00 6/11/18 08:59 06/30/17 08:49 40 MG Diclofenac Sodium (Voltaren 1% Top Gel) 1 appln DAILY PRN EXT 06/29/17 15:45 07/29/17 15:44 Ergocalciferol (Vitamin D Cap) 50,000 interunit Fr@0900 PO 06/29/17 18:00 07/29/17 17:59 06/29/17 17:54 50,000 INTERUNIT Salmeterol Xinafoate/ Fluticasone (Advair Diskus 100/50 Inh) 1 puff BID INH 06/29/17 21:00 07/29/17 20:59 06/30/17 21:19 1 PUFF Fluticasone Propionate (Flonase Nasal [place]) 2 sprays DAILY PRN SKY 06/29/17 15:45 07/29/17 15:44 Metoprolol Succinate (Toprol Xl Tab) 12.5 mg QAM PO 06/30/17 09:00 07/30/17 08:59 Future Hold 06/30/17 08:49 12.5 MG Spironolactone (Aldactone Tab) 12.5 mg DAILY PO 06/30/17 09:00 07/30/17 08:59 06/30/17 08:49 12.5 MG Tramadol HCl (Ultram Tab) 50 mg BID PRN PO 06/29/17 15:45 07/29/17 15:44 Warfarin Sodium (Coumadin Tab) 2.5 mg SuMoWeThFr@1600 PO 06/29/17 17:00 07/29/17 16:59 06/29/17 17:54 2.5 MG Warfarin Sodium (Coumadin Tab) 5 mg TuSa@1600 PO 06/30/17 16:00 07/30/17 15:59 06/30/17 17:04 5 MG Albuterol (Ventolin Hfa Inhaler) 2 puffs Q4H PRN INH 06/29/17 15:45 07/29/17 15:44 Ranitidine HCl (zANTac TAB) 300 mg HS PRN PO 06/29/17 15:45 07/29/17 15:44 Pantoprazole Sodium (Protonix Tab) 40 mg QAM PO 06/30/17 09:00 07/30/17 08:59 06/30/17 08:48 40 MG Metoprolol Tartrate (Lopressor Tab) 25 mg QID PO 06/30/17 17:00 07/30/17 16:59 06/30/17 21:19 25 MG Last 24 Hours Test 07/01/17 05:26 White Blood Count 7.90 K/uL Red Blood Count 4.28 M/uL Hemoglobin 11.4 g/dL Hematocrit 34.1 % Mean Corpuscular Volume 79.7 fL Mean Corpuscular Hemoglobin 26.6 pg Mean Corpuscular Hemoglobin Concent 33.4 g/dl RDW Standard Deviation 48.8 fL RDW Coefficient of Variation 17.2 % Platelet Count 312 K/uL Mean Platelet Volume 10.4 fL Prothrombin Time 24.1 SECONDS Prothromb Time International Ratio 2.3 Sodium Level 129 mmol/L Potassium Level 4.3 mmol/L Chloride Level 92 mmol/L Carbon Dioxide Level 29 mmol/L Anion Gap 8.0 mmol/L Blood Urea Nitrogen 38 mg/dl Creatinine 1.87 mg/dl Est Creatinine Clear Calc Drug Dose 22.7 ml/min Estimated GFR () 28.5 Estimated GFR (Non- 24.6 BUN/Creatinine Ratio 20.3 Random Glucose 76 mg/dl Calcium Level 8.2 mg/dl Magnesium Level 2.1 mg/dl Total Bilirubin 1.7 mg/dl Aspartate Amino Transf (AST/SGOT) 35 U/L Alanine Aminotransferase (ALT/SGPT) 16 U/L Alkaline Phosphatase 177 U/L Total Protein 6.4 gm/dl Albumin 2.1 gm/dl Globulin 4.3 gm/dl Albumin/Globulin Ratio 0.5 Assessment & Plan ckd stage 4-creatinine stable during this hospitilization. ranging from 1.8 to 2. continue current diuretics. urinated over a liter. may consider titrating up the diuretics tomorrow given the significant edema. hyponatremia-sodium levels trending down in the setting of appropriate diuresis. feel it may be from extra intake of fluids/ice chips. placing on a 1200 cc fluid restriction for now. hopefully sodium levels start to trend back up again. ok to continue the spironolactone but may need to stop it tomorrow if sodium levels drop more.
[2017-07-01] MEDS: FLUTICASONE/SALMETEROL 100/50 (ADVAIR) 14 PUFF/1 INHALER INH SCH ×2 (08:08→20:26)
[2017-07-01] MEDS: FUROSEMIDE INJ 40 MG in SYRINGE 0 ML IV SCH ×2 (08:08→17:40)
[2017-07-01] MEDS: AMIODARONE 200 MG TAB PO SCH (08:09)
[2017-07-01] MEDS: ATORVASTATIN 40 MG TAB PO SCH (08:09)
[2017-07-01] MEDS: METOPROLOL TARTRATE 25 MG TAB PO SCH ×3 (08:09→20:27)
[2017-07-01] MEDS: PANTOprazole SOD 40 MG TAB PO SCH (08:09)
[2017-07-01] MEDS: SPIRONOLACTONE 25 MG TAB PO SCH (08:09)
[2017-07-01 11:02] VITALS: BP 130/65; PULSE 68; TEMP 36.4; O2SAT 93
--- NOTE | 2017-07-01 13:12 | Progress Note ---
Medicine Progress Note Date & Time of Visit: July 01, 2017 at 11:00 Subjective CC: Follow-up visit for CHF, cirrhosis with ascites, and other problems. HPI: No fever. Persistent dyspnea. No significant cough. No chest pain. Persistent dependent edema; reluctant to elevate her legs. Persistent abdominal distention. No diarrhea, melena, hematochezia. Voiding without difficulty. . ROS: as noted above in HPI . Objective Last 8 Hrs Date Time Temp Pulse Resp B/P (MAP) Pulse Ox O2 Delivery O2 Flow Rate FiO2 07/01/17 12:02 Room Air 07/01/17 11:02 36.4 68 20 130/65 (86) 93 Nasal Cannula 3.0 07/01/17 08:06 Room Air 07/01/17 07:05 36.4 75 20 103/63 (76) 99 Nasal Cannula 2.0 Physical Exam: General- sitting in chair, no distress Lungs- few basilar rales; no respiratory distress Cardiovascular- distant heart sounds; RRR, tachy; no murmur or gallop appreciated; + JVD; 2-3+ pretibial edema Abdomen- + bowel sounds, distended, soft, nontender Extremities- no cyanosis; no calf tenderness Neuro- alert, oriented Skin- warm & dry . Laboratory Results: Last 24 Hours Test 07/01/17 05:26 White Blood Count 7.90 K/uL Red Blood Count 4.28 M/uL Hemoglobin 11.4 g/dL Hematocrit 34.1 % Mean Corpuscular Volume 79.7 fL Mean Corpuscular Hemoglobin 26.6 pg Mean Corpuscular Hemoglobin Concent 33.4 g/dl RDW Standard Deviation 48.8 fL RDW Coefficient of Variation 17.2 % Platelet Count 312 K/uL Mean Platelet Volume 10.4 fL Prothrombin Time 24.1 SECONDS Prothromb Time International Ratio 2.3 Sodium Level 129 mmol/L Potassium Level 4.3 mmol/L Chloride Level 92 mmol/L Carbon Dioxide Level 29 mmol/L Anion Gap 8.0 mmol/L Blood Urea Nitrogen 38 mg/dl Creatinine 1.87 mg/dl Est Creatinine Clear Calc Drug Dose 22.7 ml/min Estimated GFR () 28.5 Estimated GFR (Non- 24.6 BUN/Creatinine Ratio 20.3 Random Glucose 76 mg/dl Calcium Level 8.2 mg/dl Magnesium Level 2.1 mg/dl Total Bilirubin 1.7 mg/dl Aspartate Amino Transf (AST/SGOT) 35 U/L Alanine Aminotransferase (ALT/SGPT) 16 U/L Alkaline Phosphatase 177 U/L Total Protein 6.4 gm/dl Albumin 2.1 gm/dl Globulin 4.3 gm/dl Albumin/Globulin Ratio 0.5 Assessment & Plan CHF Acute on chronic left ventricular diastolic heart failure. Cardiology consulted. Fluid restriction recommended. Continue spironolactone and IV furosemide. Monitor I/O's, weights. PAF Continue amiodarone, metoprolol, and warfarin. HYPERTENSION Continue metoprolol. SLEEP APNEA Continue CPAP. CIRRHOSIS US demonstrated moderate ascites. Total bilirubin = 1.7. Continue diuretics. CKD III Serum creatinine 2.01 at time of admission. Nephrology consulted. Creatinine today = 1.87. HYPONATREMIA Serum sodium 135 at time of admission. Sodium today = 129. Hyponatremia probably secondary to diuretic therapy. Follow. VTE PROPHYLAXIS INR 2.3. Continue warfarin. Ambulate. DISPOSITION Expected discharge to home. Internal Medicine follow-up with Dr. Clement. . Current Inpatient Medications: Current Inpatient Medications Medications (Trade) Dose Ordered Sig/Yanet Route Start Time Stop Time Status Last Admin Dose Admin Furosemide 40 mg/ Syringe 4 ml @ 4 mls/min BID17 IV 06/29/17 17:00 07/29/17 16:59 07/01/17 08:08 4 MLS/MIN Acetaminophen (Tylenol Tab) 1,000 mg Q8 PRN PO 06/29/17 15:45 07/29/17 15:44 Amiodarone HCl (Cordarone Tab) 200 mg QAM PO 06/30/17 09:00 07/30/17 08:59 07/01/17 08:09 200 MG Atorvastatin Calcium (Lipitor Tab) 40 mg QAM PO 06/30/17 09:00 07/30/17 08:59 07/01/17 08:09 40 MG Diclofenac Sodium (Voltaren 1% Top Gel) 1 appln DAILY PRN EXT 06/29/17 15:45 07/29/17 15:44 Ergocalciferol (Vitamin D Cap) 50,000 interunit Fr@0900 PO 06/29/17 18:00 07/29/17 17:59 06/29/17 17:54 50,000 INTERUNIT Salmeterol Xinafoate/ Fluticasone (Advair Diskus 100/50 Inh) 1 puff BID INH 06/29/17 21:00 07/29/17 20:59 07/01/17 08:08 1 PUFF Fluticasone Propionate (Flonase Nasal [place]) 2 sprays DAILY PRN SKY 06/29/17 15:45 07/29/17 15:44 Metoprolol Succinate (Toprol Xl Tab) 12.5 mg QAM PO 06/30/17 09:00 07/30/17 08:59 Future Hold 06/30/17 08:49 12.5 MG Spironolactone (Aldactone Tab) 12.5 mg DAILY PO 06/30/17 09:00 07/30/17 08:59 07/01/17 08:09 12.5 MG Tramadol HCl (Ultram Tab) 50 mg BID PRN PO 06/29/17 15:45 07/29/17 15:44 Warfarin Sodium (Coumadin Tab) 2.5 mg SuMoWeThFr@1600 PO 06/29/17 17:00 07/29/17 16:59 06/29/17 17:54 2.5 MG Warfarin Sodium (Coumadin Tab) 5 mg TuSa@1600 PO 06/30/17 16:00 07/30/17 15:59 06/30/17 17:04 5 MG Albuterol (Ventolin Hfa Inhaler) 2 puffs Q4H PRN INH 06/29/17 15:45 07/29/17 15:44 Ranitidine HCl (zANTac TAB) 300 mg HS PRN PO 06/29/17 15:45 07/29/17 15:44 Pantoprazole Sodium (Protonix Tab) 40 mg QAM PO 06/30/17 09:00 07/30/17 08:59 07/01/17 08:09 40 MG Metoprolol Tartrate (Lopressor Tab) 25 mg TID PO 07/01/17 14:00 07/30/17 16:59
[2017-07-01 15:28] VITALS: BP 103/69; PULSE 83; TEMP 36.3
[2017-07-01] MEDS: WARFARIN SOD 2.5 MG TAB PO SCH (17:40)
--- NOTE | 2017-07-01 17:55 | Cardiology Follow-Up ---
Subjective Subjective Date of Service: July 01, 2017. Pt evaluation today including: conversation w/ patient, physical exam, chart review, lab review, review of studies, review of inpatient medication list Additional Details: Pt seen and examined, oob in chair. States that she's feeling "ok". Occasional sob, she believes it to be due to post nasal drip. Denies cp, palpitations, lightheadedness or dizziness. Pt prefers to sit in chair with feet hanging down. Tele reviewed: rates significantly decreased. appears to be sinus/wandering atrial pacemaker, however, short bursts appear to be atrial flutter Problem List Medical Problems: (1) Acute electrocardiogram changes Status: Acute (2) Ambulatory dysfunction Status: Acute (3) Anticoagulated on warfarin Status: Chronic (4) CHF exacerbation Status: Acute (5) Closed fibular fracture Status: Acute (6) Closed fracture of neck of fibula Status: Acute (7) Fever Status: Acute (8) Hemoptysis Status: Acute (9) Knee effusion, left Status: Acute (10) Knee hemarthrosis, left Status: Acute (11) Left fibular fracture Status: Acute (12) Left knee pain Status: Acute (13) Right hip pain Status: Acute (14) SIRS (systemic inflammatory response syndrome) Status: Acute (15) Supratherapeutic INR Status: Acute (16) Tachycardia Status: Acute (17) UTI (urinary tract infection) Status: Acute Review of Systems ENT: + nasal symptoms Respiratory: + cough, + sputum, No see HPI, No wheezing, No shortness of breath , No dyspnea on exertion, No dyspnea at rest, No hemoptysis, No problem reported Cardiac: + edema, No see HPI, No chest pain, No orthopnea, No PND, No claudication, No palpitations, No problem reported Musculoskeletal: + joint pain Skin: + problem reported Objective Vital Signs Last Vital Signs Documentation Date Time Temp Pulse Resp B/P (MAP) Pulse Ox O2 Delivery O2 Flow Rate FiO2 07/01/17 15:28 36.3 83 18 103/69 (80) Room Air 07/01/17 11:02 93 3.0 06/30/17 23:54 40 Physical Exam: General Appearance: WD/WN, no apparent distress, + obese Eyes: bilateral eyes normal inspection, bilateral eyes PERRL, bilateral eyes EOMI ENT: normal ENT inspection, hearing grossly normal, pharynx normal Neck: supple, no adenopathy, thyroid normal, no JVD, no carotid bruits, trachea midline Respiratory/Chest: chest non-tender, no respiratory distress, no accessory muscle use, + decreased breath sounds (b/l bases) Cardiovascular: regular rate, rhythm, no JVD, no murmur, + gallop/S4 Abdomen: normal bowel sounds, non tender, soft Extremities: normal inspection, no calf tenderness, + pertinent finding (2-3+ b /l le pitting edema above the knee) 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 sinus tachycardia improved with uptitration of metoprolol likely multifactorial with volume overload and cirrhosis no definitive evidence of atrial arrhythmia short bursts appear to be flutter, however, prolonged MI interval would suggest otherwise already on therapeutic warfarin even if she is experiencing atrial fib/ flutter to reduce risk of cardioembolic event, maintain goal INR of 2-3 2. volume overload multifactorial: diastolic dysfunction, cirrhosis and ckd appreciate nephrology input, will defer diuresis to their expertise, especially in the setting of worsening hyponatremia cont to monitor on tele
[2017-07-01 19:52] VITALS: BP 104/65; PULSE 77; TEMP 36.8; O2SAT 95
[2017-07-02] VITALS (9 sets, daily range): BP systolic 89–123; BP diastolic 46–78; PULSE 52–99; TEMP 36.1–36.7; O2SAT 95–100
[2017-07-02 06:10] LABS: INR 2.8 (0.9-1.1)
[2017-07-02 06:13] LABS: CALCIUM 8.2 mg/dl (8.5-10.1); CREATININE 2.07 mg/dl (0.60-1.20); POTASSIUM 4.9 mmol/L (3.5-5.1)
--- NOTE | 2017-07-02 07:19 | Nephrology Progress Note ---
Nephrology Progress Note Date of Service: July 02, 2017. Subjective 82 yo female with ckd stage 4 and nafld with cirrhosis presented with volume overload. currently on lasix and spironolactone. pt did limit her ice chips and now on a fluid restriction. continues to have low sodium and continues to have significant edema in the lower extremities, however is quite functional Objective Date Time Temp Pulse Resp B/P (MAP) Pulse Ox O2 Delivery O2 Flow Rate FiO2 07/02/17 04:00 Nasal Cannula 2.0 07/02/17 03:44 36.3 76 18 99/51 (67) 97 2.0 07/02/17 00:09 36.4 74 18 90/58 (69) 97 97.0 07/01/17 23:59 Nasal Cannula 2.0 07/01/17 20:00 Nasal Cannula 2.0 07/01/17 19:52 36.8 77 18 104/65 (78) 95 Nasal Cannula 2.0 07/01/17 16:00 Room Air 07/01/17 15:28 36.3 83 18 103/69 (80) Room Air 07/01/17 12:02 Room Air 07/01/17 11:02 36.4 68 20 130/65 (86) 93 Nasal Cannula 3.0 07/01/17 08:06 Room Air Physical Exam: General-aaox3, obese Eyes-no scleral icterus ENT-mmm Neck-supple Lungs-decreased at bases Heart-irregular Abdomen-+pannus Extremities-+3 edema Neuro-nonfocal Current Inpatient Medications Medications (Trade) Dose Ordered Sig/Yanet Route Start Time Stop Time Status Last Admin Dose Admin Furosemide 40 mg/ Syringe 4 ml @ 4 mls/min BID17 IV 06/29/17 17:00 07/29/17 16:59 07/01/17 17:40 4 MLS/MIN Acetaminophen (Tylenol Tab) 1,000 mg Q8 PRN PO 06/29/17 15:45 07/29/17 15:44 Amiodarone HCl (Cordarone Tab) 200 mg QAM PO 06/30/17 09:00 07/30/17 08:59 07/01/17 08:09 200 MG Atorvastatin Calcium (Lipitor Tab) 40 mg QAM PO 06/30/17 09:00 07/30/17 08:59 07/01/17 08:09 40 MG Diclofenac Sodium (Voltaren 1% Top Gel) 1 appln DAILY PRN EXT 06/29/17 15:45 07/29/17 15:44 Ergocalciferol (Vitamin D Cap) 50,000 interunit Fr@0900 PO 06/29/17 18:00 07/29/17 17:59 06/29/17 17:54 50,000 INTERUNIT Salmeterol Xinafoate/ Fluticasone (Advair Diskus 100/50 Inh) 1 puff BID INH 06/29/17 21:00 07/29/17 20:59 07/01/17 20:26 1 PUFF Fluticasone Propionate (Flonase Nasal [place]) 2 sprays DAILY PRN SKY 06/29/17 15:45 07/29/17 15:44 Metoprolol Succinate (Toprol Xl Tab) 12.5 mg QAM PO 06/30/17 09:00 07/30/17 08:59 Future Hold 06/30/17 08:49 12.5 MG Tramadol HCl (Ultram Tab) 50 mg BID PRN PO 06/29/17 15:45 07/29/17 15:44 Warfarin Sodium (Coumadin Tab) 2.5 mg SuMoWeThFr@1600 PO 06/29/17 17:00 07/29/17 16:59 07/01/17 17:40 2.5 MG Warfarin Sodium (Coumadin Tab) 5 mg TuSa@1600 PO 06/30/17 16:00 07/30/17 15:59 06/30/17 17:04 5 MG Albuterol (Ventolin Hfa Inhaler) 2 puffs Q4H PRN INH 06/29/17 15:45 07/29/17 15:44 Ranitidine HCl (zANTac TAB) 300 mg HS PRN PO 06/29/17 15:45 07/29/17 15:44 Pantoprazole Sodium (Protonix Tab) 40 mg QAM PO 06/30/17 09:00 07/30/17 08:59 07/01/17 08:09 40 MG Metoprolol Tartrate (Lopressor Tab) 25 mg TID PO 07/01/17 14:00 07/30/17 16:59 07/01/17 20:27 25 MG Last 24 Hours Test 07/02/17 05:45 Prothrombin Time 29.0 SECONDS Prothromb Time International Ratio 2.8 Sodium Level 128 mmol/L Potassium Level 4.9 mmol/L Chloride Level 93 mmol/L Carbon Dioxide Level 29 mmol/L Anion Gap 6.0 mmol/L Blood Urea Nitrogen 40 mg/dl Creatinine 2.07 mg/dl Est Creatinine Clear Calc Drug Dose 20.5 ml/min Estimated GFR () 25.2 Estimated GFR (Non- 21.8 BUN/Creatinine Ratio 19.5 Random Glucose 77 mg/dl Calcium Level 8.2 mg/dl Assessment & Plan ckd stage 4-creatinine stable during this hospitilization. ranging from 1.8 to 2. hyponatremia-sodium levels are still slowly dropping. will stop the spironolactone, continue the fluid restriction and increase the diuretic dose of lasix to 80mg iv bid..
[2017-07-02] MEDS: FLUTICASONE/SALMETEROL 100/50 (ADVAIR) 14 PUFF/1 INHALER INH SCH ×2 (09:32→20:57)
[2017-07-02] MEDS: FUROSEMIDE INJ 80 MG in SYRINGE 0 ML IV SCH ×2 (09:32→17:11)
[2017-07-02] MEDS: METOPROLOL TARTRATE 25 MG TAB PO SCH ×3 (09:33→20:58)
[2017-07-02] MEDS: AMIODARONE 200 MG TAB PO SCH (09:34)
[2017-07-02] MEDS: PANTOprazole SOD 40 MG TAB PO SCH (09:34)
[2017-07-02] MEDS: ATORVASTATIN 40 MG TAB PO SCH (09:34)
--- NOTE | 2017-07-02 10:19 | Cardiology Follow-Up ---
Subjective Subjective Date of Service: July 02, 2017. Pt evaluation today including: conversation w/ patient, physical exam, chart review, lab review, review of studies, review of inpatient medication list Additional Details: Uneventful night. Rhythm has been stable and appears to be a wandering atrial pacemaker. Heart rates are controlled. Problem List Medical Problems: (1) Acute electrocardiogram changes Status: Acute (2) Ambulatory dysfunction Status: Acute (3) Anticoagulated on warfarin Status: Chronic (4) CHF exacerbation Status: Acute (5) Closed fibular fracture Status: Acute (6) Closed fracture of neck of fibula Status: Acute (7) Fever Status: Acute (8) Hemoptysis Status: Acute (9) Knee effusion, left Status: Acute (10) Knee hemarthrosis, left Status: Acute (11) Left fibular fracture Status: Acute (12) Left knee pain Status: Acute (13) Right hip pain Status: Acute (14) SIRS (systemic inflammatory response syndrome) Status: Acute (15) Supratherapeutic INR Status: Acute (16) Tachycardia Status: Acute (17) UTI (urinary tract infection) Status: Acute Review of Systems ENT: + nasal symptoms Respiratory: + cough, + sputum, No see HPI, No wheezing, No shortness of breath , No dyspnea on exertion, No dyspnea at rest, No hemoptysis, No problem reported Cardiac: + edema, No see HPI, No chest pain, No orthopnea, No PND, No claudication, No palpitations, No problem reported Musculoskeletal: + joint pain Skin: + problem reported Objective Vital Signs Last Vital Signs Documentation Date Time Temp Pulse Resp B/P (MAP) Pulse Ox O2 Delivery O2 Flow Rate FiO2 07/02/17 07:37 36.7 99 18 123/78 (93) 95 07/02/17 04:00 Nasal Cannula 2.0 06/30/17 23:54 40 Physical Exam: General Appearance: WD/WN, no apparent distress, + obese Eyes: bilateral eyes normal inspection, bilateral eyes PERRL, bilateral eyes EOMI ENT: normal ENT inspection, hearing grossly normal, pharynx normal Neck: supple, no adenopathy, thyroid normal, no JVD, no carotid bruits, trachea midline Respiratory/Chest: chest non-tender, no respiratory distress, no accessory muscle use, + decreased breath sounds (b/l bases) Cardiovascular: regular rate, rhythm, no JVD, no murmur, + gallop/S4 Abdomen: normal bowel sounds, non tender, soft Extremities: normal inspection, no calf tenderness, + pertinent finding (2-3+ b /l le pitting edema above the knee) Neurologic/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 sinus tachycardia improved with uptitration of metoprolol likely multifactorial with volume overload and cirrhosis no definitive evidence of atrial arrhythmia short bursts appear to be flutter, however, prolonged MT interval would suggest otherwise already on therapeutic warfarin even if she is experiencing atrial fib/ flutter to reduce risk of cardioembolic event, maintain goal INR of 2-3 2. volume overload multifactorial: diastolic dysfunction, cirrhosis and ckd appreciate nephrology input, will defer diuresis to their expertise, especially in the setting of worsening hyponatremia cont to monitor on tele, patient may be discharged per medicine. Medications: Current Inpatient Medications Medications (Trade) Dose Ordered Sig/Yanet Route Start Time Stop Time Status Last Admin Dose Admin Acetaminophen (Tylenol Tab) 1,000 mg Q8 PRN PO 06/29/17 15:45 07/29/17 15:44 Amiodarone HCl (Cordarone Tab) 200 mg QAM PO 06/30/17 09:00 07/30/17 08:59 07/02/17 09:34 200 MG Atorvastatin Calcium (Lipitor Tab) 40 mg QAM PO 06/30/17 09:00 07/30/17 08:59 07/02/17 09:34 40 MG Diclofenac Sodium (Voltaren 1% Top Gel) 1 appln DAILY PRN EXT 06/29/17 15:45 07/29/17 15:44 Ergocalciferol (Vitamin D Cap) 50,000 interunit Fr@0900 PO 06/29/17 18:00 07/29/17 17:59 06/29/17 17:54 50,000 INTERUNIT Salmeterol Xinafoate/ Fluticasone (Advair Diskus 100/50 Inh) 1 puff BID INH 06/29/17 21:00 07/29/17 20:59 07/02/17 09:32 1 PUFF Fluticasone Propionate (Flonase Nasal [place]) 2 sprays DAILY PRN SKY 06/29/17 15:45 07/29/17 15:44 Metoprolol Succinate (Toprol Xl Tab) 12.5 mg QAM PO 06/30/17 09:00 07/30/17 08:59 Future Hold 06/30/17 08:49 12.5 MG Tramadol HCl (Ultram Tab) 50 mg BID PRN PO 06/29/17 15:45 07/29/17 15:44 Warfarin Sodium (Coumadin Tab) 2.5 mg SuMoWeThFr@1600 PO 06/29/17 17:00 07/29/17 16:59 07/01/17 17:40 2.5 MG Warfarin Sodium (Coumadin Tab) 5 mg TuSa@1600 PO 06/30/17 16:00 07/30/17 15:59 06/30/17 17:04 5 MG Albuterol (Ventolin Hfa Inhaler) 2 puffs Q4H PRN INH 06/29/17 15:45 07/29/17 15:44 Ranitidine HCl (zANTac TAB) 300 mg HS PRN PO 06/29/17 15:45 07/29/17 15:44 Pantoprazole Sodium (Protonix Tab) 40 mg QAM PO 06/30/17 09:00 07/30/17 08:59 07/02/17 09:34 40 MG Metoprolol Tartrate (Lopressor Tab) 25 mg TID PO 07/01/17 14:00 07/30/17 16:59 07/02/17 09:33 25 MG Furosemide 80 mg/ Syringe 8 ml @ 4 mls/min BID17 IV 07/02/17 09:00 07/29/17 16:59 07/02/17 09:32 4 MLS/MIN Lab Results: Last 24 Hours Test 07/02/17 05:45 Prothrombin Time 29.0 SECONDS Prothromb Time International Ratio 2.8 Sodium Level 128 mmol/L Potassium Level 4.9 mmol/L Chloride Level 93 mmol/L Carbon Dioxide Level 29 mmol/L Anion Gap 6.0 mmol/L Blood Urea Nitrogen 40 mg/dl Creatinine 2.07 mg/dl Est Creatinine Clear Calc Drug Dose 20.5 ml/min Estimated GFR () 25.2 Estimated GFR (Non- 21.8 BUN/Creatinine Ratio 19.5 Random Glucose 77 mg/dl Calcium Level 8.2 mg/dl
[2017-07-02] MEDS: WARFARIN SOD 2.5 MG TAB PO SCH (15:54)
--- NOTE | 2017-07-02 21:20 | Progress Note ---
Medicine Progress Note Date & Time of Visit: July 02, 2017 at 14:30 . Subjective CC: Follow-up visit for CHF, cirrhosis with ascites, and other problems. HPI: No fever or chills. Persistent dyspnea. No cough. No chest pain. Persistent dependent edema and abdominal distention. No diarrhea, melena, hematochezia. Voiding without difficulty. . ROS: as noted above in HPI . Objective Last 8 Hrs Date Time Temp Pulse Resp B/P (MAP) Pulse Ox O2 Delivery O2 Flow Rate FiO2 07/02/17 20:58 68 99/64 (76) 07/02/17 19:54 36.4 83 20 118/78 (91) 97 Room Air 07/02/17 18:33 94/46 (62) 89/48 (62) 07/02/17 16:08 36.1 52 20 100/54 (69) 100 Nasal Cannula 2.0 07/02/17 16:00 Room Air Physical Exam: General- sitting in chair, no distress Lungs- few basilar rales; no respiratory distress Cardiovascular- distant heart sounds; RRR, tachy; no murmur or gallop appreciated; + JVD; 2-3+ pretibial edema Abdomen- + bowel sounds, distended, soft, nontender Extremities- no cyanosis; no calf tenderness Neuro- alert, oriented Skin- warm & dry . Laboratory Results: Last 24 Hours Test 07/02/17 05:45 Prothrombin Time 29.0 SECONDS Prothromb Time International Ratio 2.8 Sodium Level 128 mmol/L Potassium Level 4.9 mmol/L Chloride Level 93 mmol/L Carbon Dioxide Level 29 mmol/L Anion Gap 6.0 mmol/L Blood Urea Nitrogen 40 mg/dl Creatinine 2.07 mg/dl Est Creatinine Clear Calc Drug Dose 20.5 ml/min Estimated GFR () 25.2 Estimated GFR (Non- 21.8 BUN/Creatinine Ratio 19.5 Random Glucose 77 mg/dl Calcium Level 8.2 mg/dl Assessment & Plan CHF Acute on chronic left ventricular diastolic heart failure. Cardiology consulted. Fluid restriction. Receiving IV furosemide. Spironolactone discontinued because of hyponatremia. Monitor I/O's, weights. PAF Continue amiodarone, metoprolol, and warfarin. HYPERTENSION Continue metoprolol. SLEEP APNEA Continue CPAP. CIRRHOSIS US demonstrated moderate ascites. Total bilirubin = 1.7. Continue diuretics. CKD III Serum creatinine 2.01 at time of admission. Nephrology consulted. Creatinine today = 2.07. HYPONATREMIA Serum sodium 135 at time of admission. Sodium today = 128. Hyponatremia probably secondary to diuretic therapy. Spironolactone discontinued Follow. VTE PROPHYLAXIS INR 2.8. Continue warfarin. Ambulate. DISPOSITION Expected discharge to home. Internal Medicine follow-up with Dr. Clement. . Current Inpatient Medications: Current Inpatient Medications Medications (Trade) Dose Ordered Sig/Yanet Route Start Time Stop Time Status Last Admin Dose Admin Acetaminophen (Tylenol Tab) 1,000 mg Q8 PRN PO 06/29/17 15:45 07/29/17 15:44 Amiodarone HCl (Cordarone Tab) 200 mg QAM PO 06/30/17 09:00 07/30/17 08:59 07/02/17 09:34 200 MG Atorvastatin Calcium (Lipitor Tab) 40 mg QAM PO 06/30/17 09:00 07/30/17 08:59 07/02/17 09:34 40 MG Diclofenac Sodium (Voltaren 1% Top Gel) 1 appln DAILY PRN EXT 06/29/17 15:45 07/29/17 15:44 Ergocalciferol (Vitamin D Cap) 50,000 interunit Fr@0900 PO 06/29/17 18:00 07/29/17 17:59 06/29/17 17:54 50,000 INTERUNIT Salmeterol Xinafoate/ Fluticasone (Advair Diskus 100/50 Inh) 1 puff BID INH 06/29/17 21:00 07/29/17 20:59 07/02/17 20:57 1 PUFF Fluticasone Propionate (Flonase Nasal [place]) 2 sprays DAILY PRN SKY 06/29/17 15:45 07/29/17 15:44 Metoprolol Succinate (Toprol Xl Tab) 12.5 mg QAM PO 06/30/17 09:00 07/30/17 08:59 Future Hold 06/30/17 08:49 12.5 MG Tramadol HCl (Ultram Tab) 50 mg BID PRN PO 06/29/17 15:45 07/29/17 15:44 Warfarin Sodium (Coumadin Tab) 2.5 mg SuMoWeThFr@1600 PO 06/29/17 17:00 07/29/17 16:59 07/02/17 15:54 2.5 MG Warfarin Sodium (Coumadin Tab) 5 mg TuSa@1600 PO 06/30/17 16:00 07/30/17 15:59 06/30/17 17:04 5 MG Albuterol (Ventolin Hfa Inhaler) 2 puffs Q4H PRN INH 06/29/17 15:45 07/29/17 15:44 Ranitidine HCl (zANTac TAB) 300 mg HS PRN PO 06/29/17 15:45 07/29/17 15:44 Pantoprazole Sodium (Protonix Tab) 40 mg QAM PO 06/30/17 09:00 07/30/17 08:59 07/02/17 09:34 40 MG Metoprolol Tartrate (Lopressor Tab) 25 mg TID PO 07/01/17 14:00 07/30/17 16:59 07/02/17 15:54 25 MG Furosemide 80 mg/ Syringe 8 ml @ 4 mls/min BID17 IV 07/02/17 09:00 07/29/17 16:59 07/02/17 17:11 4 MLS/MIN
[2017-07-03 03:21] VITALS: BP 97/60; PULSE 78; TEMP 36.6; O2SAT 93
[2017-07-03 06:42] LABS: INR 3.2 (0.9-1.1)
[2017-07-03 06:49] LABS: CREATININE 2.18 mg/dl (0.60-1.20); POTASSIUM 4.6 mmol/L (3.5-5.1)
[2017-07-03 07:04] VITALS: BP 99/65; PULSE 75; TEMP 36.3; O2SAT 99
--- NOTE | 2017-07-03 08:20 | Nephrology Progress Note ---
Nephrology Progress Note Date of Service: July 03, 2017. Subjective 82 yo female with ckd stage 4 and nafld with cirrhosis presented with volume overload. sodium levels are slowly improving. creatinine has remained relatively stable despite the aggressive diuresis. pts swelling in legs is improving. does have some cramping in the foot. Objective Date Time Temp Pulse Resp B/P (MAP) Pulse Ox O2 Delivery O2 Flow Rate FiO2 07/03/17 07:04 36.3 75 26 99/65 (76) 99 Nasal Cannula 3.0 07/03/17 04:00 Nasal Cannula 2.0 07/03/17 03:21 36.6 78 18 97/60 (72) 93 07/02/17 23:59 Nasal Cannula 2.0 07/02/17 23:56 36.3 80 18 100/70 (80) 95 07/02/17 20:58 68 99/64 (76) 07/02/17 20:00 Nasal Cannula 2.0 07/02/17 19:54 36.4 83 20 118/78 (91) 97 Room Air 07/02/17 18:33 94/46 (62) 89/48 (62) 07/02/17 16:08 36.1 52 20 100/54 (69) 100 Nasal Cannula 2.0 07/02/17 16:00 Room Air 07/02/17 12:00 Nasal Cannula 2.0 07/02/17 11:47 36.6 98 18 109/72 (84) 96 Physical Exam: General-aaox3, obese Eyes-no scleral icterus ENT-mmm Neck-supple Lungs-cta Heart-irregular Abdomen-+pannus Extremities-+1 to 2 edema Neuro-nonfocal Current Inpatient Medications Medications (Trade) Dose Ordered Sig/Yanet Route Start Time Stop Time Status Last Admin Dose Admin Acetaminophen (Tylenol Tab) 1,000 mg Q8 PRN PO 06/29/17 15:45 07/29/17 15:44 Amiodarone HCl (Cordarone Tab) 200 mg QAM PO 06/30/17 09:00 07/30/17 08:59 07/02/17 09:34 200 MG Atorvastatin Calcium (Lipitor Tab) 40 mg QAM PO 06/30/17 09:00 07/30/17 08:59 07/02/17 09:34 40 MG Diclofenac Sodium (Voltaren 1% Top Gel) 1 appln DAILY PRN EXT 06/29/17 15:45 07/29/17 15:44 Ergocalciferol (Vitamin D Cap) 50,000 interunit Fr@0900 PO 06/29/17 18:00 07/29/17 17:59 06/29/17 17:54 50,000 INTERUNIT Salmeterol Xinafoate/ Fluticasone (Advair Diskus 100/50 Inh) 1 puff BID INH 06/29/17 21:00 07/29/17 20:59 07/02/17 20:57 1 PUFF Fluticasone Propionate (Flonase Nasal [place]) 2 sprays DAILY PRN SKY 06/29/17 15:45 07/29/17 15:44 Metoprolol Succinate (Toprol Xl Tab) 12.5 mg QAM PO 06/30/17 09:00 07/30/17 08:59 Future Hold 06/30/17 08:49 12.5 MG Tramadol HCl (Ultram Tab) 50 mg BID PRN PO 06/29/17 15:45 07/29/17 15:44 07/03/17 00:04 50 MG Warfarin Sodium (Coumadin Tab) 2.5 mg SuMoWeThFr@1600 PO 06/29/17 17:00 07/29/17 16:59 07/02/17 15:54 2.5 MG Warfarin Sodium (Coumadin Tab) 5 mg TuSa@1600 PO 06/30/17 16:00 07/30/17 15:59 06/30/17 17:04 5 MG Albuterol (Ventolin Hfa Inhaler) 2 puffs Q4H PRN INH 06/29/17 15:45 07/29/17 15:44 Ranitidine HCl (zANTac TAB) 300 mg HS PRN PO 06/29/17 15:45 07/29/17 15:44 Pantoprazole Sodium (Protonix Tab) 40 mg QAM PO 06/30/17 09:00 07/30/17 08:59 07/02/17 09:34 40 MG Metoprolol Tartrate (Lopressor Tab) 25 mg TID PO 07/01/17 14:00 07/30/17 16:59 07/02/17 15:54 25 MG Furosemide 80 mg/ Syringe 8 ml @ 4 mls/min BID17 IV 07/02/17 09:00 07/29/17 16:59 07/02/17 17:11 4 MLS/MIN Last 24 Hours Test 07/03/17 05:42 Prothrombin Time 32.8 SECONDS Prothromb Time International Ratio 3.2 Sodium Level 129 mmol/L Potassium Level 4.6 mmol/L Chloride Level 93 mmol/L Carbon Dioxide Level 29 mmol/L Anion Gap 7.0 mmol/L Blood Urea Nitrogen 43 mg/dl Creatinine 2.18 mg/dl Est Creatinine Clear Calc Drug Dose 19.6 ml/min Estimated GFR () 23.7 Estimated GFR (Non- 20.4 BUN/Creatinine Ratio 19.8 Random Glucose 76 mg/dl Calcium Level 8.0 mg/dl Assessment & Plan ckd stage 4-creatinine stable during this hospitilization. ranging from 1.8 to 2. with the increase in lasix, creatinine did slowly trend up and ok with the creatinine change since medically necessary to try to optimize volume status. hyponatremia-sodium levels are slowly improving. continue the current fluid restriction and lasix combination.
[2017-07-03] MEDS: FLUTICASONE/SALMETEROL 100/50 (ADVAIR) 14 PUFF/1 INHALER INH SCH ×2 (08:23→20:40)
[2017-07-03 08:24] VITALS: BP 101/65
[2017-07-03] MEDS: AMIODARONE 200 MG TAB PO SCH (08:24)
[2017-07-03] MEDS: PANTOprazole SOD 40 MG TAB PO SCH (08:24)
[2017-07-03] MEDS: FUROSEMIDE INJ 80 MG in SYRINGE 0 ML IV SCH ×2 (08:24→17:41)
[2017-07-03] MEDS: ATORVASTATIN 40 MG TAB PO SCH (08:24)
[2017-07-03] MEDS: METOPROLOL TARTRATE 25 MG TAB PO SCH ×3 (08:24→20:40)
[2017-07-03 11:32] VITALS: BP 122/66; PULSE 70; TEMP 36.3; O2SAT 98
--- NOTE | 2017-07-03 12:49 | Progress Note ---
Medicine Progress Note Date & Time of Visit: July 03, 2017 at 12:49. Subjective Seen resting in bed side chair, comfortable States she feels fine overall Denies chest pain, shortness of breath No dizziness Denies leg pain Sustained a small skin tear on the left forearm while in the toilet No significant bleeding Objective Last 8 Hrs Date Time Temp Pulse Resp B/P (MAP) Pulse Ox O2 Delivery O2 Flow Rate FiO2 07/03/17 12:00 Nasal Cannula 2.0 07/03/17 11:32 36.3 70 22 122/66 (84) 98 Room Air 07/03/17 08:24 101/65 (77) 07/03/17 08:00 Nasal Cannula 2.0 07/03/17 07:04 36.3 75 26 99/65 (76) 99 Nasal Cannula 3.0 Physical Exam: General-oriented 3, not in distress, speaking sentences, no accessory muscle use Head- atraumatic Eyes- PERRL, EOMI, anicteric ENT- oropharynx clear Neck- supple, no JVD, no adenopathy, no thyromegaly Lungs- clear breath sounds bilaterally Heart- regular rhythm; no murmur, normal rate Abdomen- normal bowel sounds, soft, nontender Extremities-grade 1-2 bilateral lower leg edema, no calf tenderness; peripheral pulses intact Neuro- alert, oriented x 3; no gross focal neurologic deficits Skin- warm & dry Laboratory Results: Last 24 Hours Test 07/03/17 05:42 Prothrombin Time 32.8 SECONDS Prothromb Time International Ratio 3.2 Sodium Level 129 mmol/L Potassium Level 4.6 mmol/L Chloride Level 93 mmol/L Carbon Dioxide Level 29 mmol/L Anion Gap 7.0 mmol/L Blood Urea Nitrogen 43 mg/dl Creatinine 2.18 mg/dl Est Creatinine Clear Calc Drug Dose 19.6 ml/min Estimated GFR () 23.7 Estimated GFR (Non- 20.4 BUN/Creatinine Ratio 19.8 Random Glucose 76 mg/dl Calcium Level 8.0 mg/dl Assessment & Plan 82-year-old female with history of chronic diastolic CHF, paroxysmal A. fib, hypertension, liver cirrhosis presenting with shortness of breath. CHF Acute on chronic left ventricular diastolic heart failure. Cardiology and nephrology consulted Currently still on IV Lasix Spironolactone discontinued because of hyponatremia. PAF Continue amiodarone, metoprolol INR 3.2, hold Coumadin today INR check daily HYPERTENSION Continue metoprolol. SLEEP APNEA Continue CPAP. CIRRHOSIS US demonstrated moderate ascites. Total bilirubin = 1.7. Continue diuretics. CKD III Serum creatinine 2.01 at time of admission. Nephrology consulted. Creatinine today = 2. 1 8 Monitor while on Lasix IV HYPONATREMIA Likely from diuretics Serum sodium 135 at time of admission. Sodium today = 129 Monitor VTE PROPHYLAXIS INR 3.2 Usually on Coumadin DISPOSITION Expected discharge to home. Internal Medicine follow-up with Dr. Clement. . Current Inpatient Medications: Current Inpatient Medications Medications (Trade) Dose Ordered Sig/Yanet Route Start Time Stop Time Status Last Admin Dose Admin Acetaminophen (Tylenol Tab) 1,000 mg Q8 PRN PO 06/29/17 15:45 07/29/17 15:44 Amiodarone HCl (Cordarone Tab) 200 mg QAM PO 06/30/17 09:00 07/30/17 08:59 07/03/17 08:24 200 MG Atorvastatin Calcium (Lipitor Tab) 40 mg QAM PO 06/30/17 09:00 07/30/17 08:59 07/03/17 08:24 40 MG Diclofenac Sodium (Voltaren 1% Top Gel) 1 appln DAILY PRN EXT 06/29/17 15:45 07/29/17 15:44 Ergocalciferol (Vitamin D Cap) 50,000 interunit Fr@0900 PO 06/29/17 18:00 07/29/17 17:59 06/29/17 17:54 50,000 INTERUNIT Salmeterol Xinafoate/ Fluticasone (Advair Diskus 100/50 Inh) 1 puff BID INH 06/29/17 21:00 07/29/17 20:59 07/03/17 08:23 1 PUFF Fluticasone Propionate (Flonase Nasal [place]) 2 sprays DAILY PRN SKY 06/29/17 15:45 07/29/17 15:44 Metoprolol Succinate (Toprol Xl Tab) 12.5 mg QAM PO 06/30/17 09:00 07/30/17 08:59 Future Hold 06/30/17 08:49 12.5 MG Tramadol HCl (Ultram Tab) 50 mg BID PRN PO 06/29/17 15:45 07/29/17 15:44 07/03/17 00:04 50 MG Albuterol (Ventolin Hfa Inhaler) 2 puffs Q4H PRN INH 06/29/17 15:45 07/29/17 15:44 Ranitidine HCl (zANTac TAB) 300 mg HS PRN PO 06/29/17 15:45 07/29/17 15:44 Pantoprazole Sodium (Protonix Tab) 40 mg QAM PO 06/30/17 09:00 07/30/17 08:59 07/03/17 08:24 40 MG Metoprolol Tartrate (Lopressor Tab) 25 mg TID PO 07/01/17 14:00 07/30/17 16:59 07/03/17 08:24 25 MG Furosemide 80 mg/ Syringe 8 ml @ 4 mls/min BID17 IV 07/02/17 09:00 07/29/17 16:59 07/03/17 08:24 4 MLS/MIN
[2017-07-03 15:34] VITALS: BP 114/62; PULSE 69; TEMP 36.6; O2SAT 90
[2017-07-03 19:02] VITALS: BP 107/67; PULSE 68; TEMP 36.4; O2SAT 90
[2017-07-04] VITALS (8 sets, daily range): BP systolic 88–109; BP diastolic 57–70; PULSE 51–85; TEMP 36.3–37; O2SAT 91–99
[2017-07-04 05:55] LABS: INR 2.9 (0.9-1.1)
[2017-07-04 06:20] LABS: CALCIUM 8.1 mg/dl (8.5-10.1); CREATININE 2.1 mg/dl (0.60-1.20); POTASSIUM 4.5 mmol/L (3.5-5.1)
[2017-07-04] MEDS: PANTOprazole SOD 40 MG TAB PO SCH (08:43)
[2017-07-04] MEDS: METOPROLOL TARTRATE 25 MG TAB PO SCH ×3 (08:43→20:58)
[2017-07-04] MEDS: AMIODARONE 200 MG TAB PO SCH (08:43)
[2017-07-04] MEDS: FLUTICASONE/SALMETEROL 100/50 (ADVAIR) 14 PUFF/1 INHALER INH SCH ×2 (08:43→20:57)
[2017-07-04] MEDS: ATORVASTATIN 40 MG TAB PO SCH (08:44)
--- NOTE | 2017-07-04 09:15 | Nephrology Progress Note ---
Nephrology Progress Note Date of Service: July 04, 2017. Subjective 82 yo female with ckd stage 4 and nafld with cirrhosis presented with volume overload. sodium levels are improved. pt walking aound well and feels her swelling is improving. pt hoping to go home today. Objective Date Time Temp Pulse Resp B/P (MAP) Pulse Ox O2 Delivery O2 Flow Rate FiO2 07/04/17 08:46 108/65 (79) 07/04/17 07:08 36.6 85 18 97/62 (74) 07/04/17 04:00 CPAP 07/04/17 03:53 36.4 73 18 88/62 (71) 95 Room Air 07/04/17 00:08 37.0 51 18 93/57 (69) 93 Room Air 07/03/17 23:59 CPAP 07/03/17 20:00 Room Air 07/03/17 19:02 36.4 68 18 107/67 (80) 90 Room Air 07/03/17 16:00 Room Air 07/03/17 15:34 36.6 69 18 114/62 (79) 90 Room Air 07/03/17 12:00 Nasal Cannula 2.0 07/03/17 11:32 36.3 70 22 122/66 (84) 98 Room Air Physical Exam: General-aaox3, obese Eyes-no scleral icterus ENT-mmm Neck-supple Lungs-clear Heart-irregular Abdomen-+pannus Extremities-+2 edema Neuro-nonfocal Current Inpatient Medications Medications (Trade) Dose Ordered Sig/Yanet Route Start Time Stop Time Status Last Admin Dose Admin Acetaminophen (Tylenol Tab) 1,000 mg Q8 PRN PO 06/29/17 15:45 07/29/17 15:44 Amiodarone HCl (Cordarone Tab) 200 mg QAM PO 06/30/17 09:00 07/30/17 08:59 07/04/17 08:43 200 MG Atorvastatin Calcium (Lipitor Tab) 40 mg QAM PO 06/30/17 09:00 07/30/17 08:59 07/04/17 08:44 40 MG Diclofenac Sodium (Voltaren 1% Top Gel) 1 appln DAILY PRN EXT 06/29/17 15:45 07/29/17 15:44 Ergocalciferol (Vitamin D Cap) 50,000 interunit Fr@0900 PO 06/29/17 18:00 07/29/17 17:59 06/29/17 17:54 50,000 INTERUNIT Salmeterol Xinafoate/ Fluticasone (Advair Diskus 100/50 Inh) 1 puff BID INH 06/29/17 21:00 07/29/17 20:59 07/04/17 08:43 1 PUFF Fluticasone Propionate (Flonase Nasal [place]) 2 sprays DAILY PRN SKY 06/29/17 15:45 07/29/17 15:44 Metoprolol Succinate (Toprol Xl Tab) 12.5 mg QAM PO 06/30/17 09:00 07/30/17 08:59 Future Hold 06/30/17 08:49 12.5 MG Tramadol HCl (Ultram Tab) 50 mg BID PRN PO 06/29/17 15:45 07/29/17 15:44 07/03/17 00:04 50 MG Albuterol (Ventolin Hfa Inhaler) 2 puffs Q4H PRN INH 06/29/17 15:45 07/29/17 15:44 07/03/17 21:35 2 PUFFS Ranitidine HCl (zANTac TAB) 300 mg HS PRN PO 06/29/17 15:45 07/29/17 15:44 07/03/17 21:08 300 MG Pantoprazole Sodium (Protonix Tab) 40 mg QAM PO 06/30/17 09:00 07/30/17 08:59 07/04/17 08:43 40 MG Metoprolol Tartrate (Lopressor Tab) 25 mg TID PO 07/01/17 14:00 07/30/17 16:59 07/04/17 08:43 25 MG Furosemide 80 mg/ Syringe 8 ml @ 4 mls/min BID17 IV 07/02/17 09:00 07/29/17 16:59 07/03/17 17:41 4 MLS/MIN Last 24 Hours Test 07/04/17 05:15 Prothrombin Time 29.8 SECONDS Prothromb Time International Ratio 2.9 Sodium Level 130 mmol/L Potassium Level 4.5 mmol/L Chloride Level 93 mmol/L Carbon Dioxide Level 30 mmol/L Anion Gap 6.0 mmol/L Blood Urea Nitrogen 45 mg/dl Creatinine 2.10 mg/dl Est Creatinine Clear Calc Drug Dose 20.0 ml/min Estimated GFR () 24.8 Estimated GFR (Non- 21.4 BUN/Creatinine Ratio 21.6 Random Glucose 72 mg/dl Calcium Level 8.1 mg/dl Assessment & Plan ckd stage 4-creatinine stable during this hospitilization. ranging from 1.8 to 2. on lasix 80mg iv bid. ok from renal standpoint to go home. would send home on lasix 160 po bid and spironolactone 12.5mg a day. recheck bmp next sunday. may need higher dose of spironolactone as an outpt. would continue the relative fluid restriction of 1500cc a day.
[2017-07-04] MEDS: FUROSEMIDE INJ 80 MG in SYRINGE 0 ML IV SCH ×2 (09:36→16:30)
--- NOTE | 2017-07-04 13:14 | Progress Note ---
Medicine Progress Note Date & Time of Visit: July 04, 2017 at 13:14. Subjective seen resting in chair, comfortable denies dyspnea, chest pain still has leg swelling no other symptoms Objective Last 8 Hrs Date Time Temp Pulse Resp B/P (MAP) Pulse Ox O2 Delivery O2 Flow Rate FiO2 07/04/17 12:26 36.3 74 22 109/63 (78) 99 Room Air 07/04/17 12:00 Nasal Cannula 2.0 07/04/17 08:46 108/65 (79) 07/04/17 08:00 Nasal Cannula 2.0 07/04/17 07:08 36.6 85 18 97/62 (74) Physical Exam: General-oriented 3, not in distress, speaking sentences, no accessory muscle use Eyes-anicteric ENT- oropharynx clear Neck- supple, no JVD Lungs- clear breath sounds bilaterally, no rales/wheezes Heart- regular rhythm; no murmur, normal rate Abdomen- normal bowel sounds, soft, nontender Extremities-grade 1-2 bilateral lower leg edema, no calf tenderness; peripheral pulses intact Neuro- alert, oriented x 3; no gross focal neurologic deficits Skin- warm & dry Laboratory Results: Last 24 Hours Test 07/04/17 05:15 Prothrombin Time 29.8 SECONDS Prothromb Time International Ratio 2.9 Sodium Level 130 mmol/L Potassium Level 4.5 mmol/L Chloride Level 93 mmol/L Carbon Dioxide Level 30 mmol/L Anion Gap 6.0 mmol/L Blood Urea Nitrogen 45 mg/dl Creatinine 2.10 mg/dl Est Creatinine Clear Calc Drug Dose 20.0 ml/min Estimated GFR () 24.8 Estimated GFR (Non- 21.4 BUN/Creatinine Ratio 21.6 Random Glucose 72 mg/dl Calcium Level 8.1 mg/dl Assessment & Plan 82-year-old female with history of chronic diastolic CHF, paroxysmal A. fib, hypertension, liver cirrhosis presenting with shortness of breath. CHF Acute on chronic left ventricular diastolic heart failure. Cardiology and nephrology consulted continue IV Lasix Spironolactone discontinued because of hyponatremia. PAF Continue amiodarone, metoprolol INR 2.9, hold Coumadin today INR check daily HYPERTENSION Continue metoprolol. SLEEP APNEA Continue CPAP. CIRRHOSIS US demonstrated moderate ascites. Continue diuretics. CKD III Serum creatinine 2.01 at time of admission. Nephrology consulted. Creatinine today = 2.1 Monitor while on Lasix IV HYPONATREMIA Likely from diuretics Serum sodium 135 at time of admission. Sodium today = 130 Monitor VTE PROPHYLAXIS INR 2.9 Usually on Coumadin DISPOSITION Expected discharge to home. Internal Medicine follow-up with Dr. Clement. . Current Inpatient Medications: Current Inpatient Medications Medications (Trade) Dose Ordered Sig/Yanet Route Start Time Stop Time Status Last Admin Dose Admin Acetaminophen (Tylenol Tab) 1,000 mg Q8 PRN PO 06/29/17 15:45 07/29/17 15:44 Amiodarone HCl (Cordarone Tab) 200 mg QAM PO 06/30/17 09:00 07/30/17 08:59 07/04/17 08:43 200 MG Atorvastatin Calcium (Lipitor Tab) 40 mg QAM PO 06/30/17 09:00 07/30/17 08:59 07/04/17 08:44 40 MG Diclofenac Sodium (Voltaren 1% Top Gel) 1 appln DAILY PRN EXT 06/29/17 15:45 07/29/17 15:44 Ergocalciferol (Vitamin D Cap) 50,000 interunit Fr@0900 PO 06/29/17 18:00 07/29/17 17:59 06/29/17 17:54 50,000 INTERUNIT Salmeterol Xinafoate/ Fluticasone (Advair Diskus 100/50 Inh) 1 puff BID INH 06/29/17 21:00 07/29/17 20:59 07/04/17 08:43 1 PUFF Fluticasone Propionate (Flonase Nasal [place]) 2 sprays DAILY PRN SKY 06/29/17 15:45 07/29/17 15:44 Metoprolol Succinate (Toprol Xl Tab) 12.5 mg QAM PO 06/30/17 09:00 07/30/17 08:59 Future Hold 06/30/17 08:49 12.5 MG Tramadol HCl (Ultram Tab) 50 mg BID PRN PO 06/29/17 15:45 07/29/17 15:44 07/03/17 00:04 50 MG Albuterol (Ventolin Hfa Inhaler) 2 puffs Q4H PRN INH 06/29/17 15:45 07/29/17 15:44 07/03/17 21:35 2 PUFFS Ranitidine HCl (zANTac TAB) 300 mg HS PRN PO 06/29/17 15:45 07/29/17 15:44 07/03/17 21:08 300 MG Pantoprazole Sodium (Protonix Tab) 40 mg QAM PO 06/30/17 09:00 07/30/17 08:59 07/04/17 08:43 40 MG Metoprolol Tartrate (Lopressor Tab) 25 mg TID PO 07/01/17 14:00 07/30/17 16:59 07/04/17 08:43 25 MG Furosemide 80 mg/ Syringe 8 ml @ 4 mls/min BID17 IV 07/02/17 09:00 07/29/17 16:59 07/04/17 09:36 4 MLS/MIN
[2017-07-05 00:23] VITALS: BP 102/59; PULSE 77; TEMP 36.4; O2SAT 91
[2017-07-05 03:44] VITALS: BP 81/55; PULSE 72; TEMP 37.1; O2SAT 93
[2017-07-05 06:29] LABS: INR 2.3 (0.9-1.1)
[2017-07-05 06:53] LABS: CALCIUM 8.3 mg/dl (8.5-10.1); CREATININE 2.15 mg/dl (0.60-1.20); POTASSIUM 4.3 mmol/L (3.5-5.1)
[2017-07-05 07:05] VITALS: BP 95/75; PULSE 69; TEMP 36.3; O2SAT 99
[2017-07-05] MEDS: FLUTICASONE/SALMETEROL 100/50 (ADVAIR) 14 PUFF/1 INHALER INH SCH (07:45)
[2017-07-05] MEDS: ATORVASTATIN 40 MG TAB PO SCH (07:47)
[2017-07-05] MEDS: METOPROLOL TARTRATE 25 MG TAB PO SCH ×2 (07:47→13:27)
[2017-07-05] MEDS: PANTOprazole SOD 40 MG TAB PO SCH (07:47)
[2017-07-05] MEDS: AMIODARONE 200 MG TAB PO SCH (07:47)
[2017-07-05 07:48] VITALS: BP 113/77
[2017-07-05] MEDS: FUROSEMIDE INJ 80 MG in SYRINGE 0 ML IV SCH ×2 (07:48→17:36)
[2017-07-05 11:34] VITALS: BP 123/60; PULSE 66; O2SAT 97
--- NOTE | 2017-07-05 14:37 | Nephrology Progress Note ---
Nephrology Progress Note Date of Service: July 05, 2017. Subjective 82 yo female with ckd stage 4 and nafld with cirrhosis presented with volume overload. sodium levels are improved. patient is seated but states that her swelling is better and breathing ok. hoping to leave today. appetite good. Objective Date Time Temp Pulse Resp B/P (MAP) Pulse Ox O2 Delivery O2 Flow Rate FiO2 07/05/17 12:00 Room Air 07/05/17 11:34 66 22 123/60 (81) 97 Room Air 07/05/17 08:00 Room Air 07/05/17 07:48 113/77 (89) 07/05/17 07:05 36.3 69 22 95/75 (82) 99 Room Air 07/05/17 04:00 CPAP 2.0 93 07/05/17 03:44 37.1 72 18 81/55 (64) 93 Room Air 07/05/17 00:23 36.4 77 18 102/59 (73) 91 Room Air 07/05/17 00:01 CPAP 2.0 91 07/04/17 20:00 Nasal Cannula 2.0 07/04/17 20:00 2.0 07/04/17 19:35 36.4 71 20 103/68 (80) 91 Room Air 07/04/17 15:48 62 93 07/04/17 15:43 36.3 77 20 93/60 (71) 92 Room Air 07/04/17 15:39 Room Air Physical Exam: General-aaox3, obese Eyes-no scleral icterus ENT-mmm Neck-supple Lungs-clear Heart-irregular Abdomen-+pannus Extremities-+2 edema Neuro-nonfocal Current Inpatient Medications Medications (Trade) Dose Ordered Sig/Yanet Route Start Time Stop Time Status Last Admin Dose Admin Acetaminophen (Tylenol Tab) 1,000 mg Q8 PRN PO 06/29/17 15:45 07/29/17 15:44 Amiodarone HCl (Cordarone Tab) 200 mg QAM PO 06/30/17 09:00 07/30/17 08:59 07/05/17 07:47 200 MG Atorvastatin Calcium (Lipitor Tab) 40 mg QAM PO 06/30/17 09:00 07/30/17 08:59 07/05/17 07:47 40 MG Diclofenac Sodium (Voltaren 1% Top Gel) 1 appln DAILY PRN EXT 06/29/17 15:45 07/29/17 15:44 Ergocalciferol (Vitamin D Cap) 50,000 interunit Fr@0900 PO 06/29/17 18:00 07/29/17 17:59 06/29/17 17:54 50,000 INTERUNIT Salmeterol Xinafoate/ Fluticasone (Advair Diskus 100/50 Inh) 1 puff BID INH 06/29/17 21:00 07/29/17 20:59 07/05/17 07:45 1 PUFF Fluticasone Propionate (Flonase Nasal [place]) 2 sprays DAILY PRN SKY 06/29/17 15:45 07/29/17 15:44 Metoprolol Succinate (Toprol Xl Tab) 12.5 mg QAM PO 06/30/17 09:00 07/30/17 08:59 Future Hold 06/30/17 08:49 12.5 MG Tramadol HCl (Ultram Tab) 50 mg BID PRN PO 06/29/17 15:45 07/29/17 15:44 07/03/17 00:04 50 MG Albuterol (Ventolin Hfa Inhaler) 2 puffs Q4H PRN INH 06/29/17 15:45 07/29/17 15:44 07/03/17 21:35 2 PUFFS Ranitidine HCl (zANTac TAB) 300 mg HS PRN PO 06/29/17 15:45 07/29/17 15:44 07/03/17 21:08 300 MG Pantoprazole Sodium (Protonix Tab) 40 mg QAM PO 06/30/17 09:00 07/30/17 08:59 07/05/17 07:47 40 MG Metoprolol Tartrate (Lopressor Tab) 25 mg TID PO 07/01/17 14:00 07/30/17 16:59 07/05/17 13:27 25 MG Furosemide 80 mg/ Syringe 8 ml @ 4 mls/min BID17 IV 07/02/17 09:00 07/29/17 16:59 07/05/17 07:48 4 MLS/MIN Last 24 Hours Test 07/05/17 05:41 Prothrombin Time 23.8 SECONDS Prothromb Time International Ratio 2.3 Sodium Level 130 mmol/L Potassium Level 4.3 mmol/L Chloride Level 94 mmol/L Carbon Dioxide Level 30 mmol/L Anion Gap 6.0 mmol/L Blood Urea Nitrogen 49 mg/dl Creatinine 2.15 mg/dl Est Creatinine Clear Calc Drug Dose 19.8 ml/min Estimated GFR () 24.1 Estimated GFR (Non- 20.8 BUN/Creatinine Ratio 22.7 Random Glucose 81 mg/dl Calcium Level 8.3 mg/dl Assessment & Plan ckd stage 4-creatinine stable during this hospitalization. ranging from 1.8 to 2.1. on lasix 80mg iv bid. ok from renal standpoint to go home. would send home on lasix 160 po bid and spironolactone 12.5mg a day. recheck bmp within the week. may need higher dose of spironolactone as an outpt. would continue the relative fluid restriction of 1500cc a day. hyponatremia: remains low at 130 but stable. should improve with fluid restriction. This patient was seen and treated with direct collaboration with Dr. Andrew. Thank you for the opportunity to participate in this patient's care. Appreciate the Consult. ATTENDING NOTE: I performed a history and physical examination of the patient, including specifically on history-pt symptomatically improved and wants to go home on physical exam-lungs cta, +obesity, +1 edema, , and my impression and plan are ckd stage 4 with volume overload and ok from renal perspective to go home on oral diuretics. I have discussed the patient's management with Jennifer Avery, Please refer to above note for the documented findings and plan of care. Mandy Andrew DO
[2017-07-05 17:29] VITALS: BP 123/60; PULSE 66; TEMP 36.3; O2SAT 97
[2017-07-05] MEDS ORDERED: WARFARIN SOD 2.5 MG TAB PO ONE (17:30)
[2017-07-05] MEDS ORDERED: FRS/80 PO (17:37)
[2017-07-05] MEDS ORDERED: LPR25 PO (17:37)
[2017-07-05] MEDS ORDERED: CMD5 PO (17:37)
--- NOTE | 2017-07-05 17:45 | Discharge Instructions ---
Discharge Instructions Date of Service July 05, 2017. Admission Reason for Admission: Volume Overload Discharge Discharge Diagnosis / Problem: ACUTE ON CHRONIC CONGESTIVE HEART FAILURE Discharge Goals Goal(s): Diagnostic testing, Therapeutic intervention Activity Recommendations Activity Limitations: as noted below (NO HEAVY EXERTION UNTIL RE-EVALUATED BY PRIMARY CARE PHYSICIAN) Lifting Limitations: until after follow-up appointment Exercise/Sports Limitations: until after follow-up appointment Driving or Machine Use: NO DRIVING . Instructions / Follow-Up Instructions / Follow-Up PLEASE REVIEW YOUR NEW MEDICATION LIST AND FOLLOW INSTRUCTIONS CAREFULLY. PLEASE MAINTAIN LOW SALT DIET (LESS THAN 2GRAMS OF SALT PER DAY) AND FLUID RESTRICTION (NOT MORE THAN 1500ML OF FLUIDS/DAY). FOLLOW UP WITH DR. DON ON SUNDAY JULY 09, 2017 AT 1:00PM. FOLLOW UP WITH ELEVATOR PILOT (HEART DOCTOR) AND SEWER AND CUTTER [employer]INGER [employer] (KIDNEY DOCTOR) IN 1 -2 WEEKS. THE [facility] WILL BE CALLING YOU FOR THE DATE OF YOUR NEXT BLOODWORK. Call your Primary Care doctor if any of the following symptoms or problems start or get worse: * Shortness of breath or difficulty breathing * Wake up at night short of breath * Chest pain * Cough * Swelling of your hands, feet, or legs * More fatigued or tired with your normal activity * Palpitations - sudden fast heart beats WEIGHT * Weigh yourself every morning after using the bathroom. * Use the same scale. * Wear the same amount of clothing. * Write your weight down on a chart. * Call your Primary Care doctor if you gain more than 2-3 pounds in 1-2 days. MEDICATIONS * Use this discharge instruction sheet for medication instructions. * Take your medications at the time your doctor ordered. * Do not skip a dose of your medicines. * If you miss a dose of medicine, take it as soon as possible, but DO NOT DOUBLE A DOSE. * Read your medicine information when you get home. * Know all of the side effects of your medicine. If in doubt, ask your pharmacist * Call your Primary Care doctor's office if you have any side effects. * Be sure all of your doctors know what medicine and herbs you take (including cold, flu, and herbal medicine). Take the following with you to your follow-up doctor appointments: * Weight Chart * Medication List * List of questions Do not drink excessive alcohol, beer or wine. Current Hospital Diet Patient's current hospital diet: AHA Diet (Heart Healthy), Low Sodium Diet (2gm Na) Discharge Diet Recommended Diet: AHA Diet (Heart Healthy), Low Sodium Diet (2gm Na) Fluid Restriction: 1200 ml (5 cups) Procedures Procedures Performed: CHEST XRAY, ABDOMINAL US Pending Studies Studies pending at discharge: yes List of pending studies: REPEAT BLOODWORK C/O PRIMARY CARE PHYSICIAN AND [facility] Medical Emergencies . Who to Call and When: Call 911 or go to the Emergency Room if: * If at any time you feel your situation is an emergency * You have tightness or pain in your chest that does not go away with rest or Nitroglycerin * You are very short of breath even with rest . Non-Emergent Contact Non-Emergency issues call your: Primary Care Provider, Senior Production Supervisor (HEART DOCTOR), Technical Healthcare Consultant (KIDNEY DOCTOR) Call Non-Emergent contact if: you have a fever, your pain is not controlled, your pain is worsening, wound has increased drainage, wound has increased redness, wound has increased pain, you have any medication questions . . "Provider Documentation" section prepared by Tanvir Sterling. .
--- NOTE | 2017-07-05 17:53 | Discharge Summary ---
Discharge Summary Date of Service July 05, 2017. Discharge Summary Admission Date: June 29, 2017 at 14:54 Discharge Date: July 05, 2017 Principal Diagnosis: Acute on chronic left ventricular diastolic heart failure. Secondary Diagnoses/Problems: Please refer to hospital course below. Procedures: CHEST ONE VIEW PORTABLE CLINICAL HISTORY: EVALUATE RESPIRATORY DISTRESS.DYSPNEA dyspnea COMPARISON STUDY: Multiple prior exams FINDINGS: Stable mediastinal widening with a suggestion of a potential right-sided aortic arch. Lateral hernia. Moderate stable cardiomegaly. Bibasilar chronic pleural reactive change. This is considered chronic. IMPRESSION: Chronic change. Mild stable cardiomegaly. No acute process. ASCITES ABDOMEN ULTRASOUND LIMITED CLINICAL HISTORY: evaluate ascites COMPARISON STUDY: Abdominal ultrasound 04/19/2017. FINDINGS: Real-time sonographic imaging of the abdomen was performed. Moderate amount of ascites seen throughout the abdomen. This is slightly progressed. IMPRESSION: Moderate ascites. Consultations: Cardio- Dr. Alonzo/Dr. Smith; Nephro Dr. Andrew Pending Studies/Follow-Up: Repeat PRP and INR on ff up with PCP 07/09/17; Please refer to hospital course below for further instructions. Medication Reconciliation New Medications: Furosemide (Lasix) 80 Mg Tab 160 MG PO BID for 30 Days, #120 TAB 2 Refills Metoprolol Tartrate (Lopressor) 25 Mg Tab 25 MG PO TID for 30 Days, #90 TAB 2 Refills Changed Medications: Warfarin Sod (Coumadin) 5 Mg Tab 0.5 TAB PO DAILY for 30 Days (Changed from: [facility]) Continued Medications: Acetaminophen (Acetaminophen) 500 Mg Tab 1000 MG PO Q8 PRN for Pain or Fever, TAB Albuterol Sulfate (Proair Respiclick) 108 Mcg/Act Aer 2 PUFFS INH Q4H PRN for SOB/Wheezing Amiodarone HCl (Amiodarone HCl) 200 Mg Tab 200 MG PO QAM Atorvastatin (Lipitor) 40 Mg Tab 40 MG PO QAM Diclofenac Sodium (Topical) (Voltaren 1% Top Gel) 1 % Gel 1 APPLN TOP DAILY PRN for n Ergocalciferol (Vitamin D 90008 Unit) 50,000 Unit Cap 72692 UNIT PO WK Fridays Fluticasone Prop/Salmeterol (Advair Diskus 100/50 60 Dose) 1 Ea Aerp 1 PUFF INH BID Fluticasone Propionate (Fluticasone Propionate) 120 Sprays/6000 Mcg Inha 2 SPRAYS SKY DAILY PRN for Allergy Symptoms Omeprazole (Prilosec) 20 Mg Cap 20 MG PO DAILY PRN for Acid Reflux, CAP Ranitidine (Zantac) 300 Mg Tab 300 MG PO HS PRN for Heart Burn/Acid Reflux, TAB Spironolactone (Spironolactone) 25 Mg Tab 0.5 TAB PO DAILY Tramadol HCl (Tramadol HCl) 50 Mg Tab 50 MG PO BID PRN for Pain Discontinued Medications: Metoprolol Succinate (Metoprolol Succinate ER) 25 Mg Tabcr 12.5 MG PO QAM Warfarin Sod (Coumadin) 5 Mg Tab 1 TAB PO Sa Admission Information HPI (per Admitting provider): This is an 82yo F with a PMH of CKD IV, diastolic CHF, NAFLD cirrhosis, paroxysmal A fib (on coumadin), HTN and other medical problems listed below who presents with increased BLE swelling x 1 week. Endorses an 8 pound weight gain in the last week as well as SOB and orthopnea. Denies increased fluid or sodium intake or medication non-compliance although admits that she has a hard time keeping track of medications. Was following up with Dr. Hernandez in clinic today and was redirected to ED for further evaluation of volume overload. Follows with Dr. Alonzo in cardiology clinic and has been taking 40mg lasix BID and spironolactone 12.5mg daily. Recently established care with Dr. 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 Had presence of ascites but has not yet required paracentesis. Currently endorses BLE swelling and exertional SOB but denies fever, chills, lightheadedness, headache, visual changes, chest pain, palpitations, nausea, vomiting, abdominal pain, dysuria, melena or hematochezia. Physical Exam (per Admitting): General Appearance: WD/WN, + mild distress, + pertinent finding (Tachypneic ) Head: normocephalic, atraumatic Eyes: normal inspection, PERRL, sclerae normal ENT: normal ENT inspection, hearing grossly normal, pharynx normal (moist mucous membranes ) Neck: supple, thyroid normal, trachea midline Respiratory/Chest: chest non-tender, lungs clear, normal breath sounds, no respiratory distress, no accessory muscle use Cardiovascular: normal peripheral pulses, + tachycardia, + pertinent finding (3+ BLE edema ) Abdomen/GI: non tender, soft, no organomegaly, + distended Back: normal inspection Extremities/Musculoskelatal: normal inspection, no calf tenderness, non- tender Neurologic/Psych: no motor/sensory deficits, alert, normal mood/affect, oriented x 3 Skin: normal color, warm/dry, no rash, + pertinent finding (Bruising on arms ) Hospital Course 82-year-old female with history of chronic diastolic CHF, paroxysmal A. fib, hypertension, liver cirrhosis presenting with shortness of breath. CHF Acute on chronic left ventricular diastolic heart failure. Cardiology and nephrology consulted given IV Lasix 80mg BID,with good diuresis Nephro recommendation: Lasix 160mg bid continue Aldactone 12.5 mg po daily repeat PRP on ff up with PCP 07/09/17 PAROXYSMAL ATRIAL FIBRILLATION noted to have episodes of tachycardia Metoprolol increased to 25mg TID, HR improved Continue amiodarone INR supratherapeutic 3.2 at one point decrease Coumadin to 2.5mg po daily ff up with coumadin clinic (clinic to be notified) HYPERTENSION metoprolol dose increased for tachycardia SLEEP APNEA Continue CPAP. CIRRHOSIS US demonstrated moderate ascites. Continue diuretics. CKD III Serum creatinine 2.01 at time of admission. Nephrology consulted. Creatinine= 2.1 Monitor while on increased dose of Lasix HYPONATREMIA Likely from diuretics Serum sodium 135 at time of admission. Sodium remains at 130 Monitor DISPOSITION Internal Medicine follow-up with Dr. Don 07/09/17 Ff up with Cardio Dr. Alonzo and Nephro Dr. Andrew in 2 weeks . Total time spent on discharge = 40 minutes This includes examination of the patient, discharge planning, medication reconciliation, and communication with other providers. Discharge Instructions Discharge Instructions Date of Service July 05, 2017. Admission Reason for Admission: Volume Overload Discharge Discharge Diagnosis / Problem: ACUTE ON CHRONIC CONGESTIVE HEART FAILURE Discharge Goals Goal(s): Diagnostic testing, Therapeutic intervention Activity Recommendations Activity Limitations: as noted below (NO HEAVY EXERTION UNTIL RE-EVALUATED BY PRIMARY CARE PHYSICIAN) Lifting Limitations: until after follow-up appointment Exercise/Sports Limitations: until after follow-up appointment Driving or Machine Use: NO DRIVING . Instructions / Follow-Up Instructions / Follow-Up PLEASE REVIEW YOUR NEW MEDICATION LIST AND FOLLOW INSTRUCTIONS CAREFULLY. PLEASE MAINTAIN LOW SALT DIET (LESS THAN 2GRAMS OF SALT PER DAY) AND FLUID RESTRICTION (NOT MORE THAN 1500ML OF FLUIDS/DAY). FOLLOW UP WITH DR. DON ON SUNDAY JULY 09, 2017 AT 1:00PM. FOLLOW UP WITH PROCESS CONTROL SUPERVISOR (HEART DOCTOR) AND MACHINE DESIGNER (KIDNEY DOCTOR) IN 1 -2 WEEKS. THE COUMADIN CLINIC WILL BE CALLING YOU FOR THE DATE OF YOUR NEXT BLOODWORK. Call your Primary Care doctor if any of the following symptoms or problems start or get worse: * Shortness of breath or difficulty breathing * Wake up at night short of breath * Chest pain * Cough * Swelling of your hands, feet, or legs * More fatigued or tired with your normal activity * Palpitations - sudden fast heart beats WEIGHT * Weigh yourself every morning after using the bathroom. * Use the same scale. * Wear the same amount of clothing. * Write your weight down on a chart. * Call your Primary Care doctor if you gain more than 2-3 pounds in 1-2 days. MEDICATIONS * Use this discharge instruction sheet for medication instructions. * Take your medications at the time your doctor ordered. * Do not skip a dose of your medicines. * If you miss a dose of medicine, take it as soon as possible, but DO NOT DOUBLE A DOSE. * Read your medicine information when you get home. * Know all of the side effects of your medicine. If in doubt, ask your pharmacist * Call your Primary Care doctor's office if you have any side effects. * Be sure all of your doctors know what medicine and herbs you take (including cold, flu, and herbal medicine). Take the following with you to your follow-up doctor appointments: * Weight Chart * Medication List * List of questions Do not drink excessive alcohol, beer or wine. Current Hospital Diet Patient's current hospital diet: AHA Diet (Heart Healthy), Low Sodium Diet (2gm Na) Discharge Diet Recommended Diet: AHA Diet (Heart Healthy), Low Sodium Diet (2gm Na) Fluid Restriction: 1200 ml (5 cups) Procedures Procedures Performed: CHEST XRAY, ABDOMINAL US Pending Studies Studies pending at discharge: yes List of pending studies: REPEAT BLOODWORK C/O PRIMARY CARE PHYSICIAN AND COUMADIN CLINIC Medical Emergencies . Who to Call and When: Call 911 or go to the Emergency Room if: * If at any time you feel your situation is an emergency * You have tightness or pain in your chest that does not go away with rest or Nitroglycerin * You are very short of breath even with rest . Non-Emergent Contact Non-Emergency issues call your: Primary Care Provider, Paper Cone Machine Operator (HEART DOCTOR), Mill Laborer (KIDNEY DOCTOR) Call Non-Emergent contact if: you have a fever, your pain is not controlled, your pain is worsening, wound has increased drainage, wound has increased redness, wound has increased pain, you have any medication questions . . "Provider Documentation" section prepared by Tanvir Sterling. .
[2017-07-06] MEDS ORDERED: WARFARIN SOD 2.5 MG TAB PO SCH (16:00)
== END 2017-07-05 18:22 | disposition home health service (06) | DRG 441 ==
LOC: C.EDB 12:22 → C.2E 14:54 → ENRESERV 15:07
PROVIDERS: ADMIT Internal Medicine; ATTEND Internal Medicine
DX: K76.0 Fatty (change of) liver, not elsewhere classified (principal); I50.33 Acute on chronic diastolic (congestive) heart failure; E87.1 Hypo-osmolality and hyponatremia; I13.0 Hypertensive heart and chronic kidney disease with heart failure and stage 1 through stage 4 chronic kidney disease, or unspecified chronic kidney disease; N18.4 Chronic kidney disease, stage 4 (severe); R18.8 Other ascites; Z88.2 Allergy status to sulfonamides; K76.6 Portal hypertension; J45.909 Unspecified asthma, uncomplicated; K31.89 Other diseases of stomach and duodenum; E78.5 Hyperlipidemia, unspecified; K21.9 Gastro-esophageal reflux disease without esophagitis; G47.33 Obstructive sleep apnea (adult) (pediatric); Z79.01 Long term (current) use of anticoagulants; Z88.1 Allergy status to other antibiotic agents; Z88.8 Allergy status to other drugs, medicaments and biological substances; I48.0 Paroxysmal atrial fibrillation; T50.2X5A Adverse effect of carbonic-anhydrase inhibitors, benzothiadiazides and other diuretics, initial encounter; Y92.009 Unspecified place in unspecified non-institutional (private) residence as the place of occurrence of the external cause; R00.0 Tachycardia, unspecified

== ENCOUNTER 2017-07-07 11:18 | Inpatient (IN) | payer BC, OTHER ==
[~2017-07-07] VITALS: Ht 149.9 cm; Wt 94.0 kg
[~2017-07-07 11:18] MED LIST changes: +CMD5 PO; +DICL1GEL12 TOP; +FRS/80 PO; +LPR25 PO; -LSX80 PO; -SPIR50TA2 PO; +SPR25 PO; -TPRSR/25 PO; -WARF5TAB7 PO
[2017-07-07 12:19] LABS: BASO % 0.2 %; BASO ABS # 0.02 K/uL (0-0.2); EOS % 0.3 %; EOS ABS # 0.03 K/uL (0-0.5); HEMOGLOBIN 11.9 g/dL (12.0-16.0); IG# 0.03 K/uL (0.00-0.02); LYMPH % 11.7 %; LYMPH ABS # 1.13 K/uL (1.2-3.4); MEAN CELL VOLUME 79.9 fL (80-100); MEAN CORPUSCULAR HEMOGLOBIN 27.2 pg (25-34); MEAN PLATELET VOLUME 9.9 fL (7.4-10.4); MONO % 7.3 %; MONO ABS # 0.71 K/uL (0.11-0.59); NEUT % 80.2 %; NEUT ABS # 7.75 K/uL (1.4-6.5); PLATELET COUNT 336 K/uL (130-400); RED CELL DISTRIBUTION WIDTH CV 18.5 % (11.5-14.5); RED CELL DISTRIBUTION WIDTH SD 52.5 fL (36.4-46.3); WHITE BLOOD COUNT 9.67 K/uL (4.8-10.8)
--- NOTE | 2017-07-07 12:24 | DIAGNOSTIC IMAGING REPORT ---
LEFT FOOT 3 VIEWS HISTORY: left foot pain COMPARISON: None. FINDINGS: Nondisplaced Bender fracture at the base of the fifth metatarsal which appears to be acute. There is a healing fracture at the neck of the second and third metatarsals demonstrating surrounding callus formation. The bones are osteopenic. The Lisfranc joint is intact. Plantar heel spur. Sclerosis within the posterior calcaneus suggestive of a healing fracture. Diffuse soft tissue swelling within the foot most pronounced dorsally. No radiopaque foreign bodies. IMPRESSION: 1. An acute nondisplaced fracture at the base of the fifth metatarsal. 2. Healing fractures at the second and third metatarsals. 3. Sclerosis within the posterior calcaneus which may represent an additional healing/healed fracture. Electronically signed by: Franky Elise M.D. 07/07/2017 12:22 PM Dictated Date/Time: 07/07/2017 12:20 PM
[2017-07-07 12:35] LABS: CALCIUM 8.5 mg/dl (8.5-10.1); CREATININE 2.19 mg/dl (0.60-1.20); POTASSIUM 4.2 mmol/L (3.5-5.1)
--- NOTE | 2017-07-07 12:38 | DIAGNOSTIC IMAGING REPORT ---
HEAD CT NONCONTRAST CT DOSE: 1257.71 mGy.cm HISTORY: Head injury head contusion TECHNIQUE: Multiaxial CT images of the head were performed without the use of intravenous contrast. Automated exposure control was utilized for this study. A dose lowering technique was utilized adhering to the principles of ALARA. Comparison: None. Findings: The paranasal sinuses and mastoid air cells are clear. Motion artifact results in suboptimal evaluation. However, there is no definite hematoma, midline shift, or acute infarct. Table 2 cm calcified meningioma the left high convexity. The calvarium and skull base are intact. Mild basilar calcifications at the skull base. 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 There is also a small old right MCA territory infarct, unchanged. Impression: No significant change compared to the prior study. No definite acute intracranial abnormality. Motion artifact. Electronically signed by: Franky Elise M.D. 07/07/2017 12:36 PM Dictated Date/Time: 07/07/2017 12:32 PM
--- NOTE | 2017-07-07 16:31 | EMERGENCY ROOM VISIT NOTE ---
ED Visit Note First contact with patient: 11:31 I have personally evaluated this patient examined her and reviewed the pertinent labs and data. I have discussed the case with Rinku Griggs, the physician senior court office assistant and agree with the plan. Please refer to the PA note. This patient comes in after suffering mechanical fall. she hasa metatarsal fracture. She is going to wear fracture shoe at home and use her walker she was evaluated PT here they are going to try to get in as to [facility] as an outpatient. She should return if: worsening symptoms or any new problems be careful getting up and down. The family can help her over the weekend.
[2017-07-07] MEDS ORDERED: TRAMADOL HCL 50 MG TAB PO PRN (19:45)
[2017-07-07] MEDS ORDERED: ACETAMINOPHEN 325 MG TAB PO PRN ×3 (19:45→23:30)
[2017-07-07] MEDS ORDERED: HYDROmorphone INJ 0.5 MG/0.5 ML SYR IV PRN (19:45)
--- NOTE | 2017-07-07 20:31 | DIAGNOSTIC IMAGING REPORT ---
CHEST ONE VIEW PORTABLE CLINICAL HISTORY: leg swelling COMPARISON STUDY: 06/29/2017 FINDINGS: The heart is mildly enlarged. There is persistent widening of the right superior mediastinum. There is a suspected right aortic arch which may partially explain this finding. There is mild interstitial thickening/edema. There is blunting of the lateral costophrenic angles. There is no lobar consolidation. There is a retrocardiac opacity consistent with a hiatal hernia[ IMPRESSION: 1. Cardiomegaly and hiatal hernia 2. Superior mediastinal widening. 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 3. Small bilateral pleural effusions. Stable mild interstitial thickening/edema Electronically signed by: Jason Levin M.D. 07/07/2017 8:30 PM Dictated Date/Time: 07/07/2017 8:26 PM
[2017-07-07 20:41] LABS: ALBUMIN 2.2 gm/dl (3.4-5.0); TOTAL PROTEIN 6.7 gm/dl (6.4-8.2)
[2017-07-07 20:45] VITALS: Ht 149.9 cm; Wt 94.0 kg
[2017-07-07 21:53] VITALS: BP 118/74; PULSE 64; TEMP 36.6; O2SAT 94
[2017-07-07] MEDS ORDERED: IV FLUIDS COMPLETED PRN (22:00)
--- NOTE | 2017-07-07 22:13 | EMERGENCY ROOM VISIT NOTE ---
ED Visit Note Care of this patient was signed out to me by Rinku Griggs PA-C at change of shift. Please see his dictation for full history and physical as well as most of the ED course. Case management had been working to attempt to place the patient in a group home facility but was having difficulty. Apparently the family was willing to pay out of pocket for a short stay, however none of the local facilities had any beds available. I was informed by case management that the patient was not able to be placed today. They spoke with the case vendor management associate who recommended observation. [facility] the patient for admission/observation.
[2017-07-07] MEDS ORDERED: WARFARIN SOD 2.5 MG TAB PO ONE (22:30)
[2017-07-07] MEDS ORDERED: FLUTICASONE PROPIONATE NA SPR 16 GM BTL NAE PRN (22:30)
[2017-07-07] MEDS ORDERED: PANTOprazole SOD 40 MG TAB PO PRN (22:30)
[2017-07-07] MEDS ORDERED: ALBUMIN HUMAN 25% 12.5 GM/50 ML VIAL IV ONE (22:30)
[2017-07-07] MEDS ORDERED: FUROSEMIDE IV ONE (22:30)
[2017-07-07] MEDS ORDERED: RANITIDINE HCL 150 MG TAB PO PRN (22:30)
[2017-07-07 23:23] VITALS: BP 112/73; PULSE 60; TEMP 36.5; O2SAT 95
[2017-07-07 23:53] VITALS: BP 103/54; PULSE 61; TEMP 36.4; O2SAT 93
[2017-07-08] VITALS (9 sets, daily range): BP systolic 92–121; BP diastolic 54–64; PULSE 54–70; TEMP 36.3–36.6; O2SAT 92–100
[2017-07-08] MEDS ORDERED: ALBUT/IPRATROP 3MG/0.5MG NEB 3 ML VIAL INH STA (00:51)
[2017-07-08] MEDS ORDERED: ALBUT/IPRATROP 3MG/0.5MG NEB 3 ML VIAL INH PRN (01:00)
--- NOTE | 2017-07-08 03:03 | HISTORY & PHYSICAL EXAMINATION ---
DATE OF ADMISSION: 07/07/2017 PRIMARY CARE DOCTOR: Dr. Clement. CHIEF COMPLAINT: Fall. HISTORY OF PRESENT ILLNESS: History obtained from patient, family, and records. Medical history significant for chronic diastolic heart failure, EF of 55-59%, cirrhosis secondary to nonalcoholic fatty liver disease, chronic hyponatremia, PAFib on Coumadin, chronic anemia (baseline hemoglobin of 11), CRI (baseline creatinine of 1.7-1.9 as per outpatient Nephrology records). Recent confinement 06/29/2017 to 07/05/2017, for mild volume overload, decompensated heart failure. Patient sent home on Lasix medication and increased metoprolol dosing for sinus tachycardia during confinement. At home, legs more swollen, fluid seeping as per family. Patient denies chest pain or shortness of breath. Unsure about weight gain. Patient was seen at the ER this morning after tripping over the bathroom rug causing patient to fall, Patient noted achy left foot pain. No head trauma. No syncope. Family worried about patient going home. MEDICAL HISTORY: As above. A 2D echo from 02/2017 showed concentric LVH enlargement, diastolic dysfunction, EF 55-59%. SURGERIES: Hysterectomy, cataract surgery. HOME MEDICATIONS: Include Tylenol, Lipitor, ProAir, amiodarone, Voltaren, vitamin D, Advair Diskus, fluticasone, Prilosec, Zantac, spironolactone, tramadol. ALLERGIES: ASPIRIN, CODEINE, ALCOHOL, CEPHALOSPORIN, PENICILLIN AND SULFA. FAMILY HISTORY: Hypertension. PERSONAL AND SOCIAL HISTORY: Nonsmoker, no chronic intake of alcoholic beverages. 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 REVIEW OF SYSTEMS: As per HPI. All 10 systems reviewed, all other ROS negative. PHYSICAL EXAMINATION: VITAL SIGNS: Blood pressure was noted to be 110/74, pulse rate 62, RR 18, temperature 37, sats 94 on room air. GENERAL: Obese, slightly uncomfortable, no overt respiratory distress, although occasionally has to stop talking to catch her breath. SKIN: Pallor, warm. HEENT: Pale palpebral conjunctivae. No ptosis. Dry mucosa. NECK: Short, supple. CHEST: Decreased effort. No tenderness. HEART: Regular rate and rhythm, no murmur. ABDOMEN: Some distention, fluid wave. EXTREMITIES: Bilateral LE edema. No LE tenderness, no other gross deformities. NEUROLOGIC: Coherent. No facial asymmetry, no gross focality. LABS: Hemoglobin of 11.9, white cell 10.6, platelets 286. Sodium noted to be 132, potassium 4, chloride 195, BUN 64, creatinine 2.19. INR noted to be 2. Chest x-ray showed cardiomegaly, hiatal hernia, superior mediastinal widening, small bilateral pleural effusions, interstitial edema. CT head, no acute pathology. L Foot x-ray showed fracture, fifth metatarsal. ASSESSMENT: 1. Volume overload/fluid retention. Weight gain, bilateral leg swelling/seepage despite compliance with home diuretic Rx Hx cirrhosis secondary to NAFLD, ascites on recent inpatient abdominal ultrasound ARF on CRI, some worsening kidney function from baseline. 2. Chronic diastolic heart failure Patient presenting with signs of volume overload secondary to other comorbidities sans chest pain, SOB symptoms 3. PAF, NSR on Coumadin. Episodic bradycardia since increase in beta-stacey frequency adjustment from recent confinement 4. HTN, stable 5. Chronic hyponatremia secondary to chronic liver disease. 6. Chronic anemia 2 to CKD, hemoglobin at baseline. 7. Left fifth metatarsal fracture secondary to mechanical fall. PLAN: GMF IV albumin, IV Lasix for now. Monitor renal function daily Strict IOS, daily weights. Nephrology consult RE follow-up eval, diuretic regimen recommendations for volume overload. (Patient known to [facility] 2 g salt diet; fluid restriction of 1.5 L daily following Nephrology recommendations from recent confinement Possible benefit of therapeutic paracenteses for significant ascites from recent abdominal ultrasound. Benefit of decrease home beta stacey frequency from TID to BID dosing for now. Orthopedics consult RE L 5th metatarsal fracture 5th (Dr. Paris as per patient's family's request.) PT/OT eval. DVT prophylaxis, Coumadin INR 2-3 DNR. Patient's daughter requesting for updates from providers. Miss Ariana Garcia thru contact #[phone]. [facility]
[2017-07-08 07:03] LABS: BASO % 0.3 %; BASO ABS # 0.02 K/uL (0-0.2); EOS % 1.4 %; HEMATOCRIT 32.2 % (37-47); HEMOGLOBIN 10.7 g/dL (12.0-16.0); IG# 0.01 K/uL (0.00-0.02); LYMPH % 16.2 %; LYMPH ABS # 1.19 K/uL (1.2-3.4); MEAN CELL VOLUME 80.7 fL (80-100); MEAN CORPUSCULAR HEMOGLOBIN 26.8 pg (25-34); MEAN CORPUSCULAR HGB CONC 33.2 g/dl (32-36); MEAN PLATELET VOLUME 9.5 fL (7.4-10.4); MONO % 11.6 %; MONO ABS # 0.85 K/uL (0.11-0.59); NEUT % 70.4 %; NEUT ABS # 5.18 K/uL (1.4-6.5); PLATELET COUNT 307 K/uL (130-400); RED CELL DISTRIBUTION WIDTH CV 18.7 % (11.5-14.5); RED CELL DISTRIBUTION WIDTH SD 53.1 fL (36.4-46.3); WHITE BLOOD COUNT 7.35 K/uL (4.8-10.8)
[2017-07-08] MEDS ORDERED: ACETAMINOPHEN 325 MG TAB PO PRN (07:15)
[2017-07-08 07:34] LABS: CALCIUM 8.4 mg/dl (8.5-10.1); CREATININE 2.4 mg/dl (0.60-1.20); POTASSIUM 4.1 mmol/L (3.5-5.1)
--- NOTE | 2017-07-08 08:05 | Orthopedic Consultation ---
Orthopedic Consultation Date of Consultation: July 08, 2017. Attending Physician: Tanvir Sterling MD Reason for Consultation: left foot fractures History of Present Illness Patient is an 82-year-old female who presented to the emergency room yesterday for evaluation of left foot. She states that she tripped over her bathroom rug. She had immediate left foot pain. She states that she had an injury to her left foot also "a few days ago". She did not seek treatment at that time. She states that her left foot is painful to bear weight. She does have a boot on her left foot from previously injury and she states that she can get that from home later today. She did not fall. She states that she presented to the ED so she could potentially go to rehab facility. She was admitted by medicine and we were consulted for care of her left foot fractures. Past Medical/Surgical History Medical Problems: (1) Acute electrocardiogram changes Status: Acute (2) Ambulatory dysfunction Status: Acute (3) CHF exacerbation Status: Acute (4) Closed fibular fracture Status: Acute (5) Closed fracture of neck of fibula Status: Acute (6) Fever Status: Acute (7) Hemoptysis Status: Acute (8) Knee effusion, left Status: Acute (9) Knee hemarthrosis, left Status: Acute (10) Left fibular fracture Status: Acute (11) Left knee pain Status: Acute (12) Right hip pain Status: Acute (13) SIRS (systemic inflammatory response syndrome) Status: Acute (14) Supratherapeutic INR Status: Acute (15) UTI (urinary tract infection) Status: Acute Family History Cancer FH: hypertension Heart disease Social History Shes states that she lives with her and daughter. She does use a walker to assist with ambulation. Smoking Status: Never Smoker Drug Use: none Marital Status: Housing Status: lives with family Occupation Status: retired Allergies Coded Allergies: Alcohol (Verified Allergy, Mild, RASH, 07/07/17) WIPES OR INGESTED Cephalosporins (Verified Allergy, Mild, RASH, 07/07/17) Codeine (Verified Allergy, Mild, RASH, 07/07/17) Penicillins (Verified Allergy, Mild, RASH, 07/07/17) Aspirin (Verified Allergy, Unknown, RASH, 07/07/17) Levofloxacin (Verified Allergy, Unknown, "BONE PAIN", 07/07/17) Sulfa Antibiotics (Verified Allergy, Unknown, UNKNOWN, 07/07/17) Home Medications Scheduled Amiodarone HCl (Amiodarone HCl), 200 MG PO QAM Atorvastatin (Lipitor), 40 MG PO QAM Ergocalciferol (Vitamin D 77827 Unit), 50,000 UNIT PO WK Fluticasone Prop/Salmeterol (Advair Diskus 100/50 60 Dose), 1 PUFF INH BID Furosemide (Lasix), 160 MG PO BID Metoprolol Tartrate (Lopressor), 25 MG PO TID Spironolactone (Spironolactone), 0.5 TAB PO DAILY Warfarin Sod (Coumadin), 0.5 TAB PO DAILY Scheduled PRN Acetaminophen (Acetaminophen), 1,000 MG PO Q8 PRN for Pain or Fever Albuterol Sulfate (Proair Respiclick), 2 PUFFS INH Q4H PRN for SOB/Wheezing Diclofenac Sodium (Topical) (Voltaren 1% Top Gel), 1 APPLN TOP DAILY PRN for n Fluticasone Propionate (Fluticasone Propionate), 2 SPRAYS SKY DAILY PRN for Allergy Symptoms Omeprazole (Prilosec), 20 MG PO DAILY PRN for Acid Reflux Ranitidine (Zantac), 300 MG PO HS PRN for Heart Burn/Acid Reflux Tramadol HCl (Tramadol HCl), 50 MG PO BID PRN for Pain Current Inpatient Medications Current Inpatient Medications Medications (Trade) Dose Ordered Sig/Yanet Route Start Time Stop Time Status Last Admin Dose Admin Tramadol HCl (Ultram Tab) not relieved by tylenol @ Q6H PRN PO 07/07/17 19:45 08/06/17 19:44 Hydromorphone HCl (Dilaudid Inj) 0.5 mg Q3H PRN IV 07/07/17 19:45 07/21/17 19:44 Miscellaneous (Iv Fluids Completed) 1 ea PRN PRN N/A 07/07/17 22:00 07/07/18 21:59 Amiodarone HCl (Cordarone Tab) 200 mg QAM PO 07/08/17 09:00 08/07/17 08:59 Atorvastatin Calcium (Lipitor Tab) 40 mg QAM PO 07/08/17 09:00 08/07/17 08:59 Salmeterol Xinafoate/ Fluticasone (Advair Diskus 100/50 Inh) 1 puff BID INH 07/08/17 09:00 08/07/17 08:59 Fluticasone Propionate (Flonase Nasal [place]) 2 sprays DAILY PRN SKY 07/07/17 22:30 08/06/17 22:29 Pantoprazole Sodium (Protonix Tab) 40 mg DAILY PRN PO 07/07/17 22:30 08/06/17 22:29 Ranitidine HCl (zANTac TAB) 300 mg HS PRN PO 07/07/17 22:30 08/06/17 22:29 Albuterol/ Ipratropium (Duoneb) 3 ml Q2H PRN INH 07/08/17 01:00 08/07/17 00:59 Metoprolol Tartrate (Lopressor Tab) 25 mg BID PO 07/08/17 09:00 08/07/17 08:59 Acetaminophen (Tylenol Tab) 325 mg Q4H PRN PO 07/08/17 07:15 08/06/17 19:44 Review of Systems Constitutional: No fever, No chills Musculoskeletal: + joint pain (left foot pain), + swelling, No calf pain Physical Exam Date Time Temp Pulse Resp B/P (MAP) Pulse Ox O2 Delivery O2 Flow Rate FiO2 07/08/17 07:02 36.3 54 16 97/58 (71) 100 07/08/17 01:14 61 18 92 BiPAP/CPAP 07/08/17 00:13 Room Air CPAP 07/07/17 23:53 36.4 61 18 103/54 (70) 93 CPAP 07/07/17 23:23 36.5 60 18 112/73 (86) 95 CPAP 07/07/17 22:00 Room Air 07/07/17 21:53 36.6 64 118/74 (89) 94 Room Air 07/07/17 21:34 62 18 110/74 96 07/07/17 20:45 Room Air 07/07/17 20:01 62 18 112/62 96 Room Air 07/07/17 17:18 60 18 114/66 100 Room Air 07/07/17 15:23 55 18 103/64 100 Room Air 07/07/17 13:17 61 18 100/75 96 Room Air 07/07/17 11:20 36.3 58 18 121/70 100 Room Air Extremities/Musculoskelatal: + pertinent finding (Exam of her left foot: She is out of bed, sitting in a chair. Her right foot is elevated on a stool. Her left foot is currently on the floor. She does have some edema of bilateral lower extremities with seeping clear fluid from edema. Skin was warm. Skin intact. Pulses not palpable due to edema. She tolerated gentle range of motion of her toes and ankle. She is point tender to palpation over the base of the fifth metatarsal. She also has some mild tenderness palpation of her second and third metatarsals. Capillary refill is brisk. She increased tenderness with eversion.) Laboratory Results Last 24 Hours Test 07/07/17 12:11 07/07/17 21:07 07/08/17 06:54 White Blood Count 9.67 K/uL 7.35 K/uL Red Blood Count 4.38 M/uL 3.99 M/uL Hemoglobin 11.9 g/dL 10.7 g/dL Hematocrit 35.0 % 32.2 % Mean Corpuscular Volume 79.9 fL 80.7 fL Mean Corpuscular Hemoglobin 27.2 pg 26.8 pg Mean Corpuscular Hemoglobin Concent 34.0 g/dl 33.2 g/dl Platelet Count 336 K/uL 307 K/uL Mean Platelet Volume 9.9 fL 9.5 fL Neutrophils (%) (Auto) 80.2 % 70.4 % Lymphocytes (%) (Auto) 11.7 % 16.2 % Monocytes (%) (Auto) 7.3 % 11.6 % Eosinophils (%) (Auto) 0.3 % 1.4 % Basophils (%) (Auto) 0.2 % 0.3 % Neutrophils # (Auto) 7.75 K/uL 5.18 K/uL Lymphocytes # (Auto) 1.13 K/uL 1.19 K/uL Monocytes # (Auto) 0.71 K/uL 0.85 K/uL Eosinophils # (Auto) 0.03 K/uL 0.10 K/uL Basophils # (Auto) 0.02 K/uL 0.02 K/uL RDW Standard Deviation 52.5 fL 53.1 fL RDW Coefficient of Variation 18.5 % 18.7 % Immature Granulocyte % (Auto) 0.3 % 0.1 % Immature Granulocyte # (Auto) 0.03 K/uL 0.01 K/uL Sodium Level 132 mmol/L 133 mmol/L Potassium Level 4.2 mmol/L 4.1 mmol/L Chloride Level 95 mmol/L 96 mmol/L Carbon Dioxide Level 31 mmol/L 28 mmol/L Anion Gap 6.0 mmol/L 9.0 mmol/L Blood Urea Nitrogen 54 mg/dl 58 mg/dl Creatinine 2.19 mg/dl 2.40 mg/dl Est Creatinine Clear Calc Drug Dose 19.7 ml/min 18.0 ml/min Estimated GFR () 23.6 21.1 Estimated GFR (Non- 20.3 18.2 BUN/Creatinine Ratio 24.5 24.3 Random Glucose 103 mg/dl 87 mg/dl Calcium Level 8.5 mg/dl 8.4 mg/dl Magnesium Level 2.3 mg/dl Total Bilirubin 1.6 mg/dl Direct Bilirubin 0.8 mg/dl Aspartate Amino Transf (AST/SGOT) 71 U/L Alanine Aminotransferase (ALT/SGPT) 28 U/L Alkaline Phosphatase 212 U/L Total Protein 6.7 gm/dl Albumin 2.2 gm/dl Thyroid Stimulating Hormone (TSH) 6.230 uIu/ml Free Thyroxine 1.72 ng/dl Prothrombin Time 20.3 SECONDS 20.8 SECONDS Prothromb Time International Ratio 2.0 2.0 Total Triiodothyronine 0.50 ng/ml Assessment & Plan Assessment: 1. Acute left fifth metatarsal fracture 2. Subacute fractures of her second and third metatarsals. Plan: Recommended a fracture boot on her left lower extremity. She states that she does have one at home that someone will be able to bring to her later today. Encouraged elevation while sitting and lying. She needs to be nonweightbearing of her left lower extremity for the next couple of weeks until fracture healing is evident. She can remove the boot for daily skin checks and for comfort. She needs to have the boot on otherwise when out of bed. She can apply ice to her left foot as needed for pain. Compression stockings as needed for edema. Recommend follow-up with Dr. Flores in approximately 2 weeks. She should call [phone] schedule an appointment. Her subacute fractures in her left foot are healing fine. No further treatment is necessary for those. We will continue to follow as needed during her inpatient stay. Please call [phone] with any questions. Patient was seen and evaluated by Dr. Chalino Flores today.
[2017-07-08] MEDS: FLUTICASONE/SALMETEROL 100/50 (ADVAIR) 14 PUFF/1 INHALER INH SCH ×2 (08:55→21:41)
[2017-07-08] MEDS: ATORVASTATIN 40 MG TAB PO SCH (08:55)
[2017-07-08] MEDS: METOPROLOL TARTRATE 25 MG TAB PO SCH ×2 (09:00→21:00)
[2017-07-08] MEDS: AMIODARONE 200 MG TAB PO SCH (09:00)
[2017-07-08] MEDS ORDERED: METOPROLOL TARTRATE 25 MG TAB PO SCH (09:00)
[2017-07-08] MEDS ORDERED: NURSING DECISION MEDICATION ORDER SCH (09:15)
[2017-07-08] MEDS ORDERED: MICONAZOLE NITRATE POWDER 43 GM EXT PRN (10:15)
--- NOTE | 2017-07-08 12:28 | Progress Note ---
Medicine Progress Note Date & Time of Visit: July 08, 2017 at 12:13. Subjective seen resting in bed, comfortable not in distress states she feels ok no chest pain, dyspnea legs still feel swollen denies foot pain no other symptoms Objective Last 8 Hrs Date Time Temp Pulse Resp B/P (MAP) Pulse Ox O2 Delivery O2 Flow Rate FiO2 07/08/17 08:57 55 121/60 (80) 07/08/17 07:30 Room Air 07/08/17 07:02 36.3 54 16 97/58 (71) 100 Physical Exam: General- oriented x 3, not in distress, speaks in sentences with no effort Head- atraumatic Eyes- anicteric Neck- no JVD Lungs- mild rales at the bases, no wheezing Heart- regular rhythm; no murmur, normal rate Abdomen- normal bowel sounds, soft, nontender, mild distention Extremities- grade 1-2 lower leg edema, (+) dressing in place, Neuro- alert, oriented x 3; PERRL, EOMI; no facial palsy; no dysarthria; motor 5 /5 bilaterally; no cogwheel rigidity; patellar DTRs +2/2; toes downgoing bilaterally; finger to nose intact bilaterally Skin- warm & dry Laboratory Results: Last 24 Hours Test 07/07/17 21:07 07/08/17 06:54 Prothrombin Time 20.3 SECONDS 20.8 SECONDS Prothromb Time International Ratio 2.0 2.0 White Blood Count 7.35 K/uL Red Blood Count 3.99 M/uL Hemoglobin 10.7 g/dL Hematocrit 32.2 % Mean Corpuscular Volume 80.7 fL Mean Corpuscular Hemoglobin 26.8 pg Mean Corpuscular Hemoglobin Concent 33.2 g/dl Platelet Count 307 K/uL Mean Platelet Volume 9.5 fL Neutrophils (%) (Auto) 70.4 % Lymphocytes (%) (Auto) 16.2 % Monocytes (%) (Auto) 11.6 % Eosinophils (%) (Auto) 1.4 % Basophils (%) (Auto) 0.3 % Neutrophils # (Auto) 5.18 K/uL Lymphocytes # (Auto) 1.19 K/uL Monocytes # (Auto) 0.85 K/uL Eosinophils # (Auto) 0.10 K/uL Basophils # (Auto) 0.02 K/uL RDW Standard Deviation 53.1 fL RDW Coefficient of Variation 18.7 % Immature Granulocyte % (Auto) 0.1 % Immature Granulocyte # (Auto) 0.01 K/uL Sodium Level 133 mmol/L Potassium Level 4.1 mmol/L Chloride Level 96 mmol/L Carbon Dioxide Level 28 mmol/L Anion Gap 9.0 mmol/L Blood Urea Nitrogen 58 mg/dl Creatinine 2.40 mg/dl Est Creatinine Clear Calc Drug Dose 18.0 ml/min Estimated GFR () 21.1 Estimated GFR (Non- 18.2 BUN/Creatinine Ratio 24.3 Random Glucose 87 mg/dl Calcium Level 8.4 mg/dl Total Triiodothyronine 0.50 ng/ml Assessment & Plan ACUTE ON CHRONIC DIASTOLIC CHF HISTORY OF LIVER CIRRHOSIS Weight gain, bilateral leg swelling/seepage despite compliance with home diuretic Rx Hx cirrhosis secondary to NAFLD, ascites on recent inpatient abdominal ultrasound -- discussed with Dr. Allison start Lasix 80mg IV + Albumin q12h monitor crea -- will observe response to IV Lasix prior to considering Paracentesis PAF, NSR on Coumadin. Episodic bradycardia since increase in beta-stacey frequency adjustment from recent confinement -- Metoprolol reduced to 25mg BID from TID monitor in Tele -- INR 2.0 coumadin 2.5mg po daily LEFT FOOT METATARSAL FRACTURES Foot Xray 1. Acute left fifth metatarsal fracture 2. Subacute fractures of her second and third metatarsals. -- Ortho consulted non weightbearing x 2 weeks ff up with Ortho HTN, stable Chronic hyponatremia secondary to chronic liver disease. - stable Chronic anemia 2 to CKD, hemoglobin at baseline. DVT prophylaxis, Coumadin INR 2-3 DNR. DISPOSITION will likely benefit from SNF upon discharge when medicall Current Inpatient Medications: Current Inpatient Medications Medications (Trade) Dose Ordered Sig/Yanet Route Start Time Stop Time Status Last Admin Dose Admin Tramadol HCl (Ultram Tab) not relieved by tylenol @ Q6H PRN PO 07/07/17 19:45 08/06/17 19:44 Hydromorphone HCl (Dilaudid Inj) 0.5 mg Q3H PRN IV 07/07/17 19:45 07/21/17 19:44 Miscellaneous (Iv Fluids Completed) 1 ea PRN PRN N/A 07/07/17 22:00 07/07/18 21:59 Amiodarone HCl (Cordarone Tab) 200 mg QAM PO 07/08/17 09:00 08/07/17 08:59 Atorvastatin Calcium (Lipitor Tab) 40 mg QAM PO 07/08/17 09:00 08/07/17 08:59 07/08/17 08:55 40 MG Salmeterol Xinafoate/ Fluticasone (Advair Diskus 100/50 Inh) 1 puff BID INH 07/08/17 09:00 08/07/17 08:59 07/08/17 08:55 1 PUFF Fluticasone Propionate (Flonase Nasal [place]) 2 sprays DAILY PRN SKY 07/07/17 22:30 08/06/17 22:29 Pantoprazole Sodium (Protonix Tab) 40 mg DAILY PRN PO 07/07/17 22:30 08/06/17 22:29 Ranitidine HCl (zANTac TAB) 300 mg HS PRN PO 07/07/17 22:30 08/06/17 22:29 Albuterol/ Ipratropium (Duoneb) 3 ml Q2H PRN INH 07/08/17 01:00 08/07/17 00:59 Metoprolol Tartrate (Lopressor Tab) 25 mg BID PO 07/08/17 09:00 08/07/17 08:59 Acetaminophen (Tylenol Tab) 325 mg Q4H PRN PO 07/08/17 07:15 08/06/17 19:44 Miconazole Nitrate (Desenex Powder) 1 appln UD PRN EXT 07/08/17 10:15 08/07/17 10:14 Furosemide 80 mg/ Syringe 8 ml @ 4 mls/min Q12H IV 07/08/17 12:15 08/07/17 12:14 UNV Albumin Human (Albumin 25%) 12.5 gm Q12H IV 07/08/17 12:15 07/11/17 12:14 UNV
--- NOTE | 2017-07-08 13:06 | NEPHROLOGY CONSULTATION ---
DATE OF CONSULTATION: 07/08/2017 REASON FOR CONSULT: Acute renal failure on background CKD IV. HISTORY OF PRESENT ILLNESS: The patient is an 82-year-old female with multiple medical problems including chronic diastolic heart failure with an ejection fraction of 55%, cirrhosis secondary to NOE, chronic hyponatremia related with cirrhosis and CKD, chronic kidney disease stage 4 with a baseline creatinine of around 1.7-1.9 but fluctuating atrial fibrillation on Coumadin and chronic anemia. She was recently admitted in the hospital from 06/29/2017 to 07/05/2017 for mild volume overload, decompensated heart failure. She was sent home on Lasix, but despite that, she noticed that her legs are more swollen and there is fluid seeping. She has a very detailed bandaging done in both her legs at this time, so I did not open, but according to the patient, she is not making a lot of urine even with the Lasix. She is not sure about the weight gain. Her appetite is poor. She is overall very weak. She was seen in the Emergency Department yesterday after she tripped over in her bathroom, causing her to fall. She was noted to have a fracture in her metatarsal bone in the left side. She did not have any head trauma and she did not have syncope or lightheadedness. PAST MEDICAL HISTORY: Already detailed in the HPI. PAST SURGICAL HISTORY: Hysterectomy, cataract surgery. HOME MEDICATIONS: List was reviewed in detail. ALLERGIES: TO ASPIRIN, CODEINE, ALCOHOL, CEPHALOSPORINS, PENICILLIN AND SULFA. FAMILY HISTORY: Hypertension. PERSONAL AND SOCIAL HISTORY: Nonsmoker, no alcohol. 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 No smoking. REVIEW OF SYSTEMS: As detailed in HPI unless stated otherwise. Twelve systems reviewed and negative. PHYSICAL EXAMINATION: GENERAL: Elderly white female who is awake, alert, oriented, at this time she appears weak. VITAL SIGNS: Blood pressure is 121/60, 100% room air, pulse rate 55 per minute, temperature 36.3. HEENT: Mucous membrane is moist. NECK: Supple. No jugular venous distention. SKIN: Pale and warm. NECK: Short and supple. HEART: Decreased breath sound. Regular rate and rhythm, no murmur. CHEST: Decreased effort. Decreased breath sounds at the bases. ABDOMEN: Obese, distended. EXTREMITIES: There might be some ascites, hard to tell because of obesity. EXTREMITIES: Shows bilateral 3+ edema all the way after the thigh and abdominal wall. NEUROLOGIC: As of now, she has normal speech and moving all 4 extremities. LABORATORY TESTS: From this morning show sodium 133, potassium 4.1, BUN 58, creatinine 2.4, calcium 8.4, hemoglobin 10.7, WBC count 7.35, platelet count 307, creatinine yesterday at the time of admission was 2.19. Chest x-ray done yesterday showed cardiomegaly, superior mediastinal widening, small bilateral pleural effusion as well as mild interstitial thickening/edema. ASSESSMENT AND PLAN: An 82-year-old female with extensive medical problems including liver cirrhosis, chronic kidney disease stage IV, and chronic diastolic heart failure, presented to the hospital following fall and fracture of the fifth metatarsal bone. 1. Acute renal failure. The acute component is quite minimal, but she is not volume depleted. If anything, she is clearly fluid overloaded with weight gain, bilateral lower extremity edema with fluid seepage as well as pleural effusion and pulmonary congestion on the chest x-ray. She needs more aggressive diuresis. She did get Lasix yesterday, but does not look like she responded much to that, so we will increase the dose by double and give it twice a day with albumin. Given that she has liver failure, her creatinine will fluctuate, also check urine sodium and urinalysis to evaluate whether this is ATN related or hepatorenal syndrome. She has chronic hyponatremia, but at this time, this is acceptable at 133. Continue to do labs on a daily basis. Discussed with primary service. KATINA
[2017-07-08] MEDS: FUROSEMIDE INJ 80 MG in SYRINGE 0 ML IV SCH ×2 (13:24→14:43)
[2017-07-08] MEDS ORDERED: ALBUMIN HUMAN 25% 12.5 GM/50 ML VIAL IV SCH (14:00)
[2017-07-08] MEDS: WARFARIN SOD 2.5 MG TAB PO SCH (17:19)
[2017-07-08 20:23] LABS: CREATININE RANDOM URINE 79.7 mg/dl
[2017-07-08] MEDS ORDERED: LORAZEPAM 0.5 MG TAB PO ONE (23:45)
[2017-07-09] VITALS (11 sets, daily range): BP systolic 83–109; BP diastolic 43–71; PULSE 55–61; TEMP 36.2–37; O2SAT 91–96
[2017-07-09] MEDS: ALBUMIN 25% 50 ML with FUROSEMIDE INJ 80 MG IV SCH ×4 (02:23→14:41)
[2017-07-09 06:07] LABS: INR 2.4 (0.9-1.1)
[2017-07-09 06:14] LABS: CREATININE 2.68 mg/dl (0.60-1.20)
[2017-07-09] MEDS: ATORVASTATIN 40 MG TAB PO SCH (08:17)
[2017-07-09] MEDS: AMIODARONE 200 MG TAB PO SCH (08:17)
[2017-07-09] MEDS: METOPROLOL TARTRATE 25 MG TAB PO SCH ×2 (08:17→21:33)
[2017-07-09] MEDS: FLUTICASONE/SALMETEROL 100/50 (ADVAIR) 14 PUFF/1 INHALER INH SCH ×2 (08:18→21:29)
--- NOTE | 2017-07-09 09:04 | Consultant Recommendations ---
Media Liaison Officer Recommendations Date of Service July 09, 2017. Media Liaison Officer Recommendations NWB Left lower extremity Boot on left ankle when out of bed, okay to remove when out of bed. Allowed for ankle and toe range of motion. Ice and elevation left leg as needed for pain/swelling. Follow up with Dr. Flores on 07/24/17 at 8:45 a.m. Please call [phone] with any questions or concerns or need to reschedule appointment.
--- NOTE | 2017-07-09 09:14 | Progress Note ---
Progress Note Date of Service July 09, 2017. Progress Note Patient doing well. No complaints of pain, currently being seen by PT. She did get her post op shoe from home. She wearing when out of bed. She states it 's hard for her to not bear weight on her leg. Therapy confirms, that she's not able to do this adequately. She is using a walker to assist with ambulation. Left foot mildly swollen, toes move well. pulses not palpated, foot is warm Continue OOB/NWB LLE with post op shoe on left foot. Use walker to assist with ambulation. Follow up with Dr. Flores in approximately 2 weeks, appointment scheduled for 07/24/17 at 8:45 a.m. Please call [phone] with any questions. Okay from ortho standpoint for discharge when medically stable.
[2017-07-09] MEDS ORDERED: METOLAZONE 5 MG TAB PO ONE (13:45)
--- NOTE | 2017-07-09 14:42 | Gastrointestinal Consultation ---
Gastrointestinal Consultation Date of Consultation: July 09, 2017 Attending Physician: Tanvir Sterling Consulting Physician: Ari Albrecht Reason for Consultation: Cirrhosis, volume overload History of Present Illness Patient is a 82 year old female w PMHx of diastolic HF, EF 55-59%, Afib on Coumadin, chronic anemia, CKD, NAFLD cirrhosis who presented to ED after she tripped over bathroom rug resulting in fall and fracture of L metatarsal. She was last admitted here on 06/29 to 07/05 for volume overload, decompensated HF. She had been managed by Dr. Grissom from our GI clinic, last seen early May. Was on Lasix 40mg BID, Spironolactone 25mg daily. Last weight recorded from our clinic was 195lbs currently 202lbs. She denies any increased SOB, abd distension. + leg edema but may be at her baseline as she doesn't note much difference in the swelling. Her labs showed increased Cr of 2.6 (baseline 1.6), Shereen 6, Na 133. LFTs mildly elevated but at baseline. Past Medical/Surgical History Medical Problems: (1) Acute electrocardiogram changes Status: Acute (2) Ambulatory dysfunction Status: Acute (3) CHF exacerbation Status: Acute (4) Closed fibular fracture Status: Acute (5) Closed fracture of neck of fibula Status: Acute (6) Fever Status: Acute (7) Hemoptysis Status: Acute (8) Knee effusion, left Status: Acute (9) Knee hemarthrosis, left Status: Acute (10) Left fibular fracture Status: Acute (11) Left knee pain Status: Acute (12) Right hip pain Status: Acute (13) SIRS (systemic inflammatory response syndrome) Status: Acute (14) Supratherapeutic INR Status: Acute (15) UTI (urinary tract infection) Status: Acute Past Medical History: As above Past Surgical History: Hysterectomy, cataract surgery Family History Cancer FH: hypertension Heart disease Social History Smoking Status: Never Smoker Alcohol Use: none Drug Use: none Marital Status: Housing Status: lives with family Occupation Status: retired Allergies Coded Allergies: Alcohol (Verified Allergy, Mild, RASH, 07/07/17) WIPES OR INGESTED Cephalosporins (Verified Allergy, Mild, RASH, 07/07/17) Codeine (Verified Allergy, Mild, RASH, 07/07/17) Penicillins (Verified Allergy, Mild, RASH, 07/07/17) Aspirin (Verified Allergy, Unknown, RASH, 07/07/17) Levofloxacin (Verified Allergy, Unknown, "BONE PAIN", 07/07/17) Sulfa Antibiotics (Verified Allergy, Unknown, UNKNOWN, 07/07/17) Current Medications Home Meds and Scripts Medications Dose Route/Sig Max Daily Dose Days Date Category Dose Instructions Lasix (Furosemide) 80 Mg Tab 160 Mg PO BID 30 07/05/17 Rx Lopressor (Metoprolol Tartrate) 25 Mg Tab 25 Mg PO TID 30 07/05/17 Rx Coumadin (Warfarin Sod) 5 Mg Tab 0.5 Tab PO DAILY 30 07/05/17 Rx Spironolactone 25 Mg Tab 0.5 Tab PO DAILY 06/29/17 Reported Voltaren 1% Top Gel (Diclofenac Sodium (Topical)) 1 % Gel 1 Appln TOP DAILY PRN 06/29/17 Reported Vitamin D 16203 Unit (Ergocalciferol) 50,000 Unit Cap 50,000 Unit PO WK 05/08/17 Reported Fridays Fluticasone Propionate 120 Sprays/6000 Mcg Inha 2 Sprays SKY DAILY PRN 03/18/17 Reported Tramadol HCl 50 Mg Tab 50 Mg PO BID PRN 03/18/17 Reported Lipitor (Atorvastatin Calcium) 40 Mg Tab 40 Mg PO QAM 02/20/17 Reported Acetaminophen 500 Mg Tab 1,000 Mg PO Q8 PRN 02/20/17 Reported Proair Respiclick (Albuterol Sulfate) 108 Mcg/Act Aer 2 Puffs INH Q4H PRN 10/01/16 Reported Advair Diskus 100/50 60 Dose (Fluticasone Prop/Salmeterol) 1 Ea Aerp 1 Puff INH BID 09/30/16 Reported Amiodarone HCl 200 Mg Tab 200 Mg PO QAM 08/10/15 Reported Prilosec (Omeprazole) 20 Mg Cap 20 Mg PO DAILY PRN 12/28/14 Reported Zantac (Ranitidine HCl) 300 Mg Tab 300 Mg PO HS PRN 07/30/14 Reported Review of Systems Constitutional: No fever, No chills Respiratory: No cough, No shortness of breath Cardiac: No chest pain Abdomen: No pain, No nausea, No vomiting, No GI bleeding Musculoskeletal: + see HPI (L metatarsal fracture) Skin: No rash, No itch, No jaundice Physical Exam Date Time Temp Pulse Resp B/P (MAP) Pulse Ox O2 Delivery O2 Flow Rate FiO2 07/09/17 11:20 Room Air 07/09/17 11:00 36.5 55 18 100/64 (76) 95 Room Air 07/09/17 07:30 Room Air 07/09/17 07:00 36.7 58 24 89/53 (65) 93 Room Air 07/09/17 03:11 37.0 60 22 94/58 (70) 93 Room Air 07/09/17 00:21 92 Room Air 1.5 07/08/17 23:08 36.3 60 20 98/54 (69) 95 Room Air 07/08/17 21:41 62 92/63 (73) 07/08/17 19:15 36.4 58 16 99/57 (71) 92 Room Air 07/08/17 16:00 Nasal Cannula 07/08/17 15:14 36.6 61 15 92/59 (70) 97 Nasal Cannula 1.5 General Appearance: WD/WN, no apparent distress Eyes: normal inspection, PERRL, EOMI Neck: supple, no JVD, trachea midline Respiratory/Chest: normal breath sounds, + crackles (RLL) Cardiovascular: regular rate, rhythm, no gallop, no murmur Abdomen: normal bowel sounds, non tender, soft Extremities: + swelling (+1 pitting edema on bilateral LLE. Both legs wrapped. ) Neurologic/Psych: alert, normal mood/affect, oriented x 3 Skin: normal color, no jaundice, warm/dry Laboratory Results Last 24 Hours Test 07/08/17 19:38 07/09/17 05:11 Urine Color DK YELLOW Urine Appearance CLOUDY Urine pH 5.0 Urine Specific [place] 1.016 Urine Protein 1+ Urine Glucose (UA) NEG Urine Ketones NEG Urine Occult Blood 2+ Urine Nitrite NEG Urine Bilirubin NEG Urine Urobilinogen NEG Urine Leukocyte Esterase TRACE Urine WBC (Auto) 1-5 /hpf Urine RBC (Auto) 0-4 /hpf Urine Hyaline Casts (Auto) >30 /lpf Urine Epithelial Cells (Auto) >30 /lpf Urine Bacteria (Auto) NEG Urine Renal Epithelial Cells 10-20 /lpf Urine Pathogenic Casts /lpf Urine Random Creatinine 79.7 mg/dl Urine Random Sodium 6 mEq/L Prothrombin Time 24.9 SECONDS Prothromb Time International Ratio 2.4 Sodium Level 133 mmol/L Potassium Level 4.0 mmol/L Chloride Level 96 mmol/L Carbon Dioxide Level 29 mmol/L Anion Gap 8.0 mmol/L Blood Urea Nitrogen 60 mg/dl Creatinine 2.68 mg/dl Est Creatinine Clear Calc Drug Dose 16.0 ml/min Estimated GFR () 18.5 Estimated GFR (Non- 15.9 BUN/Creatinine Ratio 22.3 Random Glucose 88 mg/dl Calcium Level 8.0 mg/dl Impression Patient is a 82 year old female, admitted after a fall after tripping on rug resulting on L 5th metatarsal fracture. She has issues w diastolic HF, volume overload. Her Cr bumped from 1.6 to 2.6, Shereen 6, Na 133, her LFTs are mildly elevated but at baseline. In speaking w her she denies increased SOB, abd distension, unsure about her leg edema. Weight is up from 195lbs to 202lbs. Plan - Will obtain u/s to check for ascites. If present, can at least perform diagnostic tap to r/o SBP. Would be cautious with large volume paracentesis given ARF - Nephrology following, appreciate help w diuretic management (currently on Metalozone 5mg, Lasix 80mg IV BID). She will receive Albumin 2% 12.5g q12h. Will discuss with Nephrology to consider Midodrine/Octreotide if renal function doesn't improve despite Albumin support - 2g Na, FL 1L a day. - Will continue to follow along for now. Attending attestation I have seen, examined this patient, and agree with the findings and above by our mid-level provider Ariela Luu. -Concern for HRS given Urine Na -Discussed with Nephrology, will hold lasix and continue Albumin, if Cr fails to improve, then consider adding tx for HRS -If has ascites then will need diagnostic tap, concern that RHF is large driving force of her clinical presentation, Cardiology may need to see, if has increased dyspnea or pulmonary edema with Albumin, then will need lasix
--- NOTE | 2017-07-09 14:43 | Progress Note ---
Medicine Progress Note Date & Time of Visit: July 09, 2017 at 14:30. Subjective Seen resting in bedside chair, comfortable In good spirits States she feels about the same as yesterday Notes increased leg swelling Also has pain over her left leg-starting from her thigh Denies chest pain, shortness of breath, abdominal pain, nausea No other symptoms Objective Last 8 Hrs Date Time Temp Pulse Resp B/P (MAP) Pulse Ox O2 Delivery O2 Flow Rate FiO2 07/09/17 11:20 Room Air 07/09/17 11:00 36.5 55 18 100/64 (76) 95 Room Air 07/09/17 07:30 Room Air 07/09/17 07:00 36.7 58 24 89/53 (65) 93 Room Air Physical Exam: General- oriented x 3, not in distress, speaks in sentences with no effort Head- atraumatic Eyes- anicteric Neck- no JVD Lungs-faint rales at the bases, no wheezes Heart- regular rhythm; no murmur, normal rate Abdomen- normal bowel sounds, soft, nontender, mild distention Extremities- grade 2 lower leg edema, no erythema/warmth/tenderness, (+) dressing in place Neuro- alert, oriented x 3; no gross focal neurologic deficits Skin- warm & dry Laboratory Results: Last 24 Hours Test 07/08/17 19:38 07/09/17 05:11 Urine Color DK YELLOW Urine Appearance CLOUDY Urine pH 5.0 Urine Specific [place] 1.016 Urine Protein 1+ Urine Glucose (UA) NEG Urine Ketones NEG Urine Occult Blood 2+ Urine Nitrite NEG Urine Bilirubin NEG Urine Urobilinogen NEG Urine Leukocyte Esterase TRACE Urine WBC (Auto) 1-5 /hpf Urine RBC (Auto) 0-4 /hpf Urine Hyaline Casts (Auto) >30 /lpf Urine Epithelial Cells (Auto) >30 /lpf Urine Bacteria (Auto) NEG Urine Renal Epithelial Cells 10-20 /lpf Urine Pathogenic Casts /lpf Urine Random Creatinine 79.7 mg/dl Urine Random Sodium 6 mEq/L Prothrombin Time 24.9 SECONDS Prothromb Time International Ratio 2.4 Sodium Level 133 mmol/L Potassium Level 4.0 mmol/L Chloride Level 96 mmol/L Carbon Dioxide Level 29 mmol/L Anion Gap 8.0 mmol/L Blood Urea Nitrogen 60 mg/dl Creatinine 2.68 mg/dl Est Creatinine Clear Calc Drug Dose 16.0 ml/min Estimated GFR () 18.5 Estimated GFR (Non- 15.9 BUN/Creatinine Ratio 22.3 Random Glucose 88 mg/dl Calcium Level 8.0 mg/dl Assessment & Plan BILATERAL LOWER LEG EDEMA LIKELY SECONDARY TO: ACUTE ON CHRONIC DIASTOLIC CHF HISTORY OF LIVER CIRRHOSIS Weight gain, bilateral leg swelling/seepage despite compliance with home diuretic Rx Hx cirrhosis secondary to NAFLD, ascites on recent inpatient abdominal ultrasound -- Started Lasix 80mg IV + Albumin q12h --Creatinine today further increased from 2.1-2.6 -100 fluid balance Still has significant lower leg edema bilaterally --Discussed with Dr. Andrew Start metolazone 5 mg p.o. daily Continue Lasix 80 mg IV albumin every 12 hours --Monitor response Monitor creatinine CIRRHOSIS US demonstrated moderate ascites during last admission will repeat US today to quantify on above diuretics GI consulted ACUTE ON CKD III Serum creatinine 2.01 at time of admission. Nephrology consulted. Crea increased from 2.1 to 2.6 monitor Paroxysmal atrial fibrillation On Coumadin -- Episodic bradycardia since increase in beta-stacey frequency adjustment from recent confinement -- Metoprolol reduced to 25mg BID from TID Heart rate still in the mid 50s Further reduce metoprolol to 12.5 mg p.o. twice daily Monitor -- INR 2.4 coumadin 2.5mg po daily INR daily LEFT FOOT METATARSAL FRACTURES s/p Fall, Mechanical Foot Xray 1. Acute left fifth metatarsal fracture 2. Subacute fractures of her second and third metatarsals. -- Ortho consulted non weightbearing x 2 weeks ff up with Ortho --Patient reporting of left hip pain today We will also order x-rays for the hip, femur, knee, tibia-fibula HTN stable Reducing the metoprolol dose Monitor closely Chronic hyponatremia secondary to chronic liver disease. - stable Chronic anemia 2 to CKD -Monitor hemoglobin DVT prophylaxis, Coumadin INR 2-3 DNR. DISPOSITION Management of volume overload in progress Discussed with case management Transition to rehab/snf facility when medically stable Current Inpatient Medications: Current Inpatient Medications Medications (Trade) Dose Ordered Sig/Yanet Route Start Time Stop Time Status Last Admin Dose Admin Tramadol HCl (Ultram Tab) not relieved by tylenol @ Q6H PRN PO 07/07/17 19:45 08/06/17 19:44 Hydromorphone HCl (Dilaudid Inj) 0.5 mg Q3H PRN IV 07/07/17 19:45 07/21/17 19:44 Miscellaneous (Iv Fluids Completed) 1 ea PRN PRN N/A 07/07/17 22:00 07/07/18 21:59 Amiodarone HCl (Cordarone Tab) 200 mg QAM PO 07/08/17 09:00 08/07/17 08:59 07/09/17 08:17 200 MG Atorvastatin Calcium (Lipitor Tab) 40 mg QAM PO 07/08/17 09:00 08/07/17 08:59 07/09/17 08:17 40 MG Salmeterol Xinafoate/ Fluticasone (Advair Diskus 100/50 Inh) 1 puff BID INH 07/08/17 09:00 08/07/17 08:59 07/09/17 08:18 1 PUFF Fluticasone Propionate (Flonase Nasal [place]) 2 sprays DAILY PRN SKY 07/07/17 22:30 08/06/17 22:29 Pantoprazole Sodium (Protonix Tab) 40 mg DAILY PRN PO 07/07/17 22:30 08/06/17 22:29 Ranitidine HCl (zANTac TAB) 300 mg HS PRN PO 07/07/17 22:30 08/06/17 22:29 Albuterol/ Ipratropium (Duoneb) 3 ml Q2H PRN INH 07/08/17 01:00 08/07/17 00:59 Acetaminophen (Tylenol Tab) 325 mg Q4H PRN PO 07/08/17 07:15 08/06/17 19:44 Miconazole Nitrate (Desenex Powder) 1 appln UD PRN EXT 07/08/17 10:15 08/07/17 10:14 Warfarin Sodium (Coumadin Tab) 2.5 mg DAILY@16 PO 07/08/17 16:00 08/07/17 15:59 07/08/17 17:19 2.5 MG Furosemide 80 mg/ Albumin Human 58 ml @ 60 mls/hr Q12H IV 07/09/17 02:00 07/12/17 01:59 07/09/17 02:23 60 MLS/HR Metolazone (Zaroxolyn Tab) 5 mg QAM PO 07/10/17 09:00 08/09/17 08:59 Metoprolol Tartrate (Lopressor Tab) 12.5 mg BID PO 07/09/17 21:00 08/07/17 08:59 UNV
--- NOTE | 2017-07-09 15:20 | DIAGNOSTIC IMAGING REPORT ---
ASCITES-ABDOMEN LIMITED ULTRASOUND CLINICAL HISTORY: check for ascites COMPARISON STUDY: Abdominal ultrasound 06/29/2017. FINDINGS: No change in the moderate ascites seen throughout the abdomen. Nodular contour to the liver consistent with cirrhosis. IMPRESSION: Moderate ascites, unchanged. Electronically signed by: Franky Elise M.D. 07/09/2017 3:19 PM Dictated Date/Time: 07/09/2017 3:18 PM
--- NOTE | 2017-07-09 16:02 | DIAGNOSTIC IMAGING REPORT ---
L HIP UNILATERAL 2 VIEWS, L FEMUR 2 VIEWS ROUTINE, L KNEE 1 OR 2 VIEWS ROUTINE, L TIBIA/FIBULA 2 VIEWS ROUTINE, L ANKLE MIN 3 VIEWS ROUTINE CLINICAL HISTORY: Fall. Left lower extremity pain. COMPARISON STUDY: Left foot 07/07/2017. FINDINGS: The bones are osteopenic. Mild osteoarthritis within the left hip. Visualized pelvic bones are intact. No significant knee effusion. Severe osteoarthritis within the medial compartment of the left knee with [id number] articulation. There are tricompartmental marginal osteophytes within the left knee. There is also severe osteoarthritis with [id number] articulation of the patellofemoral joint. Diffuse subcutaneous edema throughout the left lower extremity. Plantar heel spur. Fracture at the base of the fifth metatarsal is again noted. Healing fractures at the distal second and third metatarsals are also identified. No acute fractures seen within the left hip, left femur, left knee, left lower leg, left ankle. IMPRESSION: 1. No acute fracture or dislocation within the left hip, left femur, left knee, left lower leg, or left ankle. 2. Left fifth metatarsal fracture is better appreciated on the recent left foot radiograph. 3. Diffuse soft tissue edema throughout the left lower extremity. Electronically signed by: Franky Elise M.D. 07/09/2017 4:01 PM Dictated Date/Time: 07/09/2017 3:47 PM
--- NOTE | 2017-07-09 16:02 | DIAGNOSTIC IMAGING REPORT ---
L HIP UNILATERAL 2 VIEWS, L FEMUR 2 VIEWS ROUTINE, L KNEE 1 OR 2 VIEWS ROUTINE, L TIBIA/FIBULA 2 VIEWS ROUTINE, L ANKLE MIN 3 VIEWS ROUTINE CLINICAL HISTORY: Fall. Left lower extremity pain. COMPARISON STUDY: Left foot 07/07/2017. FINDINGS: The bones are osteopenic. Mild osteoarthritis within the left hip. Visualized pelvic bones are intact. No significant knee effusion. Severe osteoarthritis within the medial compartment of the left knee with [id number] articulation. There are tricompartmental marginal osteophytes within the left knee. There is also severe osteoarthritis with [id number] articulation of the patellofemoral joint. Diffuse subcutaneous edema throughout the left lower extremity. Plantar heel spur. Fracture at the base of the fifth metatarsal is again noted. Healing fractures at the distal second and third metatarsals are also identified. No acute fractures seen within the left hip, left femur, left knee, left lower leg, left ankle. IMPRESSION: 1. No acute fracture or dislocation within the left hip, left femur, left knee, left lower leg, or left ankle. 2. Left fifth metatarsal fracture is better appreciated on the recent left foot radiograph. 3. Diffuse soft tissue edema throughout the left lower extremity. Electronically signed by: Franky Elise M.D. 07/09/2017 4:01 PM Dictated Date/Time: 07/09/2017 3:47 PM
--- NOTE | 2017-07-09 16:02 | DIAGNOSTIC IMAGING REPORT ---
L HIP UNILATERAL 2 VIEWS, L FEMUR 2 VIEWS ROUTINE, L KNEE 1 OR 2 VIEWS ROUTINE, L TIBIA/FIBULA 2 VIEWS ROUTINE, L ANKLE MIN 3 VIEWS ROUTINE CLINICAL HISTORY: Fall. Left lower extremity pain. COMPARISON STUDY: Left foot 07/07/2017. FINDINGS: The bones are osteopenic. Mild osteoarthritis within the left hip. Visualized pelvic bones are intact. No significant knee effusion. Severe osteoarthritis within the medial compartment of the left knee with [id number]-[id number] articulation. There are tricompartmental marginal osteophytes within the left knee. There is also severe osteoarthritis with oaky-ez-ccyt articulation of the patellofemoral joint. Diffuse subcutaneous edema throughout the left lower extremity. Plantar heel spur. Fracture at the base of the fifth metatarsal is again noted. Healing fractures at the distal second and third metatarsals are also identified. No acute fractures seen within the left hip, left femur, left knee, left lower leg, left ankle. IMPRESSION: 1. No acute fracture or dislocation within the left hip, left femur, left knee, left lower leg, or left ankle. 2. Left fifth metatarsal fracture is better appreciated on the recent left foot radiograph. 3. Diffuse soft tissue edema throughout the left lower extremity. Electronically signed by: Franky Elise M.D. 07/09/2017 4:01 PM Dictated Date/Time: 07/09/2017 3:47 PM
--- NOTE | 2017-07-09 16:02 | DIAGNOSTIC IMAGING REPORT ---
L HIP UNILATERAL 2 VIEWS, L FEMUR 2 VIEWS ROUTINE, L KNEE 1 OR 2 VIEWS ROUTINE, L TIBIA/FIBULA 2 VIEWS ROUTINE, L ANKLE MIN 3 VIEWS ROUTINE CLINICAL HISTORY: Fall. Left lower extremity pain. COMPARISON STUDY: Left foot 07/07/2017. FINDINGS: The bones are osteopenic. Mild osteoarthritis within the left hip. Visualized pelvic bones are intact. No significant knee effusion. Severe osteoarthritis within the medial compartment of the left knee with foid-ga-ttuf articulation. There are tricompartmental marginal osteophytes within the left knee. There is also severe osteoarthritis with mcgy-uq-klby articulation of the patellofemoral joint. Diffuse subcutaneous edema throughout the left lower extremity. Plantar heel spur. Fracture at the base of the fifth metatarsal is again noted. Healing fractures at the distal second and third metatarsals are also identified. No acute fractures seen within the left hip, left femur, left knee, left lower leg, left ankle. IMPRESSION: 1. No acute fracture or dislocation within the left hip, left femur, left knee, left lower leg, or left ankle. 2. Left fifth metatarsal fracture is better appreciated on the recent left foot radiograph. 3. Diffuse soft tissue edema throughout the left lower extremity. Electronically signed by: Franky Elise M.D. 07/09/2017 4:01 PM Dictated Date/Time: 07/09/2017 3:47 PM
--- NOTE | 2017-07-09 16:02 | DIAGNOSTIC IMAGING REPORT ---
L HIP UNILATERAL 2 VIEWS, L FEMUR 2 VIEWS ROUTINE, L KNEE 1 OR 2 VIEWS ROUTINE, L TIBIA/FIBULA 2 VIEWS ROUTINE, L ANKLE MIN 3 VIEWS ROUTINE CLINICAL HISTORY: Fall. Left lower extremity pain. COMPARISON STUDY: Left foot 07/07/2017. FINDINGS: The bones are osteopenic. Mild osteoarthritis within the left hip. Visualized pelvic bones are intact. No significant knee effusion. Severe osteoarthritis within the medial compartment of the left knee with [id number]-[id number]-lbuf articulation. There are tricompartmental marginal osteophytes within the left knee. There is also severe osteoarthritis with [id number]-[id number] articulation of the patellofemoral joint. Diffuse subcutaneous edema throughout the left lower extremity. Plantar heel spur. Fracture at the base of the fifth metatarsal is again noted. Healing fractures at the distal second and third metatarsals are also identified. No acute fractures seen within the left hip, left femur, left knee, left lower leg, left ankle. IMPRESSION: 1. No acute fracture or dislocation within the left hip, left femur, left knee, left lower leg, or left ankle. 2. Left fifth metatarsal fracture is better appreciated on the recent left foot radiograph. 3. Diffuse soft tissue edema throughout the left lower extremity. Electronically signed by: Franky Elise M.D. 07/09/2017 4:01 PM Dictated Date/Time: 07/09/2017 3:47 PM
[2017-07-09] MEDS: WARFARIN SOD 2.5 MG TAB PO SCH (16:45)
[2017-07-09] MEDS: ALBUMIN HUMAN 25% 12.5 GM/50 ML VIAL IV SCH ×2 (19:04→23:14)
[2017-07-10] VITALS (10 sets, daily range): BP systolic 85–113; BP diastolic 56–72; PULSE 52–60; TEMP 36.3–36.7; O2SAT 92–97
[2017-07-10 06:20] LABS: INR 2.9 (0.9-1.1)
[2017-07-10 06:36] LABS: CALCIUM 8.2 mg/dl (8.5-10.1); CREATININE 2.83 mg/dl (0.60-1.20); POTASSIUM 3.9 mmol/L (3.5-5.1)
[2017-07-10] MEDS: FLUTICASONE/SALMETEROL 100/50 (ADVAIR) 14 PUFF/1 INHALER INH SCH ×2 (07:43→21:15)
[2017-07-10] MEDS: METOPROLOL TARTRATE 25 MG TAB PO SCH ×2 (07:44→21:00)
[2017-07-10] MEDS: ATORVASTATIN 40 MG TAB PO SCH (07:44)
[2017-07-10] MEDS: AMIODARONE 200 MG TAB PO SCH (07:44)
[2017-07-10] MEDS: ALBUMIN HUMAN 25% 12.5 GM/50 ML VIAL IV SCH ×7 (07:53→22:18)
[2017-07-10] MEDS ORDERED: METOLAZONE 5 MG TAB PO SCH (09:00)
--- NOTE | 2017-07-10 09:30 | Gastroenterology Progress Note ---
Progress Note Date of Service: July 10, 2017 Subjective Pt evaluation today including: conversation w/ patient, physical exam, chart review, lab review Pt was seen and evaluated, chart reviewed. 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 US yesterday w/ moderate ascites. Denies any complaints this AM. No nausea, vomiting, abdominal pain, diarrhea/ constipation, black or bloody stools. Denies fever, chills, CP, SOB US ABD 07/10/17: No change in the moderate ascites seen throughout the abdomen. Nodular contour to the liver consistent with cirrhosis. Review of Systems Constitutional: No fever, No chills Respiratory: No cough, No shortness of breath Cardiac: No chest pain, No edema Abdomen: No pain, No nausea, No vomiting, No diarrhea, No constipation, No GI bleeding Skin: No rash, No itch, No color change, No bleeding Medications Current Inpatient Medications Medications (Trade) Dose Ordered Sig/Yanet Route Start Time Stop Time Status Last Admin Dose Admin Tramadol HCl (Ultram Tab) not relieved by tylenol @ Q6H PRN PO 07/07/17 19:45 08/06/17 19:44 Hydromorphone HCl (Dilaudid Inj) 0.5 mg Q3H PRN IV 07/07/17 19:45 07/21/17 19:44 Miscellaneous (Iv Fluids Completed) 1 ea PRN PRN N/A 07/07/17 22:00 07/07/18 21:59 Amiodarone HCl (Cordarone Tab) 200 mg QAM PO 07/08/17 09:00 08/07/17 08:59 07/10/17 07:44 200 MG Atorvastatin Calcium (Lipitor Tab) 40 mg QAM PO 07/08/17 09:00 08/07/17 08:59 07/10/17 07:44 40 MG Salmeterol Xinafoate/ Fluticasone (Advair Diskus 100/50 Inh) 1 puff BID INH 07/08/17 09:00 08/07/17 08:59 07/10/17 07:43 1 PUFF Fluticasone Propionate (Flonase Nasal [place]) 2 sprays DAILY PRN SKY 07/07/17 22:30 08/06/17 22:29 Pantoprazole Sodium (Protonix Tab) 40 mg DAILY PRN PO 07/07/17 22:30 08/06/17 22:29 Ranitidine HCl (zANTac TAB) 300 mg HS PRN PO 07/07/17 22:30 08/06/17 22:29 Albuterol/ Ipratropium (Duoneb) 3 ml Q2H PRN INH 07/08/17 01:00 08/07/17 00:59 Acetaminophen (Tylenol Tab) 325 mg Q4H PRN PO 07/08/17 07:15 08/06/17 19:44 Miconazole Nitrate (Desenex Powder) 1 appln UD PRN EXT 07/08/17 10:15 08/07/17 10:14 Warfarin Sodium (Coumadin Tab) 2.5 mg DAILY@16 PO 07/08/17 16:00 08/07/17 15:59 07/09/17 16:45 2.5 MG Metoprolol Tartrate (Lopressor Tab) 12.5 mg BID PO 07/09/17 21:00 08/07/17 08:59 07/09/17 21:33 12.5 MG Albumin Human (Albumin 25%) 25 gm BID IV 07/09/17 17:15 07/12/17 17:14 07/10/17 07:53 25 GM Objective Vital Signs Date Time Temp Pulse Resp B/P (MAP) Pulse Ox O2 Delivery O2 Flow Rate FiO2 07/10/17 07:50 Room Air 07/10/17 06:06 36.7 52 18 96/62 (73) 94 Room Air 07/10/17 04:00 92 Room Air 07/10/17 03:46 36.6 55 19 104/68 (80) 92 Room Air 07/10/17 00:31 56 85/56 (66) 07/10/17 00:00 94 Room Air 07/09/17 23:59 56 91/64 (73) 07/09/17 23:35 56 83/56 (65) 07/09/17 23:00 36.4 60 18 96/43 (60) 94 Room Air 07/09/17 21:30 61 104/71 (82) 07/09/17 20:00 92 Room Air 07/09/17 19:13 36.2 55 15 109/57 (74) 92 Room Air 07/09/17 16:11 36.4 59 17 96/59 (71) 91 Room Air 07/09/17 15:30 Room Air 07/09/17 11:20 Room Air 07/09/17 11:00 36.5 55 18 100/64 (76) 95 Room Air Physical Exam General Appearance: no apparent distress Eyes: PERRL ENT: hearing grossly normal Neck: supple, trachea midline Respiratory/Chest: lungs clear, normal breath sounds, no accessory muscle use Cardiovascular: regular rate, rhythm Abdomen: normal bowel sounds, non tender, soft, no organomegaly, no pulsatile mass Neurologic/Psych: alert, normal mood/affect, oriented x 3 Skin: normal color, no jaundice, warm/dry, no rash Laboratory Results Last 24 Hours Test 07/10/17 05:46 Prothrombin Time 29.5 SECONDS Prothromb Time International Ratio 2.9 Sodium Level 130 mmol/L Potassium Level 3.9 mmol/L Chloride Level 94 mmol/L Carbon Dioxide Level 28 mmol/L Anion Gap 8.0 mmol/L Blood Urea Nitrogen 63 mg/dl Creatinine 2.83 mg/dl Est Creatinine Clear Calc Drug Dose 15.1 ml/min Estimated GFR () 17.3 Estimated GFR (Non- 14.9 BUN/Creatinine Ratio 22.2 Random Glucose 81 mg/dl Calcium Level 8.2 mg/dl Assessment and Plan 82 year old female history of HF, admitted after a fall w/ L 5th metatarsal fracture. She has ALANNAH w/ cr bumped from 1.6 to 2.8, urine NA 6 concerning for HRS. US ABD w/ moderate ascites. Perhaps the ascites is secondary to right sided heart disease. 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 - GI to follow. Please call with any questions or concerns. Attending attestation I have seen, examined this patient, and agree with the findings and above by our mid-level provider Ms. Vi Sebastianelli, C STARCH TREATING ASSISTANT. -UOP is still low, Cr slightly improved, no significant clinical change. 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 -Also c/o RHF and PAH given clinical picture, high PA pressures on Echo in 2014
--- NOTE | 2017-07-10 10:07 | Nephrology Progress Note ---
Nephrology Progress Note Date of Service: July 10, 2017. Subjective 82 yo female with ckd, right sided heart failure, cirrhosis with worsening kidney function in the setting of diuresis. continues to have significant edema in legs. unsteady on her feet. Objective Date Time Temp Pulse Resp B/P (MAP) Pulse Ox O2 Delivery O2 Flow Rate FiO2 07/10/17 07:50 Room Air 07/10/17 06:06 36.7 52 18 96/62 (73) 94 Room Air 07/10/17 04:00 92 Room Air 07/10/17 03:46 36.6 55 19 104/68 (80) 92 Room Air 07/10/17 00:31 56 85/56 (66) 07/10/17 00:00 94 Room Air 07/09/17 23:59 56 91/64 (73) 07/09/17 23:35 56 83/56 (65) 07/09/17 23:00 36.4 60 18 96/43 (60) 94 Room Air 07/09/17 21:30 61 104/71 (82) 07/09/17 20:00 92 Room Air 07/09/17 19:13 36.2 55 15 109/57 (74) 92 Room Air 07/09/17 16:11 36.4 59 17 96/59 (71) 91 Room Air 07/09/17 15:30 Room Air 07/09/17 11:20 Room Air 07/09/17 11:00 36.5 55 18 100/64 (76) 95 Room Air Physical Exam: General-aaox3, obese Eyes-no scleral icterus ENT-mmm Neck-supple Lungs-cta Heart-paulina Abdomen-bs+, pannus Extremities-+2 edema Neuro-nonfocal Current Inpatient Medications Medications (Trade) Dose Ordered Sig/Yanet Route Start Time Stop Time Status Last Admin Dose Admin Tramadol HCl (Ultram Tab) not relieved by tylenol @ Q6H PRN PO 07/07/17 19:45 08/06/17 19:44 Hydromorphone HCl (Dilaudid Inj) 0.5 mg Q3H PRN IV 07/07/17 19:45 07/21/17 19:44 Miscellaneous (Iv Fluids Completed) 1 ea PRN PRN N/A 07/07/17 22:00 07/07/18 21:59 Amiodarone HCl (Cordarone Tab) 200 mg QAM PO 07/08/17 09:00 08/07/17 08:59 07/10/17 07:44 200 MG Atorvastatin Calcium (Lipitor Tab) 40 mg QAM PO 07/08/17 09:00 08/07/17 08:59 07/10/17 07:44 40 MG Salmeterol Xinafoate/ Fluticasone (Advair Diskus 100/50 Inh) 1 puff BID INH 07/08/17 09:00 08/07/17 08:59 07/10/17 07:43 1 PUFF Fluticasone Propionate (Flonase Nasal [place]) 2 sprays DAILY PRN SKY 07/07/17 22:30 08/06/17 22:29 Pantoprazole Sodium (Protonix Tab) 40 mg DAILY PRN PO 07/07/17 22:30 08/06/17 22:29 Ranitidine HCl (zANTac TAB) 300 mg HS PRN PO 07/07/17 22:30 08/06/17 22:29 Albuterol/ Ipratropium (Duoneb) 3 ml Q2H PRN INH 07/08/17 01:00 08/07/17 00:59 Acetaminophen (Tylenol Tab) 325 mg Q4H PRN PO 07/08/17 07:15 08/06/17 19:44 Miconazole Nitrate (Desenex Powder) 1 appln UD PRN EXT 07/08/17 10:15 08/07/17 10:14 Warfarin Sodium (Coumadin Tab) 2.5 mg DAILY@16 PO 07/08/17 16:00 08/07/17 15:59 07/09/17 16:45 2.5 MG Metoprolol Tartrate (Lopressor Tab) 12.5 mg BID PO 07/09/17 21:00 08/07/17 08:59 07/09/17 21:33 12.5 MG Albumin Human (Albumin 25%) 25 gm BID IV 07/09/17 17:15 07/12/17 17:14 07/10/17 07:53 25 GM Last 24 Hours Test 07/10/17 05:46 Prothrombin Time 29.5 SECONDS Prothromb Time International Ratio 2.9 Sodium Level 130 mmol/L Potassium Level 3.9 mmol/L Chloride Level 94 mmol/L Carbon Dioxide Level 28 mmol/L Anion Gap 8.0 mmol/L Blood Urea Nitrogen 63 mg/dl Creatinine 2.83 mg/dl Est Creatinine Clear Calc Drug Dose 15.1 ml/min Estimated GFR () 17.3 Estimated GFR (Non- 14.9 BUN/Creatinine Ratio 22.2 Random Glucose 81 mg/dl Calcium Level 8.2 mg/dl Assessment & Plan [id number] urine sodium in the setting of cirrhosis. personally do not feel this is hepatorenal syndrome. feel this is more intravascular volume depletion. stopped diuretics yesterday and started albumin 25 grams iv bid. today, will give 100 grams of albumin and reduce back to 25 bid tomorrow. to recheck random urine sodium tomorrow to see if we are improving perfusion to the kidneys.
--- NOTE | 2017-07-10 10:57 | Progress Note ---
Medicine Progress Note Date & Time of Visit: July 10, 2017 at 10:57. Subjective Sitting up in bedside chair, comfortable States she feels fine Has less leg pain, only left foot pain with mobility Denies chest pain, dyspnea, dizziness, nausea vomiting Denies other symptoms Objective Last 8 Hrs Date Time Temp Pulse Resp B/P (MAP) Pulse Ox O2 Delivery O2 Flow Rate FiO2 07/10/17 07:50 Room Air 07/10/17 06:06 36.7 52 18 96/62 (73) 94 Room Air 07/10/17 04:00 92 Room Air 07/10/17 03:46 36.6 55 19 104/68 (80) 92 Room Air Physical Exam: General- oriented x 3, not in distress, speaks in sentences with no effort Head- atraumatic Eyes- anicteric Neck- no JVD Lungs- mild bilateral rales, no wheezing Heart- regular rhythm; no murmur, normal rate Abdomen- normal bowel sounds, soft, nontender, mild distention Extremities- grade 2 lower leg edema- somewhat improved from yesterday, no erythema/warmth/tenderness, (+) dressing in place Neuro- alert, oriented x 3; no gross focal neurologic deficits Skin- warm & dry Laboratory Results: Last 24 Hours Test 07/10/17 05:46 Prothrombin Time 29.5 SECONDS Prothromb Time International Ratio 2.9 Sodium Level 130 mmol/L Potassium Level 3.9 mmol/L Chloride Level 94 mmol/L Carbon Dioxide Level 28 mmol/L Anion Gap 8.0 mmol/L Blood Urea Nitrogen 63 mg/dl Creatinine 2.83 mg/dl Est Creatinine Clear Calc Drug Dose 15.1 ml/min Estimated GFR () 17.3 Estimated GFR (Non- 14.9 BUN/Creatinine Ratio 22.2 Random Glucose 81 mg/dl Calcium Level 8.2 mg/dl Assessment & Plan BILATERAL LOWER LEG EDEMA LIKELY SECONDARY TO: ACUTE ON CHRONIC DIASTOLIC CHF HISTORY OF LIVER CIRRHOSIS Weight gain, bilateral leg swelling/seepage despite compliance with home diuretic Rx Hx cirrhosis secondary to NAFLD, ascites on recent inpatient abdominal ultrasound -- Started Lasix 80mg IV + Albumin q12h onhospital day 1 -- Creatinine further increased from 2.1 to 2.6 -100 fluid balance Still had significant lower leg edema bilaterally -- Lasix held given increased Albumin -- crea still increased to 2.8 discussed with Nephro continue Albumin for now, monitor I/0 and crea Echo ordered NAFLD CIRRHOSIS repeat US: moderate ascites GI consulted possible hepatorenal syndrome? ACUTE RENAL FAILURE ON CKD III Serum creatinine 2.01 at time of admission. Nephrology consulted. Crea increased from 2.1 to 2.8 management as noted above Paroxysmal atrial fibrillation On Coumadin -- Episodic bradycardia since increase in beta-stacey frequency adjustment from recent confinement -- Metoprolol reduced to 25mg BID from TID Heart rate still in the mid 50s Further reduce metoprolol to 12.5 mg p.o. twice daily Monitor -- INR 2.9 hold coumadin 2.5mg po daily INR daily LEFT FOOT METATARSAL FRACTURES s/p Fall, Mechanical Foot Xray 1. Acute left fifth metatarsal fracture 2. Subacute fractures of her second and third metatarsals. -- Ortho consulted non weightbearing x 2 weeks ff up with Ortho --Patient reporting of left hip pain, now resolved x-rays for the hip, femur, knee, tibia-fibula: no fracture HTN stable Reducing the metoprolol dose Monitor closely Chronic hyponatremia secondary to chronic liver disease. - stable Chronic anemia 2 to CKD -Monitor hemoglobin DVT prophylaxis inr 2.9 coumadin held for today monitor DNR. DISPOSITION Management of volume overload in progress Discussed with case management Transition to rehab/senior care facility when medically stable Long discussion with patient and her daughter in the afternoon They are requesting a patient to be transferred to [facility] Called [facility] and spoke with hospitalist, she has declined a transfer as according to her the patient is being manage adequately and they will not do anything different Called patient's daughter to give her this update, and she is fine to keep patient in the hospital at this time will continue discussion tomorrow Current Inpatient Medications: Current Inpatient Medications Medications (Trade) Dose Ordered Sig/Yanet Route Start Time Stop Time Status Last Admin Dose Admin Tramadol HCl (Ultram Tab) not relieved by tylenol @ Q6H PRN PO 07/07/17 19:45 08/06/17 19:44 Hydromorphone HCl (Dilaudid Inj) 0.5 mg Q3H PRN IV 07/07/17 19:45 07/21/17 19:44 Miscellaneous (Iv Fluids Completed) 1 ea PRN PRN N/A 07/07/17 22:00 07/07/18 21:59 Amiodarone HCl (Cordarone Tab) 200 mg QAM PO 07/08/17 09:00 08/07/17 08:59 07/10/17 07:44 200 MG Atorvastatin Calcium (Lipitor Tab) 40 mg QAM PO 07/08/17 09:00 08/07/17 08:59 07/10/17 07:44 40 MG Salmeterol Xinafoate/ Fluticasone (Advair Diskus 100/50 Inh) 1 puff BID INH 07/08/17 09:00 08/07/17 08:59 07/10/17 07:43 1 PUFF Fluticasone Propionate (Flonase Nasal [place]) 2 sprays DAILY PRN SKY 07/07/17 22:30 08/06/17 22:29 Pantoprazole Sodium (Protonix Tab) 40 mg DAILY PRN PO 07/07/17 22:30 08/06/17 22:29 Ranitidine HCl (zANTac TAB) 300 mg HS PRN PO 07/07/17 22:30 08/06/17 22:29 Albuterol/ Ipratropium (Duoneb) 3 ml Q2H PRN INH 07/08/17 01:00 08/07/17 00:59 Acetaminophen (Tylenol Tab) 325 mg Q4H PRN PO 07/08/17 07:15 08/06/17 19:44 Miconazole Nitrate (Desenex Powder) 1 appln UD PRN EXT 07/08/17 10:15 08/07/17 10:14 Metoprolol Tartrate (Lopressor Tab) 12.5 mg BID PO 07/09/17 21:00 08/07/17 08:59 07/09/17 21:33 12.5 MG Albumin Human (Albumin 25%) 12.5 gm QID IV 07/10/17 13:00 07/12/17 17:14 Albumin Human (Albumin 25%) 12.5 gm QID@1000,1400,1800,2200 IV 07/10/17 14:00 07/12/17 18:14
--- NOTE | 2017-07-10 15:51 | ECHOCARDIOGRAM REPORT ---
*NOTICE TO RECEIVING [employer] This information is strictly Confidential and protected under [place] law. [place] law prohibits you from making any further disclosure of this information unless further disclosure is expressly permitted by the written consent of the person to whom it pertains or is authorized by law. A general authorization for the release of medical or other information is not sufficient for this purpose. Hospital accepts no responsibility if the information is made available to any other person, INCLUDING THE PATIENT. Interpretation Summary * Name: GENOVEVA CALLES Study Date: 07/10/2017 11:31 AM BP: 113/72 mmHg * Patient Location: [facility] HR: 67 * : 1935 (M/d/yyyy) Gender: Female Height: 59 in * Age: 82 yrs Ethnicity: CA Weight: 201 lb * Ordering Physician: VIET ADHIKARI MD * Performed By: Chayito Figueroa RCS * * Reason For Study: CHF * BSA: 1.8 m2 * -- Conclusions -- * There is mild concentric left ventricular hypertrophy. * The left ventricular wall motion is normal. * Ejection Fraction = 55-60%. * The right ventricle is moderately dilated. * The right ventricular systolic function is mild to moderately reduced. * The left atrium is severely dilated. * The right atrium is moderately dilated. * There is mild mitral regurgitation. * There is mild to moderate tricuspid regurgitation. * Mild pulmonary hypertension is present. * The PA systolic pressure is calculated to be 40 mm Hg. * Perihepatic ascites is noted. Procedure Details * A complete two-dimensional transthoracic echocardiogram was performed (2D, M-mode, Doppler and color flow Doppler). Left Ventricle * The left ventricle is normal in size. * There is mild concentric left ventricular hypertrophy. * Left ventricular systolic function is normal. * Ejection Fraction = 55-60%. * The left ventricular wall motion is normal. Right Ventricle * The right ventricle is moderately dilated. * The right ventricular systolic function is mild to moderately reduced. Atria * The left atrium is severely dilated. * The right atrium is moderately dilated. * There is no evidence of atrial septal defect, but resolution does not allow assessment for a patent foramen ovale. Mitral Valve * The mitral valve is normal. * There is no mitral valve stenosis. * There is mild mitral regurgitation. Tricuspid Valve * The tricuspid valve is normal. * There is no tricuspid stenosis. * There is mild to moderate tricuspid regurgitation. * Mild pulmonary hypertension is present. The PA systolic pressure is calculated to be 40 mm Hg. Aortic Valve * The aortic valve is trileaflet. * Aortic valve sclerosis mild, without significant aortic valvular stenosis. * Aortic stenosis is absent. * There is no significant aortic regurgitation. Pulmonic Valve * The pulmonary valve is not well seen, but the Doppler examination is normal without significant regurgitation or stenosis. Great Vessels * The aortic root and proximal ascending aorta are normal sized. Pericardium/Pleural * There is no pericardial effusion. Great Vessels * Normal inferior vena cava diameter and respiratory variation suggests normal central venous pressure. Left Ventricular Diastolic Function * The LV diastolic function is abnormal. MMode 2D Measurements and Calculations IVSd 1.3 cm IVSs 1.5 cm LVIDd 4.6 cm LVIDs 2.9 cm LVPWd 1.2 cm LVPWs 1.6 cm IVS/LVPW 1.0 FS 36.5 % EDV(Teich) 99.6 ml ESV(Teich) 33.5 ml EF(Teich) 66.3 % EDV(cubed) 100.2 ml ESV(cubed) 25.6 ml EF(cubed) 74.4 % % IVS thick 12.7 % % LVPW thick 30.3 % LV mass(C)d 223.0 grams LV mass(C)dI 120.7 grams/m\S\2 LV mass(C)s 159.2 grams LV mass(C)sI 86.1 grams/m\S\2 SV(Teich) 66.1 ml SI(Teich) 35.7 ml/m\S\2 SV(cubed) 74.6 ml SI(cubed) 40.4 ml/m\S\2 Ao root diam 2.6 cm Ao root area 5.2 cm\S\2 ACS 1.8 cm LA dimension 6.5 cm LA/Ao 2.5 LVOT diam 1.9 cm LVOT area 2.9 cm\S\2 LVAd ap4 26.2 cm\S\2 LVLd ap4 6.9 cm EDV(MOD-sp4) 83.6 ml EDV(sp4-el) 84.9 ml LVAs ap4 16.4 cm\S\2 LVLs ap4 5.9 cm ESV(MOD-sp4) 39.2 ml ESV(sp4-el) 38.8 ml EF(MOD-sp4) 53.1 % EF(sp4-el) 54.2 % LVAd ap2 23.5 cm\S\2 LVLd ap2 7.0 cm EDV(MOD-sp2) 64.7 ml EDV(sp2-el) 66.9 ml LVAs ap2 14.0 cm\S\2 LVLs ap2 6.5 cm ESV(MOD-sp2) 25.7 ml ESV(sp2-el) 25.8 ml EF(MOD-sp2) 60.3 % EF(sp2-el) 61.5 % LVLd %diff 1.9 % EDV(MOD-bp) 74.2 ml LVLs %diff 9.2 % ESV(MOD-bp) 33.0 ml EF(MOD-bp) 55.6 % SV(MOD-sp4) 44.4 ml SI(MOD-sp4) 24.0 ml/m\S\2 SV(MOD-sp2) 39.0 ml SI(MOD-sp2) 21.1 ml/m\S\2 SV(MOD-bp) 41.2 ml SI(MOD-bp) 22.3 ml/m\S\2 SV(sp4-el) 46.0 ml SI(sp4-el) 24.9 ml/m\S\2 SV(sp2-el) 41.2 ml SI(sp2-el) 22.3 ml/m\S\2 Doppler Measurements and Calculations MV E max caty 100.3 cm/sec MV P1/2t max caty 116.5 cm/sec MV P1/2t 66.9 msec MVA(P1/2t) 3.3 cm\S\2 MV dec slope 509.6 cm/sec\S\2 MV dec time 0.22 sec Ao V2 max 140.8 cm/sec Ao max PG 7.9 mmHg Ao max PG (full) 5.0 mmHg LEW(V,A) 1.8 cm\S\2 LEW(V,D) 1.8 cm\S\2 LV V1 max PG 3.0 mmHg LV V1 max 86.2 cm/sec MR max caty 403.0 cm/sec MR max PG 65.0 mmHg PA V2 max 82.8 cm/sec PA max PG 2.7 mmHg TR max caty 281.9 cm/sec
[2017-07-11] VITALS (13 sets, daily range): BP systolic 99–117; BP diastolic 59–69; PULSE 54–104; TEMP 36.3–36.8; O2SAT 92–98
[2017-07-11 05:51] LABS: INR 2.6 (0.9-1.1)
[2017-07-11 05:57] LABS: BASO % 0.4 %; BASO ABS # 0.02 K/uL (0-0.2); EOS % 2.1 %; EOS ABS # 0.12 K/uL (0-0.5); HEMATOCRIT 28.8 % (37-47); HEMOGLOBIN 9.7 g/dL (12.0-16.0); IG# 0.01 K/uL (0.00-0.02); LYMPH ABS # 1.03 K/uL (1.2-3.4); MEAN CELL VOLUME 80.4 fL (80-100); MEAN CORPUSCULAR HEMOGLOBIN 27.1 pg (25-34); MEAN CORPUSCULAR HGB CONC 33.7 g/dl (32-36); MEAN PLATELET VOLUME 9.9 fL (7.4-10.4); MONO % 13.1 %; MONO ABS # 0.75 K/uL (0.11-0.59); NEUT % 66.2 %; NEUT ABS # 3.78 K/uL (1.4-6.5); PLATELET COUNT 214 K/uL (130-400); RED CELL DISTRIBUTION WIDTH CV 18.7 % (11.5-14.5); RED CELL DISTRIBUTION WIDTH SD 53.4 fL (36.4-46.3); WHITE BLOOD COUNT 5.71 K/uL (4.8-10.8)
[2017-07-11 06:19] LABS: CALCIUM 8.4 mg/dl (8.5-10.1); CREATININE 3.02 mg/dl (0.60-1.20); POTASSIUM 3.9 mmol/L (3.5-5.1)
[2017-07-11] MEDS: FLUTICASONE/SALMETEROL 100/50 (ADVAIR) 14 PUFF/1 INHALER INH SCH ×2 (08:17→21:05)
[2017-07-11] MEDS: METOPROLOL TARTRATE 25 MG TAB PO SCH ×2 (08:18→21:00)
[2017-07-11] MEDS: AMIODARONE 200 MG TAB PO SCH (08:18)
[2017-07-11] MEDS: ATORVASTATIN 40 MG TAB PO SCH (08:18)
[2017-07-11] MEDS: ALBUMIN HUMAN 25% 12.5 GM/50 ML VIAL IV SCH ×8 (08:42→22:19)
--- NOTE | 2017-07-11 09:39 | Gastroenterology Progress Note ---
Progress Note Date of Service: July 11, 2017 Subjective Pt evaluation today including: conversation w/ patient, conversation w/ family , physical exam, chart review, lab review Pt is seen and evaluated, chart reviewed. Family at bedside. No acute events overnight. Offers no complaints other than foot pain. Feels okay but is requesting transfer to tertiary care center. Denies abd pain, nausea, vomiting, black/bloody stools. No fever, chills, CP, SOB. Review of Systems Constitutional: No fever, No chills, No weight loss, No weakness Respiratory: No cough, No shortness of breath Cardiac: + edema, No chest pain Abdomen: No pain, No nausea, No vomiting, No diarrhea, No constipation, No GI bleeding, No dysphagia Skin: No rash, No itch, No color change, No bleeding Medications Current Inpatient Medications Medications (Trade) Dose Ordered Sig/Yanet Route Start Time Stop Time Status Last Admin Dose Admin Tramadol HCl (Ultram Tab) not relieved by tylenol @ Q6H PRN PO 07/07/17 19:45 08/06/17 19:44 Hydromorphone HCl (Dilaudid Inj) 0.5 mg Q3H PRN IV 07/07/17 19:45 07/21/17 19:44 Miscellaneous (Iv Fluids Completed) 1 ea PRN PRN N/A 07/07/17 22:00 07/07/18 21:59 Amiodarone HCl (Cordarone Tab) 200 mg QAM PO 07/08/17 09:00 08/07/17 08:59 07/10/17 07:44 200 MG Atorvastatin Calcium (Lipitor Tab) 40 mg QAM PO 07/08/17 09:00 08/07/17 08:59 07/11/17 08:18 40 MG Salmeterol Xinafoate/ Fluticasone (Advair Diskus 100/50 Inh) 1 puff BID INH 07/08/17 09:00 08/07/17 08:59 07/11/17 08:17 1 PUFF Fluticasone Propionate (Flonase Nasal [place]) 2 sprays DAILY PRN SKY 07/07/17 22:30 08/06/17 22:29 Pantoprazole Sodium (Protonix Tab) 40 mg DAILY PRN PO 07/07/17 22:30 08/06/17 22:29 Ranitidine HCl (zANTac TAB) 300 mg HS PRN PO 07/07/17 22:30 08/06/17 22:29 07/11/17 02:48 300 MG Albuterol/ Ipratropium (Duoneb) 3 ml Q2H PRN INH 07/08/17 01:00 08/07/17 00:59 Acetaminophen (Tylenol Tab) 325 mg Q4H PRN PO 07/08/17 07:15 08/06/17 19:44 Miconazole Nitrate (Desenex Powder) 1 appln UD PRN EXT 07/08/17 10:15 08/07/17 10:14 Metoprolol Tartrate (Lopressor Tab) 12.5 mg BID PO 07/09/17 21:00 08/07/17 08:59 07/09/17 21:33 12.5 MG Albumin Human (Albumin 25%) 12.5 gm QID IV 07/10/17 13:00 07/12/17 17:14 07/11/17 08:42 12.5 GM Albumin Human (Albumin 25%) 12.5 gm QID@1000,1400,1800,2200 IV 07/10/17 14:00 07/12/17 18:14 07/10/17 22:18 12.5 GM Objective Vital Signs Date Time Temp Pulse Resp B/P (MAP) Pulse Ox O2 Delivery O2 Flow Rate FiO2 07/11/17 08:00 95 Room Air 07/11/17 08:00 36.7 54 18 99/63 (75) 96 Room Air 07/11/17 06:38 36.7 54 18 99/63 (75) 96 Room Air 07/11/17 04:00 97 CPAP 07/11/17 03:07 36.7 58 18 107/59 (75) 98 Room Air 07/11/17 00:00 97 CPAP 07/10/17 23:06 36.4 57 17 108/57 (74) 95 CPAP 07/10/17 20:00 97 Room Air 07/10/17 16:00 97 Nasal Cannula 1.5 07/10/17 15:28 36.7 56 17 92/65 (74) 97 Nasal Cannula 1.5 07/10/17 12:15 Room Air 07/10/17 11:26 36.3 60 20 113/72 (86) 92 Room Air Physical Exam General Appearance: no apparent distress Eyes: PERRL ENT: hearing grossly normal Neck: supple, trachea midline Respiratory/Chest: lungs clear, no respiratory distress, no accessory muscle use Cardiovascular: regular rate, rhythm, no gallop, no JVD Abdomen: normal bowel sounds, non tender, soft, no organomegaly, no pulsatile mass Neurologic/Psych: alert, normal mood/affect, oriented x 3 Skin: normal color, no jaundice, warm/dry, no rash Laboratory Results Last 24 Hours Test 07/11/17 05:11 White Blood Count 5.71 K/uL Red Blood Count 3.58 M/uL Hemoglobin 9.7 g/dL Hematocrit 28.8 % Mean Corpuscular Volume 80.4 fL Mean Corpuscular Hemoglobin 27.1 pg Mean Corpuscular Hemoglobin Concent 33.7 g/dl Platelet Count 214 K/uL Mean Platelet Volume 9.9 fL Neutrophils (%) (Auto) 66.2 % Lymphocytes (%) (Auto) 18.0 % Monocytes (%) (Auto) 13.1 % Eosinophils (%) (Auto) 2.1 % Basophils (%) (Auto) 0.4 % Neutrophils # (Auto) 3.78 K/uL Lymphocytes # (Auto) 1.03 K/uL Monocytes # (Auto) 0.75 K/uL Eosinophils # (Auto) 0.12 K/uL Basophils # (Auto) 0.02 K/uL RDW Standard Deviation 53.4 fL RDW Coefficient of Variation 18.7 % Immature Granulocyte % (Auto) 0.2 % Immature Granulocyte # (Auto) 0.01 K/uL Prothrombin Time 26.3 SECONDS Prothromb Time International Ratio 2.6 Sodium Level 133 mmol/L Potassium Level 3.9 mmol/L Chloride Level 96 mmol/L Carbon Dioxide Level 28 mmol/L Anion Gap 9.0 mmol/L Blood Urea Nitrogen 64 mg/dl Creatinine 3.02 mg/dl Est Creatinine Clear Calc Drug Dose 14.2 ml/min Estimated GFR () 16.0 Estimated GFR (Non- 13.8 BUN/Creatinine Ratio 21.1 Random Glucose 85 mg/dl Calcium Level 8.4 mg/dl Assessment and Plan 82 year old female history of HF, admitted after a fall w/ L 5th metatarsal fracture. She has ALANNAH w/ cr bumped from 1.6 to 2.8, urine NA 6 concerning for HRS. US ABD w/ moderate ascites. Perhaps the ascites is secondary to right sided heart disease. Her WARRANT CLERK this AM 3, nephrology following - Pt is requesting transfer - Ascites - Non urgent diagnostic paracentesis to r/o SBP - No more than 3L off given ALANNAH - Continue albumin as prescribed - Will need INR < 2 - Please send ascites fluid protein, albumin, cell count, cytology, culture - ALANNAH/HRS - Hold lasix - WARRANT CLERK 3, baseline 1.6 - Daily BMP - Urine NA 6 - Continue albumin 25% 12.5G BID - Consider Midodrine/Octreotide - Low NA diet, less than 2G - GI to watch peripherally. Please call with any questions or concerns. Attending attestation I have seen, examined this patient, and agree with the findings and above by our mid-level provider RISA Hernandez. - Cr has worsened, Would suggest adding Midodrine 7.5 mg TID. - will discuss with Dr. Andrew
--- NOTE | 2017-07-11 11:54 | Progress Note ---
Medicine Progress Note Date & Time of Visit: July 11, 2017 at 11:40. Subjective seen resting in wheelchair, alert, oriented, comfortable daughter Ariana at bedside, visiting states she feels fine today no dyspnea, chest pain, abdominal pain denies leg pain has some Left foot pain with movement Objective Last 8 Hrs Date Time Temp Pulse Resp B/P (MAP) Pulse Ox O2 Delivery O2 Flow Rate FiO2 07/11/17 08:00 95 Room Air 07/11/17 08:00 36.7 54 18 99/63 (75) 96 Room Air 07/11/17 06:38 36.7 54 18 99/63 (75) 96 Room Air 07/11/17 04:00 97 CPAP Physical Exam: General- oriented x 3, not in distress, speaks in sentences with no effort Eyes- anicteric Neck- no JVD Lungs- clear breath sounds bilaterally, no rales/wheezes Heart- regular rhythm; no murmur, normal rate Abdomen- normal bowel sounds, soft, nontender, mild distention Extremities- grade 2 lower leg edema- about the same as yesterday, no erythema/ warmth/tenderness, (+) dressing in place over blisters Neuro- alert, oriented x 3; no gross focal neurologic deficits Skin- warm & dry Laboratory Results: Last 24 Hours Test 07/11/17 05:11 White Blood Count 5.71 K/uL Red Blood Count 3.58 M/uL Hemoglobin 9.7 g/dL Hematocrit 28.8 % Mean Corpuscular Volume 80.4 fL Mean Corpuscular Hemoglobin 27.1 pg Mean Corpuscular Hemoglobin Concent 33.7 g/dl Platelet Count 214 K/uL Mean Platelet Volume 9.9 fL Neutrophils (%) (Auto) 66.2 % Lymphocytes (%) (Auto) 18.0 % Monocytes (%) (Auto) 13.1 % Eosinophils (%) (Auto) 2.1 % Basophils (%) (Auto) 0.4 % Neutrophils # (Auto) 3.78 K/uL Lymphocytes # (Auto) 1.03 K/uL Monocytes # (Auto) 0.75 K/uL Eosinophils # (Auto) 0.12 K/uL Basophils # (Auto) 0.02 K/uL RDW Standard Deviation 53.4 fL RDW Coefficient of Variation 18.7 % Immature Granulocyte % (Auto) 0.2 % Immature Granulocyte # (Auto) 0.01 K/uL Prothrombin Time 26.3 SECONDS Prothromb Time International Ratio 2.6 Sodium Level 133 mmol/L Potassium Level 3.9 mmol/L Chloride Level 96 mmol/L Carbon Dioxide Level 28 mmol/L Anion Gap 9.0 mmol/L Blood Urea Nitrogen 64 mg/dl Creatinine 3.02 mg/dl Est Creatinine Clear Calc Drug Dose 14.2 ml/min Estimated GFR () 16.0 Estimated GFR (Non- 13.8 BUN/Creatinine Ratio 21.1 Random Glucose 85 mg/dl Calcium Level 8.4 mg/dl Assessment & Plan BILATERAL LOWER LEG EDEMA LIKELY SECONDARY TO: ACUTE ON CHRONIC DIASTOLIC CHF, RIGHT SIDED HEART FAILURE HISTORY OF LIVER CIRRHOSIS Weight gain, bilateral leg swelling/seepage despite compliance with home diuretic Rx Hx cirrhosis secondary to NAFLD, ascites on recent inpatient abdominal ultrasound -- Started Lasix 80mg IV + Albumin q12h on hospital day 1 Creatinine further increased from 2.1 to 2.6 Poor urine output, Still had significant lower leg edema bilaterally -- Lasix held given increased Albumin IV -- crea still increased to 2.8 Albumin increased to q6h -- 07/11: crea further increased to 3.0 intravascularly volumed depleted continue Albumin IV q6h monitor response discussed with Dr. Andrew echo showing right sided heart failure- will consult Cardiology NAFLD CIRRHOSIS repeat US: moderate ascites GI consulted possible hepatorenal syndrome? HOLD off on diagnostic paracentesis per GI ACUTE RENAL FAILURE ON CKD III Serum creatinine 2.01 at time of admission. Nephrology consulted Crea increased from 2.1 to 3.0 management as noted above Paroxysmal atrial fibrillation On Coumadin -- Episodic bradycardia since increase in beta-stacey frequency adjustment from recent confinement -- Metoprolol reduced to 25mg BID from TID Heart rate still in the mid 50s Further reduce metoprolol to 12.5 mg p.o. twice daily Monitor -- INR 2.6 coumadin 2.5 mg po daily INR daily LEFT FOOT METATARSAL FRACTURES s/p Fall, Mechanical Foot Xray 1. Acute left fifth metatarsal fracture 2. Subacute fractures of her second and third metatarsals. -- Ortho consulted non weightbearing x 2 weeks ff up with Ortho --Patient reporting of left hip pain, now resolved x-rays for the hip, femur, knee, tibia-fibula: no fracture HTN stable Reduced the metoprolol dose for low HR Monitor closely Chronic hyponatremia secondary to chronic liver disease. - stable Chronic anemia 2 to CKD -Monitor hemoglobin DVT prophylaxis coumadin DNR. DISPOSITION Management of volume overload in progress Discussed with case management Transition to rehab/[facility] facility when medically stable discussed case at length with patient's relative Dr. Donta Rose on the phone- he agrees with present management also had a long discussion with patient and her daughter today- explained ongoing medical conditions and plan of care they are agreeable and comfortable with plan of care, would like to stay admitted to our hospital Rekha Sterling MD Current Inpatient Medications: Current Inpatient Medications Medications (Trade) Dose Ordered Sig/Yanet Route Start Time Stop Time Status Last Admin Dose Admin Tramadol HCl (Ultram Tab) not relieved by tylenol @ Q6H PRN PO 07/07/17 19:45 08/06/17 19:44 Hydromorphone HCl (Dilaudid Inj) 0.5 mg Q3H PRN IV 07/07/17 19:45 07/21/17 19:44 Miscellaneous (Iv Fluids Completed) 1 ea PRN PRN N/A 07/07/17 22:00 07/07/18 21:59 Amiodarone HCl (Cordarone Tab) 200 mg QAM PO 07/08/17 09:00 08/07/17 08:59 07/10/17 07:44 200 MG Atorvastatin Calcium (Lipitor Tab) 40 mg QAM PO 07/08/17 09:00 08/07/17 08:59 07/11/17 08:18 40 MG Salmeterol Xinafoate/ Fluticasone (Advair Diskus 100/50 Inh) 1 puff BID INH 07/08/17 09:00 08/07/17 08:59 07/11/17 08:17 1 PUFF Fluticasone Propionate (Flonase Nasal [place]) 2 sprays DAILY PRN SKY 07/07/17 22:30 08/06/17 22:29 Pantoprazole Sodium (Protonix Tab) 40 mg DAILY PRN PO 07/07/17 22:30 08/06/17 22:29 Ranitidine HCl (zANTac TAB) 300 mg HS PRN PO 07/07/17 22:30 08/06/17 22:29 07/11/17 02:48 300 MG Albuterol/ Ipratropium (Duoneb) 3 ml Q2H PRN INH 07/08/17 01:00 08/07/17 00:59 Acetaminophen (Tylenol Tab) 325 mg Q4H PRN PO 07/08/17 07:15 08/06/17 19:44 Miconazole Nitrate (Desenex Powder) 1 appln UD PRN EXT 07/08/17 10:15 08/07/17 10:14 Metoprolol Tartrate (Lopressor Tab) 12.5 mg BID PO 07/09/17 21:00 08/07/17 08:59 07/09/17 21:33 12.5 MG Albumin Human (Albumin 25%) 12.5 gm QID IV 07/10/17 13:00 07/12/17 17:14 07/11/17 08:42 12.5 GM Albumin Human (Albumin 25%) 12.5 gm QID@1000,1400,1800,2200 IV 07/10/17 14:00 07/12/17 18:14 07/11/17 09:41 12.5 GM
[2017-07-11] MEDS: WARFARIN SOD 2.5 MG TAB PO SCH (16:00)
--- NOTE | 2017-07-11 16:37 | Cardiology Consultation ---
Cardiology Consultation Date of Consultation: July 11, 2017 History of Present Illness Patient is a 82 year old female seen in cardiology consultation for the evaluation of right-sided heart failure. Patient is well-known to our cardiology service having recently been seen in inpatient consultation by Dr. Smith on 06/30/17. She typically follows with Dr. Alonzo. She has a history of atrial fibrillation and diastolic dysfunction as well as progressive renal insufficiency. The patient had been admitted from 06/29/17 until 07/05/17. The patient was diagnosed with multifactorial volume overload with diastolic heart failure cirrhosis and progressive renal insufficiency. Her discharge diuretic dose was furosemide 160 mg twice per day. Her discharge creatinine on 07/05/17 was 2.15. She presented on 07/07 after only being at the hospital for 2 days after she fell after tripping on her rub at home and developed a metatarsal fracture. She was found to have continued volume overload. Medications this admission included furosemide 80 mg IV plus albumin on 07/09/17 and metolazone. Her creatinine however had worsened to 3 mg/dL and her diuretics are currently on hold. Recent abdominal ultrasound revealed moderate ascites unchanged compared to 06/29/17. An EKG stop and performed this admission, however on telemetry sinus rhythm is present. An echocardiogram was performed yesterday 07/10/17 revealing mild concentric left ventricular hypertrophy normal left ventricular wall motion and normal LVEF with ejection fraction of 55-60%. The right ventricular systolic function was noted to be reduced to a mild to moderate degree. Mild to moderate tricuspid regurgitation was present with mild pulmonary hypertension, pulmonary artery systolic pressure was gotten to be 40 mmHg. Mild perihepatic ascites was noted. Past Medical/Surgical History Problem List: Medical Problems: (1) Anticoagulated on warfarin (2) Asthma (3) Benign hypertension (4) CHF (congestive heart failure) (5) Chronic kidney disease (CKD), stage III (moderate) (6) Cirrhosis of liver (7) Dyslipidemia (8) Foot fracture (9) GERD (gastroesophageal reflux disease) (10) Hiatal hernia (11) CAROLYNN on CPAP (12) Paroxysmal atrial fibrillation (13) s/p elective cardioversion (14) Seasonal allergies (15) Stage 4 chronic kidney disease (16) Volume overload Surgical Problems: (1) H/O: hysterectomy (2) S/P cataract surgery History Past Medical History: 1. Paroxysmal atrial fibrillation 2. Diastolic dysfunction with normal left ventricular systolic function 3. Hypertension 4. Cirrhosis secondary to nonalcoholic steatohepatitis, with portal hypertension 5. Obstructive sleep apnea on CPAP at home 6. Right aortic arch 7. Systemic Past Surgical History: 1. Hysterectomy 2. Upper endoscopy 3. Cataract surgery Social History: Denies alcohol tobacco or recreational drug use. Family History: Noncontributory Review Of Systems A 10 point review of systems is reviewed and is negative with exception of that noted above. Allergies Coded Allergies: Alcohol (Verified Allergy, Mild, RASH, 07/07/17) WIPES OR INGESTED Cephalosporins (Verified Allergy, Mild, RASH, 07/07/17) Codeine (Verified Allergy, Mild, RASH, 07/07/17) Penicillins (Verified Allergy, Mild, RASH, 07/07/17) Aspirin (Verified Allergy, Unknown, RASH, 07/07/17) Levofloxacin (Verified Allergy, Unknown, "BONE PAIN", 07/07/17) Sulfa Antibiotics (Verified Allergy, Unknown, UNKNOWN, 07/07/17) Medications Reported Home Medications Medications Dose Route/Sig Max Daily Dose Days Date Category Dose Instructions Lasix (Furosemide) 80 Mg Tab 160 Mg PO BID 30 07/05/17 Rx Lopressor (Metoprolol Tartrate) 25 Mg Tab 25 Mg PO TID 30 07/05/17 Rx Coumadin (Warfarin Sod) 5 Mg Tab 0.5 Tab PO DAILY 30 07/05/17 Rx Spironolactone 25 Mg Tab 0.5 Tab PO DAILY 06/29/17 Reported Voltaren 1% Top Gel (Diclofenac Sodium (Topical)) 1 % Gel 1 Appln TOP DAILY PRN 06/29/17 Reported Vitamin D 06937 Unit (Ergocalciferol) 50,000 Unit Cap 50,000 Unit PO WK 05/08/17 Reported Fridays Fluticasone Propionate 120 Sprays/6000 Mcg Inha 2 Sprays SKY DAILY PRN 03/18/17 Reported Tramadol HCl 50 Mg Tab 50 Mg PO BID PRN 03/18/17 Reported Lipitor (Atorvastatin Calcium) 40 Mg Tab 40 Mg PO QAM 02/20/17 Reported Acetaminophen 500 Mg Tab 1,000 Mg PO Q8 PRN 02/20/17 Reported Proair Respiclick (Albuterol Sulfate) 108 Mcg/Act Aer 2 Puffs INH Q4H PRN 10/01/16 Reported Advair Diskus 100/50 60 Dose (Fluticasone Prop/Salmeterol) 1 Ea Aerp 1 Puff INH BID 09/30/16 Reported Amiodarone HCl 200 Mg Tab 200 Mg PO QAM 08/10/15 Reported Prilosec (Omeprazole) 20 Mg Cap 20 Mg PO DAILY PRN 12/28/14 Reported Zantac (Ranitidine HCl) 300 Mg Tab 300 Mg PO HS PRN 07/30/14 Reported Physical Exam Vital Signs (Last 8hrs): Last 8 Hrs Date Time Temp Pulse Resp B/P (MAP) Pulse Ox O2 Delivery O2 Flow Rate FiO2 07/11/17 16:00 94 Room Air 07/11/17 15:24 36.5 58 18 106/59 (75) 94 Room Air 07/11/17 12:00 94 Room Air 07/11/17 11:30 104 95 07/11/17 11:08 36.3 104 20 109/62 (78) 95 Room Air General Appearance: Chronically ill in appearance Head: Normocephalic Atraumatic. Eyes: PERRLA, EOMI, conjunctiva and sclera clear Neck: Supple. No carotid bruits noted. No JVD. No HJD. Respiratory: Breath sounds decreased at bases Cardiovascular: Distant heart sounds, regular rhythm Abdomen: Distended consistent with ascites Extremities: 2+ bilateral lower extremity edema Neuro: No focal deficits. Psychiatric: Normal affect. Data Last 24 Hours Test 07/11/17 05:11 White Blood Count 5.71 K/uL Red Blood Count 3.58 M/uL Hemoglobin 9.7 g/dL Hematocrit 28.8 % Mean Corpuscular Volume 80.4 fL Mean Corpuscular Hemoglobin 27.1 pg Mean Corpuscular Hemoglobin Concent 33.7 g/dl Platelet Count 214 K/uL Mean Platelet Volume 9.9 fL Neutrophils (%) (Auto) 66.2 % Lymphocytes (%) (Auto) 18.0 % Monocytes (%) (Auto) 13.1 % Eosinophils (%) (Auto) 2.1 % Basophils (%) (Auto) 0.4 % Neutrophils # (Auto) 3.78 K/uL Lymphocytes # (Auto) 1.03 K/uL Monocytes # (Auto) 0.75 K/uL Eosinophils # (Auto) 0.12 K/uL Basophils # (Auto) 0.02 K/uL RDW Standard Deviation 53.4 fL RDW Coefficient of Variation 18.7 % Immature Granulocyte % (Auto) 0.2 % Immature Granulocyte # (Auto) 0.01 K/uL Prothrombin Time 26.3 SECONDS Prothromb Time International Ratio 2.6 Sodium Level 133 mmol/L Potassium Level 3.9 mmol/L Chloride Level 96 mmol/L Carbon Dioxide Level 28 mmol/L Anion Gap 9.0 mmol/L Blood Urea Nitrogen 64 mg/dl Creatinine 3.02 mg/dl Est Creatinine Clear Calc Drug Dose 14.2 ml/min Estimated GFR () 16.0 Estimated GFR (Non- 13.8 BUN/Creatinine Ratio 21.1 Random Glucose 85 mg/dl Calcium Level 8.4 mg/dl Echocardiogram as noted Assessment & Plan Impression: 82-year-old female 1. Multifactorial volume overload with left-sided diastolic dysfunction, right ventricular systolic dysfunction, cirrhosis, and progressive renal dysfunction. Plan: It appears the patient received aggressive diuretics along with albumin administration this hospital stay and her creatinine has worsened. Agree with proceeding with paracentesis if felt to be clinically indicated by GI. Patient remains on anticoagulation with warfarin.
[2017-07-11] MEDS: MIDODRINE 2.5 MG TAB PO SCH (16:42)
[2017-07-12] VITALS (11 sets, daily range): BP systolic 98–135; BP diastolic 60–75; PULSE 52–61; TEMP 36.3–37; O2SAT 90–97
[2017-07-12 06:47] LABS: CALCIUM 8.8 mg/dl (8.5-10.1); CREATININE 3.1 mg/dl (0.60-1.20)
[2017-07-12 07:03] LABS: POTASSIUM 4.5 mmol/L (3.5-5.1)
[2017-07-12] MEDS: ATORVASTATIN 40 MG TAB PO SCH (08:11)
[2017-07-12] MEDS: AMIODARONE 200 MG TAB PO SCH (08:11)
[2017-07-12] MEDS: METOPROLOL TARTRATE 25 MG TAB PO SCH ×2 (08:11→19:45)
[2017-07-12] MEDS: FLUTICASONE/SALMETEROL 100/50 (ADVAIR) 14 PUFF/1 INHALER INH SCH ×2 (08:12→19:44)
[2017-07-12] MEDS: MIDODRINE 2.5 MG TAB PO SCH ×3 (08:12→16:38)
[2017-07-12] MEDS: ALBUMIN HUMAN 25% 12.5 GM/50 ML VIAL IV SCH ×6 (08:13→17:50)
--- NOTE | 2017-07-12 12:14 | Progress Note ---
Progress Note Date of Service July 12, 2017. (Vi Parker ., RISA) Progress Note Pt was seen and evaluated. No acute changes. No complaints other than foot pain. Midodrine was added to albumin. 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 Making urine. Denies abd pain, nausea, vomiting, black/bloody stools. No fever, chills, CP, SOB. No acute distress Abd soft w/o tenderness Bilateral lower extremity edema w/ boot on left left lower extremity 82 year old female history of HF, admitted after a fall w/ L 5th metatarsal fracture. She has ALANNAH w/ cr bumped from 1.6 to 2.8, urine NA 6 concerning for HRS. US ABD w/ moderate ascites. Perhaps the ascites is secondary to right sided heart disease. Repeat FIBER OPTIC TECHNICIAN this AM 3.1, w/ urine NA 8. GI added midodrine last evening, nephrology following. - Ascites - Non urgent diagnostic paracentesis to r/o SBP - No more than 3L off given ALANNAH - Continue albumin as prescribed - Will need INR < 2 - Please send ascites fluid protein, albumin, cell count, cytology, culture - ALANNAH/HRS - Hold lasix - FIBER OPTIC TECHNICIAN 3.1, baseline 1.6 - Daily BMP - Urine NA 6, 8 - Continue albumin 25% 12.5G BID - Consider Midodrine 5 TID - Consider octreotide - Low NA diet, less than 2G GI to watch peripherally. Please call with any acute changes, questions or concerns. (Vi Parker ., RISA) Attending attestation I have seen, examined this patient, and agree with the findings and above by our mid-level provider Ariela Hernandez. -Cr a bit worse today, still with peripheral edema -Nephrology is unsure of HRS, will defer further management to Nephrology -GI will sign off (Ari Albrecht MD)
--- NOTE | 2017-07-12 12:25 | Cardiology Follow-Up ---
Subjective General Date of Service: July 12, 2017. Chief Complaint: follow up edema Pt evaluation today including: conversation w/ patient, physical exam History of Present Illness The patient is a 82 year old female seen in follow up. Patient stood in room with assistance of PT. Allergies Coded Allergies: Alcohol (Verified Allergy, Mild, RASH, 07/07/17) WIPES OR INGESTED Cephalosporins (Verified Allergy, Mild, RASH, 07/07/17) Codeine (Verified Allergy, Mild, RASH, 07/07/17) Penicillins (Verified Allergy, Mild, RASH, 07/07/17) Aspirin (Verified Allergy, Unknown, RASH, 07/07/17) Levofloxacin (Verified Allergy, Unknown, "BONE PAIN", 07/07/17) Sulfa Antibiotics (Verified Allergy, Unknown, UNKNOWN, 07/07/17) Social History Smoking Status: Never Smoker Hx Tobacco Use In Past Year?: No Hx Alcohol Use - Type And Amou: No Hx Substance Use - Type And Am: No Problem List Medical Problems: (1) Acute electrocardiogram changes Status: Acute (2) Ambulatory dysfunction Status: Acute (3) CHF exacerbation Status: Acute (4) Closed fibular fracture Status: Acute (5) Closed fracture of neck of fibula Status: Acute (6) Fever Status: Acute (7) Hemoptysis Status: Acute (8) Knee effusion, left Status: Acute (9) Knee hemarthrosis, left Status: Acute (10) Left fibular fracture Status: Acute (11) Left knee pain Status: Acute (12) Right hip pain Status: Acute (13) SIRS (systemic inflammatory response syndrome) Status: Acute (14) Supratherapeutic INR Status: Acute (15) UTI (urinary tract infection) Status: Acute Physical Exam Vital Signs Last Vital Signs Documentation Date Time Temp Pulse Resp B/P (MAP) Pulse Ox O2 Delivery O2 Flow Rate FiO2 07/12/17 10:50 36.3 55 20 111/67 (82) 97 Room Air 07/10/17 16:00 1.5 Physical Exam Constitutional: Level of Distress: NAD, chronically ill Neck: supple Lungs: Auscultation: no wheezing, no rales/crackles, no rhonchi Cardiovascular: Heart Auscultation: RRR, pertinent finding (1/6 sm) Abdomen: Inspection & Palpation: pertinent finding (+ findings consistent with ascites) Extremities: pertinent finding (1-2+ LE edema) Assessment and Plan Assessment and Plan Impression: 82-year-old female 1. Multifactorial volume overload with left-sided diastolic dysfunction, right ventricular systolic dysfunction, cirrhosis, and progressive renal dysfunction. Plan: Continue albumin. Holding diuretics. Laboratory Results Last 24 Hours Test 07/12/17 05:22 07/12/17 11:20 Prothrombin Time 20.5 SECONDS Prothromb Time International Ratio 2.0 Sodium Level 132 mmol/L Potassium Level 4.5 mmol/L Chloride Level 96 mmol/L Carbon Dioxide Level 27 mmol/L Anion Gap 9.0 mmol/L Blood Urea Nitrogen 70 mg/dl Creatinine 3.10 mg/dl Est Creatinine Clear Calc Drug Dose 14.0 ml/min Estimated GFR () 15.5 Estimated GFR (Non- 13.3 BUN/Creatinine Ratio 22.6 Random Glucose 78 mg/dl Calcium Level 8.8 mg/dl Urine Random Sodium 8 mEq/L
[2017-07-12] MEDS ORDERED: OCTREOTIDE ACETATE 100 MCG/ML VIAL SQ SCH (16:00)
--- NOTE | 2017-07-12 16:01 | Nephrology Progress Note ---
Nephrology Progress Note Date of Service: July 12, 2017. Subjective 82 yo female with ckd, right sided heart failure, cirrhosis with worsening kidney function in the setting of diuresis. continues to have significant edema in legs. family in the room. pts creatinine trending up. urine sodium continues to be low. Objective Date Time Temp Pulse Resp B/P (MAP) Pulse Ox O2 Delivery O2 Flow Rate FiO2 07/12/17 15:00 36.4 57 22 115/64 (81) 90 Room Air 07/12/17 12:00 95 Room Air 07/12/17 10:50 36.3 55 20 111/67 (82) 97 Room Air 07/12/17 08:00 95 Room Air 07/12/17 05:53 36.4 52 13 98/63 (75) 95 Room Air 07/12/17 04:00 94 Room Air 07/12/17 03:44 36.5 58 17 99/60 (73) 94 Room Air 07/12/17 00:01 94 CPAP 07/11/17 23:21 36.4 62 18 109/64 (79) 95 Room Air 07/11/17 20:00 92 Room Air 07/11/17 18:54 36.8 58 18 117/69 (85) 92 Room Air 07/11/17 16:00 94 Room Air Physical Exam: General-aaox3, obese Eyes-no scleral icterus ENT-mmm Neck-supple Lungs-clear Heart-bradycardia Abdomen-bs+, pannus Extremities-+2 edema Neuro-nonfocal Current Inpatient Medications Medications (Trade) Dose Ordered Sig/Yanet Route Start Time Stop Time Status Last Admin Dose Admin Tramadol HCl (Ultram Tab) not relieved by tylenol @ Q6H PRN PO 07/07/17 19:45 08/06/17 19:44 Hydromorphone HCl (Dilaudid Inj) 0.5 mg Q3H PRN IV 07/07/17 19:45 07/21/17 19:44 Miscellaneous (Iv Fluids Completed) 1 ea PRN PRN N/A 07/07/17 22:00 07/07/18 21:59 Amiodarone HCl (Cordarone Tab) 200 mg QAM PO 07/08/17 09:00 08/07/17 08:59 07/10/17 07:44 200 MG Atorvastatin Calcium (Lipitor Tab) 40 mg QAM PO 07/08/17 09:00 08/07/17 08:59 07/12/17 08:11 40 MG Salmeterol Xinafoate/ Fluticasone (Advair Diskus 100/50 Inh) 1 puff BID INH 07/08/17 09:00 08/07/17 08:59 07/12/17 08:12 1 PUFF Fluticasone Propionate (Flonase Nasal Joanna) 2 sprays DAILY PRN SKY 07/07/17 22:30 08/06/17 22:29 Pantoprazole Sodium (Protonix Tab) 40 mg DAILY PRN PO 07/07/17 22:30 08/06/17 22:29 Ranitidine HCl (zANTac TAB) 300 mg HS PRN PO 07/07/17 22:30 08/06/17 22:29 07/11/17 02:48 300 MG Albuterol/ Ipratropium (Duoneb) 3 ml Q2H PRN INH 07/08/17 01:00 08/07/17 00:59 Acetaminophen (Tylenol Tab) 325 mg Q4H PRN PO 07/08/17 07:15 08/06/17 19:44 Miconazole Nitrate (Desenex Powder) 1 appln UD PRN EXT 07/08/17 10:15 08/07/17 10:14 Metoprolol Tartrate (Lopressor Tab) 12.5 mg BID PO 07/09/17 21:00 08/07/17 08:59 07/09/17 21:33 12.5 MG Albumin Human (Albumin 25%) 12.5 gm QID IV 07/10/17 13:00 07/12/17 17:14 07/12/17 13:07 12.5 GM Albumin Human (Albumin 25%) 12.5 gm QID@1000,1400,1800,2200 IV 07/10/17 14:00 07/12/17 18:14 07/12/17 14:24 12.5 GM Warfarin Sodium (Coumadin Tab) 2.5 mg DAILY@16 PO 07/11/17 16:00 08/10/17 15:59 Midodrine (Proamatine Tab) 5 mg TID@08,12,17 PO 07/11/17 17:00 08/10/17 16:59 07/12/17 11:30 5 MG Last 24 Hours Test 07/12/17 05:22 07/12/17 11:20 Prothrombin Time 20.5 SECONDS Prothromb Time International Ratio 2.0 Sodium Level 132 mmol/L Potassium Level 4.5 mmol/L Chloride Level 96 mmol/L Carbon Dioxide Level 27 mmol/L Anion Gap 9.0 mmol/L Blood Urea Nitrogen 70 mg/dl Creatinine 3.10 mg/dl Est Creatinine Clear Calc Drug Dose 14.0 ml/min Estimated GFR () 15.5 Estimated GFR (Non- 13.3 BUN/Creatinine Ratio 22.6 Random Glucose 78 mg/dl Calcium Level 8.8 mg/dl Urine Random Sodium 8 mEq/L Assessment & Plan YAS-cjmrhpfa-wip urine sodium in the setting of cirrhosis despite aggressive albumin resuscitation. may have element of hepatorenal syndrome. will give octreotide. already on midodrine. pt does want dialysis if needed.
[2017-07-12] MEDS: WARFARIN SOD 2.5 MG TAB PO SCH (16:38)
--- NOTE | 2017-07-12 17:36 | Progress Note ---
Internal Med Progress Note Date of Service: July 12, 2017. Provider Documentation: SUBJECTIVE: sitting on the chair complains of pain in left foot afebrile no chest pain or sob still legs are swollen family and patient wants the patient to be transferred to [facility] OBJECTIVE: Vital Signs-as noted below Exam: General-alert and awake and oriented. Not in distress ENT-normal hearing Neck-supple Lungs-cta b/l no wheezing or crackles Heart-s1 and s2 heard regular rate and rhythm,no Murmur Abdomen-soft bowel sounds present non tender no distension Extremities-b/l lower extremity edema present left foot in dressing Neuro-alert and awake moves extremities Lab data as noted below. ASSESSMENT & PLAN: BILATERAL LOWER LEG EDEMA LIKELY SECONDARY TO: ACUTE ON CHRONIC DIASTOLIC CHF, RIGHT SIDED HEART FAILURE HISTORY OF LIVER CIRRHOSIS, ALANNAH on CKD stage 4 Weight gain, bilateral leg swelling/seepage despite compliance with home diuretic Rx Hx cirrhosis secondary to NAFLD, ascites on recent inpatient abdominal ultrasound Was initially Started Lasix 80mg IV + Albumin q12h on hospital day 1 Creatinine further increased from 2.1 to 2.6 Poor urine output, Still had significant lower leg edema bilaterally Lasix held given increased Albumin IV crea still increased to 2.8 Albumin increased to q6h 07/11: crea further increased to 3.0 intravascularly volumed depleted continued Albumin IV q6h echo showing right sided heart failure- will consulted Cardiology 07/12 cr 3.1 today started on midodrine and octreotide for hepato renal syndrome as per GI and Nephrology recommendation family concerned about worsening patient status and wanted to Transfer to [facility] NAFLD CIRRHOSIS repeat US: moderate ascites GI consulted possible hepatorenal syndrome? plan for paracentesis? when INR below 2.0 ACUTE RENAL FAILURE ON CKD III-IV Serum creatinine 2.01 at time of admission. Nephrology consulted Crea increased from 2.1 to 3.1 management as noted above Transferring To [facility] Paroxysmal atrial fibrillation On Coumadin Episodic bradycardia since increase in beta-stacey frequency adjustment from recent confinement Metoprolol reduced to 25mg BID from TID Heart ratewas still in the mid 50s Further reduce metoprolol to 12.5 mg p.o. twice daily Monitor Coumadin on hold for planned paracentesis INR 2.0 today LEFT FOOT METATARSAL FRACTURES s/p Fall, Mechanical Foot Xray 1. Acute left fifth metatarsal fracture 2. Subacute fractures of her second and third metatarsals. -- Ortho consulted non weightbearing x 2 weeks ff up with Ortho HTN stable Reduced the metoprolol dose for low HR Monitor closely Chronic hyponatremia secondary to chronic liver disease. stable na 132 today Chronic anemia 2 to CKD hb 9.7 today DVT prophylaxis coumadin DNR. DISPOSITION Transferring To [facility] Vital Signs: Date Time Temp Pulse Resp B/P (MAP) Pulse Ox O2 Delivery O2 Flow Rate FiO2 07/12/17 16:00 95 Room Air 07/12/17 15:00 36.4 57 22 115/64 (81) 90 Room Air 07/12/17 12:00 95 Room Air 07/12/17 10:50 36.3 55 20 111/67 (82) 97 Room Air 07/12/17 08:00 95 Room Air 07/12/17 05:53 36.4 52 13 98/63 (75) 95 Room Air 07/12/17 04:00 94 Room Air 07/12/17 03:44 36.5 58 17 99/60 (73) 94 Room Air 07/12/17 00:01 94 CPAP 07/11/17 23:21 36.4 62 18 109/64 (79) 95 Room Air 07/11/17 20:00 92 Room Air 07/11/17 18:54 36.8 58 18 117/69 (85) 92 Room Air Lab Results: Results Past 24 Hours Test 07/12/17 05:22 07/12/17 11:20 Range/Units Prothrombin Time 20.5 9.0-12.0 SECONDS Prothromb Time International Ratio 2.0 0.9-1.1 Sodium Level 132 136-145 mmol/L Potassium Level 4.5 3.5-5.1 mmol/L Chloride Level 96 98-107 mmol/L Carbon Dioxide Level 27 21-32 mmol/L Anion Gap 9.0 3-11 mmol/L Blood Urea Nitrogen 70 7-18 mg/dl Creatinine 3.10 0.60-1.20 mg/dl Est Creatinine Clear Calc Drug Dose 14.0 ml/min Estimated GFR () 15.5 Estimated GFR (Non- 13.3 BUN/Creatinine Ratio 22.6 10-20 Random Glucose 78 70-99 mg/dl Calcium Level 8.8 8.5-10.1 mg/dl Urine Random Sodium 8 mEq/L
[2017-07-12] MEDS ORDERED: ULT50X PO (17:38)
[2017-07-12] MEDS ORDERED: PRMT25 PO (17:38)
[2017-07-12] MEDS ORDERED: [UNRECOGNIZED DRUG - CODE] IV (17:38)
[2017-07-12] MEDS ORDERED: LPR25 PO (17:38)
[2017-07-12] MEDS ORDERED: SNDI SQ (17:38)
--- NOTE | 2017-07-12 17:40 | Discharge Instructions ---
Discharge Instructions Date of Service July 12, 2017. Admission Reason for Admission: Foot Fracture Discharge Discharge Diagnosis / Problem: foot fracture. hepato renal syndrome Discharge Goals Goal(s): Decrease discomfort Activity Recommendations Activity Level: Assistance Required . Additional Information Patient informed of condition: Yes Advance Directives: Yes DNR: Yes Level of Care: Other (transfering to [place]) Communicable Disease: No Prognosis: Stable Reid Catheter: Yes Instructions / Follow-Up Instructions / Follow-Up FOLLOWUP PER [facility] RECOMMENDATIONS Current Hospital Diet Patient's current hospital diet: AHA Diet (Heart Healthy), Low Sodium Diet (2gm Na) Discharge Diet Recommended Diet: AHA Diet (Heart Healthy), Low Sodium Diet (2gm Na), Renal Diet Pending Studies Studies pending at discharge: no Physician Orders On Transfer Special Precautions: FALL AND ASPIRATION PRECAUTIONS IV Therapy: IV ALBUMIN Vital Signs: EVERY 8HRS Additional Orders: PLEASE CHECK MEDICATION RECONCILIATION FOR ACCURATE MEDICATION LIST Medical Emergencies . Who to Call and When: Medical Emergencies: If at any time you feel your situation is an emergency, please call 911 immediately. . Non-Emergent Contact Non-Emergency issues call your: Primary Care Provider . . "Provider Documentation" section prepared by Leo Mcallister. . [employer] Crewmember Recommendations [employer] Crewmember Recommendations: NWB Left lower extremity Boot on left ankle when out of bed, okay to remove when out of bed. Allowed for ankle and toe range of motion. Ice and elevation left leg as needed for pain/swelling. Follow up with Dr. Flores on 07/24/17 at 8:45 a.m. Please call [phone] with any questions or concerns or need to reschedule appointment. Core Measure Problem Core Measures: None
--- NOTE | 2017-07-12 17:51 | Discharge Summary ---
Discharge Summary Date of Service July 12, 2017. Discharge Summary Admission Date: July 07, 2017 at 22:28 Discharge Date: July 12, 2017 Discharge Disposition: Acute care facility ([facility]) Principal Diagnosis: HEPATO RENAL SYNDROME LEFT FIFTH METATARSAL FRACTURE Secondary Diagnoses/Problems: for chronic diastolic heart failure, EF of 55-59%, cirrhosis secondary to nonalcoholic fatty liver disease, chronic hyponatremia, PAFib on Coumadin, chronic anemia (baseline hemoglobin of 11), CRI (baseline creatinine of 1.7-1.9 as per outpatient Procedures: CT HEAD: No significant change compared to the prior study. No definite acute intracranial abnormality. Motion artifact. LEFT FOOT XRAY: 1. An acute nondisplaced fracture at the base of the fifth metatarsal. 2. Healing fractures at the second and third metatarsals. 3. Sclerosis within the posterior calcaneus which may represent an additional healing/healed fracture. CHEST XRAY: 1. Cardiomegaly and hiatal hernia 2. Superior mediastinal widening. 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 3. Small bilateral pleural effusions. Stable mild interstitial thickening/edema LEFT HIP/FEMUR/KNEE/TIBIA/FIBULA XRAY: 1. No acute fracture or dislocation within the left hip, left femur, left knee, left lower leg, or left ankle. 2. Left fifth metatarsal fracture is better appreciated on the recent left foot radiograph. 3. Diffuse soft tissue edema throughout the left lower extremity. ABDOMEN US: Moderate ascites, unchanged. ECHO: There is mild concentric left ventricular hypertrophy. * The left ventricular wall motion is normal. * Ejection Fraction = 55-60%. * The right ventricle is moderately dilated. * The right ventricular systolic function is mild to moderately reduced. * The left atrium is severely dilated. * The right atrium is moderately dilated. * There is mild mitral regurgitation. * There is mild to moderate tricuspid regurgitation. * Mild pulmonary hypertension is present. * The PA systolic pressure is calculated to be 40 mm Hg. * Perihepatic ascites is noted. Consultations: NEPHROLOGY GI CARDIOLOGY Medication Reconciliation New Medications: Albumin, Human (Albumin Human) 25 % Inj 12.5 GM IV QID@1000,1400,1800,2200 for 5 Days Metoprolol Tartrate (Lopressor) 25 Mg Tab 12.5 MG PO BID, #30 TAB Midodrine (Midodrine HCl) 2.5 Mg Tab 5 MG PO TID@08,12,17, #30 TAB Octreotide Acetate (Octreotide Acetate) 100 Mcg/Ml Inj 100 MCG SQ Q8H for 5 Days Tramadol HCl (Tramadol HCl) 50 Mg Tab 25-50 MG PO Q6H PRN for Pain, #30 TAB Continued Medications: Albuterol Sulfate (Proair Respiclick) 108 Mcg/Act Aer 2 PUFFS INH Q4H PRN for SOB/Wheezing Amiodarone HCl (Amiodarone HCl) 200 Mg Tab 200 MG PO QAM Atorvastatin (Lipitor) 40 Mg Tab 40 MG PO QAM Ergocalciferol (Vitamin D 36142 Unit) 50,000 Unit Cap 38838 UNIT PO WK Fridays Fluticasone Prop/Salmeterol (Advair Diskus 100/50 60 Dose) 1 Ea Aerp 1 PUFF INH BID Fluticasone Propionate (Fluticasone Propionate) 120 Sprays/6000 Mcg Inha 2 SPRAYS SKY DAILY PRN for Allergy Symptoms Omeprazole (Prilosec) 20 Mg Cap 20 MG PO DAILY PRN for Acid Reflux, CAP Ranitidine (Zantac) 300 Mg Tab 300 MG PO HS PRN for Heart Burn/Acid Reflux, TAB Discontinued Medications: Acetaminophen (Acetaminophen) 500 Mg Tab 1000 MG PO Q8 PRN for Pain or Fever, TAB Diclofenac Sodium (Topical) (Voltaren 1% Top Gel) 1 % Gel 1 APPLN TOP DAILY PRN for n Furosemide (Lasix) 80 Mg Tab 160 MG PO BID for 30 Days, #120 TAB 2 Refills Metoprolol Tartrate (Lopressor) 25 Mg Tab 25 MG PO TID for 30 Days, #90 TAB 2 Refills Spironolactone (Spironolactone) 25 Mg Tab 0.5 TAB PO DAILY Tramadol HCl (Tramadol HCl) 50 Mg Tab 50 MG PO BID PRN for Pain Warfarin Sod (Coumadin) 5 Mg Tab 0.5 TAB PO DAILY for 30 Days Admission Information HPI (per Admitting provider): History obtained from patient, family, and records. Medical history significant for chronic diastolic heart failure, EF of 55-59%, cirrhosis secondary to nonalcoholic fatty liver disease, chronic hyponatremia, PAFib on Coumadin, chronic anemia (baseline hemoglobin of 11), CRI (baseline creatinine of 1.7-1.9 as per outpatient Nephrology records). Recent confinement 06/29/2017 to 07/05/2017, for mild volume overload, decompensated heart failure. Patient sent home on Lasix medication and increased metoprolol dosing for sinus tachycardia during confinement. At home, legs more swollen, fluid seeping as per family. Patient denies chest pain or shortness of breath. Unsure about weight gain. Patient was seen at the ER this morning after tripping over the bathroom rug causing patient to fall, Patient noted achy left foot pain. No head trauma. No syncope. Family worried about patient going home. Physical Exam (per Admitting): VITAL SIGNS: Blood pressure was noted to be 110/74, pulse rate 62, RR 18, temperature 37, sats 94 on room air. GENERAL: Obese, slightly uncomfortable, no overt respiratory distress, although occasionally has to stop talking to catch her breath. SKIN: Pallor, warm. HEENT: Pale palpebral conjunctivae. No ptosis. Dry mucosa. NECK: Short, supple. CHEST: Decreased effort. No tenderness. HEART: Regular rate and rhythm, no murmur. ABDOMEN: Some distention, fluid wave. EXTREMITIES: Bilateral LE edema. No LE tenderness, no other gross deformities. NEUROLOGIC: Coherent. No facial asymmetry, no gross focality. Hospital Course BILATERAL LOWER LEG EDEMA LIKELY SECONDARY TO: ACUTE ON CHRONIC DIASTOLIC CHF, RIGHT SIDED HEART FAILURE HISTORY OF LIVER CIRRHOSIS, ALANNAH on CKD stage 4 Weight gain, bilateral leg swelling/seepage despite compliance with home diuretic Rx Hx cirrhosis secondary to NAFLD, ascites on recent inpatient abdominal ultrasound Was initially Started Lasix 80mg IV + Albumin q12h on hospital day 1 Creatinine further increased from 2.1 to 2.6 Poor urine output, Still had significant lower leg edema bilaterally Lasix held given increased Albumin IV crea still increased to 2.8 Albumin increased to q6h 07/11: crea further increased to 3.0 intravascularly volumed depleted continued Albumin IV q6h echo showing right sided heart failure- will consulted Cardiology 07/12 cr 3.1 today started on midodrine and octreotide for hepato renal syndrome as per GI and Nephrology recommendation family concerned about worsening patient status and wanted to Transfer to [facility] NAFLD CIRRHOSIS repeat US: moderate ascites GI consulted possible hepatorenal syndrome? plan for paracentesis? when INR below 2.0 ACUTE RENAL FAILURE ON CKD III-IV Serum creatinine 2.01 at time of admission. Nephrology consulted Crea increased from 2.1 to 3.1 management as noted above Transferring To [facility] Paroxysmal atrial fibrillation On Coumadin Episodic bradycardia since increase in beta-stacey frequency adjustment from recent confinement Metoprolol reduced to 25mg BID from TID Heart ratewas still in the mid 50s Further reduce metoprolol to 12.5 mg p.o. twice daily Monitor Coumadin on hold for planned paracentesis INR 2.0 today LEFT FOOT METATARSAL FRACTURES s/p Fall, Mechanical Foot Xray 1. Acute left fifth metatarsal fracture 2. Subacute fractures of her second and third metatarsals. -- Ortho consulted non weightbearing x 2 weeks ff up with Ortho HTN stable Reduced the metoprolol dose for low HR Monitor closely Chronic hyponatremia secondary to chronic liver disease. stable na 132 today Chronic anemia 2 to CKD hb 9.7 today DVT prophylaxis coumadin DNR. DISPOSITION Transferring To [facility] Total time spent on discharge = 50MINUTES This includes examination of the patient, discharge planning, medication reconciliation, and communication with other providers. Discharge Instructions Discharge Instructions Date of Service July 12, 2017. Admission Reason for Admission: Foot Fracture Discharge Discharge Diagnosis / Problem: foot fracture. hepato renal syndrome Discharge Goals Goal(s): Decrease discomfort Activity Recommendations Activity Level: Assistance Required . Additional Information Patient informed of condition: Yes Advance Directives: Yes DNR: Yes Level of Care: Other (transfering to [place]) Communicable Disease: No Prognosis: Stable Reid Catheter: Yes Instructions / Follow-Up Instructions / Follow-Up FOLLOWUP PER [facility] RECOMMENDATIONS Current Hospital Diet Patient's current hospital diet: AHA Diet (Heart Healthy), Low Sodium Diet (2gm Na) Discharge Diet Recommended Diet: AHA Diet (Heart Healthy), Low Sodium Diet (2gm Na), Renal Diet Pending Studies Studies pending at discharge: no Physician Orders On Transfer Special Precautions: FALL AND ASPIRATION PRECAUTIONS IV Therapy: IV ALBUMIN Vital Signs: EVERY 8HRS Additional Orders: PLEASE CHECK MEDICATION RECONCILIATION FOR ACCURATE MEDICATION LIST Medical Emergencies . Who to Call and When: Medical Emergencies: If at any time you feel your situation is an emergency, please call 911 immediately. . Non-Emergent Contact Non-Emergency issues call your: Primary Care Provider . . "Provider Documentation" section prepared by Leo Mcallister. . Pit Furnace Operator Recommendations Pit Furnace Operator Recommendations: NWB Left lower extremity Boot on left ankle when out of bed, okay to remove when out of bed. Allowed for ankle and toe range of motion. Ice and elevation left leg as needed for pain/swelling. Follow up with Dr. Flores on 07/24/17 at 8:45 a.m. Please call [phone] with any questions or concerns or need to reschedule appointment. Core Measure Problem Core Measures: None
== END 2017-07-12 21:00 | disposition short-term general hospital (02) | DRG 441 ==
LOC: EDBD 11:18 → C.EDB 11:19 → C.MSN 20:52 → ENRESERV 21:26 → OBSVTOIN 22:28 → ENRESERV 07-08 12:21 → C.2E 07-08 13:45
PROVIDERS: ADMIT Internal Medicine; ATTEND Internal Medicine
DX: K76.7 Hepatorenal syndrome (principal); I50.33 Acute on chronic diastolic (congestive) heart failure; N18.4 Chronic kidney disease, stage 4 (severe); S92.352A Displaced fracture of fifth metatarsal bone, left foot, initial encounter for closed fracture; E87.1 Hypo-osmolality and hyponatremia; R18.8 Other ascites; N17.9 Acute kidney failure, unspecified; I13.0 Hypertensive heart and chronic kidney disease with heart failure and stage 1 through stage 4 chronic kidney disease, or unspecified chronic kidney disease; K76.0 Fatty (change of) liver, not elsewhere classified; Z88.6 Allergy status to analgesic agent; Z88.5 Allergy status to narcotic agent; Z88.1 Allergy status to other antibiotic agents; K74.69 Other cirrhosis of liver; I48.0 Paroxysmal atrial fibrillation; D63.1 Anemia in chronic kidney disease; W18.09XA Striking against other object with subsequent fall, initial encounter; Y92.012 Bathroom of single-family (private) house as the place of occurrence of the external cause; Z79.01 Long term (current) use of anticoagulants; I50.810 Right heart failure, unspecified; S92.322A Displaced fracture of second metatarsal bone, left foot, initial encounter for closed fracture; S92.332A Displaced fracture of third metatarsal bone, left foot, initial encounter for closed fracture; G47.33 Obstructive sleep apnea (adult) (pediatric); Z88.0 Allergy status to penicillin; Z88.2 Allergy status to sulfonamides; Z88.8 Allergy status to other drugs, medicaments and biological substances